=== PATIENT | female | born 1930 | race Hispanic/Latino ===

== ENCOUNTER 2017-03-20 12:06 | Emergency (ER) | payer MEDICARE ==
[2017-03-20 12:06] VITALS: BMI 38.7
[2017-03-20 12:21] VITALS: BP 149/70; PULSE 71; RESP 16; TEMP 99; O2SAT 87
[2017-03-20] MEDS ORDERED: Iohexol 240 (50 ml) PO ONE (12:36)
[2017-03-20] MEDS ORDERED: Albuterol-Ipratrop 3 mg / 0.5 (3 ml) UD INH STA (12:36)
[2017-03-20] MEDS ORDERED: Albuterol-Ipratrop 3 mg / 0.5 (3 ml) UD ONE (13:10)
[2017-03-20 13:13] LABS: VENOUS BLOOD GAS BASE EXCESS 7.4 mmol/L (0.0-2.0); VENOUS BLOOD GAS PCO2 68 mmHg (40-60); VENOUS BLOOD PH 7.33 (7.32-7.43)
[2017-03-20 13:23] LABS: BASO % 0.4 % (0.0-2.0); EOS # 0.3 K/uL (0.0-0.7); EOS % 3.5 % (0.0-4.0); LYMPH # 0.9 K/uL (1.0-4.3); LYMPH % 11.6 % (20.0-40.0); MEAN CELL VOLUME 87.5 fl (81.0-99.0); MEAN CORPUSCULAR HEMOGLOBIN 27.3 pg (27.0-31.0); MEAN CORPUSCULAR HGB CONC 31.2 g/dL (33.0-37.0); MEAN PLATELET VOLUME 7.9 fl (7.2-11.7); MONO # 0.6 K/uL (0.0-0.8); MONO % 8.4 % (0.0-10.0); NEUT # 5.8 K/uL (1.8-7.0); NEUT % 76.1 % (50.0-75.0); RED CELL DISTRIBUTION WIDTH 15.5 % (11.5-14.5); WHITE BLOOD COUNT 7.6 K/uL (4.8-10.8)
--- NOTE | 2017-03-20 13:49 | ED PDOC ---
HPI: Abdomen Time Seen by Provider: 03/20/17 12:30 Chief Complaint (Nursing): Abdominal Pain Chief Complaint (Provider): Abdominal pain History Per: Patient History/Exam Limitations: no limitations Onset/Duration Of Symptoms: Worse Since (one week) Location Of Pain/Discomfort: Other (right flank) Quality Of Discomfort: Sharp (constant, and non-radiating) Associated Symptoms: denies: Fever, Vomiting, Diarrhea, Urinary Symptoms Additional Complaint(s): Patient is a 86 y/o female sent by Dr. Marquez for evaluation of sharp and constant right flank pain without radiation x1 week that is worse today. Of note , patient reports ongoing baseline shortness of breath, and is on nocturnal supplemental oxygen for chronic obstructive pulmonary disorder. Denies vomiting , diarrhea, fever, urinary symptoms, or other complaints. PCP: Dr. Marquez Past Medical History Reviewed: Historical Data, Nursing Documentation, Vital Signs Vital Signs: Last Vital Signs Temp 99.0 F 03/20/17 12:17 Pulse 71 03/20/17 12:17 Resp 16 03/20/17 12:17 BP 149/70 03/20/17 12:17 Pulse Ox 87 L 03/20/17 14:08 - Medical History PMH: Atrial Fibrillation (transient), COPD, Emphysema, Fractures (r ankle), HTN Denies: Diabetes, Chronic Kidney Disease - Surgical History Surgical History: Coronary Stent (x 2) Denies: Appendectomy - Family History Family History: States: Unknown Family Hx - Social History Current smoker - smoking cessation education provided: No Ex-Smoker (has not smoked in the last 12 months): Yes Alcohol: None Drugs: Denies - Home Medications Home Medications: Ambulatory Orders Medication Instructions Recorded Aspirin [Ecotrin] 81 mg PO DAILY 12/26/15 Atorvastatin [Lipitor] 80 mg PO HS 12/26/15 Bisoprolol [Zebeta] 2.5 mg PO DAILY 12/26/15 Clopidogrel [Plavix] 75 mg PO DAILY 12/26/15 Isosorbide Mononitrate ER [Imdur 30 mg PO DAILY 12/26/15 ER] Lisinopril [Zestril] 2.5 mg PO DAILY 12/26/15 Albuterol 0.083% [Albuterol 0.083% 3 ml IH Q6H PRN 04/11/16 Inhal Gerri (2.5 mg/3 ml) UD] Albuterol HFA [Ventolin HFA 90 2 puff IH Q4H PRN 04/11/16 mcg/actuation (8 g)] traMADol [Ultram] 50 mg PO TID PRN #12 tab 03/20/17 - Allergies Allergies/Adverse Reactions: Allergies Allergy/AdvReac Type Severity Reaction Status Date / Time Penicillins Allergy Mild SWELLING Verified 04/11/16 09:43 Review of Systems ROS Statement: Except As Marked, All Systems Reviewed And Found Negative Constitutional: Negative for: Fever Gastrointestinal: Negative for: Vomiting, Diarrhea Genitourinary Female: Negative for: Dysuria, Frequency, Hematuria Musculoskeletal: Positive for: Other (right flank pain) Physical Exam - Reviewed Nursing Documentation Reviewed: Yes Vital Signs Reviewed: Yes - Physical Exam Appears: Positive for: Uncomfortable Head Exam: Positive for: ATRAUMATIC, NORMAL INSPECTION, NORMOCEPHALIC Skin: Positive for: Normal Color, Warm, Dry (with no zoster lesions) Eye Exam: Positive for: Normal appearance Neck: Positive for: Normal Cardiovascular/Chest: Positive for: Regular Rate, Rhythm Respiratory: Positive for: Respiratory Distress (mild), Other (speaking full sentences). Negative for: Decreased Breath Sounds (bilaterally) Gastrointestinal/Abdominal: Positive for: Soft, Tenderness (mild right sided abdominal tenderness) Back: Positive for: Other (right flank tenderness) Extremity: Positive for: Normal ROM Neurologic/Psych: Positive for: Alert, Oriented (x3) - Laboratory Results Result Diagrams: 03/20/17 13:00 03/20/17 13:55 - ECG O2 Sat by Pulse Oximetry: 87 (RA) Pulse Ox Interpretation: Abnormal (hypoxic) Medical Decision Making Medical Decision Making: Time: 12:31 Initial impression: Abdominal pain Initial plan: CT Abdominal/pelvic Labs Chest X-Ray Toradol 15 mg IV Urinalysis Reevaluation My Comment : PROCEDURE: CT Abdomen and Pelvis with contrast HISTORY: R flank pain x1wk COMPARISON: None. TECHNIQUE: Contrast dose: 95 cc of Omnipaque 3 Radiation dose: Total exam DLP = 1027 mGy-cm. This CT exam was performed using one or more of the following dose reduction techniques: Automated exposure control, adjustment of the mA and/or kV according to patient size, and/or use of iterative reconstruction technique. FINDINGS: LOWER THORAX: Unremarkable. LIVER: Unremarkable. No gross lesion or ductal dilatation. GALLBLADDER AND BILE DUCTS: Cholelithiasis. . PANCREAS: Unremarkable. No gross lesion or ductal dilatation. SPLEEN: Unremarkable. ADRENALS: Unremarkable. No mass. KIDNEYS AND URETERS: Unremarkable. No hydronephrosis. No solid mass. VASCULATURE: Unremarkable. No aortic aneurysm. BOWEL: Unremarkable. No obstruction. No gross mural thickening. APPENDIX: Normal appendix. PERITONEUM: Unremarkable. No free fluid. No free air. LYMPH NODES: Unremarkable. No enlarged lymph nodes. BLADDER: Unremarkable. REPRODUCTIVE: Unremarkable. BONES: No acute fracture. OTHER FINDINGS: None. IMPRESSION: Cholelithiasis. Per Dr Zamora radiologist 5pm PMD Dr Marquez paged to inform 6PM D/W Dr Marquez, given normal LFTs, normal WBC, no fever, can be discharged to followup outpatient. Rx tramadol. Pt offered admission for evaluation by surgeon but prefers to go home. Explained risk of delayed surgery of gallstones can be significant. Scribe Attestation: Documented by Elba Matute, acting as a scribe for Main Mccormick DO. Provider Scribe Attestation: All medical record entries made by the Scribe were at my direction and personally dictated by me. I have reviewed the chart and agree that the record accurately reflects my personal performance of the history, physical exam, medical decision making, and the department course for this patient. I have also personally directed, reviewed, and agree with the discharge instructions and disposition. Disposition - Clinical Impression Clinical Impression: Cholelithiases - Patient ED Disposition Is Patient to be Admitted: No Counseled Patient/Family Regarding: Studies Performed, Diagnosis, Need For Followup, Rx Given - Disposition Disposition: Routine/Home Disposition Time: 16:50 Condition: FAIR Forms: [employer] ([place])
[2017-03-20 14:15] LABS: ALB/GLOB RATIO 1.3 (1.0-2.1); ALKALINE PHOSPHATASE 112 U/L (38-126); ALT/SGPT 30 U/L (9-52); AST/SGOT 22 U/L (14-36); BILIRUBIN,TOTAL 0.5 mg/dl (0.2-1.3); BLOOD UREA NITROGEN 18 mg/dl (7-17); CALCIUM 8.9 mg/dL (8.4-10.2); CARBON DIOXIDE 30 mmol/L (22-30); CHLORIDE 103 mmol/L (98-107); GFR AFRICAN-AMERICAN > 60; GLUCOSE,RANDOM 98 mg/dL (65-105); POTASSIUM 4.5 MMOL/L (3.6-5.0); SODIUM 141 mmol/l (132-148); TOTAL PROTEIN 6.4 G/DL (6.3-8.2)
[2017-03-20] MEDS ORDERED: Iohexol 300 100 ML IJ ONE (15:42)
[2017-03-20] MEDS ORDERED: Sodium Chloride 0.9% 50 ML IV ONE (15:42)
--- NOTE | 2017-03-20 16:15 | RAD ---
HISTORY: Chest pain. Infiltrate suspected. COMPARISON: 04/11/2016 TECHNIQUE: Chest PA and lateral FINDINGS: LUNGS: Hyperinflation, manifestations of COPD. No active pulmonary disease. Chronic interstitial lung disease. PLEURA: No significant pleural effusion identified. No pneumothorax apparent. CARDIOVASCULAR: Cardiomegaly. No evidence of acute, significant cardiovascular disease. OSSEOUS STRUCTURES: No significant abnormalities. VISUALIZED UPPER ABDOMEN: Normal. OTHER FINDINGS: None. IMPRESSION: No active disease. No significant interval change compared to the prior examination(s).
--- NOTE | 2017-03-20 17:08 | CT ---
PROCEDURE: CT Abdomen and Pelvis with contrast HISTORY: R flank pain x1wk COMPARISON: None. TECHNIQUE: Contrast dose: 95 cc of Omnipaque 3 Radiation dose: Total exam DLP = 1027 mGy-cm. This CT exam was performed using one or more of the following dose reduction techniques: Automated exposure control, adjustment of the mA and/or kV according to patient size, and/or use of iterative reconstruction technique. FINDINGS: LOWER THORAX: Unremarkable. LIVER: Unremarkable. No gross lesion or ductal dilatation. GALLBLADDER AND BILE DUCTS: Cholelithiasis. . PANCREAS: Unremarkable. No gross lesion or ductal dilatation. SPLEEN: Unremarkable. ADRENALS: Unremarkable. No mass. KIDNEYS AND URETERS: Unremarkable. No hydronephrosis. No solid mass. VASCULATURE: Unremarkable. No aortic aneurysm. BOWEL: Unremarkable. No obstruction. No gross mural thickening. APPENDIX: Normal appendix. PERITONEUM: Unremarkable. No free fluid. No free air. LYMPH NODES: Unremarkable. No enlarged lymph nodes. BLADDER: Unremarkable. REPRODUCTIVE: Unremarkable. BONES: No acute fracture. OTHER FINDINGS: None. IMPRESSION: Cholelithiasis.
== END 2017-03-20 18:31 | disposition home or self-care (01) ==
LOC: H.ER 12:06
DX: K80.20 Calculus of gallbladder without cholecystitis without obstruction (principal); I10 Essential (primary) hypertension; Z79.82 Long term (current) use of aspirin; Z88.0 Allergy status to penicillin; Z95.5 Presence of coronary angioplasty implant and graft
CPT/HCPCS: 71020; 74177; 80053; 82803; 84484; 85025; 96374; 99282; J1885; Q9966; Q9967

== ENCOUNTER 2017-03-22 12:11 | Inpatient (IN) | payer MEDICARE ==
[2017-03-22 12:11] VITALS: BMI 38.7
[2017-03-22] MEDS ORDERED: Sodium Chloride 0.9% 500 ML IV STA (12:41)
--- NOTE | 2017-03-22 12:45 | ED PDOC ---
HPI: Abdomen Time Seen by Provider: 03/22/17 12:27 Chief Complaint (Nursing): Abdominal Pain Chief Complaint (Provider): Abd pain History Per: Patient History/Exam Limitations: no limitations Onset/Duration Of Symptoms: Days Additional History Per: Patient Additional Complaint(s): Pt. with abd pain RUQ and dx with gallstones few days ago. Did not want to stay in the hospital and wanted to fu with a surgeon at [facility]. Pt. is back as pain has returned. Has nause, vomit. No weakness, dizziness, headaches, chest pain. Has chronic dyspnea, same as previous. PCP Jimmy. Past Medical History Vital Signs: Last Vital Signs Temp 97.6 F 03/22/17 12:17 Pulse 69 03/22/17 12:17 Resp 18 03/22/17 12:17 BP 135/73 03/22/17 12:17 Pulse Ox - Medical History PMH: Atrial Fibrillation (transient), COPD, Emphysema, Fractures (r ankle), HTN Denies: Diabetes, Chronic Kidney Disease - Surgical History Surgical History: Coronary Stent (x 2) Denies: Appendectomy - Family History Family History: States: Unknown Family Hx - Living Arrangements Living Arrangements: With Family - Social History Current smoker - smoking cessation education provided: No Alcohol: None Drugs: Denies - Home Medications Home Medications: Ambulatory Orders Medication Instructions Recorded Aspirin [Ecotrin] 81 mg PO DAILY 12/26/15 Atorvastatin [Lipitor] 80 mg PO HS 12/26/15 Bisoprolol [Zebeta] 2.5 mg PO DAILY 12/26/15 Clopidogrel [Plavix] 75 mg PO DAILY 12/26/15 Isosorbide Mononitrate ER [Imdur 30 mg PO DAILY 12/26/15 ER] Lisinopril [Zestril] 2.5 mg PO DAILY 12/26/15 Albuterol HFA [Ventolin HFA 90 2 puff IH Q4H PRN 04/11/16 mcg/actuation (8 g)] traMADol [Ultram] 50 mg PO TID PRN #12 tab 03/20/17 - Allergies Allergies/Adverse Reactions: Allergies Allergy/AdvReac Type Severity Reaction Status Date / Time Penicillins Allergy Mild SWELLING Verified 04/11/16 09:43 Review of Systems ROS Statement: Except As Marked, All Systems Reviewed And Found Negative Gastrointestinal: Positive for: Nausea, Vomiting, Abdominal Pain Physical Exam - Reviewed Nursing Documentation Reviewed: Yes Vital Signs Reviewed: Yes - Physical Exam Appears: Positive for: Non-toxic, No Acute Distress Head Exam: Positive for: ATRAUMATIC, NORMAL INSPECTION, NORMOCEPHALIC Skin: Positive for: Normal Color, Warm, DRY Eye Exam: Positive for: EOMI, Normal appearance, PERRL ENT: Positive for: Normal ENT Inspection Neck: Positive for: Normal, Painless ROM Cardiovascular/Chest: Positive for: Regular Rate, Rhythm Respiratory: Positive for: CNT, Normal Breath Sounds Gastrointestinal/Abdominal: Positive for: Bowel Sounds, Soft, Tenderness (RUQ), Guarding (mild). Negative for: Distended Back: Positive for: Normal Inspection. Negative for: L CVA Tenderness, R CVA Tenderness Extremity: Positive for: Normal ROM. Negative for: Tenderness, Pedal Edema Neurologic/Psych: Positive for: Alert, Oriented - Laboratory Results Result Diagrams: 03/22/17 12:30 03/22/17 12:30 Interpretation Of Abn Labs: no acute - ECG ECG: Positive for: Interpreted By Me, Viewed By Me ECG Rhythm: Positive for: Normal QRS, Normal ST Segment, Sinus Rhythm - CT Scan/US US Other Rad Studies (CT/US): Read By Radiologist Other Rad Interpretation: stones - Progress ED Course And Treament: 1440: Stable. AAOx3. Pain controlled. Spoke with Dr. Marquez who wants Dr. Ventura and hospitalist for admit. Spoke with hospitalist, will admit. Spoke with Dr. Blum, covering Dr. Ventura. Disposition - Clinical Impression Clinical Impression: Cholelithiases - Patient ED Disposition Is Patient to be Admitted: Yes Counseled Patient/Family Regarding: Studies Performed, Diagnosis - Disposition Disposition Time: 14:46 Condition: FAIR - Pt Status Changed To: Hospital Disposition Of: Inpatient - Admit Certification Admit to Inpatient:: After my assessment, the patient will require hospitalization for at least two midnights. This is because of the severity of symptoms shown, intensity of services needed, and/or the medical risk in this patient being treated as an outpatient. - POA Present On Arrival: None
[2017-03-22 12:56] LABS: VENOUS BLOOD GAS BASE EXCESS 9.6 mmol/L (0.0-2.0); VENOUS BLOOD GAS PCO2 35 mmHg (40-60); VENOUS BLOOD PH 7.57 (7.32-7.43)
[2017-03-22 12:58] LABS: BASO % 0.5 % (0.0-2.0); EOS # 0.2 K/uL (0.0-0.7); HEMATOCRIT 40.1 % (34.0-47.0); LYMPH # 0.7 K/uL (1.0-4.3); LYMPH % 8.1 % (20.0-40.0); MEAN CELL VOLUME 88.4 fl (81.0-99.0); MEAN CORPUSCULAR HEMOGLOBIN 27.7 pg (27.0-31.0); MEAN CORPUSCULAR HGB CONC 31.3 g/dL (33.0-37.0); MEAN PLATELET VOLUME 7.9 fl (7.2-11.7); MONO # 0.6 K/uL (0.0-0.8); MONO % 7.4 % (0.0-10.0); NEUT # 6.9 K/uL (1.8-7.0); PLATELET COUNT 213 K/uL (130-400); RED CELL DISTRIBUTION WIDTH 14.9 % (11.5-14.5); WHITE BLOOD COUNT 8.4 K/uL (4.8-10.8)
[2017-03-22 13:15] LABS: PARTIAL THROMBOPLASTIN TIME 33.8 Seconds (25.6-37.1)
[2017-03-22 13:31] LABS: ALB/GLOB RATIO 1.3 (1.0-2.1); ALKALINE PHOSPHATASE 108 U/L (38-126); ALT/SGPT 34 U/L (9-52); AST/SGOT 32 U/L (14-36); BILIRUBIN,TOTAL 0.5 mg/dl (0.2-1.3); BLOOD UREA NITROGEN 18 mg/dl (7-17); CALCIUM 9.2 mg/dL (8.4-10.2); CARBON DIOXIDE 29 mmol/L (22-30); CHLORIDE 102 mmol/L (98-107); GFR AFRICAN-AMERICAN > 60; GLUCOSE,RANDOM 111 mg/dL (65-105); LIPASE 29 U/L (23-300); POTASSIUM 4.4 MMOL/L (3.6-5.0); SODIUM 141 mmol/l (132-148); TOTAL PROTEIN 6.6 G/DL (6.3-8.2)
--- NOTE | 2017-03-22 14:06 | US ---
HISTORY: Abdominal pain. Rule out gallstone COMPARISON: Comparison made with CT scan abdomen and pelvis 03/20/2017 TECHNIQUE: Sonographic evaluation of the right upper quadrant of the abdomen. FINDINGS: LIVER: Measures approximately 15.7 cm in length. . Smooth contour however slight increased echogenicity of the liver parenchyma likely representing fatty hepatic infiltration. Other infiltrative hepatocellular disease process not completely excluded. . No mass. No intrahepatic bile duct dilatation. GALLBLADDER: Current study re- demonstrates multiple intraluminal gallbladder calculi which exhibit posterior acoustic shadowing. Additionally, there also appears to be intraluminal gallbladder sludge. No obvious pericholecystic fluid collections COMMON BILE DUCT: Measures 5.14 mm. No stones. No dilatation. PANCREAS: Unremarkable as visualized. No mass. No ductal dilatation. RIGHT KIDNEY: Measures approximately 10.8 x 4.2 x 4.7 cm in length. Normal echogenicity. No calculus, mass, or hydronephrosis. AORTA: No aneurysmal dilatation. IVC: Unremarkable. OTHER FINDINGS: None . IMPRESSION: Cholelithiasis. No evidence of pericholecystic fluid collections. Common bile duct measures approximately 5 mm.
[2017-03-22 14:17] LABS: EOSINOPHIL 1 % (0-7); NEUTROPHIL 81 % (42-75); TOTAL CELLS COUNTED 100
[2017-03-22 14:18] LABS: LARGE PLATELETS PRESENT
[2017-03-22] MEDS ORDERED: Sodium Chloride 0.9% 1,000 ML IV SCH (15:30)
--- NOTE | 2017-03-22 15:35 | CP.PCM.HP ---
History of Present Illness - History of Present Illness History of Present Illness: 86 yo female with history of CAD (2 stents 4 yrs ago), AFib (paroxysmal), COPD ( oxygen dependent) and HTN was seen yesterday in the ER because of on and off RUQ pain since a week ago. She was advised admission but patient said she would rather follow up with the surgeon the next day. Came back today because pain had not improved and now accompanied with nausea and vomiting. Denied fever, chills, chest pain or SOB. Present on Admission - Present on Admission Any Indicators Present on Admission: No History of DVT/PE: No History of Uncontrolled Diabetes: No Urinary Catheter: No Decubitus Ulcer Present: No Review of Systems - Review of Systems All systems: reviewed and no additional remarkable complaints except (aside from those mentioned above, 12 point system review were negative by me) Past Patient History - Infectious Disease Hx of Infectious Diseases: None - Tetanus Immunizations Tetanus Immunization: Unknown - Past Medical History & Family History Past Medical History?: Yes - Past Social History Smoking Status: Former Smoker Alcohol: None Drugs: Denies Home Situation {Lives}: Alone - CARDIAC Hx Atrial Fibrillation: Yes (transient) Hx Hypertension: Yes - PULMONARY Hx Chronic Obstructive Pulmonary Disease (COPD): Yes Hx Emphysema: Yes - NEUROLOGICAL Hx Neurological Disorder: No - HEENT Hx HEENT Problems: No - RENAL Hx Chronic Kidney Disease: No - ENDOCRINE/METABOLIC Hx Endocrine Disorders: No - HEMATOLOGICAL/ONCOLOGICAL Hx Blood Disorders: No - INTEGUMENTARY Hx Dermatological Problems: No - MUSCULOSKELETAL/RHEUMATOLOGICAL Hx Fractures: Yes (r ankle) - GASTROINTESTINAL Hx Gastrointestinal Disorders: No - GENITOURINARY/GYNECOLOGICAL Hx Genitourinary Disorders: Yes Hx Incontinence: Yes (stress) - PSYCHIATRIC Hx Psychophysiologic Disorder: No Hx Substance Use: No - SURGICAL HISTORY Hx Appendectomy: No Hx Coronary Stent: Yes (x 2) - ANESTHESIA Hx Anesthesia: Yes Hx Anesthesia Reactions: No Hx Malignant Hyperthermia: No Meds Allergies/Adverse Reactions: Allergies Allergy/AdvReac Type Severity Reaction Status Date / Time Penicillins Allergy Mild SWELLING Verified 04/11/16 09:43 Physical Exam - Constitutional Appears: No Acute Distress - Head Exam Head Exam: ATRAUMATIC - Eye Exam Eye Exam: absent: Scleral icterus - ENT Exam ENT Exam: Mucous Membranes Moist - Neck Exam Neck exam: Negative for: Meningismus - Respiratory Exam Respiratory Exam: Decreased Breath Sounds, Rhonchi, Wheezes. absent: Respiratory Distress - Cardiovascular Exam Cardiovascular Exam: REGULAR RHYTHM, +S1, +S2 - GI/Abdominal Exam GI & Abdominal Exam: Diminished Bowel Sounds, Soft. absent: Tenderness - Rectal Exam Rectal Exam: Deferred - Extremities Exam Extremities exam: Positive for: pedal edema (slight erythema and swelling of both legs). Negative for: calf tenderness - Neurological Exam Neurological exam: Alert, Oriented x3 - Psychiatric Exam Psychiatric exam: Anxious - Skin Skin Exam: Dry, Intact Results - Vital Signs Recent Vital Signs: Last Vital Signs Temp 97.6 F 03/22/17 12:17 Pulse 69 03/22/17 12:17 Resp 18 03/22/17 12:17 BP 135/73 03/22/17 12:17 Pulse Ox - Labs Result Diagrams: 03/22/17 12:30 03/22/17 12:30 Labs: Laboratory Results - last 24 hr 03/22/17 03/22/17 03/22/17 12:30 12:30 12:30 WBC 8.4 RBC 4.54 Hgb 12.6 Hct 40.1 MCV 88.4 MCH 27.7 MCHC 31.3 L RDW 14.9 H Plt Count 213 MPV 7.9 Neut % (Auto) 82.0 H Lymph % (Auto) 8.1 L Harris % (Auto) 7.4 Eos % (Auto) 2.0 Baso % (Auto) 0.5 Neut # 6.9 Lymph # 0.7 L Harris # 0.6 Eos # 0.2 Baso # 0.0 Neutrophils % (Manual) 81 H Band Neutrophils % 1 Lymphocytes % (Manual) 9 L Monocytes % (Manual) 8 Eosinophils % (Manual) 1 Platelet Estimate Normal Large Platelets Present Poikilocytosis (manual Slight Anisocytosis (manual) Slight Ovalocytes Slight PT 11.9 INR 1.2 APTT 33.8 pO2 VBG pH VBG pCO2 VBG HCO3 VBG Total CO2 VBG O2 Sat (Calc) VBG Base Excess VBG Potassium Glucose Lactate FiO2 Sodium 141 Potassium 4.4 Chloride 102 Carbon Dioxide 29 Anion Gap 14 BUN 18 H Creatinine 0.5 L Est GFR ( Amer) > 60 Est GFR (Non-Af Amer) > 60 Random Glucose 111 H Calcium 9.2 Total Bilirubin 0.5 AST 32 ALT 34 Alkaline Phosphatase 108 Troponin I < 0.0120 NT-Pro-B Natriuret Pep 504 Total Protein 6.6 Albumin 3.7 Globulin 2.9 Albumin/Globulin Ratio 1.3 Lipase 29 Venous Blood Potassium 03/22/17 12:50 WBC RBC Hgb Hct MCV MCH MCHC RDW Plt Count MPV Neut % (Auto) Lymph % (Auto) Harris % (Auto) Eos % (Auto) Baso % (Auto) Neut # Lymph # Harris # Eos # Baso # Neutrophils % (Manual) Band Neutrophils % Lymphocytes % (Manual) Monocytes % (Manual) Eosinophils % (Manual) Platelet Estimate Large Platelets Poikilocytosis (manual Anisocytosis (manual) Ovalocytes PT INR APTT pO2 30 VBG pH 7.57 H VBG pCO2 35 L VBG HCO3 31.7 VBG Total CO2 33.2 H VBG O2 Sat (Calc) 77.6 H VBG Base Excess 9.6 H VBG Potassium 5.5 H Glucose 65 Lactate 1.4 FiO2 21.0 Sodium Potassium Chloride 129.0 H Carbon Dioxide Anion Gap BUN Creatinine Est GFR ( Amer) Est GFR (Non-Af Amer) Random Glucose Calcium Total Bilirubin AST ALT Alkaline Phosphatase Troponin I NT-Pro-B Natriuret Pep Total Protein Albumin Globulin Albumin/Globulin Ratio Lipase Venous Blood Potassium 5.5 H Assessment & Plan (1) Abdominal pain Status: Acute Comment: admit in med/surg. surgical consult with Dr Blum. keep NPO. start IVF with NSS at 80cc/hr. cardiology consult with Dr Rincon for possible need of cardiac clearance. Morphine 2mg IV q 6hrs prn for pain (2) Cholelithiases Status: Acute Comment: abdominal pain secondary to gallstone (3) COPD exacerbation Status: Chronic Priority: High Comment: continue O2 supplement via NC at 2LPM. Duoneb via nebulizer q 4hrs prn for SOB/wheezing (4) CAD (coronary artery disease) Status: Chronic Priority: High Comment: no chest pain. ASA 81mg PO daily. Plavix 75mg PO daily. Lipitor 80mg PO HS. Zebeta 2.5mg PO daily. Isosorbide Mononitrate 30mg PO daily (5) Hypertension Status: Chronic Priority: High Comment: BP controlled. continue Lisinopril 2.5mg PO daily. Zebeta 2.5mg PO daily. Isosorbide Mononitrate 30mg PO daily (6) Afib Status: Acute Comment: presently in sinus and well controlled rate. on Plavix 57mg PO daily. ASA 81mg PO daily (7) DVT prophylaxis Status: Acute Comment: venodyne boots while on bed
--- NOTE | 2017-03-22 15:44 | CP.PCM.CON ---
History of Present Illness - History of Present Illness History of Present Illness: General SUrgery- Dr. Blum 86F PMH of COPD on supplemental oxygen presents to the ED with sharp RUQ pain initially started two weeks ago pain radiating to the back. Pt recently came into the ED a couple of days ago showing gallstones. Late last night pt had multiple NBNB emesis. Denies Fevers, chills, CP, Diarrhea, numbness or tingling in the extremities. chronic dyspnea. PMH: CAD, COPD PSH: Cardiac Stents x2 ALL: PCN SocialHx: former smoker Review of Systems - Review of Systems All systems: reviewed and no additional remarkable complaints except - Constitutional Constitutional: As Per HPI Past Patient History - Infectious Disease Hx of Infectious Diseases: None - Tetanus Immunizations Tetanus Immunization: Unknown - Past Medical History & Family History Past Medical History?: Yes - Past Social History Smoking Status: Former Smoker Alcohol: None Drugs: Denies Home Situation {Lives}: Alone - CARDIAC Hx Atrial Fibrillation: Yes (transient) Hx Hypertension: Yes - PULMONARY Hx Chronic Obstructive Pulmonary Disease (COPD): Yes Hx Emphysema: Yes - NEUROLOGICAL Hx Neurological Disorder: No - HEENT Hx HEENT Problems: No - RENAL Hx Chronic Kidney Disease: No - ENDOCRINE/METABOLIC Hx Endocrine Disorders: No - HEMATOLOGICAL/ONCOLOGICAL Hx Blood Disorders: No - INTEGUMENTARY Hx Dermatological Problems: No - MUSCULOSKELETAL/RHEUMATOLOGICAL Hx Fractures: Yes (r ankle) - GASTROINTESTINAL Hx Gastrointestinal Disorders: No - GENITOURINARY/GYNECOLOGICAL Hx Genitourinary Disorders: Yes Hx Incontinence: Yes (stress) - PSYCHIATRIC Hx Psychophysiologic Disorder: No Hx Substance Use: No - SURGICAL HISTORY Hx Appendectomy: No Hx Coronary Stent: Yes (x 2) - ANESTHESIA Hx Anesthesia: Yes Hx Anesthesia Reactions: No Hx Malignant Hyperthermia: No Meds Allergies/Adverse Reactions: Allergies Allergy/AdvReac Type Severity Reaction Status Date / Time Penicillins Allergy Mild SWELLING Verified 04/11/16 09:43 - Medications Medications: Current Medications Sodium Chloride (Sodium Chloride 0.9%) 500 mls @ 100 mls/hr IV .Q5H STA Stop: 03/22/17 17:40 Last Admin: 03/22/17 12:51 Dose: 100 mls/hr Sodium Chloride (Sodium Chloride 0.9%) 1,000 mls @ 80 mls/hr IV .[id number] KADEN Morphine Sulfate (Morphine) 2 mg IVP Q6 PRN PRN Reason: Pain, moderate (4-7) Physical Exam - Constitutional Appears: No Acute Distress - Neck Exam Additional comments: Dentures in place - Respiratory Exam Respiratory Exam: Decreased Breath Sounds, Prolonged Expiratory Phase, Wheezes, NORMAL BREATHING PATTERN. absent: Accessory Muscle Use Additional comments: Oxygen NC - Cardiovascular Exam Cardiovascular Exam: +S1, +S2 - GI/Abdominal Exam GI & Abdominal Exam: Soft, Tenderness. absent: Distended, Guarding, Hernia, Rigid Additional comments: TTP lateral RUQ - Extremities Exam Additional comments: +2 DP b/l - Neurological Exam Neurological exam: Alert, Oriented x3 Results - Vital Signs Recent Vital Signs: Last Vital Signs Temp 97.6 F 03/22/17 12:17 Pulse 69 03/22/17 12:17 Resp 18 03/22/17 12:17 BP 135/73 03/22/17 12:17 Pulse Ox - Labs Result Diagrams: 03/22/17 12:30 03/22/17 12:30 Assessment & Plan - Assessment and Plan (Free Text) Assessment: 86F RUQ pain w/ cholelithiasis Plan: - IVF/abx - NPO - GI/DVT ppx - HIDA scan - further recs per Dr. Kulwant Melo PGY1
[2017-03-22] MEDS ORDERED: Albuterol HFA 90 mcg/actuation (8 g) IH PRN (18:40)
[2017-03-22] MEDS ORDERED: Ciprofloxacin 400mg/200ml D5W 400 MG/200 ML BAG IVPB ONE (19:21)
[2017-03-22] MEDS: Ciprofloxacin 400mg/200ml D5W 400 MG/200 ML BAG IVPB SCH ×2 (19:22→21:19)
[2017-03-23 06:22] LABS: BASO % 0.3 % (0.0-2.0); EOS # 0.1 K/uL (0.0-0.7); EOS % 1.6 % (0.0-4.0); HEMATOCRIT 37.7 % (34.0-47.0); LYMPH # 0.8 K/uL (1.0-4.3); LYMPH % 11.5 % (20.0-40.0); MEAN CELL VOLUME 89.4 fl (81.0-99.0); MEAN CORPUSCULAR HGB CONC 31.3 g/dL (33.0-37.0); MEAN PLATELET VOLUME 7.8 fl (7.2-11.7); MONO # 0.7 K/uL (0.0-0.8); MONO % 9.6 % (0.0-10.0); NEUT # 5.5 K/uL (1.8-7.0); NRBC % 0.1 % (0.0-0.0); RED CELL DISTRIBUTION WIDTH 15.4 % (11.5-14.5); WHITE BLOOD COUNT 7.2 K/uL (4.8-10.8)
[2017-03-23 06:25] LABS: BLOOD UREA NITROGEN 18 mg/dl (7-17); CALCIUM 8.6 mg/dL (8.4-10.2); CARBON DIOXIDE 32 mmol/L (22-30); CHLORIDE 102 mmol/L (98-107); GFR AFRICAN-AMERICAN > 60; GLUCOSE,RANDOM 97 mg/dL (65-105); POTASSIUM 4.4 MMOL/L (3.6-5.0); SODIUM 141 mmol/l (132-148)
--- NOTE | 2017-03-23 08:41 | CP.PCM.PN ---
Subjective - Date & Time of Evaluation Date of Evaluation: 03/23/17 Time of Evaluation: 07:40 - Subjective Subjective: Patient seen and examined this AM. RAGHAV. Patient states that her pain is improving--only intermittant at this time. No nausea, vomiting, or fevers. Would like to eat. Objective - Vital Signs/Intake and Output Vital Signs (last 24 hours): Temp Pulse Resp BP Pulse Ox 97.9 F 74 18 158/70 H 89 L 03/23/17 07:32 03/23/17 07:32 03/23/17 07:32 03/23/17 07:32 03/23/17 07:32 - Medications Medications: Current Medications Albuterol (Ventolin Hfa 90 Mcg/Actuation (8 G)) 2 puff IH Q4H PRN PRN Reason: Shortness of Breath Albuterol/Ipratropium (Duoneb 3 Mg/0.5 Mg (3 Ml) Ud) 3 ml INH RQID [facility] Sodium Chloride (Sodium Chloride 0.9%) 1,000 mls @ 80 mls/hr [id number] Last Admin: 03/22/17 15:45 Dose: 80 mls/hr Ciprofloxacin (Cipro 400mg/200ml Dsw) 400 mg in 200 mls @ 200 mls/hr IVPB Q12 [facility] Last Admin: 03/22/17 21:19 Dose: Not Given Morphine Sulfate (Morphine) 2 mg IVP Q6 PRN PRN Reason: Pain, moderate (4-7) Ondansetron HCl (Zofran Inj) 4 mg IVP Q4 PRN PRN Reason: Nausea/Vomiting Last Admin: 03/22/17 20:42 Dose: 4 mg - Labs Labs: 03/23/17 04:00 03/23/17 06:00 PT 11.9 Seconds (9.8-13.1) 03/22/17 12:30 INR 1.2 (0.9-1.2) 03/22/17 12:30 APTT 33.8 Seconds (25.6-37.1) 03/22/17 12:30 - Constitutional Appears: Non-toxic, No Acute Distress - Head Exam Head Exam: ATRAUMATIC, NORMOCEPHALIC - Eye Exam Eye Exam: Normal appearance. absent: Conjunctival injection, Scleral icterus - ENT Exam ENT Exam: Mucous Membranes Moist, Normal Oropharynx - Respiratory Exam Respiratory Exam: NORMAL BREATHING PATTERN. absent: Accessory Muscle Use, Respiratory Distress - Cardiovascular Exam Cardiovascular Exam: RRR - GI/Abdominal Exam GI & Abdominal Exam: Soft, Tenderness (RUQ and epigastrium). absent: Distended - Extremities Exam Extremities Exam: Pedal Edema (trace). absent: Calf Tenderness, Tenderness - Neurological Exam Neurological Exam: Alert, Awake, Oriented x3 - Psychiatric Exam Psychiatric exam: Normal Affect, Normal Mood - Skin Skin Exam: Dry, Normal Color, Warm Assessment and Plan - Assessment and Plan (Free Text) Assessment: 86F RUQ pain w/ cholelithiasis Plan: - IVF/abx - CLD as tolerated - GI/DVT ppx - HIDA scan on Saturday - Encourage ambulation - further recs per Dr. Blum
--- NOTE | 2017-03-23 08:41 | CARD ---
APPROVED REPORT EKG Measurement Heart [id number] <Conclusion> Normal sinus rhythm Nonspecific ST and T wave abnormality Abnormal ECG
[2017-03-23 09:20] LABS: ALB/GLOB RATIO 1.3 (1.0-2.1); ALKALINE PHOSPHATASE 102 U/L (38-126); ALT/SGPT 29 U/L (9-52); AST/SGOT 34 U/L (14-36); BILIRUBIN,TOTAL 0.4 mg/dl (0.2-1.3); BLOOD UREA NITROGEN 18 mg/dl (7-17); CALCIUM 8.7 mg/dL (8.4-10.2); CARBON DIOXIDE 30 mmol/L (22-30); CHLORIDE 103 mmol/L (98-107); GFR AFRICAN-AMERICAN > 60; GLUCOSE,RANDOM 96 mg/dL (65-105); POTASSIUM 4.4 MMOL/L (3.6-5.0); SODIUM 140 mmol/l (132-148); TOTAL PROTEIN 6.2 G/DL (6.3-8.2)
[2017-03-23] MEDS: Albuterol-Ipratrop 3 mg / 0.5 (3 ml) UD INH SCH ×4 (10:29→19:08)
--- NOTE | 2017-03-23 10:33 | CARD ---
APPROVED REPORT EXAM: Two-dimensional and M-mode echocardiogram with Doppler and color Doppler. Other Information Quality : GoodRhythm : NSR INDICATION Pre-Op 2D DIMENSIONS Left Atrium (2D)3.96 (1.6-4.0cm)IVSd0.78 (0.7-1.1cm) Aortic Root (2D)3.39 (2.0-3.7cm)LVDd4.56 (3.9-5.9cm) LVOT Diameter2.02 (1.8-2.4cm)PWd1.09 (0.7-1.1cm) IVSs1.21 (0.8-1.2cm)LVDs3.84 (2.5-4.0cm) PWs1.24 (0.8-1.2cm) M-Mode DIMENSIONS Left Atrium (MM)4.80 (2.5-4.0cm)IVSd1.32 (0.7-1.1cm) Aortic Root3.08 (2.2-3.7cm)LVDd4.64 (4.0-5.6cm) Aortic Cusp Exc.1.88 (1.5-2.0cm)PWd1.20 (0.7-1.1cm) IVSs1.28 cmFS (%) 40 % LVDs2.80 (2.0-3.8cm)PWs1.60 cm Mitral Valve MV E Fsjuqrek855.8cm/sMV E Peak Gr.64mmHgMV DECEL [id number] MV A Nukghrjs968.3cm/sMV FNZ97nkC/A ratio1.0 MVA (PHT)4.63cm2 TDI Lateral E' Peak V8.07cm/sMedial E' Peak V10.02cm/sE/Lateral E'13.5 E/Medial E'10.9 Pulmonary Valve PV Peak Qqriucwd127.3cm/s Tricuspid Valve TR Peak Qwxflvtk903wp/sRAP MWSXBJME48egMdSS Peak Gr.45mmHg [id number] LEFT VENTRICLE The left ventricle is normal size. There is normal left ventricular wall thickness. Left ventricle systolic function is borderline. The Ejection Fraction is 50-55%. Adequate regional wall motion. Transmitral Doppler flow pattern is Grade I-abnormal relaxation pattern. RIGHT VENTRICLE The right ventricle is normal size. There is normal right ventricular wall thickness. The right ventricular systolic function is normal. ATRIA The left atrium is moderately dilated. The right atrium is mildly dilated. AORTIC VALVE The aortic valve is normal in structure and function. No aortic regurgitation is present. There is no aortic valvular stenosis. MITRAL VALVE The mitral valve is normal in structure. There is no evidence of mitral valve prolapse. There is no mitral valve stenosis. Mitral regurgitation is moderate. TRICUSPID VALVE The tricuspid valve is normal in structure. There is moderate tricuspid regurgitation. Right ventricular systolic pressure is estimated at 74 mmHg. There is severe pulmonary hypertension. PULMONIC VALVE The pulmonary valve is normal in structure and function. There is trace pulmonic valvular regurgitation. GREAT VESSELS The aortic root is normal in size. The IVC is dilated. The IVC collapses <50% with inspiration. PERICARDIAL EFFUSION The pericardium appears normal. <Conclusion> The left ventricle is normal size. There is normal left ventricular wall thickness. Adequate regional wall motion. Left ventricle systolic function is borderline. The Ejection Fraction is 50-55%. Transmitral Doppler flow pattern is Grade I-abnormal relaxation pattern. The left atrium is moderately dilated. The right atrium is mildly dilated. Mitral regurgitation is moderate. There is moderate tricuspid regurgitation. There is severe pulmonary hypertension. The IVC is dilated. The IVC collapses <50% with inspiration.
--- NOTE | 2017-03-23 10:35 | CP.PCM.CON ---
History of Present Illness - History of Present Illness History of Present Illness: This 86 year old female, a former cigarette smoker, was seen in the office complaining of abdominal pain (right flank/right lower quadrant) on and off for over one week. She was referred to the emergency room where she was found to have cholelithiasis w/o signs of acute cholecystitis. Her pain improved with analgesics and she was released. The pain re-occurred, increased in intensity and was associated with nausea and vomiting prompting her return to the ER again the following day. She has past history CAD with [place] and had PTCA with stenting, transient atrial fibrillation, CHF, pneumonia, hypertension and COPD. Review of Systems - Review of Systems All systems: reviewed and no additional remarkable complaints except - Cardiovascular Cardiovascular: Leg Edema - Respiratory Respiratory: Dyspnea on Exertion - Gastrointestinal Gastrointestinal: As Per HPI, Abdominal Pain, Nausea, Vomiting - Integumentary Integumentary: Dry Skin, Swelling Past Patient History - Infectious Disease Hx of Infectious Diseases: None - Tetanus Immunizations Tetanus Immunization: Unknown - Past Medical History & Family History Past Medical History?: Yes Past Family History: Reviewed and not pertinent - Past Social History Smoking Status: Former Smoker (stopped 2012) Chewing Tobacco Use: No Cigar Use: No Alcohol: Social Drugs: Denies Home Situation {Lives}: Alone - CARDIAC Hx Atrial Fibrillation: Yes Hx Congestive Heart Failure: Yes Hx Heart Attack: Yes Hx Hypercholesterolemia: Yes Hx Hypertension: Yes Hx Peripheral Edema: Yes - PULMONARY Hx Chronic Obstructive Pulmonary Disease (COPD): Yes Hx Emphysema: Yes Hx Pneumonia: Yes - NEUROLOGICAL Hx Neurological Disorder: No - HEENT Hx HEENT Problems: No - RENAL Hx Chronic Kidney Disease: No - ENDOCRINE/METABOLIC Hx Endocrine Disorders: No 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 - MUSCULOSKELETAL/RHEUMATOLOGICAL Hx Falls: Yes Hx Fractures: Yes (right ankle) - GASTROINTESTINAL Hx Gastrointestinal Disorders: No - GENITOURINARY/GYNECOLOGICAL Hx Genitourinary Disorders: Yes Other/Comment: Stress Inc - PSYCHIATRIC Hx Psychophysiologic Disorder: No Hx Substance Use: No - SURGICAL HISTORY Hx Appendectomy: No Hx Coronary Stent: Yes (x 2) - ANESTHESIA Hx Anesthesia: Yes Hx Anesthesia Reactions: No Hx Malignant Hyperthermia: No Meds Allergies/Adverse Reactions: Allergies Allergy/AdvReac Type Severity Reaction Status Date / Time Penicillins Allergy Mild SWELLING Verified 04/11/16 09:43 - Medications Medications: Current Medications Albuterol (Ventolin Hfa 90 Mcg/Actuation (8 G)) 2 puff IH Q4H PRN PRN Reason: Shortness of Breath Albuterol/Ipratropium (Duoneb 3 Mg/0.5 Mg (3 Ml) Ud) 3 ml INH RQID [facility] Last Admin: 03/23/17 10:29 Dose: 3 ml Sodium Chloride (Sodium Chloride 0.9%) 1,000 mls @ 80 mls/hr IV .[id number] [facility] Last Admin: 03/22/17 15:45 Dose: 80 mls/hr Ciprofloxacin (Cipro 400mg/200ml Dsw) 400 mg in 200 mls @ 200 mls/hr IVPB Q12 [facility] Last Admin: 03/22/17 21:19 Dose: Not Given Morphine Sulfate (Morphine) 2 mg IVP Q6 PRN PRN Reason: Pain, moderate (4-7) Ondansetron HCl (Zofran Inj) 4 mg IVP Q4 PRN PRN Reason: Nausea/Vomiting Last Admin: 03/22/17 20:42 Dose: 4 mg Physical Exam - Additional Findings Additional findings: Well developed, overweight female seated in bedside chair. Pharynx is pink and moist, no exudate, Conjunctivae are pink w/o scleral icterus, LORRAINE. EAC's patent bilaterally with + cerumen. TM's intact. Nares patent bilaterally w/o bleeding or exudate. Neck is supple and trachea midline. No visible JVD, no carotid bruits. No palpable lymphadenopathy. Increased AP diameter of thorax, no dullness to percussion. Kyphotic dorsal spine. Breath sounds are diminished bilaterally w/o audible wheezing. Dry rales are present in the lower lobes bilaterally. No bronchial breathing or egophony. Few dependant sonorous rhonchi. Heart sounds are distant, rhythm is regular, no murmur. Abdomen is fleshy, soft with right flank and RLQ tenderness. Bowel sounds are present, no palpable mass. + dependant edema of both LE's with thickened/scaling epidermis. Speech is fluent, memory intact, CN intact. Results - Vital Signs Recent Vital Signs: Last Vital Signs Temp 97.9 F 03/23/17 09:15 Pulse 70 09/16/17 10:29 Resp 18 03/23/17 09:56 BP 158/70 H 03/23/17 07:32 Pulse Ox 91 L 03/23/17 09:56 - Labs Result Diagrams: 03/24/17 06:00 03/24/17 07:00 Labs: Laboratory Results - last 24 hr 03/23/17 03/23/17 03/23/17 04:00 06:00 08:40 WBC 7.2 RBC 4.22 Hgb 11.8 L Hct 37.7 MCV 89.4 MCH 28.0 MCHC 31.3 L RDW 15.4 H Plt Count 195 MPV 7.8 Neut % (Auto) 77.0 H Lymph % (Auto) 11.5 L Kern % (Auto) 9.6 Eos % (Auto) 1.6 Baso % (Auto) 0.3 Neut # 5.5 Lymph # 0.8 L Kern # 0.7 Eos # 0.1 Baso # 0.0 Sodium 141 140 Potassium 4.4 4.4 Chloride 102 103 Carbon Dioxide 32 H 30 Anion Gap 11 12 BUN 18 H 18 H Creatinine 0.6 L 0.6 L Est GFR ( Amer) > 60 > 60 Est GFR (Non-Af Amer) > 60 > 60 Random Glucose 97 96 Calcium 8.6 8.7 Total Bilirubin 0.4 AST 34 ALT 29 Alkaline Phosphatase 102 Total Protein 6.2 L Albumin 3.5 Globulin 2.7 Albumin/Globulin Ratio 1.3 Assessment & Plan (1) COPD (chronic obstructive pulmonary disease) Status: Chronic Priority: High (2) Pulmonary fibrosis, unspecified Status: Chronic Priority: High (3) Hypoxemia requiring supplemental oxygen Status: Chronic Priority: High (4) Abdominal pain Status: Acute Priority: High (5) Cholelithiases Status: Acute Priority: High (6) CAD (coronary artery disease) Status: Chronic Priority: High (7) Kyphosis (acquired) (postural) Status: Chronic Priority: High Comment: 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 Would continue same regimen in hospital as when home. Surgical evaluation regarding abdominal pain and potential cholecystectomy ongoing. Plan: Continue maintenance medications, antibiotics and DVT prophylaxis added. - Date & Time Date: 03/23/17 Time: 10:35
--- NOTE | 2017-03-23 11:34 | CP.PCM.PN ---
Subjective - Date & Time of Evaluation Date of Evaluation: 03/23/17 Time of Evaluation: 11:27 - Subjective Subjective: Pt doing well this morning. Will adjust pain medications, as patient had severe nausea and mild confusion. Severe COPD and PulmHTN, will keep pt on NC, on home O2 2L 12 hours PM. Vitals stable No acute distress Objective - Vital Signs/Intake and Output Vital Signs (last 24 hours): Temp Pulse Resp BP Pulse Ox 97.9 F 70 18 158/70 H 91 L 03/23/17 09:15 03/23/17 10:29 03/23/17 09:56 03/23/17 07:32 03/23/17 09:56 - Medications Medications: Current Medications Albuterol (Ventolin Hfa 90 Mcg/Actuation (8 G)) 2 puff IH Q4H PRN PRN Reason: Shortness of Breath Albuterol/Ipratropium (Duoneb 3 Mg/0.5 Mg (3 Ml) Ud) 3 ml INH RQID [facility] Last Admin: 03/23/17 10:29 Dose: 3 ml Famotidine (Pepcid) 20 mg PO BID [facility] Sodium Chloride (Sodium Chloride 0.9%) 1,000 mls @ 80 mls/hr IV .[id number] [facility] Last Admin: 03/22/17 15:45 Dose: 80 mls/hr Ciprofloxacin (Cipro 400mg/200ml Dsw) 400 mg in 200 mls @ 200 mls/hr IVPB Q12 [facility] Last Admin: 03/22/17 21:19 Dose: Not Given Lactic Acid (Lac-Hydrin 12% Cream (140 G)) 1 ea TOP BID [facility] Morphine Sulfate (Morphine) 2 mg IVP Q6 PRN PRN Reason: Pain, moderate (4-7) Ondansetron HCl (Zofran Inj) 4 mg IVP Q4 PRN PRN Reason: Nausea/Vomiting Last Admin: 03/22/17 20:42 Dose: 4 mg - Labs Labs: 03/23/17 04:00 03/23/17 08:40 PT 11.9 Seconds (9.8-13.1) 03/22/17 12:30 INR 1.2 (0.9-1.2) 03/22/17 12:30 APTT 33.8 Seconds (25.6-37.1) 03/22/17 12:30 - Constitutional Appears: Non-toxic, No Acute Distress - Head Exam Head Exam: ATRAUMATIC, NORMOCEPHALIC - Eye Exam Eye Exam: EOMI, Normal appearance, PERRL - ENT Exam ENT Exam: Mucous Membranes Moist, Normal Oropharynx - Respiratory Exam Respiratory Exam: Clear to Ausculation Bilateral, NORMAL BREATHING PATTERN. absent: Wheezes, Respiratory Distress - Cardiovascular Exam Cardiovascular Exam: RRR, +S1, +S2. absent: Gallop - GI/Abdominal Exam GI & Abdominal Exam: Soft, Normal Bowel Sounds, Organomegaly. absent: Tenderness, Mass - Extremities Exam Extremities Exam: Normal Capillary Refill, Normal Inspection - Back Exam Back Exam: absent: CVA tenderness (L), CVA tenderness (R) - Neurological Exam Neurological Exam: Alert, Awake - Psychiatric Exam Psychiatric exam: Normal Affect, Normal Mood - Skin Skin Exam: Dry, Warm Assessment and Plan - Assessment and Plan (Free Text) Plan: 86 yo female with history of CAD (2 stents 4 yrs ago), AFib (paroxysmal), COPD ( oxygen dependent) and HTN was seen in the ER because of on and off RUQ pain associated with nausea and vomiting for 7 days. Patient was found to be in COPD exacerbation in addition to cholelithiasis. Abd US showed cholelithiasis and CBD 5mm. Patient seen by surgery Dr. Blum, who is planning for HIDA scan and possible subsequent surgery. CLD for now with pain control. Optimization of respiratory status. Abdominal pain 2/2 Cholelithiases surgical consult with Dr Kulwant Vee 400 mg IVPB q12 Zofran 4 mg IVP Q4 PRN HIDA for Saturday, possible surgery next week Clear liquid diet D/C IVF with NSS at 80cc/hr Cardiology consult with Dr Rincon for possible need of cardiac clearance D/C Morphine 2mg IV q 6hrs prn for pain and switch to Toradol and monitor renal function COPD exacerbation with hypoxia on Home O2 continue O2 supplement via NC at 2LPM Home O2 2L for 12 hours overnight Duoneb via nebulizer q 4hrs prn for SOB/wheezing Pulmonary Hypertension ECHO: PulmHTN, RVSP 55mmHg, LA mod dilations, RA mild dilation EF 50-55%, diastolic dysfxn monitor hemodynamics CAD (coronary artery disease) HOLD ASA 81mg PO daily. HOLD Plavix 75mg PO daily. Lipitor 80mg PO HS. Zebeta 2.5mg PO daily. Isosorbide Mononitrate 30mg PO daily Hypertension BP controlled. continue Lisinopril 2.5mg PO daily. Zebeta 2.5mg PO daily. Isosorbide Mononitrate 30mg PO daily Afib presently in sinus and well controlled rate. HOLD Plavix 57mg PO daily. ASA 81mg PO daily for possible surgery GERD? Famotidine [Pepcid] 20 mg PO BID DVT prophylaxis venodyne boots while on bed LOVENOX to be held before surgery when scheduled
[2017-03-23] MEDS: Ciprofloxacin 400mg/200ml D5W 400 MG/200 ML BAG IVPB SCH ×2 (11:37→21:20)
[2017-03-23] MEDS: Enoxaparin 40 mg Syringe SC SCH (17:06)
[2017-03-23] MEDS: Ammonium Lactate 12% Cream (140 g) TOP SCH (17:06)
[2017-03-24 07:09] LABS: HEMATOCRIT 36.4 % (34.0-47.0); MEAN CORPUSCULAR HGB CONC 31.5 g/dL (33.0-37.0); RED CELL DISTRIBUTION WIDTH 15.3 % (11.5-14.5); WHITE BLOOD COUNT 7.7 K/uL (4.8-10.8)
[2017-03-24 07:23] LABS: ALB/GLOB RATIO 1.3 (1.0-2.1); ALKALINE PHOSPHATASE 106 U/L (38-126); ALT/SGPT 31 U/L (9-52); AST/SGOT 28 U/L (14-36); BILIRUBIN,TOTAL 0.6 mg/dl (0.2-1.3); BLOOD UREA NITROGEN 12 mg/dl (7-17); CALCIUM 8.7 mg/dL (8.4-10.2); CARBON DIOXIDE 38 mmol/L (22-30); CHLORIDE 97 mmol/L (98-107); GFR AFRICAN-AMERICAN > 60; GLUCOSE,RANDOM 103 mg/dL (65-105); POTASSIUM 4.4 MMOL/L (3.6-5.0); SODIUM 140 mmol/l (132-148)
[2017-03-24] MEDS: Albuterol-Ipratrop 3 mg / 0.5 (3 ml) UD INH SCH ×4 (08:00→19:48)
[2017-03-24] MEDS: Ammonium Lactate 12% Cream (140 g) TOP SCH ×2 (08:59→17:10)
[2017-03-24] MEDS: Ciprofloxacin 400mg/200ml D5W 400 MG/200 ML BAG IVPB SCH ×2 (08:59→20:57)
[2017-03-24] MEDS: Enoxaparin 40 mg Syringe SC SCH (08:59)
[2017-03-24 10:18] LABS: ABG ALLEN TEST YES; ARTERIAL BLOOD GAS HCO3 32.4 mmol/L (21-28); ARTERIAL BLOOD GAS O2 CAPACITY 15.8 mL/dL (16-24); ARTERIAL BLOOD GAS O2 CONTENT 14.4 ML/dL (15-23); ARTERIAL BLOOD GAS PH 7.32 (7.35-7.45); ARTERIAL BLOOD GAS PO2 52 mm/Hg (80-100); ARTERIAL BLOOD HGB O2 SAT 87.5 % (95.0-98.0); CARBOXYHEMOGLOBIN 2.2 % (0.5-1.5); HHB 8.5 % (0.0-5.0); METHEMOGLOBIN 1.7 % (0.0-3.0)
--- NOTE | 2017-03-24 10:49 | CP.PCM.PN ---
Subjective - Date & Time of Evaluation Date of Evaluation: 03/24/17 Time of Evaluation: 10:49 - Subjective Subjective: pt slightly lethargic this morning CO2 elevated discussed with Dr. Marquez, will start patient on HF 30 35% no other complaints no abd pain tolerating liquid diet no other complaints vss nad Objective - Vital Signs/Intake and Output Vital Signs (last 24 hours): Temp Pulse Resp BP Pulse Ox 98.3 F 80 18 154/68 H 86 L 03/24/17 07:34 03/24/17 09:01 03/24/17 07:34 03/24/17 09:01 03/24/17 07:34 GEN: WDWN, lethargic, cooperative HEENT: NCAT, PERRL, EOMI NECK: supple, no JVD, no lymphadenopathy CARDIAC: +S1S2 RRR LUNG: CTAB No WRR ABD: SOFT NT ND BSX4 NO MASSES NO HSM EXT: +pedal pulses, equal strength NEURO: AAOx3 SKIN warm, dry PSYCH normal mood, normal affect - Medications Medications: Current Medications Albuterol (Ventolin Hfa 90 Mcg/Actuation (8 G)) 2 puff IH Q4H PRN PRN Reason: Shortness of Breath Albuterol/Ipratropium (Duoneb 3 Mg/0.5 Mg (3 Ml) Ud) 3 ml INH RQID [facility] Last Admin: 03/24/17 08:00 Dose: 3 ml Atorvastatin Calcium (Lipitor) 80 mg PO HS [facility] Last Admin: 03/23/17 21:22 Dose: 80 mg Bisoprolol Fumarate (Zebeta) 2.5 mg PO DAILY [facility] Last Admin: 03/24/17 09:00 Dose: 2.5 mg Enoxaparin Sodium (Lovenox) 40 mg SC DAILY [facility] PRN Reason: Protocol Last Admin: 03/24/17 08:59 Dose: 40 mg Famotidine (Pepcid) 20 mg PO BID [facility] Last Admin: 03/24/17 09:00 Dose: 20 mg Ciprofloxacin (Cipro 400mg/200ml Dsw) 400 mg in 200 mls @ 200 mls/hr IVPB Q12 [facility] Last Admin: 03/24/17 08:59 Dose: 200 mls/hr Isosorbide Mononitrate (Imdur Er) 30 mg PO DAILY [facility] Last Admin: 03/24/17 09:00 Dose: 30 mg Ketorolac Tromethamine (Toradol) 15 mg IVP Q6 PRN PRN Reason: pain 5-10 Lactic Acid (Lac-Hydrin 12% Cream (140 G)) 1 ea TOP BID [facility] Last Admin: 03/24/17 08:59 Dose: 1 applic Lisinopril (Zestril) 2.5 mg PO DAILY [facility] Last Admin: 03/24/17 09:01 Dose: 2.5 mg Ondansetron HCl (Zofran Inj) 4 mg IVP Q4 PRN PRN Reason: Nausea/Vomiting Last Admin: 03/22/17 20:42 Dose: 4 mg - Labs Labs: 03/24/17 06:00 03/24/17 07:00 PT 11.9 Seconds (9.8-13.1) 03/22/17 12:30 INR 1.2 (0.9-1.2) 03/22/17 12:30 APTT 33.8 Seconds (25.6-37.1) 03/22/17 12:30 Assessment and Plan - Assessment and Plan (Free Text) Plan: 86 yo female with history of CAD (2 stents 4 yrs ago), AFib (paroxysmal), COPD ( oxygen dependent) and HTN was seen in the ER because of on and off RUQ pain associated with nausea and vomiting for 7 days. Patient was found to be in COPD exacerbation in addition to cholelithiasis. Abd US showed cholelithiasis and CBD 5mm. Patient seen by surgery Dr. Blum, who is planning for HIDA scan and possible subsequent surgery. CLD for now with pain control. Optimization of respiratory status. Abdominal pain 2/2 Cholelithiases surgical consult with Dr Kulwant Vee 400 mg IVPB q12 Zofran 4 mg IVP Q4 PRN HIDA for tomorrow NPO after MN IVF maintenance at 125cc/hr Cardiology consult with Dr Rincon for possible need of cardiac clearance D/C Morphine 2mg IV q 6hrs prn for pain and switch to Toradol and monitor renal function COPD exacerbation with hypoxia on Home O2 switch O2 supplement via NC at 2LPM to HF 30 at 35% and monitor Home O2 2L for 12 hours overnight Duoneb via nebulizer q 4hrs prn for SOB/wheezing Pulmonary Hypertension ECHO: PulmHTN, RVSP 55mmHg, LA mod dilations, RA mild dilation EF 50-55%, diastolic dysfxn monitor hemodynamics CAD (coronary artery disease) HOLD ASA 81mg PO daily. HOLD Plavix 75mg PO daily. Lipitor 80mg PO HS. Zebeta 2.5mg PO daily. Isosorbide Mononitrate 30mg PO daily Hypertension BP controlled. continue Lisinopril 2.5mg PO daily. Zebeta 2.5mg PO daily. Isosorbide Mononitrate 30mg PO daily Afib presently in sinus and well controlled rate. HOLD Plavix 57mg PO daily. ASA 81mg PO daily for possible surgery GERD? Famotidine [Pepcid] 20 mg PO BID DVT prophylaxis venodyne boots while on bed LOVENOX to be held before surgery when scheduled
--- NOTE | 2017-03-24 11:51 | CP.PCM.PN ---
Subjective - Date & Time of Evaluation Date of Evaluation: 03/24/17 Time of Evaluation: 06:45 - Subjective Subjective: General Surgery- Dr. Blum Pt S&E at bedside this AM. NAEO. RUQ pain present however significantly decreased. tolerating current diet. Denies F/C CP/SOB N/V/D. Objective - Vital Signs/Intake and Output Vital Signs (last 24 hours): Temp Pulse Resp BP Pulse Ox 98.3 F 80 16 154/68 H 86 L 03/24/17 07:34 03/24/17 09:01 03/24/17 10:56 03/24/17 09:01 03/24/17 07:34 - Medications Medications: Current Medications Albuterol (Ventolin Hfa 90 Mcg/Actuation (8 G)) 2 puff IH Q4H PRN PRN Reason: Shortness of Breath Albuterol/Ipratropium (Duoneb 3 Mg/0.5 Mg (3 Ml) Ud) 3 ml INH RQID [facility] Last Admin: 03/24/17 08:00 Dose: 3 ml Atorvastatin Calcium (Lipitor) 80 mg PO HS [facility] Last Admin: 03/23/17 21:22 Dose: 80 mg Bisoprolol Fumarate (Zebeta) 2.5 mg PO DAILY [facility] Last Admin: 03/24/17 09:00 Dose: 2.5 mg Enoxaparin Sodium (Lovenox) 40 mg SC DAILY [facility] PRN Reason: Protocol Last Admin: 03/24/17 08:59 Dose: 40 mg Famotidine (Pepcid) 20 mg PO BID [facility] Last Admin: 03/24/17 09:00 Dose: 20 mg Ciprofloxacin (Cipro 400mg/200ml Dsw) 400 mg in 200 mls @ 200 mls/hr IVPB Q12 [facility] Last Admin: 03/24/17 08:59 Dose: 200 mls/hr Isosorbide Mononitrate (Imdur Er) 30 mg PO DAILY [facility] Last Admin: 03/24/17 09:00 Dose: 30 mg Ketorolac Tromethamine (Toradol) 15 mg IVP Q6 PRN PRN Reason: pain 5-10 Lactic Acid (Lac-Hydrin 12% Cream (140 G)) 1 ea TOP BID [facility] Last Admin: 03/24/17 08:59 Dose: 1 applic Lisinopril (Zestril) 2.5 mg PO DAILY [facility] Last Admin: 03/24/17 09:01 Dose: 2.5 mg Ondansetron HCl (Zofran Inj) 4 mg IVP Q4 PRN PRN Reason: Nausea/Vomiting Last Admin: 03/22/17 20:42 Dose: 4 mg - Labs Labs: 03/24/17 06:00 03/24/17 07:00 PT 11.9 Seconds (9.8-13.1) 03/22/17 12:30 INR 1.2 (0.9-1.2) 03/22/17 12:30 APTT 33.8 Seconds (25.6-37.1) 03/22/17 12:30 - Constitutional Appears: No Acute Distress - Head Exam Head Exam: NORMAL INSPECTION - Eye Exam Eye Exam: EOMI - ENT Exam ENT Exam: Mucous Membranes Moist - Respiratory Exam Respiratory Exam: Prolonged Expiratory Phase, Wheezes. absent: Accessory Muscle Use, Rales, Rhonchi - Cardiovascular Exam Cardiovascular Exam: +S1, +S2 - GI/Abdominal Exam GI & Abdominal Exam: Guarding, Soft, Tenderness. absent: Distended, Firm, Rigid , Hernia, Mass - Neurological Exam Neurological Exam: Alert, Awake, Oriented x3 - Psychiatric Exam Psychiatric exam: Normal Affect - Skin Skin Exam: Intact, Warm Assessment and Plan - Assessment and Plan (Free Text) Assessment: 86F RUQ pain w/ cholelithiasis - IVF/abx - continue current diet - NPO midnight for HIDA tomorrow - GI/DVT ppx - OOB/IC - further recs per Dr. Kulwant Melo PGY1
[2017-03-24] MEDS: Potassium Ch 20mEq in D5-1/2NS 1,000 ML IV SCH ×2 (18:13→23:00)
[2017-03-25] MEDS: Potassium Ch 20mEq in D5-1/2NS 1,000 ML IV SCH ×2 (02:53→07:00)
[2017-03-25 06:26] LABS: ABG ALLEN TEST YES; ARTERIAL BLOOD FLOW 35; ARTERIAL BLOOD GAS HCO3 33.7 mmol/L (21-28); ARTERIAL BLOOD GAS MODE HIGH FLOW LPM; ARTERIAL BLOOD GAS O2 CONTENT 14.4 ML/dL (15-23); ARTERIAL BLOOD GAS PH 7.37 (7.35-7.45); ARTERIAL BLOOD GAS PO2 50 mm/Hg (80-100); ARTERIAL BLOOD HGB O2 SAT 86.6 % (95.0-98.0); CARBOXYHEMOGLOBIN 2.4 % (0.5-1.5); HHB 9.8 % (0.0-5.0); METHEMOGLOBIN 1.2 % (0.0-3.0)
[2017-03-25 06:51] LABS: BASO % 0.2 % (0.0-2.0); EOS # 0.2 K/uL (0.0-0.7); EOS % 2.6 % (0.0-4.0); HEMATOCRIT 36.7 % (34.0-47.0); LYMPH # 0.6 K/uL (1.0-4.3); LYMPH % 8.1 % (20.0-40.0); MEAN CELL VOLUME 87.9 fl (81.0-99.0); MEAN CORPUSCULAR HEMOGLOBIN 27.4 pg (27.0-31.0); MEAN CORPUSCULAR HGB CONC 31.1 g/dL (33.0-37.0); MEAN PLATELET VOLUME 7.8 fl (7.2-11.7); MONO # 0.6 K/uL (0.0-0.8); MONO % 8.7 % (0.0-10.0); NEUT # 5.8 K/uL (1.8-7.0); NEUT % 80.4 % (50.0-75.0); RED CELL DISTRIBUTION WIDTH 14.8 % (11.5-14.5); WHITE BLOOD COUNT 7.3 K/uL (4.8-10.8)
[2017-03-25 06:59] LABS: ALB/GLOB RATIO 1.3 (1.0-2.1); ALKALINE PHOSPHATASE 102 U/L (38-126); ALT/SGPT 32 U/L (9-52); AST/SGOT 19 U/L (14-36); BILIRUBIN,TOTAL 0.6 mg/dl (0.2-1.3); BLOOD UREA NITROGEN 7 mg/dl (7-17); CALCIUM 8.8 mg/dL (8.4-10.2); CARBON DIOXIDE 34 mmol/L (22-30); CHLORIDE 99 mmol/L (98-107); GFR AFRICAN-AMERICAN > 60; GLUCOSE,RANDOM 140 mg/dL (65-105); POTASSIUM 4.5 MMOL/L (3.6-5.0); SODIUM 139 mmol/l (132-148); TOTAL PROTEIN 6.1 G/DL (6.3-8.2)
--- NOTE | 2017-03-25 07:24 | CP.PCM.PN ---
<Beryl Garcia - Last Filed: 03/25/17 11:57> Subjective - Date & Time of Evaluation Date of Evaluation: 03/25/17 Time of Evaluation: 06:40 - Subjective Subjective: Patient seen and examined this AM. NAEO. Patient denies pain, nausea, vomiting, but is very hungry. Objective - Vital Signs/Intake and Output Vital Signs (last 24 hours): Temp Pulse Resp BP Pulse Ox 98.6 F 72 18 132/69 86 L 03/25/17 00:32 03/25/17 00:32 03/25/17 04:48 03/25/17 00:32 03/25/17 00:32 Intake and Output: 03/25/17 03/25/17 06:59 18:59 Intake Total 1500 Balance 1500 - Medications Medications: Current Medications Albuterol (Ventolin Hfa 90 Mcg/Actuation (8 G)) 2 puff IH Q4H PRN PRN Reason: Shortness of Breath Albuterol/Ipratropium (Duoneb 3 Mg/0.5 Mg (3 Ml) Ud) 3 ml INH RQID [facility] Last Admin: 03/24/17 19:48 Dose: 3 ml Atorvastatin Calcium (Lipitor) 80 mg PO HS [facility] Last Admin: 03/24/17 21:47 Dose: 80 mg Bisoprolol Fumarate (Zebeta) 2.5 mg PO DAILY [facility] Last Admin: 03/24/17 09:00 Dose: 2.5 mg Enoxaparin Sodium (Lovenox) 40 mg SC DAILY [facility] PRN Reason: Protocol Last Admin: 03/24/17 08:59 Dose: 40 mg Famotidine (Pepcid) 20 mg PO BID [facility] Last Admin: 03/24/17 17:10 Dose: 20 mg Ciprofloxacin (Cipro 400mg/200ml Dsw) 400 mg in 200 mls @ 200 mls/hr IVPB Q12 [facility] Last Admin: 03/24/17 20:57 Dose: 200 mls/hr Potassium Chloride/Dextrose/Sod Cl (Potassium Chl 20 Meq In D5-1/2ns) 1,000 mls @ 125 mls/hr IV .Q8H [facility] Stop: 03/25/17 14:51 Last Admin: 03/25/17 02:53 Dose: 125 mls/hr Isosorbide Mononitrate (Imdur Er) 30 mg PO DAILY [facility] Last Admin: 03/24/17 09:00 Dose: 30 mg Ketorolac Tromethamine (Toradol) 15 mg IVP Q6 PRN PRN Reason: pain 5-10 Lactic Acid (Lac-Hydrin 12% Cream (140 G)) 1 ea TOP BID [facility] Last Admin: 03/24/17 17:10 Dose: 1 applic Lisinopril (Zestril) 2.5 mg PO DAILY [facility] Last Admin: 03/24/17 09:01 Dose: 2.5 mg Ondansetron HCl (Zofran Inj) 4 mg IVP Q4 PRN PRN Reason: Nausea/Vomiting Last Admin: 03/22/17 20:42 Dose: 4 mg - Labs Labs: 03/25/17 06:40 03/25/17 06:40 PT 11.9 Seconds (9.8-13.1) 03/22/17 12:30 INR 1.2 (0.9-1.2) 03/22/17 12:30 APTT 33.8 Seconds (25.6-37.1) 03/22/17 12:30 Assessment and Plan - Assessment and Plan (Free Text) Assessment: 86F RUQ pain w/ cholelithiasis HIDA scan with gallbladder visualization Plan: Discussed with Dr. Blum <Abhijit Bangura - Last Filed: 03/25/17 13:36> Subjective - Date & Time of Evaluation Time of Evaluation: 13:10 - Subjective Subjective: Patient was seen and examined at the bedside. Agree with resident's note above Objective - Vital Signs/Intake and Output Vital Signs (last 24 hours): Temp Pulse Resp BP Pulse Ox 98.4 F 80 18 168/79 H 87 L 03/25/17 07:33 03/25/17 11:24 03/25/17 07:33 03/25/17 07:33 03/25/17 07:33 Intake and Output: 03/25/17 03/25/17 06:59 18:59 Intake Total 1500 Balance 1500 - Medications Medications: Current Medications Albuterol (Ventolin Hfa 90 Mcg/Actuation (8 G)) 2 puff IH Q4H PRN PRN Reason: Shortness of Breath Albuterol/Ipratropium (Duoneb 3 Mg/0.5 Mg (3 Ml) Ud) 3 ml INH RQID [facility] Last Admin: 03/25/17 11:20 Dose: 3 ml Atorvastatin Calcium (Lipitor) 80 mg PO HS [facility] Last Admin: 03/24/17 21:47 Dose: 80 mg Bisoprolol Fumarate (Zebeta) 2.5 mg PO DAILY [facility] Last Admin: 03/25/17 10:54 Dose: 2.5 mg Enoxaparin Sodium (Lovenox) 40 mg SC DAILY [facility] PRN Reason: Protocol Last Admin: 03/25/17 11:04 Dose: 40 mg Famotidine (Pepcid) 20 mg PO BID [facility] Last Admin: 03/25/17 10:44 Dose: 20 mg Ciprofloxacin (Cipro 400mg/200ml Dsw) 400 mg in 200 mls @ 200 mls/hr IVPB Q12 [facility] Last Admin: 03/25/17 10:53 Dose: 200 mls/hr Potassium Chloride/Dextrose/Sod Cl (Potassium Chl 20 Meq In D5-1/2ns) 1,000 mls @ 125 mls/hr IV .Q8H [facility] Stop: 03/25/17 14:51 Last Admin: 03/25/17 02:53 Dose: 125 mls/hr Isosorbide Mononitrate (Imdur Er) 30 mg PO DAILY [facility] Last Admin: 03/25/17 10:53 Dose: 30 mg Ketorolac Tromethamine (Toradol) 15 mg IVP Q6 PRN PRN Reason: pain 5-10 Lactic Acid (Lac-Hydrin 12% Cream (140 G)) 1 ea TOP BID [facility] Last Admin: 03/25/17 10:53 Dose: 1 applic Lisinopril (Zestril) 2.5 mg PO DAILY [facility] Last Admin: 03/25/17 10:44 Dose: 2.5 mg Ondansetron HCl (Zofran Inj) 4 mg IVP Q4 PRN PRN Reason: Nausea/Vomiting Last Admin: 03/22/17 20:42 Dose: 4 mg - Labs Labs: 03/25/17 06:40 03/25/17 06:40 PT 11.9 Seconds (9.8-13.1) 03/22/17 12:30 INR 1.2 (0.9-1.2) 03/22/17 12:30 APTT 33.8 Seconds (25.6-37.1) 03/22/17 12:30 Assessment and Plan - Assessment and Plan (Free Text) Plan: - pain control - Awaiting on the official results of the HIDA scan - Patient will need pulmonary medicine clearance prior to proceeding with any surgery - Repeat labs in am - Continue care as per medical team - Will follow
[2017-03-25] MEDS: Albuterol-Ipratrop 3 mg / 0.5 (3 ml) UD INH SCH ×4 (07:50→19:16)
--- NOTE | 2017-03-25 07:58 | CP.PCM.PN ---
Subjective - Date & Time of Evaluation Date of Evaluation: 03/25/17 Time of Evaluation: 07:57 - Subjective Subjective: pt slightly lethargic and hypoxic this AM ABG only mildly improved from yesterday will start pt on BIPAP 04/11 14 35% and reevaluate this afternoon pt for HIDA today will f/u surgery recs Objective - Vital Signs/Intake and Output Vital Signs (last 24 hours): Temp Pulse Resp BP Pulse Ox 98.4 F 78 18 168/79 H 87 L 03/25/17 07:33 03/25/17 07:52 03/25/17 07:33 03/25/17 07:33 03/25/17 07:33 Intake and Output: 03/25/17 03/25/17 06:59 18:59 Intake Total 1500 Balance 1500 - Medications Medications: Current Medications Albuterol (Ventolin Hfa 90 Mcg/Actuation (8 G)) 2 puff IH Q4H PRN PRN Reason: Shortness of Breath Albuterol/Ipratropium (Duoneb 3 Mg/0.5 Mg (3 Ml) Ud) 3 ml INH RQID [facility] Last Admin: 03/25/17 07:50 Dose: 3 ml Atorvastatin Calcium (Lipitor) 80 mg PO HS [facility] Last Admin: 03/24/17 21:47 Dose: 80 mg Bisoprolol Fumarate (Zebeta) 2.5 mg PO DAILY [facility] Last Admin: 03/24/17 09:00 Dose: 2.5 mg Enoxaparin Sodium (Lovenox) 40 mg SC DAILY [facility] PRN Reason: Protocol Last Admin: 03/24/17 08:59 Dose: 40 mg Famotidine (Pepcid) 20 mg PO BID [facility] Last Admin: 03/24/17 17:10 Dose: 20 mg Ciprofloxacin (Cipro 400mg/200ml Dsw) 400 mg in 200 mls @ 200 mls/hr IVPB Q12 [facility] Last Admin: 03/24/17 20:57 Dose: 200 mls/hr Potassium Chloride/Dextrose/Sod Cl (Potassium Chl 20 Meq In D5-1/2ns) 1,000 mls @ 125 mls/hr IV .Q8H [facility] Stop: 03/25/17 14:51 Last Admin: 03/25/17 02:53 Dose: 125 mls/hr Isosorbide Mononitrate (Imdur Er) 30 mg PO DAILY [facility] Last Admin: 03/24/17 09:00 Dose: 30 mg Ketorolac Tromethamine (Toradol) 15 mg IVP Q6 PRN PRN Reason: pain 5-10 Lactic Acid (Lac-Hydrin 12% Cream (140 G)) 1 ea TOP BID [facility] Last Admin: 03/24/17 17:10 Dose: 1 applic Lisinopril (Zestril) 2.5 mg PO DAILY [facility] Last Admin: 03/24/17 09:01 Dose: 2.5 mg Ondansetron HCl (Zofran Inj) 4 mg IVP Q4 PRN PRN Reason: Nausea/Vomiting Last Admin: 03/22/17 20:42 Dose: 4 mg - Labs Labs: 03/25/17 06:40 03/25/17 06:40 PT 11.9 Seconds (9.8-13.1) 03/22/17 12:30 INR 1.2 (0.9-1.2) 03/22/17 12:30 APTT 33.8 Seconds (25.6-37.1) 03/22/17 12:30 Assessment and Plan - Assessment and Plan (Free Text) Plan: 86 yo female with history of CAD (2 stents 4 yrs ago), AFib (paroxysmal), COPD ( oxygen dependent) and HTN was seen in the ER because of on and off RUQ pain associated with nausea and vomiting for 7 days. Patient was found to be in COPD exacerbation in addition to cholelithiasis. Abd US showed cholelithiasis and CBD 5mm. Patient seen by surgery Dr. Blum, who is planning for HIDA scan and possible subsequent surgery. CLD for now with pain control. Optimization of respiratory status. Abdominal pain 2/2 Cholelithiases surgical consult with Dr Kulwant Vee 400 mg IVPB q12 Zofran 4 mg IVP Q4 PRN HIDA TODAY NPO after MN IVF maintenance at 125cc/hr Cardiology consult with Dr Rincon for possible need of cardiac clearance, ECHO completed D/C Morphine 2mg IV q 6hrs prn for pain and switch to Toradol and monitor renal function COPD exacerbation with hypoxia on Home O2 on admssion pt on O2 supplement via NC at 2LPM then transitioned to HF 30 at 35 % and monitor 03/25 pt hypoxic with hypercarbia, unimproved, initiate BIPAP TODAY 04/11 14 35% baseline Home O2 2L for 12 hours overnight Duoneb via nebulizer q 4hrs prn for SOB/wheezing Pulmonary Hypertension ECHO: PulmHTN, RVSP 55mmHg, LA mod dilations, RA mild dilation EF 50-55%, diastolic dysfxn monitor hemodynamics CAD (coronary artery disease) HOLD ASA 81mg PO daily. HOLD Plavix 75mg PO daily. Lipitor 80mg PO HS. Zebeta 2.5mg PO daily. Isosorbide Mononitrate 30mg PO daily Hypertension BP controlled. continue Lisinopril 2.5mg PO daily. Zebeta 2.5mg PO daily. Isosorbide Mononitrate 30mg PO daily Afib presently in sinus and well controlled rate. HOLD Plavix 57mg PO daily. ASA 81mg PO daily for possible surgery GERD? Famotidine [Pepcid] 20 mg PO BID DVT prophylaxis venodyne boots while on bed LOVENOX to be held before surgery when scheduled
--- NOTE | 2017-03-25 09:55 | CP.PCM.PN ---
Subjective - Date & Time of Evaluation Date of Evaluation: 03/25/17 Time of Evaluation: 09:55 - Subjective Subjective: Had HIDA scan done this morning. Abdominal pain has improved, no further nausea or vomiting. Awaiting cardiology evaluation. Vital signs remain stable, no fever. Remains hypoxemic and hypercapnic with compensated pH. Total CO2 has decreased to 34. Abdomen is soft with + BS. Breath sounds are diminished bilaterally with dry rales in LL's. No audible wheezing or bronchial breathing. Trace dependant edema both LE's, no cyanosis. Await HIDA scan results. As per surgery. Will need VQ scan at some point in time to R/O CTEPH. Objective - Vital Signs/Intake and Output Vital Signs (last 24 hours): Temp Pulse Resp BP Pulse Ox 98.4 F 78 18 168/79 H 87 L 03/25/17 07:33 03/25/17 07:52 03/25/17 07:33 03/25/17 07:33 03/25/17 07:33 Intake and Output: 03/24/17 03/25/17 23:59 11:59 Intake Total 1500 Balance 1500 - Medications Medications: Current Medications Albuterol (Ventolin Hfa 90 Mcg/Actuation (8 G)) 2 puff IH Q4H PRN PRN Reason: Shortness of Breath Albuterol/Ipratropium (Duoneb 3 Mg/0.5 Mg (3 Ml) Ud) 3 ml INH RQID [facility] Last Admin: 03/25/17 07:50 Dose: 3 ml Atorvastatin Calcium (Lipitor) 80 mg PO HS [facility] Last Admin: 03/24/17 21:47 Dose: 80 mg Bisoprolol Fumarate (Zebeta) 2.5 mg PO DAILY [facility] Last Admin: 03/24/17 09:00 Dose: 2.5 mg Enoxaparin Sodium (Lovenox) 40 mg SC DAILY [facility] PRN Reason: Protocol Last Admin: 03/24/17 08:59 Dose: 40 mg Famotidine (Pepcid) 20 mg PO BID [facility] Last Admin: 03/24/17 17:10 Dose: 20 mg Ciprofloxacin (Cipro 400mg/200ml Dsw) 400 mg in 200 mls @ 200 mls/hr IVPB Q12 [facility] Last Admin: 03/24/17 20:57 Dose: 200 mls/hr Potassium Chloride/Dextrose/Sod Cl (Potassium Chl 20 Meq In D5-1/2ns) 1,000 mls @ 125 mls/hr IV .Q8H [facility] Stop: 03/25/17 14:51 Last Admin: 03/25/17 02:53 Dose: 125 mls/hr Isosorbide Mononitrate (Imdur Er) 30 mg PO DAILY [facility] Last Admin: 03/24/17 09:00 Dose: 30 mg Ketorolac Tromethamine (Toradol) 15 mg IVP Q6 PRN PRN Reason: pain 5-10 Lactic Acid (Lac-Hydrin 12% Cream (140 G)) 1 ea TOP BID [facility] Last Admin: 03/24/17 17:10 Dose: 1 applic Lisinopril (Zestril) 2.5 mg PO DAILY [facility] Last Admin: 03/24/17 09:01 Dose: 2.5 mg Ondansetron HCl (Zofran Inj) 4 mg IVP Q4 PRN PRN Reason: Nausea/Vomiting Last Admin: 03/22/17 20:42 Dose: 4 mg - Labs Labs: 03/25/17 06:40 03/25/17 06:40 PT 11.9 Seconds (9.8-13.1) 03/22/17 12:30 INR 1.2 (0.9-1.2) 03/22/17 12:30 APTT 33.8 Seconds (25.6-37.1) 03/22/17 12:30 Assessment and Plan (1) COPD (chronic obstructive pulmonary disease) Status: Chronic (2) Pulmonary fibrosis, unspecified Status: Chronic (3) Hypoxemia requiring supplemental oxygen Status: Chronic (4) Abdominal pain Status: Acute (5) Cholelithiases Status: Acute (6) CAD (coronary artery disease) Status: Chronic (7) Kyphosis (acquired) (postural) Status: Chronic (8) Exogenous obesity Status: Chronic (9) Anemia Status: Acute
[2017-03-25] MEDS: Ciprofloxacin 400mg/200ml D5W 400 MG/200 ML BAG IVPB SCH ×2 (10:53→21:05)
[2017-03-25] MEDS: Ammonium Lactate 12% Cream (140 g) TOP SCH ×2 (10:53→17:36)
[2017-03-25] MEDS: Enoxaparin 40 mg Syringe SC SCH (11:04)
--- NOTE | 2017-03-25 11:26 | CP.PCM.CON ---
History of Present Illness - History of Present Illness History of Present Illness: 86 yo female admitted with RUQ and gallstones. HIDA is pending. pmh CAD s/p PTCA 2012 , Copd denies cp. Baseline sob on home 02. Currently on CPAP and alert and verbal. Stable hemodynamically. Past Patient History - Infectious Disease Hx of Infectious Diseases: None - Tetanus Immunizations Tetanus Immunization: Unknown - Past Medical History & Family History Past Medical History?: Yes Past Family History: Reviewed and not pertinent - Past Social History Smoking Status: Former Smoker (stopped 2012) Chewing Tobacco Use: No Cigar Use: No Alcohol: Social Drugs: Denies Home Situation {Lives}: Alone - CARDIAC Hx Atrial Fibrillation: Yes Hx Congestive Heart Failure: Yes Hx Heart Attack: Yes Hx Hypercholesterolemia: Yes Hx Hypertension: Yes Hx Peripheral Edema: Yes - PULMONARY Hx Chronic Obstructive Pulmonary Disease (COPD): Yes Hx Emphysema: Yes Hx Pneumonia: Yes - NEUROLOGICAL Hx Neurological Disorder: No - HEENT Hx HEENT Problems: No - RENAL Hx Chronic Kidney Disease: No - ENDOCRINE/METABOLIC Hx Endocrine Disorders: No 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 - MUSCULOSKELETAL/RHEUMATOLOGICAL Hx Falls: Yes Hx Fractures: Yes (right ankle) - GASTROINTESTINAL Hx Gastrointestinal Disorders: No - GENITOURINARY/GYNECOLOGICAL Hx Genitourinary Disorders: Yes Other/Comment: [employer] - PSYCHIATRIC Hx Psychophysiologic Disorder: No Hx Substance Use: No - SURGICAL HISTORY Hx Appendectomy: No Hx Coronary Stent: Yes (x 2) - ANESTHESIA Hx Anesthesia: Yes Hx Anesthesia Reactions: No Hx Malignant Hyperthermia: No Meds Allergies/Adverse Reactions: Allergies Allergy/AdvReac Type Severity Reaction Status Date / Time Penicillins Allergy Mild SWELLING Verified 04/11/16 09:43 - Medications Medications: Current Medications Albuterol (Ventolin Hfa 90 Mcg/Actuation (8 G)) 2 puff IH Q4H PRN PRN Reason: Shortness of Breath Albuterol/Ipratropium (Duoneb 3 Mg/0.5 Mg (3 Ml) Ud) 3 ml INH RQID [facility] Last Admin: 03/25/17 11:20 Dose: 3 ml Atorvastatin Calcium (Lipitor) 80 mg PO HS [facility] Last Admin: 03/24/17 21:47 Dose: 80 mg Bisoprolol Fumarate (Zebeta) 2.5 mg PO DAILY [facility] Last Admin: 03/25/17 10:54 Dose: 2.5 mg Enoxaparin Sodium (Lovenox) 40 mg SC DAILY [facility] PRN Reason: Protocol Last Admin: 03/25/17 11:04 Dose: 40 mg Famotidine (Pepcid) 20 mg PO BID [facility] Last Admin: 03/25/17 10:44 Dose: 20 mg Ciprofloxacin (Cipro 400mg/200ml Dsw) 400 mg in 200 mls @ 200 mls/hr IVPB Q12 [facility] Last Admin: 03/25/17 10:53 Dose: 200 mls/hr Potassium Chloride/Dextrose/Sod Cl (Potassium Chl 20 Meq In D5-1/2ns) 1,000 mls @ 125 mls/hr IV .Q8H [facility] Stop: 03/25/17 14:51 Last Admin: 03/25/17 02:53 Dose: 125 mls/hr Isosorbide Mononitrate (Imdur Er) 30 mg PO DAILY [facility] Last Admin: 03/25/17 10:53 Dose: 30 mg Ketorolac Tromethamine (Toradol) 15 mg IVP Q6 PRN PRN Reason: pain 5-10 Lactic Acid (Lac-Hydrin 12% Cream (140 G)) 1 ea TOP BID [facility] Last Admin: 03/25/17 10:53 Dose: 1 applic Lisinopril (Zestril) 2.5 mg PO DAILY [facility] Last Admin: 03/25/17 10:44 Dose: 2.5 mg Ondansetron HCl (Zofran Inj) 4 mg IVP Q4 PRN PRN Reason: Nausea/Vomiting Last Admin: 03/22/17 20:42 Dose: 4 mg Physical Exam - Neck Exam Neck exam: Positive for: Normal Inspection - Respiratory Exam Respiratory Exam: Clear to Auscultation Bilateral - Cardiovascular Exam Cardiovascular Exam: REGULAR RHYTHM - GI/Abdominal Exam GI & Abdominal Exam: Normal Bowel Sounds - Extremities Exam Extremities exam: Positive for: normal inspection Results - Vital Signs Recent Vital Signs: Last Vital Signs Temp 98.4 F 03/25/17 07:33 Pulse 78 03/25/17 07:52 Resp 18 03/25/17 07:33 BP 168/79 H 03/25/17 07:33 Pulse Ox 87 L 09/18/17 07:33 - Labs Result Diagrams: 03/25/17 06:40 03/25/17 06:40 Labs: Laboratory Results - last 24 hr 03/25/17 03/25/17 03/25/17 06:20 06:40 06:40 WBC 7.3 RBC 4.17 Hgb 11.4 L Hct 36.7 MCV 87.9 MCH 27.4 MCHC 31.1 L RDW 14.8 H Plt Count 180 MPV 7.8 Neut % (Auto) 80.4 H Lymph % (Auto) 8.1 L Grand % (Auto) 8.7 Eos % (Auto) 2.6 Baso % (Auto) 0.2 Neut # 5.8 Lymph # 0.6 L Grand # 0.6 Eos # 0.2 Baso # 0.0 pCO2 68 H pO2 50 L HCO3 33.7 H ABG pH 7.37 ABG Total CO2 41.4 H ABG O2 Saturation 89.8 L ABG O2 Content 14.4 L ABG Base Excess 11.5 H ABG Hemoglobin 11.8 ABG Carboxyhemoglobin 2.4 H POC ABG HHb (Measured) 9.8 H ABG Methemoglobin 1.2 ABG O2 Capacity 16.0 Luiz Test Yes A-a O2 Difference 79.0 Hgb O2 Saturation 86.6 L Liter Flow 35 Vent Mode High flow lpm FiO2 30.0 Sodium 139 Potassium 4.5 Chloride 99 Carbon Dioxide 34 H Anion Gap 11 BUN 7 Creatinine 0.6 L Est GFR ( Amer) > 60 Est GFR (Non-Af Amer) > 60 Random Glucose 140 H Calcium 8.8 Total Bilirubin 0.6 AST 19 ALT 32 Alkaline Phosphatase 102 Total Protein 6.1 L Albumin 3.4 L Globulin 2.7 Albumin/Globulin Ratio 1.3 Assessment & Plan - Assessment and Plan (Free Text) Assessment: Hemodynamically stable. No c/o cp resting comfortably. ECHO: Normal LV function , Mod MR, with Severe Pulmonary Hypertension PAP est 55mmHG Pulmonary issues addressed. Plavix has been held in anticipation of surgery Pt is at acceptable risk for cholecystectomy if clinically indicated. She has no unstable cardiac symptoms.
--- NOTE | 2017-03-25 18:19 | NM ---
PROCEDURE: Nuclear Medicine Hepatobiliary Scan HISTORY: r/o acute cholecystitis COMPARISON: Comparison is made to the previous ultrasound dated 03/22/[address] dated 03/20/2017 TECHNIQUE: 5.36 mCi of technetium 99m Mebrofenin was administered intravenously. Planar images of the abdomen were obtained at 5 min intervals to 60 mins. Delayed images were also obtained. FINDINGS: LIVER: Timely and homogenous uptake. COMMON BILE DUCT: identified at 5 mins. GALLBLADDER: identified at 10 mins. SMALL BOWEL: Identified at 10 mins. IMPRESSION: No scintigraphic evidence of acute cholecystitis. . The cystic duct is patent.
[2017-03-26 06:34] LABS: BASO % 0.2 % (0.0-2.0); EOS # 0.3 K/uL (0.0-0.7); EOS % 3.7 % (0.0-4.0); HEMATOCRIT 37.7 % (34.0-47.0); LYMPH # 0.7 K/uL (1.0-4.3); LYMPH % 9.6 % (20.0-40.0); MEAN CELL VOLUME 87.4 fl (81.0-99.0); MEAN CORPUSCULAR HEMOGLOBIN 28.3 pg (27.0-31.0); MEAN CORPUSCULAR HGB CONC 32.4 g/dL (33.0-37.0); MEAN PLATELET VOLUME 8.1 fl (7.2-11.7); MONO # 0.6 K/uL (0.0-0.8); MONO % 8.6 % (0.0-10.0); NEUT # 5.5 K/uL (1.8-7.0); NEUT % 77.9 % (50.0-75.0); PLATELET COUNT 184 K/uL (130-400); RED CELL DISTRIBUTION WIDTH 15.3 % (11.5-14.5)
[2017-03-26 06:35] LABS: ABG ALLEN TEST YES; ARTERIAL BLOOD GAS HCO3 34.9 mmol/L (21-28); ARTERIAL BLOOD GAS O2 CAPACITY 16.5 mL/dL (16-24); ARTERIAL BLOOD GAS O2 CONTENT 15.2 ML/dL (15-23); ARTERIAL BLOOD GAS PH 7.43 (7.35-7.45); ARTERIAL BLOOD GAS PO2 53 mm/Hg (80-100); ARTERIAL BLOOD HGB O2 SAT 88.4 % (95.0-98.0); CARBOXYHEMOGLOBIN 2.3 % (0.5-1.5); HHB 7.6 % (0.0-5.0); METHEMOGLOBIN 1.8 % (0.0-3.0)
[2017-03-26 06:42] LABS: ALB/GLOB RATIO 1.3 (1.0-2.1); ALKALINE PHOSPHATASE 104 U/L (38-126); ALT/SGPT 32 U/L (9-52); AST/SGOT 20 U/L (14-36); BILIRUBIN,TOTAL 0.7 mg/dl (0.2-1.3); BLOOD UREA NITROGEN 7 mg/dl (7-17); CARBON DIOXIDE 34 mmol/L (22-30); CHLORIDE 99 mmol/L (98-107); GFR AFRICAN-AMERICAN > 60; GLUCOSE,RANDOM 107 mg/dL (65-105); SODIUM 141 mmol/l (132-148)
[2017-03-26] MEDS: Albuterol-Ipratrop 3 mg / 0.5 (3 ml) UD INH SCH ×4 (07:25→19:13)
[2017-03-26] MEDS: Enoxaparin 40 mg Syringe SC SCH (08:58)
[2017-03-26] MEDS: Ammonium Lactate 12% Cream (140 g) TOP SCH ×2 (08:59→16:51)
[2017-03-26] MEDS: Ciprofloxacin 400mg/200ml D5W 400 MG/200 ML BAG IVPB SCH ×2 (09:01→21:12)
--- NOTE | 2017-03-26 09:33 | CP.PCM.PN ---
<Roverto Melo - Last Filed: 03/26/17 16:05> Subjective - Date & Time of Evaluation Date of Evaluation: 03/26/17 Time of Evaluation: 06:50 - Subjective Subjective: General surgery Pt S&E at bedside this AM. No acute events overnight. Tolerating diet with no abdominal pain. Pt on high flow oxygen. O2 saturation at baseline. Denies N/V/D Objective - Vital Signs/Intake and Output Vital Signs (last 24 hours): Temp Pulse Resp BP Pulse Ox 97.5 F L 88 22 160/74 H 88 L 03/26/17 09:18 03/26/17 09:18 03/26/17 09:18 03/26/17 09:18 03/26/17 09:18 - Medications Medications: Current Medications Albuterol (Ventolin Hfa 90 Mcg/Actuation (8 G)) 2 puff IH Q4H PRN PRN Reason: Shortness of Breath Albuterol/Ipratropium (Duoneb 3 Mg/0.5 Mg (3 Ml) Ud) 3 ml INH RQID [facility] Last Admin: 03/26/17 07:25 Dose: 3 ml Atorvastatin Calcium (Lipitor) 80 mg PO HS [facility] Last Admin: 03/25/17 21:28 Dose: 80 mg Bisoprolol Fumarate (Zebeta) 2.5 mg PO DAILY [facility] Last Admin: 03/26/17 08:57 Dose: 2.5 mg Enoxaparin Sodium (Lovenox) 40 mg SC DAILY [facility] PRN Reason: Protocol Last Admin: 03/26/17 08:58 Dose: 40 mg Famotidine (Pepcid) 20 mg PO BID [facility] Last Admin: 03/26/17 08:56 Dose: 20 mg Ciprofloxacin (Cipro 400mg/200ml Dsw) 400 mg in 200 mls @ 200 mls/hr IVPB Q12 [facility] Last Admin: 03/26/17 09:01 Dose: 200 mls/hr Isosorbide Mononitrate (Imdur Er) 30 mg PO DAILY [facility] Last Admin: 03/26/17 08:57 Dose: 30 mg Ketorolac Tromethamine (Toradol) 15 mg IVP Q6 PRN PRN Reason: pain 5-10 Lactic Acid (Lac-Hydrin 12% Cream (140 G)) 1 ea TOP BID [facility] Last Admin: 03/26/17 08:59 Dose: 1 applic Lisinopril (Zestril) 2.5 mg PO DAILY [facility] Last Admin: 03/26/17 08:57 Dose: 2.5 mg Ondansetron HCl (Zofran Inj) 4 mg IVP Q4 PRN PRN Reason: Nausea/Vomiting Last Admin: 03/22/17 20:42 Dose: 4 mg - Labs Labs: 03/26/17 05:15 03/26/17 05:15 PT 11.9 Seconds (9.8-13.1) 03/22/17 12:30 INR 1.2 (0.9-1.2) 03/22/17 12:30 APTT 33.8 Seconds (25.6-37.1) 03/22/17 12:30 - Constitutional Appears: Non-toxic, No Acute Distress - Head Exam Head Exam: ATRAUMATIC - Eye Exam Eye Exam: EOMI - ENT Exam ENT Exam: Mucous Membranes Moist - Respiratory Exam Respiratory Exam: Decreased Breath Sounds, NORMAL BREATHING PATTERN. absent: Accessory Muscle Use, Respiratory Distress - Cardiovascular Exam Cardiovascular Exam: absent: Bradycardia - GI/Abdominal Exam GI & Abdominal Exam: Soft. absent: Distended, Firm, Guarding, Rigid, Tenderness - Extremities Exam Extremities Exam: Calf Tenderness - Neurological Exam Neurological Exam: Oriented x3 - Skin Skin Exam: Dry, Warm Assessment and Plan - Assessment and Plan (Free Text) Assessment: 86F w/ cholelithiasis Plan: - pain control - Gallbladder visualized on HIDA indicating not acute cholecystitits - Patient will need pulmonary medicine clearance prior to proceeding with any surgery - continue care as per medial team - Plan for cholecystectomy tomorrow (Saturday) <Abhijit Bangura - Last Filed: 03/26/17 20:26> Subjective - Date & Time of Evaluation Time of Evaluation: 20:05 - Subjective Subjective: Patient was seen and examined at the bedside. Agree with resident's note above. Objective - Vital Signs/Intake and Output Vital Signs (last 24 hours): Temp Pulse Resp BP Pulse Ox 97.8 F 73 20 149/64 89 L 03/26/17 16:19 03/26/17 16:19 03/26/17 16:19 03/26/17 16:19 03/26/17 16:19 - Medications Medications: Current Medications Albuterol (Ventolin Hfa 90 Mcg/Actuation (8 G)) 2 puff IH Q4H PRN PRN Reason: Shortness of Breath Albuterol/Ipratropium (Duoneb 3 Mg/0.5 Mg (3 Ml) Ud) 3 ml INH RQID [facility] Last Admin: 03/26/17 19:13 Dose: 3 ml Atorvastatin Calcium (Lipitor) 80 mg PO HS [facility] Last Admin: 03/25/17 21:28 Dose: 80 mg Bisoprolol Fumarate (Zebeta) 2.5 mg PO DAILY [facility] Last Admin: 03/26/17 08:57 Dose: 2.5 mg Enoxaparin Sodium (Lovenox) 40 mg SC DAILY [facility] PRN Reason: Protocol Last Admin: 03/26/17 08:58 Dose: 40 mg Famotidine (Pepcid) 20 mg PO BID [facility] Last Admin: 03/26/17 16:51 Dose: 20 mg Ciprofloxacin (Cipro 400mg/200ml Dsw) 400 mg in 200 mls @ 200 mls/hr IVPB Q12 [facility] Last Admin: 03/26/17 09:01 Dose: 200 mls/hr Isosorbide Mononitrate (Imdur Er) 30 mg PO DAILY [facility] Last Admin: 03/26/17 08:57 Dose: 30 mg Ketorolac Tromethamine (Toradol) 15 mg IVP Q6 PRN PRN Reason: pain 5-10 Lactic Acid (Lac-Hydrin 12% Cream (140 G)) 1 ea TOP BID [facility] Last Admin: 03/26/17 16:51 Dose: 1 applic Lisinopril (Zestril) 2.5 mg PO DAILY [facility] Last Admin: 03/26/17 08:57 Dose: 2.5 mg Ondansetron HCl (Zofran Inj) 4 mg IVP Q4 PRN PRN Reason: Nausea/Vomiting Last Admin: 03/22/17 20:42 Dose: 4 mg - Labs Labs: 03/26/17 05:15 03/26/17 05:15 PT 11.9 Seconds (9.8-13.1) 03/22/17 12:30 INR 1.2 (0.9-1.2) 03/22/17 12:30 APTT 33.8 Seconds (25.6-37.1) 03/22/17 12:30 Assessment and Plan - Assessment and Plan (Free Text) Plan: - NPO after midnight - Plan for cholecystectomy in am - Will follow
[2017-03-26 10:13] LABS: BASOPHIL 1 % (0-2); EOSINOPHIL 3 % (0-7); NEUTROPHIL 75 % (42-75); TOTAL CELLS COUNTED 100
[2017-03-26 10:15] LABS: LARGE PLATELETS PRESENT
--- NOTE | 2017-03-26 10:32 | CP.PCM.PN ---
Subjective - Date & Time of Evaluation Date of Evaluation: 03/26/17 Time of Evaluation: 10:25 - Subjective Subjective: Comfortable, lying in bed. On nasal oxygen at 3LPM with SpO2 90%. HIDA scan does not reveal any acute cholecystitis. Recurring abdominal pain will still require GB surgery. Dependant edema in LE's is decreasing. No cyanosis. No calf tenderness or palpable venous cords. Breath sounds are diminished bilaterally w/o wheeze. No bronchial breath sounds or egophony. Bilateral lower lobe dry rales. No rub. Abdomen is soft, fleshy and non-tender. Will discuss with surgery about timing. Patient is cleared from a pulmonary standpoint for surgery. Will request VQ scan in the meantime. Anemia has resolved w/o intervention. Needs pulmonary rehab and weight loss after discharge. Objective - Vital Signs/Intake and Output Vital Signs (last 24 hours): Temp Pulse Resp BP Pulse Ox 97.5 F L 88 22 160/74 H 88 L 03/26/17 09:18 03/26/17 09:18 03/26/17 09:18 03/26/17 09:18 03/26/17 09:18 - Medications Medications: Current Medications Albuterol (Ventolin Hfa 90 Mcg/Actuation (8 G)) 2 puff IH Q4H PRN PRN Reason: Shortness of Breath Albuterol/Ipratropium (Duoneb 3 Mg/0.5 Mg (3 Ml) Ud) 3 ml INH RQID [facility] Last Admin: 03/26/17 07:25 Dose: 3 ml Atorvastatin Calcium (Lipitor) 80 mg PO HS [facility] Last Admin: 03/25/17 21:28 Dose: 80 mg Bisoprolol Fumarate (Zebeta) 2.5 mg PO DAILY [facility] Last Admin: 03/26/17 08:57 Dose: 2.5 mg Enoxaparin Sodium (Lovenox) 40 mg SC DAILY [facility] PRN Reason: Protocol Last Admin: 03/26/17 08:58 Dose: 40 mg Famotidine (Pepcid) 20 mg PO BID [facility] Last Admin: 03/26/17 08:56 Dose: 20 mg Ciprofloxacin (Cipro 400mg/200ml Dsw) 400 mg in 200 mls @ 200 mls/hr IVPB Q12 [facility] Last Admin: 03/26/17 09:01 Dose: 200 mls/hr Isosorbide Mononitrate (Imdur Er) 30 mg PO DAILY [facility] Last Admin: 03/26/17 08:57 Dose: 30 mg Ketorolac Tromethamine (Toradol) 15 mg IVP Q6 PRN PRN Reason: pain 5-10 Lactic Acid (Lac-Hydrin 12% Cream (140 G)) 1 ea TOP BID [facility] Last Admin: 03/26/17 08:59 Dose: 1 applic Lisinopril (Zestril) 2.5 mg PO DAILY [facility] Last Admin: 03/26/17 08:57 Dose: 2.5 mg Ondansetron HCl (Zofran Inj) 4 mg IVP Q4 PRN PRN Reason: Nausea/Vomiting Last Admin: 03/22/17 20:42 Dose: 4 mg - Labs Labs: 03/26/17 05:15 03/26/17 05:15 PT 11.9 Seconds (9.8-13.1) 03/22/17 12:30 INR 1.2 (0.9-1.2) 03/22/17 12:30 APTT 33.8 Seconds (25.6-37.1) 03/22/17 12:30 Assessment and Plan (1) COPD (chronic obstructive pulmonary disease) Status: Chronic (2) Pulmonary fibrosis, unspecified Status: Chronic (3) Hypoxemia requiring supplemental oxygen Status: Chronic (4) Abdominal pain Status: Resolved (5) Cholelithiases Status: Chronic (6) CAD (coronary artery disease) Status: Chronic (7) Kyphosis (acquired) (postural) Status: Chronic (8) Exogenous obesity Status: Chronic (9) Anemia Status: Resolved
--- NOTE | 2017-03-26 14:29 | CP.PCM.PN ---
Subjective - Date & Time of Evaluation Date of Evaluation: 03/26/17 Time of Evaluation: 10:45 - Subjective Subjective: Pt seen and examined. Admitted relief from abdominal pain however has big concern that it might come again once she went home without getting cholecystectomy Objective - Vital Signs/Intake and Output Vital Signs (last 24 hours): Temp Pulse Resp BP Pulse Ox 97.5 F L 88 22 160/74 H 88 L 03/26/17 09:18 03/26/17 09:18 03/26/17 09:18 03/26/17 09:18 03/26/17 09:18 - Medications Medications: Current Medications Albuterol (Ventolin Hfa 90 Mcg/Actuation (8 G)) 2 puff IH Q4H PRN PRN Reason: Shortness of Breath Albuterol/Ipratropium (Duoneb 3 Mg/0.5 Mg (3 Ml) Ud) 3 ml INH RQID [facility] Last Admin: 03/26/17 11:14 Dose: 3 ml Atorvastatin Calcium (Lipitor) 80 mg PO HS [facility] Last Admin: 03/25/17 21:28 Dose: 80 mg Bisoprolol Fumarate (Zebeta) 2.5 mg PO DAILY [facility] Last Admin: 03/26/17 08:57 Dose: 2.5 mg Enoxaparin Sodium (Lovenox) 40 mg SC DAILY [facility] PRN Reason: Protocol Last Admin: 03/26/17 08:58 Dose: 40 mg Famotidine (Pepcid) 20 mg PO BID [facility] Last Admin: 03/26/17 08:56 Dose: 20 mg Ciprofloxacin (Cipro 400mg/200ml Dsw) 400 mg in 200 mls @ 200 mls/hr IVPB Q12 [facility] Last Admin: 03/26/17 09:01 Dose: 200 mls/hr Isosorbide Mononitrate (Imdur Er) 30 mg PO DAILY [facility] Last Admin: 03/26/17 08:57 Dose: 30 mg Ketorolac Tromethamine (Toradol) 15 mg IVP Q6 PRN PRN Reason: pain 5-10 Lactic Acid (Lac-Hydrin 12% Cream (140 G)) 1 ea TOP BID [facility] Last Admin: 03/26/17 08:59 Dose: 1 applic Lisinopril (Zestril) 2.5 mg PO DAILY [facility] Last Admin: 03/26/17 08:57 Dose: 2.5 mg Ondansetron HCl (Zofran Inj) 4 mg IVP Q4 PRN PRN Reason: Nausea/Vomiting Last Admin: 03/22/17 20:42 Dose: 4 mg - Labs Labs: 03/26/17 05:15 03/26/17 05:15 PT 11.9 Seconds (9.8-13.1) 03/22/17 12:30 INR 1.2 (0.9-1.2) 03/22/17 12:30 APTT 33.8 Seconds (25.6-37.1) 03/22/17 12:30 - Constitutional Appears: No Acute Distress - Head Exam Head Exam: ATRAUMATIC - Eye Exam Eye Exam: absent: Scleral icterus - ENT Exam ENT Exam: Mucous Membranes Moist - Neck Exam Neck Exam: absent: Meningismus - Respiratory Exam Respiratory Exam: absent: Rhonchi, Wheezes, Respiratory Distress - Cardiovascular Exam Cardiovascular Exam: REGULAR RHYTHM, +S1, +S2 - GI/Abdominal Exam GI & Abdominal Exam: Soft. absent: Tenderness - Rectal Exam Rectal Exam: Deferred - Neurological Exam Neurological Exam: Alert, Oriented x3 - Psychiatric Exam Psychiatric exam: Normal Affect - Skin Skin Exam: Dry, Intact Assessment and Plan (1) Abdominal pain Status: Resolved (2) Cholelithiases Status: Chronic (3) COPD exacerbation Status: Chronic (4) CAD (coronary artery disease) Status: Chronic (5) Hypertension Status: Chronic (6) Afib Status: Acute (7) DVT prophylaxis Status: Acute - Assessment and Plan (Free Text) Assessment: 86 yo female with history of CAD (2 stents 4 yrs ago), AFib (paroxysmal), COPD ( oxygen dependent) and HTN was seen in the ER because of on and off RUQ pain associated with nausea and vomiting secondary to cholelithiasis. 1. Abdominal pain 2/2 Cholelithiases pain was resolved tolerating solid but non-fatty food continue Cipro 400 mg IVPB q12 HIDA able to visualize gallbladder ruling out cholecystitis cardiology and pulmonology cleared patient for surgery 2. COPD exacerbation with hypoxia on Home O2 continue O2 inhalation at bedtime Duoneb via nebulizer q 4hrs prn for SOB/wheezing 3. Pulmonary Hypertension ECHO: severe pulmonary HTN, EF 50-55% VQ scan 4. CAD (coronary artery disease) ASA and Plavix on hold Lipitor 80mg PO HS. Zebeta 2.5mg PO daily. Isosorbide Mononitrate 30mg PO daily 5. Hypertension BP controlled. continue Lisinopril 2.5mg PO daily. Zebeta 2.5mg PO daily. Isosorbide Mononitrate 30mg PO daily 6. Afib in sinus and well controlled rate. continue Zebeta 7. DVT prophylaxis venodyne boots while on bed Lovenox to be held before surgery when scheduled
--- NOTE | 2017-03-26 15:45 | NM ---
COMPARISON: 03/20/2017 TECHNIQUE: 45.0 mCi technetium 99-m DTPA aerosol. 5.8 mCI technetium 99-m MAA administered intravenously. FINDINGS: VENTILATION COMPONENT: Heterogeneous ventilation particularly lower lung alcantar consistent with findings on recent chest x-ray PERFUSION COMPONENT: Heterogeneous distribution of radionuclide. No geographic, segmental, lobar abnormalities apparent on the present examination. IMPRESSION: Low probability ventilation perfusion scan for pulmonary embolism.
[2017-03-27 05:44] LABS: BASO % 0.3 % (0.0-2.0); EOS # 0.3 K/uL (0.0-0.7); EOS % 3.1 % (0.0-4.0); HEMATOCRIT 39.4 % (34.0-47.0); LYMPH # 0.6 K/uL (1.0-4.3); LYMPH % 7.8 % (20.0-40.0); MEAN CELL VOLUME 87.2 fl (81.0-99.0); MEAN CORPUSCULAR HGB CONC 32.1 g/dL (33.0-37.0); MEAN PLATELET VOLUME 7.8 fl (7.2-11.7); MONO # 0.6 K/uL (0.0-0.8); MONO % 8.1 % (0.0-10.0); NEUT # 6.5 K/uL (1.8-7.0); NEUT % 80.7 % (50.0-75.0); NRBC % 0.1 % (0.0-0.0); RED CELL DISTRIBUTION WIDTH 15.1 % (11.5-14.5)
[2017-03-27 05:56] LABS: ALB/GLOB RATIO 1.3 (1.0-2.1); ALKALINE PHOSPHATASE 109 U/L (38-126); ALT/SGPT 30 U/L (9-52); AST/SGOT 20 U/L (14-36); BILIRUBIN,TOTAL 0.7 mg/dl (0.2-1.3); BLOOD UREA NITROGEN 7 mg/dl (7-17); CALCIUM 9.2 mg/dL (8.4-10.2); CARBON DIOXIDE 33 mmol/L (22-30); CHLORIDE 97 mmol/L (98-107); GFR AFRICAN-AMERICAN > 60; GLUCOSE,RANDOM 110 mg/dL (65-105); POTASSIUM 4.2 MMOL/L (3.6-5.0); SODIUM 140 mmol/l (132-148); TOTAL PROTEIN 6.7 G/DL (6.3-8.2)
[2017-03-27 06:31] LABS: PARTIAL THROMBOPLASTIN TIME 32.6 Seconds (25.6-37.1)
[2017-03-27] MEDS: Albuterol-Ipratrop 3 mg / 0.5 (3 ml) UD INH SCH ×2 (07:46→11:15)
[2017-03-27 07:49] VITALS: BP 169/77; RESP 18; TEMP 97.7; O2SAT 93
[2017-03-27 08:13] VITALS: PULSE 93
[2017-03-27] MEDS: Ciprofloxacin 400mg/200ml D5W 400 MG/200 ML BAG IVPB SCH (08:16)
[2017-03-27] MEDS: Ammonium Lactate 12% Cream (140 g) TOP SCH (08:19)
--- NOTE | 2017-03-27 09:09 | CP.PCM.PN ---
Subjective - Date & Time of Evaluation Date of Evaluation: 03/27/17 Time of Evaluation: 09:02 - Subjective Subjective: Discussion this morning with anesthesia. Patient presently is asymptomatic, without pain. No nausea or vomiting, no acute cholecystitis based on HIDA scan. Labs are okay, vital signs are stable, she has remained afebrile. Severe pulmonary hypertension would raise the risk for anesthesia to an unacceptable level for elective surgery. Patient was given a complete explanation of the situation, and she agrees. She will be discharged today and will have a workup as an outpatient which would include right heart cath and direct pressure measurement. All her usual medication will be continued, and she will use her home oxygen for >12 hrs daily. Objective - Vital Signs/Intake and Output Vital Signs (last 24 hours): Temp Pulse Resp BP Pulse Ox 97.7 F 93 H 18 169/77 H 93 L 03/27/17 07:48 03/27/17 08:11 03/27/17 07:48 03/27/17 08:11 03/27/17 07:48 Intake and Output: 03/26/17 03/27/17 23:59 11:59 Intake Total 300 Balance 300 - Medications Medications: Current Medications Albuterol (Ventolin Hfa 90 Mcg/Actuation (8 G)) 2 puff IH Q4H PRN PRN Reason: Shortness of Breath Albuterol/Ipratropium (Duoneb 3 Mg/0.5 Mg (3 Ml) Ud) 3 ml INH RQID [facility] Last Admin: 03/27/17 07:46 Dose: 3 ml Atorvastatin Calcium (Lipitor) 80 mg PO HS [facility] Last Admin: 03/26/17 21:15 Dose: 80 mg Bisoprolol Fumarate (Zebeta) 2.5 mg PO DAILY [facility] Last Admin: 03/27/17 08:11 Dose: 2.5 mg Famotidine (Pepcid) 20 mg PO BID [facility] Last Admin: 03/27/17 08:47 Dose: 20 mg Ciprofloxacin (Cipro 400mg/200ml Dsw) 400 mg in 200 mls @ 200 mls/hr IVPB Q12 [facility] Last Admin: 03/27/17 08:16 Dose: 200 mls/hr Isosorbide Mononitrate (Imdur Er) 30 mg PO DAILY [facility] Last Admin: 03/27/17 08:47 Dose: 30 mg Ketorolac Tromethamine (Toradol) 15 mg IVP Q6 PRN PRN Reason: pain 5-10 Lactic Acid (Lac-Hydrin 12% Cream (140 G)) 1 ea TOP BID [facility] Last Admin: 03/27/17 08:19 Dose: 1 applic Lisinopril (Zestril) 2.5 mg PO DAILY [facility] Last Admin: 03/27/17 08:11 Dose: 2.5 mg Ondansetron HCl (Zofran Inj) 4 mg IVP Q4 PRN PRN Reason: Nausea/Vomiting Last Admin: 03/22/17 20:42 Dose: 4 mg - Labs Labs: 03/27/17 05:33 03/27/17 05:33 PT 12.9 Seconds (9.8-13.1) 03/27/17 05:33 INR 1.3 (0.9-1.2) H 03/27/17 05:33 APTT 32.6 Seconds (25.6-37.1) 03/27/17 05:33 Assessment and Plan (1) COPD (chronic obstructive pulmonary disease) Status: Chronic (2) Pulmonary fibrosis, unspecified Status: Chronic (3) Hypoxemia requiring supplemental oxygen Status: Chronic (4) Abdominal pain Status: Resolved (5) Cholelithiases Status: Chronic (6) CAD (coronary artery disease) Status: Chronic (7) Kyphosis (acquired) (postural) Status: Chronic (8) Exogenous obesity Status: Chronic (9) Anemia Status: Resolved
--- NOTE | 2017-03-27 09:43 | CP.PCM.DIS ---
Provider - Provider Date of Admission: 03/22/17 14:39 Attending physician: Isac Nguyen MD Primary care physician: Dr. Marquez Consults: pulmonary consult cardiology consult surgery consult Anesthesiology Time Spent in preparation of Discharge (in minutes): 20 Hospital Course - Lab Results Lab Results: Micro Results 03/22/17 12:30 Blood Blood Culture - Preliminary NO GROWTH AFTER 4 DAYS 03/22/17 12:45 Blood Blood Culture - Preliminary NO GROWTH AFTER 4 DAYS Most Recent Lab Values WBC 8.0 K/uL (4.8-10.8) 03/27/17 05:33 RBC 4.52 Mil/uL (3.80-5.20) 03/27/17 05:33 Hgb 12.7 g/dL (12.0-16.0) 03/27/17 05:33 Hct 39.4 % (34.0-47.0) 03/27/17 05:33 MCV 87.2 fl (81.0-99.0) 03/27/17 05:33 MCH 28.0 pg (27.0-31.0) 03/27/17 05:33 MCHC 32.1 g/dL (33.0-37.0) L 03/27/17 05:33 RDW 15.1 % (11.5-14.5) H 03/27/17 05:33 Plt Count 199 K/uL (130-400) 03/27/17 05:33 MPV 7.8 fl (7.2-11.7) 03/27/17 05:33 Neut % (Auto) 80.7 % (50.0-75.0) H 03/27/17 05:33 Lymph % (Auto) 7.8 % (20.0-40.0) L 03/27/17 05:33 [place] % (Auto) 8.1 % (0.0-10.0) 03/27/17 05:33 Eos % (Auto) 3.1 % (0.0-4.0) 03/27/17 05:33 Baso % (Auto) 0.3 % (0.0-2.0) 03/27/17 05:33 Neut # 6.5 K/uL (1.8-7.0) 03/27/17 05:33 Lymph # 0.6 K/uL (1.0-4.3) L 03/27/17 05:33 [place] # 0.6 K/uL (0.0-0.8) 03/27/17 05:33 Eos # 0.3 K/uL (0.0-0.7) 03/27/17 05:33 Baso # 0.0 K/uL (0.0-0.2) 03/27/17 05:33 Neutrophils % (Manual) 75 % (42-75) 03/26/17 05:15 Band Neutrophils % 1 % (0-2) 03/22/17 12:30 Lymphocytes % (Manual) 12 % (20-50) L 03/26/17 05:15 Monocytes % (Manual) 9 % (0-10) 03/26/17 05:15 Eosinophils % (Manual) 3 % (0-7) 03/26/17 05:15 Basophils % (Manual) 1 % (0-2) 03/26/17 05:15 Platelet Estimate Normal (NORMAL) 03/26/17 05:15 Large Platelets Present 03/26/17 05:15 Poikilocytosis (manual Slight 03/22/17 12:30 Anisocytosis (manual) Slight 03/26/17 05:15 Ovalocytes Slight 03/26/17 05:15 PT 12.9 Seconds (9.8-13.1) 03/27/17 05:33 INR 1.3 (0.9-1.2) H 03/27/17 05:33 APTT 32.6 Seconds (25.6-37.1) 03/27/17 05:33 pCO2 60 mm/Hg (35-45) H 03/26/17 06:25 pO2 53 mm/Hg (80-100) L 03/26/17 06:25 HCO3 34.9 mmol/L (21-28) H 03/26/17 06:25 ABG pH 7.43 (7.35-7.45) 03/26/17 06:25 ABG Total CO2 41.6 mmol/L (22-28) H 03/26/17 06:25 ABG O2 Saturation 92.1 % (95-98) L 03/26/17 06:25 ABG O2 Content 15.2 ML/dL (15-23) 03/26/17 06:25 ABG Base Excess 13.1 mmol/L (-2.0-3.0) H 03/26/17 06:25 ABG Hemoglobin 12.2 g/dL (11.7-17.4) 03/26/17 06:25 ABG Carboxyhemoglobin 2.3 % (0.5-1.5) H 03/26/17 06:25 POC ABG HHb (Measured) 7.6 % (0.0-5.0) H 03/26/17 06:25 ABG Methemoglobin 1.8 % (0.0-3.0) 03/26/17 06:25 ABG O2 Capacity 16.5 mL/dL (16-24) 03/26/17 06:25 Luiz Test Yes 03/26/17 06:25 VBG pH 7.57 (7.32-7.43) H 03/22/17 12:50 VBG pCO2 35 mmHg (40-60) L 03/22/17 12:50 VBG HCO3 31.7 mmol/L 03/22/17 12:50 VBG Total CO2 33.2 mmol/L (22-28) H 03/22/17 12:50 VBG O2 Sat (Calc) 77.6 % (40-65) H 03/22/17 12:50 VBG Base Excess 9.6 mmol/L (0.0-2.0) H 03/22/17 12:50 VBG Potassium 5.5 mmol/L (3.6-5.2) H 03/22/17 12:50 A-a O2 Difference 72.0 mm/Hg 03/26/17 06:25 Hgb O2 Saturation 88.4 % (95.0-98.0) L 03/26/17 06:25 Chloride 129.0 mmol/L (98-107) H 03/22/17 12:50 Glucose 65 mg/dL (65-105) 03/22/17 12:50 Lactate 1.4 mmol/L (0.7-2.1) 03/22/17 12:50 Liter Flow 35 03/25/17 06:20 Vent Mode High flow lpm 03/25/17 06:20 FiO2 28.0 % 03/26/17 06:25 Blood Gas Comments 2l/m nc.rr 03/24/17 08:19 Crit Value Called To Lalitha salcedo 03/24/17 08:19 Crit Value Called By 15 03/24/17 08:19 Crit Value Read Back Y 03/24/17 08:19 Blood Gas Notified Time 1018 03/24/17 08:19 Sodium 140 mmol/l (132-148) 03/27/17 05:33 Potassium 4.2 MMOL/L (3.6-5.0) 03/27/17 05:33 Chloride 97 mmol/L (98-107) L 03/27/17 05:33 Carbon Dioxide 33 mmol/L (22-30) H 03/27/17 05:33 Anion Gap 14 (10-20) 03/27/17 05:33 BUN 7 mg/dl (7-17) 03/27/17 05:33 Creatinine 0.6 mg/dL (0.7-1.2) L 03/27/17 05:33 Est GFR ( Amer) > 60 03/27/17 05:33 Est GFR (Non-Af Amer) > 60 03/27/17 05:33 Random Glucose 110 mg/dL (65-105) H 03/27/17 05:33 Calcium 9.2 mg/dL (8.4-10.2) 03/27/17 05:33 Total Bilirubin 0.7 mg/dl (0.2-1.3) 03/27/17 05:33 AST 20 U/L (14-36) 03/27/17 05:33 ALT 30 U/L (9-52) 03/27/17 05:33 Alkaline Phosphatase 109 U/L (38-126) 03/27/17 05:33 Troponin I < 0.0120 ng/mL (0.00-0.120) 03/22/17 12:30 NT-Pro-B Natriuret Pep 504 pg/ml (0-900) 03/22/17 12:30 Total Protein 6.7 G/DL (6.3-8.2) 03/27/17 05:33 Albumin 3.8 g/dL (3.5-5.0) 03/27/17 05:33 Globulin 2.9 gm/dL (2.2-3.9) 03/27/17 05:33 Albumin/Globulin Ratio 1.3 (1.0-2.1) 03/27/17 05:33 Lipase 29 U/L (23-300) 03/22/17 12:30 Venous Blood Potassium 5.5 mmol/L (3.6-5.2) H 03/22/17 12:50 - Hospital Course Hospital Course: 86 yo female with history of CAD (2 stents 4 yrs ago), AFib (paroxysmal), COPD ( oxygen dependent) and HTN was seen in the ER because of on and off RUQ pain associated with nausea and vomiting for 7 days. Patient was found to be in COPD exacerbation in addition to cholelithiasis. Abd US showed cholelithiasis and CBD 5mm.She was started on cipro Iv for possible cholecystitis. Surgery was consulted for possible cholecystectomy and recommended HIDA scan to rule out cholecystitis.Pulmonary was consulted for respiratory optimization since patient has COPD , is O2 dependent and had mild exacerbation of COPD. Cardiology was consulted for preop clearance. Echo showed normal EF but very elevated right ventricular systolic pressure 74.V/Q scan showed no PE HIDA scan was reported as negative for cholecystitis so plan is for patient to have cholecystectomy . Given her pulmonary status, elevated PA pressures anesthesiology expressed reservation about general anesthesia. Patient currently is asymptomatic, pain resolved , tolerating PO intake. Will discharge patient home. Will need to have right side cardiac cath to better evaluate pressures on the right side of the heart before planning any surgery Patient to follow up with Dr. Marquez pulmonary and Dr. Sanchez as outpatient Continue all other medications the same 1. Abdominal pain 2/2 Cholelithiasis cholecystitis ruled out pain resolved 2. COPD exacerbation with hypoxia on Home O2 continue O2 inhalation at bedtime PO2 53 Keep O2 via NC > 12 hours / day 3. Pulmonary Hypertension ECHO: severe pulmonary HTN, EF 50-55% VQ negative for PE PA pressures 74 4. CAD (coronary artery disease) stable Continue home meds cardiologyu consulted ASA and Plavix on hold Lipitor 80mg PO HS. Zebeta 2.5mg PO daily. Isosorbide Mononitrate 30mg PO daily 5. Hypertension BP controlled. continue Lisinopril 2.5mg PO daily. Zebeta 2.5mg PO daily. Isosorbide Mononitrate 30mg PO daily 6. Afib in sinus and well controlled rate. continue Zebeta 7. DVT prophylaxis venodyne boots while on bed Discharge Exam - Head Exam Head Exam: ATRAUMATIC, NORMOCEPHALIC - Eye Exam Eye Exam: EOMI, PERRL Pupil Exam: NORMAL ACCOMODATION - ENT Exam ENT Exam: Mucous Membranes Moist, Normal Exam - Neck Exam Neck exam: Full Rom, Normal Inspection - Respiratory Exam Respiratory Exam: Clear to PA & Lateral. absent: Rhonchi, Wheezes - Cardiovascular Exam Cardiovascular Exam: REGULAR RHYTHM, +S1, +S2. absent: JVD - GI/Abdominal Exam GI & Abdominal Exam: Normal Bowel Sounds, Soft. absent: Distended, Guarding, Rebound, Tenderness - Rectal Exam Rectal Exam: Deferred - Extremities Exam Extremities exam: normal capillary refill, normal inspection, pedal pulses present - Back Exam Back exam: NORMAL INSPECTION - Neurological Exam Neurological exam: Alert, CN II-XII Intact, Oriented x3, Reflexes Normal - Psychiatric Exam Psychiatric exam: Normal Affect, Normal Mood - Skin Skin Exam: Dry, Intact, Normal Color, Warm Discharge Plan - Follow Up Plan Condition: STABLE Disposition: HOME/ ROUTINE Patient education suggested?: Yes Instructions: Gallstones (DC), Low Fat Diet (DC), Low Fiber Diet (GEN) Additional Instructions: follow up with dr marquez in office Also follow up with [facility] oupatient Referrals: Hardik Sanchez MD [Staff Provider] - Vamsi Ventura MD [Staff Provider] - Kaushik Marquez MD [Family Provider] -
== END 2017-03-27 11:30 | disposition home or self-care (01) | DRG 445 ==
LOC: H.ER 12:11 → H.ERHOLD 14:39 → H.MEDSURG1 20:33
PROC: 5A09457 Assistance with Respiratory Ventilation, 24-96 Consecutive Hours, Continuous Positive Airway Pressure (ICD-10-PCS; principal; 2017-03-25)
DX: K80.20 Calculus of gallbladder without cholecystitis without obstruction (principal); J44.1 Chronic obstructive pulmonary disease with (acute) exacerbation; R09.02 Hypoxemia; I11.0 Hypertensive heart disease with heart failure; I50.9 Heart failure, unspecified; I27.2 Other secondary pulmonary hypertension; I25.10 Atherosclerotic heart disease of native coronary artery without angina pectoris; I48.0 Paroxysmal atrial fibrillation; K21.9 Gastro-esophageal reflux disease without esophagitis; J84.10 Pulmonary fibrosis, unspecified; M40.00 Postural kyphosis, site unspecified; E66.09 Other obesity due to excess calories; D64.9 Anemia, unspecified; Z95.5 Presence of coronary angioplasty implant and graft; I25.2 Old myocardial infarction; Z87.891 Personal history of nicotine dependence; Z79.82 Long term (current) use of aspirin; Z99.81 Dependence on supplemental oxygen; Z68.38 Body mass index [BMI] 38.0-38.9, adult; Z88.0 Allergy status to penicillin

== ENCOUNTER 2018-01-29 19:10 | Emergency (ER) | payer MEDICARE ==
[2018-01-29 19:10] VITALS: BMI 38.4
[2018-01-29 19:36] VITALS: BP 153/93; PULSE 87; RESP 16; TEMP 98; O2SAT 93
--- NOTE | 2018-01-29 21:09 | ED PDOC ---
HPI: Female Pain Time Seen by Provider: 01/29/18 19:41 Chief Complaint (Nursing): Female Genitourinary Chief Complaint (Provider): Vaginal Bleeding History Per: Patient History/Exam Limitations: no limitations Onset/Duration Of Symptoms: Days (x2) Current Symptoms Are (Timing): Still Present Additional Complaint(s): 87 y/o female with a PMHx of COPD, HTN, CAD (stents), and home O2 dependence presenting for evaluation of vaginal bleeding x2 days. Patient states she notices the bleeding mostly after urinating. She states bleeding is mostly spotting and denies any clots. Patient also reports lower abdominal pain. She denies any nausea, vomiting, diarrhea, or rectal pain. She reports normal stools. PMD: Dr. Marquez Past Medical History Reviewed: Historical Data, Nursing Documentation, Vital Signs Vital Signs: Last Vital Signs Temp 98.0 F 01/29/18 19:33 Pulse 87 01/29/18 19:33 Resp 16 01/29/18 19:33 BP 153/93 H 01/29/18 19:33 Pulse Ox 93 L 01/29/18 19:33 - Medical History PMH: Atrial Fibrillation, CAD, CHF, COPD, Emphysema, Fractures (right ankle), HTN, Hypercholesterolemia, Peripheral Edema, Pneumonia Denies: Diabetes, HIV, Chronic Kidney Disease - Surgical History Surgical History: Coronary Stent (x 2) Denies: Appendectomy, Pacemaker - Family History Family History: States: Unknown Family Hx - Social History Current smoker - smoking cessation education provided: No Alcohol: None Drugs: Denies - Home Medications Home Medications: Ambulatory Orders Medication Instructions Recorded Aspirin [Ecotrin] 81 mg PO DAILY 12/26/15 Atorvastatin [Lipitor] 80 mg PO HS 12/26/15 Bisoprolol [Zebeta] 2.5 mg PO DAILY 12/26/15 Clopidogrel [Plavix] 75 mg PO DAILY 12/26/15 Isosorbide Mononitrate ER [Imdur 30 mg PO DAILY 12/26/15 ER] Lisinopril [Zestril] 2.5 mg PO DAILY 12/26/15 Umeclidinium Brm/Vilanterol Tr 1 puff IH DAILY 03/29/17 [Anoro Ellipta] Ciprofloxacin [Cipro] 500 mg PO Q12 #14 tab 01/29/18 - Allergies Allergies/Adverse Reactions: Allergies Allergy/AdvReac Type Severity Reaction Status Date / Time Penicillins Allergy Mild SWELLING Verified 04/11/16 09:43 Review of Systems ROS Statement: Except As Marked, All Systems Reviewed And Found Negative Gastrointestinal: Negative for: Nausea, Vomiting, Diarrhea, Rectal Pain Genitourinary Female: Positive for: Vaginal Bleeding Physical Exam - Reviewed Nursing Documentation Reviewed: Yes Vital Signs Reviewed: Yes - Physical Exam Appears: Positive for: Non-toxic, No Acute Distress Head Exam: Positive for: ATRAUMATIC, NORMAL INSPECTION, NORMOCEPHALIC Skin: Positive for: Normal Color, Warm, Dry. Negative for: Rash Eye Exam: Positive for: EOMI, Normal appearance, PERRL ENT: Positive for: Normal ENT Inspection Neck: Positive for: Normal, Painless ROM, Supple Cardiovascular/Chest: Positive for: Regular Rate, Rhythm. Negative for: Murmur Respiratory: Positive for: Normal Breath Sounds. Negative for: Respiratory Distress Gastrointestinal/Abdominal: Positive for: Normal Exam, Soft. Negative for: Tenderness Back: Positive for: Normal Inspection. Negative for: L CVA Tenderness, R CVA Tenderness, Vertebral Tenderness Extremity: Positive for: Normal ROM. Negative for: Pedal Edema, Deformity Neurologic/Psych: Positive for: Alert, Oriented. Negative for: Motor/Sensory Deficits - Laboratory Results Result Diagrams: 01/29/18 21:15 01/29/18 21:15 - ECG O2 Sat by Pulse Oximetry: 93 (RA) Medical Decision Making Medical Decision Makin:42 Impression: 87 y/o female with post menopausal vaginal bleeding Plan: -ABO/Rh Type -EKg -CMP -Urine dipstick -CBC w/ differential -PTT/PT -Heplock insertion -Urinalysis -US Pelvis -Reevaluation 21:50 Clinical Impression: UTI cystitis Labs reviewed. Indicative of UTI based on urinalysis. Patient reports that she feels well and can follow up with PMD in office. Patient stable for discharge. Scribe Attestation: Documented by Van Lee, acting as a scribe for James Whitten MD. Provider Scribe Attestation: All medical record entries made by the Scribe were at my direction and personally dictated by me. I have reviewed the chart and agree that the record accurately reflects my personal performance of the history, physical exam, medical decision making, and the department course for this patient. I have also personally directed, reviewed, and agree with the discharge instructions and disposition. Disposition - Clinical Impression Clinical Impression: UTI (urinary tract infection) - Patient ED Disposition Is Patient to be Admitted: No Counseled Patient/Family Regarding: Studies Performed, Diagnosis, Need For Followup, Rx Given - Disposition Disposition: Routine/Home Disposition Time: 21:50 Condition: STABLE Prescriptions: Ciprofloxacin [Cipro] 500 mg PO Q12 #14 tab Instructions: Urinary Tract Infections in Adults Forms: [employer] [facility] (Slovenian)
[2018-01-29 21:21] LABS: SQUAMOUS EPITHIAL 2 /hpf (0-5); URINE BACTERIA RARE (<OCC); URINE BILIRUBIN NEGATIVE (NEGATIVE); URINE BLOOD LARGE (NEGATIVE); URINE CLARITY CLOUDY (Clear); URINE COLOR YELLOW (YELLOW); URINE GLUCOSE (UA) NEG (Normal); URINE LEUKOCYTE ESTERASE MOD Leu/uL (Negative); URINE PROTEIN 30 mg/dL (NEGATIVE)
[2018-01-29 21:23] LABS: BASO # 0.1 K/uL (0.0-0.2); BASO % 0.5 % (0.0-2.0); EOS # 0.2 K/uL (0.0-0.7); EOS % 1.6 % (0.0-4.0); HEMOGLOBIN 13.1 g/dL (12.0-16.0); LYMPH # 1.4 K/uL (1.0-4.3); LYMPH % 13.4 % (20.0-40.0); MEAN CELL VOLUME 88.1 fl (81.0-99.0); MEAN CORPUSCULAR HEMOGLOBIN 28.7 pg (27.0-31.0); MEAN CORPUSCULAR HGB CONC 32.6 g/dL (33.0-37.0); MEAN PLATELET VOLUME 8.1 fl (7.2-11.7); MONO # 0.8 K/uL (0.0-0.8); MONO % 7.4 % (0.0-10.0); NEUT # 8.3 K/uL (1.8-7.0); NEUT % 77.1 % (50.0-75.0); RBC 4.57 Mil/uL (3.80-5.20); RED CELL DISTRIBUTION WIDTH 15.2 % (11.5-14.5); WHITE BLOOD COUNT 10.8 K/uL (4.8-10.8)
[2018-01-29 21:31] LABS: ALB/GLOB RATIO 1.3 (1.0-2.1); ALBUMIN 3.7 g/dL (3.5-5.0); CALCIUM 9.3 mg/dL (8.4-10.2); GFR NON-AFRICAN AMERICAN > 60
[2018-01-29 21:43] LABS: ALT/SGPT 37 U/L (9-52); AST/SGOT 33 U/L (14-36); BLOOD UREA NITROGEN 30 mg/dl (7-17)
[2018-01-29 21:46] LABS: PARTIAL THROMBOPLASTIN TIME 27.7 Seconds (25.6-37.1); PROTHROMBIN TIME 11.1 Seconds (9.8-13.1)
--- NOTE | 2018-01-30 12:10 | US ---
Date of service: 01/29/2018 HISTORY: Postmenopausal vaginal bleeding. COMPARISON: None available. TECHNIQUE: Transabdominal only. Real-time technique with 2D, duplex and color Doppler FINDINGS: UTERUS: Measures 2.9 x 4.3 x 7.4 cm. Normal in size, heterogeneous echo characteristics. Location of fibroid and size: Posterior completely calcified 1.1 x 1.3 cm. ENDOMETRIUM: Measures 17.0 mm in diameter. Thickened heterogeneous endometrial echo complex. Fluid identified within the endometrial canal. CERVIX: No cervical abnormality identified. RIGHT OVARY: Not visible lungs LEFT OVARY: Non visible FREE FLUID: No significant free fluid noted. OTHER FINDINGS: None. IMPRESSION: Thickened endometrium with fluid identified in the endometrial canal. Follow-up recommended. Limitations of the current examination: Nonvisualization of the adnexa. Please note: Transvaginal ultrasound was requested however, the patient deferred. Concordant results (preliminary interpretation) provided by [facility]. Procedure Completed: 20:54 Preliminary ([facility]) Report: Dictated and Authenticated: 21:35 Final Interpretation: 12:09 January 30, 2018.
--- NOTE | 2018-01-30 12:30 | CARD ---
APPROVED REPORT Date of service: 01/29/2018 EKG Measurement Heart [id number] <Conclusion> Sinus rhythm with sinus arrhythmia with occasional premature ventricular complexes Otherwise normal ECG
== END 2018-01-29 22:01 | disposition home or self-care (01) ==
LOC: H.ER 19:10
DX: N39.0 Urinary tract infection, site not specified (principal); N95.0 Postmenopausal bleeding; Z95.5 Presence of coronary angioplasty implant and graft; Z88.0 Allergy status to penicillin

== ENCOUNTER 2018-08-09 17:14 | Inpatient (IN) | payer MEDICARE ==
[2018-08-09 17:15] VITALS: BMI 35.8
[2018-08-09] MEDS ORDERED: Sodium Chloride 0.9% 1,000 ML IV STA (17:46)
--- NOTE | 2018-08-09 17:49 | ED PDOC ---
Syncope/Near Syncope/Dizziness Time Seen by Provider: 08/09/18 17:31 Chief Complaint (Nursing): Weakness/Neurological Deficit History Per: Family Onset/Duration Of Symptoms: Days (1) Current Symptoms Are (Timing): Still Present Seizure Or Post-ictal Symptoms: None Fall Associated With With Symptoms: Yes Additional Complaint(s): Pt fell out of bed last night and was unable to get up off floor. Denies injury. Family notes that pt has been increasingly confused and weak, unable to stand. Has also been incontinent of urine today. Has had persistent cough over past 2 w eeks Denies SOB. Denies fever at home. Past Medical History Vital Signs: Last Vital Signs Temp 98.8 F 08/09/18 17:26 Pulse 93 H 08/09/18 17:26 Resp 16 08/09/18 17:26 BP 129/76 08/09/18 17:26 Pulse Ox 96 08/09/18 17:26 - Medical History PMH: Atrial Fibrillation, CAD, CHF, COPD, Emphysema, Fractures (right ankle), HTN, Hypercholesterolemia, Peripheral Edema, Pneumonia Denies: Diabetes, HIV, Chronic Kidney Disease - Surgical History Surgical History: Coronary Stent (x 2) Denies: Appendectomy, Pacemaker - Family History Family History: States: Unknown Family Hx - Home Medications Home Medications: Ambulatory Orders Medication Instructions Recorded Aspirin [Ecotrin] 81 mg PO DAILY 12/26/15 Bisoprolol [Zebeta] 5 mg PO DAILY 12/26/15 Clopidogrel [Plavix] 75 mg PO DAILY 12/26/15 Isosorbide Mononitrate ER [Imdur 30 mg PO DAILY 12/26/15 ER] Lisinopril [Zestril] 2.5 mg PO DAILY 12/26/15 - Allergies Allergies/Adverse Reactions: Allergies Allergy/AdvReac Type Severity Reaction Status Date / Time Penicillins Allergy Mild SWELLING Verified 08/09/18 17:25 Review of Systems ROS Statement: Except As Marked, All Systems Reviewed And Found Negative Respiratory: Positive for: Cough Genitourinary Female: Positive for: Incontinence Neurological: Positive for: Confusion Physical Exam - Reviewed Nursing Documentation Reviewed: Yes Vital Signs Reviewed: Yes - Physical Exam Appears: Positive for: Non-toxic, No Acute Distress Head Exam: Positive for: ATRAUMATIC, NORMAL INSPECTION, NORMOCEPHALIC Skin: Positive for: Normal Color, Warm, DRY Eye Exam: Positive for: EOMI, Normal appearance, PERRL ENT: Positive for: Other (Mucous membranes dry) Neck: Positive for: Normal, Painless ROM Cardiovascular/Chest: Positive for: Regular Rate, Rhythm Respiratory: Positive for: Rhonchi. Negative for: Wheezing, Respiratory Distress Gastrointestinal/Abdominal: Positive for: Normal Exam, Soft Back: Positive for: Normal Inspection Extremity: Positive for: Normal ROM Neurologic/Psych: Positive for: Alert, Oriented (x 2). Negative for: Motor/Sensory Deficits - Laboratory Results Result Diagrams: 08/09/18 18:05 08/09/18 18:05 - ECG O2 Sat by Pulse Oximetry: 96 Medical Decision Making Medical Decision Making: AMS, confused, appears dehydrated, possible sepsis/pneumonia/UTI Will hydrate while assessing Disposition - Clinical Impression Clinical Impression: Syncope, Altered mental state - Patient ED Disposition Is Patient to be Admitted: Yes - Disposition Disposition Time: 19:09 Condition: FAIR Forms: [employer] [facility] ([place]) - Pt Status Changed To: Hospital Disposition Of: Inpatient - Admit Certification Admit to Inpatient:: After my assessment, the patient will require hospitalization for at least two midnights. This is because of the severity of symptoms shown, intensity of services needed, and/or the medical risk in this patient being treated as an outpatient. - POA Present On Arrival: None
[2018-08-09 18:13] LABS: VENOUS BLOOD GAS BASE EXCESS 3.5 mmol/L (0.0-2.0); VENOUS BLOOD GAS PCO2 47 mmHg (40-60); VENOUS BLOOD GAS PO2 38 mm/Hg (30-55)
[2018-08-09 18:14] LABS: BASO % 0.4 % (0.0-2.0); HEMOGLOBIN 12.9 g/dL (12.0-16.0); LYMPH # 0.2 K/uL (1.0-4.3); LYMPH % 2.4 % (20.0-40.0); MEAN CELL VOLUME 85.9 fl (81.0-99.0); MEAN CORPUSCULAR HEMOGLOBIN 27.4 pg (27.0-31.0); MEAN CORPUSCULAR HGB CONC 31.9 g/dL (33.0-37.0); MEAN PLATELET VOLUME 8.1 fl (7.2-11.7); MONO # 0.5 K/uL (0.0-0.8); MONO % 6.9 % (0.0-10.0); NEUT # 6.8 K/uL (1.8-7.0); NEUT % 90.3 % (50.0-75.0); PLATELET COUNT 207 K/uL (130-400); RBC 4.71 Mil/uL (3.80-5.20); WHITE BLOOD COUNT 7.6 K/uL (4.8-10.8)
[2018-08-09 18:23] LABS: ALB/GLOB RATIO 1.3 (1.0-2.1); ALBUMIN 3.9 g/dL (3.5-5.0); ALT/SGPT 28 U/L (9-52); AST/SGOT 27 U/L (14-36); BLOOD UREA NITROGEN 17 mg/dl (7-17); CALCIUM 9.5 mg/dL (8.4-10.2); GFR NON-AFRICAN AMERICAN > 60
[2018-08-09] MEDS ORDERED: Vancomycin 1 g Inj ONE (19:34)
--- NOTE | 2018-08-09 19:41 | CP.PCM.HP ---
<Charles Rivas - Last Filed: 08/09/18 21:14> History of Present Illness - History of Present Illness History of Present Illness: Some of the Information were taken by daughter of patient This is a 87 yo female with PMH of COPD on Ox treatment 12h 9pm-9am, stent placed 2 years ago was brought by ambulance to hospital at 4 pm after she had a slip and fall from bed at 1am in morning while she was trying to stand to go to the toilet. Pt denies LOC or Head trauma. Pt was unable to move from floor and was calling for help, one of her neighbor heard her at 10am and called the ambulance but patient refused to go to hospital. Her daughter report that patient was confused/agitated, lips were blue, Unable to stand due to weakness, and had a urine incontinences. Daughter State that patient is normally healthy, she can walk with a walker, sharp in memory alert and oriented to time and place. Daughter state that she was seen last week by Surgeon Ej due to B/L hip pain that have been present for years, she was sent for CT scan and waiting result. Otherwise patient had a URI symptoms 2 weeks ago which have improved except for the cough, she denies any fever,chills, sob. Pt denies any headache,dizziness, change in vision, Nausea, vomiting, chest pain, SOB, Abd Pain, loss of bowel movement. Allergy: Penicillins Medication: Plavix, Aspirin, Zebeta, Imdur ER, Nebulizer once a day, albuterol pump prn PMH: COPD, Stent placed 2 year ago, Rheumatic fever as a child PSH: Denies any surgery Family history: denies any family history Social: Former smoker quite 12 year ago, denies alcohol or drug use. Live alone, use walker. ER course Pt was seen in ER, she was Alert oriented to time and place, Physical examination was WNL Vitals: Temp 98.8, HR 93, BP 129/76, RR 16 Patient was placed on Monitor, IV NaCl + IV Vanco. CBC WNL except Neutrophil % 90.3 BMP: WNL except Glucose of 153 VPG: WNL Trop x1 negative Influenza A/B negative Chest xray no acute changes CT head: negative for bleed ( pending official read) Pelvis Xray: Negative for fracture ( pending official read) Blood culture pending Patient will be admitted to Telemetry to evaluate pneumonia/ ACS/ CVA Present on Admission - Present on Admission Any Indicators Present on Admission: No Review of Systems - Review of Systems All systems: reviewed and no additional remarkable complaints except - Constitutional Constitutional: absent: Headache - EENT Eyes: absent: Blurred Vision, Change in Vision Ears: absent: Decreased Hearing, Disequilibrium, Dizziness Nose/Mouth/Throat: absent: Nasal Congestion, Nasal Discharge, Dysphagia, Hoarsness, Sore Throat, Neck Pain - Cardiovascular Cardiovascular: absent: Chest Pain, Chest Pain at Rest, Dyspnea on Exertion, Edema, Lightheadedness, Palpitations, Syncope - Respiratory Respiratory: absent: Cough, Dyspnea, Dyspnea on Exertion, Pain with Coughing - Gastrointestinal Gastrointestinal: absent: Abdominal Pain, Bloating, Dysphagia, Loose Stools, Vomiting - Genitourinary Genitourinary: Urinary Incontinence. absent: Hematuria, Nocturia, Urinary Frequency, Freq UTI - Musculoskeletal Musculoskeletal: Muscle Weakness. absent: Stiffness, Tingling - Neurological Neurological: absent: Abnormal Gait, Abnormal Hearing, Abnormal Movements, Abnormal Speech, Confusion, Dizziness, Numbness, Focal Weakness, Frequent Falls, Headaches, Lack of Coordination, Loss of Vision, Memory Loss, Syncope, Tremor, Vertigo - Psychiatric Psychiatric: absent: Abnormal Sleep Pattern, Anxiety, Panic Attacks, Paranoia Past Patient History - Infectious Disease Hx of Infectious Diseases: None - Tetanus Immunizations Tetanus Immunization: Unknown - Past Medical History & Family History Past Medical History?: Yes - Past Social History Smoking Status: Former Smoker Alcohol: None - CARDIAC Hx Atrial Fibrillation: Yes Hx Congestive Heart Failure: Yes Hx Hypercholesterolemia: Yes Hx Hypertension: Yes Hx Pacemaker: No Hx Peripheral Edema: Yes - PULMONARY Hx Chronic Obstructive Pulmonary Disease (COPD): Yes Hx Emphysema: Yes Hx Pneumonia: Yes - NEUROLOGICAL Hx Paralysis: No - HEENT Hx HEENT Problems: No - RENAL Hx Chronic Kidney Disease: No - ENDOCRINE/METABOLIC Hx Endocrine Disorders: No - HEMATOLOGICAL/ONCOLOGICAL Hx Human Immunodeficiency Virus (HIV): No - INTEGUMENTARY Other/Comment: 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 - MUSCULOSKELETAL/RHEUMATOLOGICAL Hx Fractures: Yes (right ankle) - GASTROINTESTINAL Hx Gastrointestinal Disorders: No - GENITOURINARY/GYNECOLOGICAL Hx Genitourinary Disorders: Yes Other/Comment: Stress [employer] - PSYCHIATRIC Hx Psychophysiologic Disorder: No Hx Substance Use: No - SURGICAL HISTORY Hx Appendectomy: No Hx Coronary Stent: Yes (x 2) - ANESTHESIA Hx Anesthesia Reactions: No Hx Malignant Hyperthermia: No Meds Allergies/Adverse Reactions: Allergies Allergy/AdvReac Type Severity Reaction Status Date / Time Penicillins Allergy Mild SWELLING Verified 08/09/18 17:25 Physical Exam - Constitutional Appears: Well, Non-toxic, No Acute Distress - Head Exam Head Exam: ATRAUMATIC, NORMAL INSPECTION, NORMOCEPHALIC - Eye Exam Eye Exam: EOMI, Normal appearance, PERRL Pupil Exam: NORMAL ACCOMODATION, PERRL - ENT Exam ENT Exam: Mucous Membranes Moist, Normal Exam - Neck Exam Neck exam: Positive for: Normal Inspection - Respiratory Exam Respiratory Exam: Clear to Auscultation Bilateral, NORMAL BREATHING PATTERN. absent: Accessory Muscle Use, Chest Wall Tenderness, Rales, Rhonchi, Wheezes, Respiratory Distress, Stridor - Cardiovascular Exam Cardiovascular Exam: REGULAR RHYTHM, +S1, +S2. absent: Irregular Rhythm, Systolic Murmur - GI/Abdominal Exam GI & Abdominal Exam: Normal Bowel Sounds, Soft. absent: Pulsatile Mass - Extremities Exam Extremities exam: Positive for: full ROM, normal capillary refill, normal inspection, pedal pulses present. Negative for: joint swelling, pedal edema, tenderness - Back Exam Back exam: absent: CVA tenderness (L), CVA tenderness (R) - Neurological Exam Neurological exam: Alert, CN II-XII Intact - Psychiatric Exam Psychiatric exam: Normal Affect, Normal Mood - Skin Skin Exam: Dry, Intact, Normal Color, Warm Results - Vital Signs Recent Vital Signs: Last Vital Signs Temp 98.8 F 08/09/18 17:26 Pulse 93 H 08/09/18 17:26 Resp 16 08/09/18 17:26 BP 129/76 08/09/18 17:26 Pulse Ox 96 08/09/18 19:09 - Labs Result Diagrams: 08/09/18 18:05 08/09/18 18:05 Labs: Laboratory Results - last 24 hr 08/09/18 08/09/18 08/09/18 17:36 18:00 18:05 WBC 7.6 RBC 4.71 Hgb 12.9 Hct 40.5 MCV 85.9 D MCH 27.4 MCHC 31.9 L RDW 15.0 H Plt Count 207 MPV 8.1 Neut % (Auto) 90.3 H Lymph % (Auto) 2.4 L Gates % (Auto) 6.9 Eos % (Auto) 0.0 Baso % (Auto) 0.4 Neut # (Auto) 6.8 Lymph # (Auto) 0.2 L Gates # (Auto) 0.5 Eos # (Auto) 0.0 Baso # (Auto) 0.0 pO2 38 VBG pH 7.40 VBG pCO2 47 VBG HCO3 27.0 VBG Total CO2 30.5 H VBG O2 Sat (Calc) 77.0 H VBG Base Excess 3.5 H VBG Potassium 4.0 Sodium 134.0 Chloride 102.0 Glucose 156 H Lactate 1.3 FiO2 21.0 Potassium Carbon Dioxide Anion Gap BUN Creatinine Est GFR ( Amer) Est GFR (Non-Af Amer) POC Glucose (mg/dL) 141 H Random Glucose Calcium Total Bilirubin AST ALT Alkaline Phosphatase Total Creatine Kinase Troponin I Total Protein Albumin Globulin Albumin/Globulin Ratio Venous Blood Potassium 4.0 Influenza Typ A,B (EIA) 08/09/18 08/09/18 08/09/18 18:05 18:21 18:30 WBC RBC Hgb Hct MCV MCH MCHC RDW Plt Count MPV Neut % (Auto) Lymph % (Auto) Gates % (Auto) Eos % (Auto) Baso % (Auto) Neut # (Auto) Lymph # (Auto) Gates # (Auto) Eos # (Auto) Baso # (Auto) pO2 VBG pH VBG pCO2 VBG HCO3 VBG Total CO2 VBG O2 Sat (Calc) VBG Base Excess VBG Potassium Sodium 137 Chloride 95 L Glucose Lactate FiO2 Potassium 4.3 Carbon Dioxide 30 Anion Gap 16 BUN 17 Creatinine 0.7 Est GFR ( Amer) > 60 Est GFR (Non-Af Amer) > 60 POC Glucose (mg/dL) Random Glucose 153 H Calcium 9.5 Total Bilirubin 0.8 AST 27 ALT 28 Alkaline Phosphatase 124 Total Creatine Kinase 212 H Troponin I 0.0410 Total Protein 7.0 Albumin 3.9 Globulin 3.1 Albumin/Globulin Ratio 1.3 Venous Blood Potassium Influenza Typ A,B (EIA) Negative for flu a/b Assessment & Plan - Assessment and Plan (Free Text) Assessment: A 87 yo female with PMH of COPD on Ox treatment 12h 9pm-9am, stent placed 2 years ago was brought by ambulance to hospital due fall, will be admitted to Telemetry to evaluate CVA, Pneumonia, ACS. Evaluate for Pneumonia vs COPD exacerbation Vitals WNL, Afebrile, oxygen 94% + Cough Hx of URI 2 weeks ago S/P IV vanco Once Chest X-ray 1x negative CBC WNL except Neutrophil %90.3 F/U Blood culture Repeat Chest X-ray in morning after patient been hydrated Continue Ox supp Monitor for exacerbation Evaluate ACS Hx of stent 2 year ago Trop x1 negative F/U Trop x2 F/U Echo Continue home medication Evaluate to CVA + for acute episode of agitation and confusion, with weakness CN II-XII intact CT head No acute change, follow up official read Neuro consult, F/u Recommendation F/U Carotid dobbler us COPD Hx of COPD On oxygen supp 12h a day + nebulizer once Pulm consulted Continue home medication Monitor Oxygen Diet Heart Healthy diet DVT prophylaxis Lovenox 40sc Code Full Code <Isac Nguyen D - Last Filed: 08/10/18 09:20> Results - Vital Signs Recent Vital Signs: Last Vital Signs Temp 100.2 F H 08/10/18 08:00 Pulse 94 H 08/10/18 09:07 Resp 18 08/10/18 08:00 BP 129/73 08/10/18 09:07 Pulse Ox 93 L 08/10/18 08:00 - Labs Result Diagrams: 08/10/18 06:10 08/10/18 06:10 Labs: Laboratory Results - last 24 hr 08/09/18 08/09/18 08/09/18 17:36 18:00 18:05 WBC 7.6 RBC 4.71 Hgb 12.9 Hct 40.5 MCV 85.9 D MCH 27.4 MCHC 31.9 L RDW 15.0 H Plt Count 207 MPV 8.1 Neut % (Auto) 90.3 H Lymph % (Auto) 2.4 L Gates % (Auto) 6.9 Eos % (Auto) 0.0 Baso % (Auto) 0.4 Neut # (Auto) 6.8 Lymph # (Auto) 0.2 L Gates # (Auto) 0.5 Eos # (Auto) 0.0 Baso # (Auto) 0.0 Neutrophils % (Manual) 92 H Lymphocytes % (Manual) 4 L Monocytes % (Manual) 3 Basophils % (Manual) 1 Platelet Estimate Normal pO2 38 VBG pH 7.40 VBG pCO2 47 VBG HCO3 27.0 VBG Total CO2 30.5 H VBG O2 Sat (Calc) 77.0 H VBG Base Excess 3.5 H VBG Potassium 4.0 Sodium 134.0 Chloride 102.0 Glucose 156 H Lactate 1.3 FiO2 21.0 Potassium Carbon Dioxide Anion Gap BUN Creatinine Est GFR ( Amer) Est GFR (Non-Af Amer) POC Glucose (mg/dL) 141 H Random Glucose Calcium Total Bilirubin AST ALT Alkaline Phosphatase Total Creatine Kinase Troponin I Total Protein Albumin Globulin Albumin/Globulin Ratio Venous Blood Potassium 4.0 Influenza Typ A,B (EIA) 08/09/18 08/09/18 08/09/18 18:05 18:21 18:30 WBC RBC Hgb Hct MCV MCH MCHC RDW Plt Count MPV Neut % (Auto) Lymph % (Auto) Gates % (Auto) Eos % (Auto) Baso % (Auto) Neut # (Auto) Lymph # (Auto) Gates # (Auto) Eos # (Auto) Baso # (Auto) Neutrophils % (Manual) Lymphocytes % (Manual) Monocytes % (Manual) Basophils % (Manual) Platelet Estimate pO2 VBG pH VBG pCO2 VBG HCO3 VBG Total CO2 VBG O2 Sat (Calc) VBG Base Excess VBG Potassium Sodium 137 Chloride 95 L Glucose Lactate FiO2 Potassium 4.3 Carbon Dioxide 30 Anion Gap 16 BUN 17 Creatinine 0.7 Est GFR ( Amer) > 60 Est GFR (Non-Af Amer) > 60 POC Glucose (mg/dL) Random Glucose 153 H Calcium 9.5 Total Bilirubin 0.8 AST 27 ALT 28 Alkaline Phosphatase 124 Total Creatine Kinase 212 H Troponin I 0.0410 Total Protein 7.0 Albumin 3.9 Globulin 3.1 Albumin/Globulin Ratio 1.3 Venous Blood Potassium Influenza Typ A,B (EIA) Negative for flu a/b 08/10/18 08/10/18 08/10/18 01:38 06:10 06:10 WBC 5.4 RBC 4.37 Hgb 12.2 Hct 37.6 MCV 86.0 MCH 27.9 MCHC 32.4 L RDW 15.6 H Plt Count 167 MPV 7.9 Neut % (Auto) 84.9 H Lymph % (Auto) 5.6 L Gates % (Auto) 8.9 Eos % (Auto) 0.2 Baso % (Auto) 0.4 Neut # (Auto) 4.6 Lymph # (Auto) 0.3 L Gates # (Auto) 0.5 Eos # (Auto) 0.0 Baso # (Auto) 0.0 Neutrophils % (Manual) Lymphocytes % (Manual) Monocytes % (Manual) Basophils % (Manual) Platelet Estimate pO2 VBG pH VBG pCO2 VBG HCO3 VBG Total CO2 VBG O2 Sat (Calc) VBG Base Excess VBG Potassium Sodium 140 Chloride 96 L Glucose Lactate FiO2 Potassium 3.7 Carbon Dioxide 28 Anion Gap 20 BUN 14 Creatinine 0.6 L Est GFR ( Amer) > 60 Est GFR (Non-Af Amer) > 60 POC Glucose (mg/dL) Random Glucose 109 H Calcium 8.6 Total Bilirubin AST ALT Alkaline Phosphatase Total Creatine Kinase 302 H Troponin I 0.0510 0.0460 Total Protein Albumin Globulin Albumin/Globulin Ratio Venous Blood Potassium Influenza Typ A,B (EIA) Attending/Attestation - Attestation I have personally seen and examined this patient.: Yes I have fully participated in the care of the patient.: Yes I have reviewed all pertinent clinical information: Yes Notes (Text): 08/10/18 09:18 Patient seen and examined with resident. Case discussed and agreed with assessment and plan of management.
[2018-08-09 20:16] LABS: BASOPHIL 1 % (0-2); LYMPHOCYTE 4 % (20-50); MONOCYTE 3 % (0-10); NEUTROPHIL 92 % (42-75); PLATELET ESTIMATE NORMAL (NORMAL); TOTAL CELLS COUNTED 100
[2018-08-10 06:39] LABS: BASO % 0.4 % (0.0-2.0); EOS % 0.2 % (0.0-4.0); HEMOGLOBIN 12.2 g/dL (12.0-16.0); LYMPH # 0.3 K/uL (1.0-4.3); LYMPH % 5.6 % (20.0-40.0); MEAN CORPUSCULAR HEMOGLOBIN 27.9 pg (27.0-31.0); MEAN CORPUSCULAR HGB CONC 32.4 g/dL (33.0-37.0); MEAN PLATELET VOLUME 7.9 fl (7.2-11.7); MONO # 0.5 K/uL (0.0-0.8); MONO % 8.9 % (0.0-10.0); NEUT # 4.6 K/uL (1.8-7.0); NEUT % 84.9 % (50.0-75.0); RBC 4.37 Mil/uL (3.80-5.20); RED CELL DISTRIBUTION WIDTH 15.6 % (11.5-14.5); WHITE BLOOD COUNT 5.4 K/uL (4.8-10.8)
[2018-08-10 06:58] LABS: BLOOD UREA NITROGEN 14 mg/dl (7-17); CALCIUM 8.6 mg/dL (8.4-10.2); GFR NON-AFRICAN AMERICAN > 60
[2018-08-10] MEDS ORDERED: Enoxaparin 40 mg Syringe SC SCH (09:00)
--- NOTE | 2018-08-10 10:26 | CP.PCM.PN ---
<Kelly Upton - Last Filed: 08/10/18 18:14> Subjective - Date & Time of Evaluation Date of Evaluation: 08/10/18 Time of Evaluation: 10:15 - Subjective Subjective: 87 y/o F with hx of COPD was admitted for evaluation of syncope. Patient was seen and examined this AM. Patient on 2 L of oxygen via NC breathing comfortably, sitting upright in bed. Patient is still complaining of cough, and fatigue but denied any fever, chills, chest pain or shortness of breath. Objective - Vital Signs/Intake and Output Vital Signs (last 24 hours): Temp Pulse Resp BP Pulse Ox 100.2 F H 94 H 18 129/73 93 L 08/10/18 08:00 08/10/18 09:07 08/10/18 08:00 08/10/18 09:07 08/10/18 08:00 - Medications Medications: Current Medications Aspirin (Ecotrin) 81 mg PO DAILY [facility] Last Admin: 08/10/18 09:07 Dose: 81 mg Bisoprolol Fumarate (Zebeta) 5 mg PO DAILY [facility] Last Admin: 08/10/18 09:07 Dose: 5 mg Clopidogrel Bisulfate (Plavix) 75 mg PO DAILY [facility] Last Admin: 08/10/18 09:07 Dose: 75 mg Azithromycin 500 mg/ Sodium (Chloride) 250 mls @ 250 mls/hr IVPB DAILY [facility]; Protocol Isosorbide Mononitrate (Imdur Er) 30 mg PO DAILY [facility] Last Admin: 08/10/18 09:07 Dose: 30 mg Lisinopril (Zestril) 2.5 mg PO DAILY [facility] Last Admin: 08/10/18 09:07 Dose: 2.5 mg - Labs Labs: 08/10/18 06:10 08/10/18 06:10 - Head Exam Head Exam: ATRAUMATIC - Eye Exam Eye Exam: EOMI - ENT Exam ENT Exam: Mucous Membranes Moist - Respiratory Exam Respiratory Exam: absent: Rhonchi, Wheezes Additional comments: decreased breath sounds - Cardiovascular Exam Cardiovascular Exam: RRR, +S1, +S2 - GI/Abdominal Exam GI & Abdominal Exam: Soft. absent: Guarding, Rigid, Tenderness - Extremities Exam Extremities Exam: absent: Calf Tenderness - Neurological Exam Neurological Exam: Alert, Awake, Oriented x3 - Psychiatric Exam Psychiatric exam: Normal Mood - Skin Skin Exam: Dry, Intact Assessment and Plan - Assessment and Plan (Free Text) Assessment: 87 y/o F with PMH of COPD on home oxygen (9pm-9am), stent placed 2 years ago was admitted for evaluation of syncope & possible pneumonia. 1. Syncope -Head CT showed generalized atrophy, nonspecific white changes, no mass effect or edema. -VS have been stable. -FU official report of carotid doppler. -Echo ordered but unable to be done today. FU tomorrow. Last echo in 03/23/2017 which showed EF of 50-55%, moderate mitral regurg/tricuspid regurg, severe pulmonary HTN. 2. Cough with hx of COPD(Acute on chronic) -08/09/2018 CXR showed medical right lower lobe atelectasis/infiltrate as per Dr. Huber. -FU with pulm consult with Dr. Marquez in the AM. -She received Vanco yesterday. -Continue Azithromycin 500mg IV. -Continue 2 L oxygen via NC. -WBC decreased to 5.4 today from 7.6 yesterday. -VS wnl. -Continue supplemental ox. -Continue to monitor for exacerbation. -Continue duonebs. 3. hx of stent placement -Continue aspirin & plavix. 4. Diet Heart Healthy diet 5. DVT prophylaxis Lovenox 40sc <Isac Nguyen D - Last Filed: 08/10/18 19:37> Objective - Vital Signs/Intake and Output Vital Signs (last 24 hours): Temp Pulse Resp BP Pulse Ox 100.0 F H 87 16 128/67 95 08/10/18 16:03 08/10/18 16:04 08/10/18 16:03 08/10/18 16:03 08/10/18 16:03 - Medications Medications: Current Medications Albuterol/Ipratropium (Duoneb 3 Mg/0.5 Mg (3 Ml) Ud) 3 ml INH RQID [facility] Last Admin: 08/10/18 19:30 Dose: 3 ml Aspirin (Ecotrin) 81 mg PO DAILY [facility] Last Admin: 08/10/18 09:07 Dose: 81 mg Bisoprolol Fumarate (Zebeta) 5 mg PO DAILY [facility] Last Admin: 08/10/18 09:07 Dose: 5 mg Clopidogrel Bisulfate (Plavix) 75 mg PO DAILY [facility] Last Admin: 02/03/19 09:07 Dose: 75 mg Azithromycin 500 mg/ Sodium (Chloride) 250 mls @ 250 mls/hr IVPB DAILY [facility]; Protocol Last Admin: 08/10/18 12:04 Dose: 250 mls/hr Isosorbide Mononitrate (Imdur Er) 30 mg PO DAILY [facility] Last Admin: 08/10/18 09:07 Dose: 30 mg Lisinopril (Zestril) 2.5 mg PO DAILY [facility] Last Admin: 08/10/18 09:07 Dose: 2.5 mg Senna/Docusate Sodium (Senokot S 50 Mg-8.6 Mg) 2 tab PO HS [facility] - Labs Labs: 08/10/18 06:10 08/10/18 06:10 Attending/Attestation - Attestation I have personally seen and examined this patient.: Yes I have fully participated in the care of the patient.: Yes I have reviewed all pertinent clinical information, including history, physical exam and plan: Yes Notes (Text): 08/10/18 19:37 Patient seen and examined with resident. Case discussed and agreed with assessment.
--- NOTE | 2018-08-10 11:10 | RAD ---
HISTORY: cough COMPARISON: Chest x-ray performed 03/20/17 TECHNIQUE: Chest, one view. FINDINGS: LUNGS: Chronic appearing prominent interstitial markings. Medial right lower lobe atelectasis/infiltrate. Please note that chest x-ray has limited sensitivity for the detection of pulmonary masses. PLEURA: No significant pleural effusion identified. No definite pneumothorax . CARDIOVASCULAR: Cardiomegaly. Ectatic aorta. Atherosclerotic calcifications of the aorta. OSSEOUS STRUCTURES: No acute osseous abnormality identified. VISUALIZED UPPER ABDOMEN: Unremarkable. OTHER FINDINGS: None. IMPRESSION: Chronic appearing prominent interstitial markings. Medial right lower lobe atelectasis/infiltrate. Cardiomegaly. Ectatic aorta. Atherosclerotic calcifications of the aorta.
--- NOTE | 2018-08-10 11:20 | CT ---
Date of service: 08/09/2018 PROCEDURE: CT HEAD WITHOUT CONTRAST. HISTORY: r/o bleed COMPARISON: None available TECHNIQUE: Axial computed tomography images were obtained through the head/brain without intravenous contrast. Radiation dose: Total exam DLP = 860.4 mGy-cm. This CT exam was performed using one or more of the following dose reduction techniques: Automated exposure control, adjustment of the mA and/or kV according to patient size, and/or use of iterative reconstruction technique. FINDINGS: HEMORRHAGE: No intracranial hemorrhage. BRAIN: Diffuse atrophy with prominence of the ventricles and sulci noted. No mass effect or edema. Intracranial atherosclerosis. Scattered periventricular and subcortical white matter hypodensities, which are nonspecific, but often seen with chronic microvascular ischemic disease. Please note that MRI with diffusion imaging is more sensitive in the detection of acute ischemic event. VENTRICLES: No hydrocephalus. CALVARIUM: Unremarkable. PARANASAL SINUSES: Unremarkable as visualized. No significant inflammatory changes. MASTOID AIR CELLS: Unremarkable as visualized. No inflammatory changes. OTHER FINDINGS: Partial opacification of the external auditory canals, likely cerumen. IMPRESSION: Generalized atrophy. Nonspecific white matter changes. Preliminary impression was provided by [facility].
--- NOTE | 2018-08-10 11:57 | CARD ---
APPROVED REPORT Date of service: 08/09/2018 EKG Measurement Heart [id number] <Conclusion> Normal sinus rhythm with sinus arrhythmia Septal infarct, age undetermined Nonspecific ST & T wave abnormality Abnormal ECG
[2018-08-10] MEDS: Azithromycin 500 MG in Sodium Chloride 0.9% 250 ML IVPB SCH (12:04)
--- NOTE | 2018-08-10 13:15 | RAD ---
PROCEDURE: Radiographs of the pelvis. HISTORY: Trauma COMPARISON: CT pelvis with contrast performed 08/04/18 FINDINGS: Osseous demineralization. Degenerative changes including bilateral joint space narrowing. No acute displaced fracture or dislocation. No significant joint effusion appreciated. Soft tissues appear unremarkable. No evidence of radiopaque foreign body. Oral contrast within the colon. Closest. IMPRESSION: No acute displaced fracture identified.
[2018-08-10] MEDS: Albuterol-Ipratrop 3 mg / 0.5 (3 ml) UD INH SCH ×2 (15:43→19:30)
--- NOTE | 2018-08-10 17:06 | CP.PCM.CON ---
History of Present Illness - History of Present Illness History of Present Illness: Neurology Consultation Note: Consult requested by Dr. Lombardi Mrs. Turner is an 87-year-old woman with a past medical history of COPD on home O2, CAD s/p stent, who had a fall due to weakness yesterday and was found to be confused and incontinent of urine by her daughter the following morning. CT scan of the head showed generalized atrophy, but no acute findings. When I saw the patient, she was awake, but somnolent and said that she feels weak all over. She does not know why she could not stand up after falling out of bed when she was home. Review of Systems - Constitutional Constitutional: As Per HPI - EENT Eyes: absent: As Per HPI, Blind Spots, Blurred Vision, Change in Vision, Decreased Night Vision, Diplopia, Discharge, Dry Eye, Exophthalmos, Floaters, Irritation, Itchy Eyes, Loss of Peripheral Vision, Pain, Photophobia, Requires Corrective Lenses, Sees Flashes, Spots in Vision, Tunnel Vision, Other Visual Di sturbances, Loss of Vision, Other Ears: absent: As Per HPI, Decreased Hearing, Ear Discharge, Ear Pain, Tinnitus, Abnormal Hearing, Disequilibrium, Dizziness, Other Nose/Mouth/Throat: absent: As Per HPI, Epistaxis, Nasal Congestion, Nasal Discharge, Nasal Obstruction, Nasal Trauma, Nose Pain, Post Nasal Drip, Sinus Pain, Sinus Pressure, Bleeding Gums, Change in Voice, Dental Pain, Dry Mouth, Dysphagia, Halitosis, Hoarsness, Lip Swelling, Mouth Lesions, Mouth Pain, Odynophagia, Sore Throat, Throat Swelling, Tongue Swelling, Facial Pain, Neck Pain, Neck Mass, Other - Cardiovascular Cardiovascular: As Per HPI - Respiratory Respiratory: As Per HPI - Gastrointestinal Gastrointestinal: absent: As Per HPI, Abdominal Pain, Belching, Bloating, Change in Bowel Habits, Change in Stool Character, Coffee Ground Emesis, Constipation, Cramping, Diarrhea, Dyspepsia, Dysphagia, Early Satiety, Excessive Flatus, Fecal Incontinence, Heartburn, Hematemesis, Hematochezia, Loose Stools, Melena, Nausea, Odynophagia, Temesmus, Vomiting, Other - Musculoskeletal Musculoskeletal: absent: As Per HPI, Abnormal Gait, Arthralgias, Atrophy, Back Pain, Deformity, Joint Swelling, Limited Range of Motion, Loss of Height, Muscle Cramps, Muscle Weakness, Myalgias, Neck Pain, Numbness, Radiating Pain into Limb, Stiffness, Tingling, Other - Neurological Neurological: As Per HPI - Psychiatric Psychiatric: absent: As Per HPI, Abnormal Sleep Pattern, Anhedonia, Anxiety, Auditory Hallucinations, Behavioral Changes, Change in Appetite, Change in Libido, Confusion, Depression, Difficulty Concentrating, Hallucinations, Homicidal Ideation, Hopelessness, Irritability, Memory Loss, Mood Swings, Panic Attacks, Paranoia, Suicidal Ideation, Visual Hallucinations, Tactile Hallucinations, Other - Endocrine Endocrine: absent: As Per HPI, Change in Body Appearance, Change in Libido, Cold Intolorance, Deepening of Voice, Excessive Sweating, Fatigue, Flushing, Heat Intolorance, Increase in Ring/Shoe/Hat Size, Palpitations, Polydipsia, Polyphagia, Polyuria, Other - Hematologic/Lymphatic Hematologic: absent: As Per HPI, Easy Bleeding, Easy Bruising, Lymphadenopathy, Other Past Patient History - Infectious Disease Hx of Infectious Diseases: None - Tetanus Immunizations Tetanus Immunization: Unknown - Past Medical History & Family History Past Medical History?: Yes - Past Social History Smoking Status: Never Smoked - CARDIAC Hx Atrial Fibrillation: Yes Hx Congestive Heart Failure: Yes Hx Hypercholesterolemia: Yes Hx Hypertension: Yes Hx Pacemaker: No Hx Peripheral Edema: Yes - PULMONARY Hx Chronic Obstructive Pulmonary Disease (COPD): Yes Hx Emphysema: Yes Hx Pneumonia: Yes - NEUROLOGICAL Hx Paralysis: No - HEENT Hx HEENT Problems: No - RENAL Hx Chronic Kidney Disease: No - ENDOCRINE/METABOLIC Hx Endocrine Disorders: No - HEMATOLOGICAL/ONCOLOGICAL Hx Human Immunodeficiency Virus (HIV): No - INTEGUMENTARY Other/Comment: 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 - MUSCULOSKELETAL/RHEUMATOLOGICAL Hx Falls: Yes Hx Fractures: Yes (right ankle) - GASTROINTESTINAL Hx Gastrointestinal Disorders: No - GENITOURINARY/GYNECOLOGICAL Hx Genitourinary Disorders: Yes Hx Incontinence: Yes Other/Comment: [employer] - PSYCHIATRIC Hx Psychophysiologic Disorder: No Hx Substance Use: No - SURGICAL HISTORY Hx Appendectomy: No Hx Coronary Stent: Yes (x 2) - ANESTHESIA Hx Anesthesia: Yes Hx Anesthesia Reactions: No Hx Malignant Hyperthermia: No Has any member of the family had a problem w/ anesthesia?: No Meds Allergies/Adverse Reactions: Allergies Allergy/AdvReac Type Severity Reaction Status Date / Time Penicillins Allergy Mild SWELLING Verified 08/09/18 17:25 - Medications Medications: Current Medications Albuterol/Ipratropium (Duoneb 3 Mg/0.5 Mg (3 Ml) Ud) 3 ml INH RQID [facility] Last Admin: 08/10/18 15:43 Dose: 3 ml Aspirin (Ecotrin) 81 mg PO DAILY [facility] Last Admin: 08/10/18 09:07 Dose: 81 mg Bisoprolol Fumarate (Zebeta) 5 mg PO DAILY [facility] Last Admin: 08/10/18 09:07 Dose: 5 mg Clopidogrel Bisulfate (Plavix) 75 mg PO DAILY [facility] Last Admin: 08/10/18 09:07 Dose: 75 mg Azithromycin 500 mg/ Sodium (Chloride) 250 mls @ 250 mls/hr IVPB DAILY [facility]; [facility] Last Admin: 08/10/18 12:04 Dose: 250 mls/hr Isosorbide Mononitrate (Imdur Er) 30 mg PO DAILY [facility] Last Admin: 08/10/18 09:07 Dose: 30 mg Lisinopril (Zestril) 2.5 mg PO DAILY [facility] Last Admin: 08/10/18 09:07 Dose: 2.5 mg Senna/Docusate Sodium (Senokot S 50 Mg-8.6 Mg) 2 tab PO [facility] Physical Exam - Constitutional Appears: Well - Head Exam Head Exam: ATRAUMATIC, NORMAL INSPECTION, NORMOCEPHALIC - Eye Exam Eye Exam: EOMI, Normal appearance, PERRL Pupil Exam: NORMAL ACCOMODATION, PERRL - ENT Exam ENT Exam: Mucous Membranes Moist, Normal Exam - Neck Exam Neck exam: Positive for: Normal Inspection - Respiratory Exam Respiratory Exam: Clear to Auscultation Bilateral, NORMAL BREATHING PATTERN - Cardiovascular Exam Cardiovascular Exam: REGULAR RHYTHM, +S1, +S2 - GI/Abdominal Exam GI & Abdominal Exam: Normal Bowel Sounds, Soft. absent: Tenderness - Extremities Exam Extremities exam: Positive for: normal inspection - Back Exam Back exam: NORMAL INSPECTION - Neurological Exam Neurological exam: Abnormal Gait, CN II-XII Intact, Oriented x3, Reflexes Normal Additional comments: Generalized weakness, mostly in the lower extremities. Strength in upper extremities is 3/5 proximally and 2/5 distally. Strength in the lower extremities is 2/5 bilaterally proximally and distally. - Psychiatric Exam Psychiatric exam: Normal Affect, Normal Mood - Skin Skin Exam: Dry, Intact, Normal Color, Warm Results - Vital Signs Recent Vital Signs: Last Vital Signs Temp 100.0 F H 08/10/18 16:03 Pulse 87 08/10/18 16:04 Resp 16 08/10/18 16:03 BP 128/67 08/10/18 16:03 Pulse Ox 95 08/10/18 16:03 - Labs Result Diagrams: 08/10/18 06:10 08/10/18 06:10 Labs: Laboratory Results - last 24 hr 08/09/18 08/09/18 08/09/18 17:36 18:00 18:05 WBC 7.6 RBC 4.71 Hgb 12.9 Hct 40.5 MCV 85.9 D MCH 27.4 MCHC 31.9 L RDW 15.0 H Plt Count 207 MPV 8.1 Neut % (Auto) 90.3 H Lymph % (Auto) 2.4 L [place] % (Auto) 6.9 Eos % (Auto) 0.0 Baso % (Auto) 0.4 Neut # (Auto) 6.8 Lymph # (Auto) 0.2 L [place] # (Auto) 0.5 Eos # (Auto) 0.0 Baso # (Auto) 0.0 Neutrophils % (Manual) 92 H Lymphocytes % (Manual) 4 L Monocytes % (Manual) 3 Basophils % (Manual) 1 Platelet Estimate Normal pO2 38 VBG pH 7.40 VBG pCO2 47 VBG HCO3 27.0 VBG Total CO2 30.5 H VBG O2 Sat (Calc) 77.0 H VBG Base Excess 3.5 H VBG Potassium 4.0 Sodium 134.0 Chloride 102.0 Glucose 156 H Lactate 1.3 FiO2 21.0 Potassium Carbon Dioxide Anion Gap BUN Creatinine Est GFR ( Amer) Est GFR (Non-Af Amer) POC Glucose (mg/dL) 141 H Random Glucose Calcium Total Bilirubin AST ALT Alkaline Phosphatase Lactate Dehydrogenase Total Creatine Kinase Troponin I Total Protein Albumin Globulin Albumin/Globulin Ratio Venous Blood Potassium 4.0 Influenza Typ A,B (EIA) 08/09/18 08/09/18 08/09/18 18:05 18:21 18:30 WBC RBC Hgb Hct MCV MCH MCHC RDW Plt Count MPV Neut % (Auto) Lymph % (Auto) [place] % (Auto) Eos % (Auto) Baso % (Auto) Neut # (Auto) Lymph # (Auto) [place] # (Auto) Eos # (Auto) Baso # (Auto) Neutrophils % (Manual) Lymphocytes % (Manual) Monocytes % (Manual) Basophils % (Manual) Platelet Estimate pO2 VBG pH VBG pCO2 VBG HCO3 VBG Total CO2 VBG O2 Sat (Calc) VBG Base Excess VBG Potassium Sodium 137 Chloride 95 L Glucose Lactate FiO2 Potassium 4.3 Carbon Dioxide 30 Anion Gap 16 BUN 17 Creatinine 0.7 Est GFR ( Amer) > 60 Est GFR (Non-Af Amer) > 60 POC Glucose (mg/dL) Random Glucose 153 H Calcium 9.5 Total Bilirubin 0.8 AST 27 ALT 28 Alkaline Phosphatase 124 Lactate Dehydrogenase Total Creatine Kinase 212 H Troponin I 0.0410 Total Protein 7.0 Albumin 3.9 Globulin 3.1 Albumin/Globulin Ratio 1.3 Venous Blood Potassium Influenza Typ A,B (EIA) Negative for flu a/b 08/10/18 08/10/18 08/10/18 01:38 06:10 06:10 WBC 5.4 RBC 4.37 Hgb 12.2 Hct 37.6 MCV 86.0 MCH 27.9 MCHC 32.4 L RDW 15.6 H Plt Count 167 MPV 7.9 Neut % (Auto) 84.9 H Lymph % (Auto) 5.6 L [place] % (Auto) 8.9 Eos % (Auto) 0.2 Baso % (Auto) 0.4 Neut # (Auto) 4.6 Lymph # (Auto) 0.3 L [place] # (Auto) 0.5 Eos # (Auto) 0.0 Baso # (Auto) 0.0 Neutrophils % (Manual) Lymphocytes % (Manual) Monocytes % (Manual) Basophils % (Manual) Platelet Estimate pO2 VBG pH VBG pCO2 VBG HCO3 VBG Total CO2 VBG O2 Sat (Calc) VBG Base Excess VBG Potassium Sodium 140 Chloride 96 L Glucose Lactate FiO2 Potassium 3.7 Carbon Dioxide 28 Anion Gap 20 BUN 14 Creatinine 0.6 L Est GFR ( Amer) > 60 Est GFR (Non-Af Amer) > 60 POC Glucose (mg/dL) Random Glucose 109 H Calcium 8.6 Total Bilirubin AST ALT Alkaline Phosphatase Lactate Dehydrogenase Total Creatine Kinase 302 H Troponin I 0.0510 0.0460 Total Protein Albumin Globulin Albumin/Globulin Ratio Venous Blood Potassium Influenza Typ A,B (EIA) 08/10/18 08/10/18 09:42 11:53 WBC RBC Hgb Hct MCV MCH MCHC RDW Plt Count MPV Neut % (Auto) Lymph % (Auto) [place] % (Auto) Eos % (Auto) Baso % (Auto) Neut # (Auto) Lymph # (Auto) [place] # (Auto) Eos # (Auto) Baso # (Auto) Neutrophils % (Manual) Lymphocytes % (Manual) Monocytes % (Manual) Basophils % (Manual) Platelet Estimate pO2 VBG pH VBG pCO2 VBG HCO3 VBG Total CO2 VBG O2 Sat (Calc) VBG Base Excess VBG Potassium Sodium Chloride Glucose Lactate FiO2 Potassium Carbon Dioxide Anion Gap BUN Creatinine Est GFR ( Amer) Est GFR (Non-Af Amer) POC Glucose (mg/dL) Random Glucose Calcium Total Bilirubin AST ALT Alkaline Phosphatase Lactate Dehydrogenase 510 Total Creatine Kinase Troponin I Total Protein Albumin Globulin Albumin/Globulin Ratio Venous Blood Potassium Influenza Typ A,B (EIA) Negative for flu a/b Assessment & Plan (1) Altered mental state Assessment and Plan: This may be due to hypoxia, generalized cerebral ischemia, or could be due to underlying infection. I recommend obtaining a CTA of the head/neck for further evaluation to determine if there is evidence of hemodynamically significant s tenosis in the carotids or vertebral system. Continue fluids and current medications per the primary team. Thank you for this consultation. Status: Acute
[2018-08-10] MEDS ORDERED: Sodium Chloride 0.9% 50 ML IV ONE (18:42)
[2018-08-10] MEDS ORDERED: Iodixanol 320 MG/ML 100 ML BOTTLE IV ONE (18:42)
[2018-08-10] MEDS: Docusate-Senna 50 mg-8.6 mg Tab PO SCH (21:33)
[2018-08-11 05:51] LABS: HDL CHOLESTEROL 26 MG/DL (30-70)
[2018-08-11 06:02] LABS: LDL CHOLESTEROL 67 mg/dL (0-129)
[2018-08-11] MEDS: Albuterol-Ipratrop 3 mg / 0.5 (3 ml) UD INH SCH ×2 (07:41→14:17)
[2018-08-11 10:17] LABS: SQUAMOUS EPITHIAL 2 /hpf (0-5); URINE BILIRUBIN NEGATIVE (NEGATIVE); URINE BLOOD NEGATIVE (NEGATIVE); URINE CLARITY SLIGHTY-CLOUDY (Clear); URINE COLOR YELLOW (YELLOW); URINE GLUCOSE (UA) NEG (NEGATIVE); URINE LEUKOCYTE ESTERASE NEG Leu/uL (Negative); URINE PROTEIN NEGATIVE (NEGATIVE); URINE UROBILINOGEN 0.2-1.0 mg/dL (0.2-1.0)
[2018-08-11] MEDS ORDERED: Albuterol-Ipratrop 3 mg / 0.5 (3 ml) UD INH STA (10:31)
[2018-08-11 10:34] LABS: ABG ALLEN TEST YES; ARTERIAL BLOOD GAS HCO3 26.7 mmol/L (21-28); ARTERIAL BLOOD GAS O2 SAT 90.3 % (95-98); ARTERIAL BLOOD GAS PCO2 50 mm/Hg (35-45); ARTERIAL BLOOD GAS PH 7.37 (7.35-7.45); ARTERIAL BLOOD GAS PO2 52 mm/Hg (80-100); ARTERIAL BLOOD GAS TCO2 30.4 mmol/L (22-28)
[2018-08-11] MEDS ORDERED: Sodium Chloride 0.9% 50 ML IV ONE (10:43)
[2018-08-11] MEDS ORDERED: Iodixanol 320 MG/ML 100 ML BOTTLE IV ONE (10:43)
[2018-08-11] MEDS ORDERED: Enoxaparin 100 mg Syringe SC SCH (10:45)
[2018-08-11] MEDS ORDERED: Iodixanol 320 mg/ml 50 ml Sol IV ONE (11:18)
--- NOTE | 2018-08-11 11:31 | CARD ---
APPROVED REPORT Date of service: 08/11/2018 EKG Measurement Heart [id number] <Conclusion> Atrial fibrillation with rapid ventricular response Nonspecific ST abnormality Abnormal ECG
--- NOTE | 2018-08-11 11:34 | CP.PCM.PN ---
<Kelly Upton - Last Filed: 08/11/18 13:54> Subjective - Date & Time of Evaluation Date of Evaluation: 08/11/18 Time of Evaluation: 09:47 - Subjective Subjective: Patient was seen and evaluated this AM at bedside. Patient was eating, sitting upright in bed receiving 3L of oxygen via NC. She stated she slept well last night. She denied any fever, chills, chest pain or shortness of breath. Objective - Vital Signs/Intake and Output Vital Signs (last 24 hours): Temp Pulse Resp BP Pulse Ox 98.4 F 80 18 142/80 93 L 08/11/18 09:14 08/11/18 09:14 08/11/18 09:14 08/11/18 09:14 08/11/18 05:00 - Medications Medications: Current Medications Albuterol/Ipratropium (Duoneb 3 Mg/0.5 Mg (3 Ml) Ud) 3 ml INH RQID [facility] Last Admin: 08/11/18 07:41 Dose: 3 ml Aspirin (Ecotrin) 81 mg PO DAILY [facility] Last Admin: 08/10/18 09:07 Dose: 81 mg Bisoprolol Fumarate (Zebeta) 5 mg PO DAILY [facility] Last Admin: 08/10/18 09:07 Dose: 5 mg Clopidogrel Bisulfate (Plavix) 75 mg PO DAILY [facility] Last Admin: 08/10/18 09:07 Dose: 75 mg Diltiazem HCl (Cardizem) 30 mg PO BID [facility] Enoxaparin Sodium (Lovenox) 90 mg SC Q12 [facility]; Protocol Azithromycin 500 mg/ Sodium (Chloride) 250 mls @ 250 mls/hr IVPB DAILY [facility]; Protocol Last Admin: 08/10/18 12:04 Dose: 250 mls/hr Diltiazem HCl 125 mg/ Sodium (Chloride) 125 mls @ 5 mls/hr IV .Q24H [facility]; Protocol Stop: 08/12/18 10:27 Isosorbide Mononitrate (Imdur Er) 30 mg PO DAILY [facility] Last Admin: 08/10/18 09:07 Dose: 30 mg Lisinopril (Zestril) 2.5 mg PO DAILY [facility] Last Admin: 08/10/18 09:07 Dose: 2.5 mg Pantoprazole Sodium (Protonix Ec Tab) 40 mg PO DAILY [facility] Senna/Docusate Sodium (Senokot S 50 Mg-8.6 Mg) 2 tab PO HS [facility] Last Admin: 08/10/18 21:33 Dose: 2 tab - Labs Labs: 08/10/18 06:10 08/10/18 06:10 - Constitutional Appears: Non-toxic, No Acute Distress - Head Exam Head Exam: ATRAUMATIC, NORMAL INSPECTION - Eye Exam Eye Exam: EOMI - ENT Exam ENT Exam: Mucous Membranes Moist - Respiratory Exam Additional comments: scattered rhonchi but no wheeze - Cardiovascular Exam Cardiovascular Exam: REGULAR RHYTHM, +S1, +S2 - GI/Abdominal Exam GI & Abdominal Exam: Soft, Normal Bowel Sounds. absent: Guarding, Rigid, Tenderness - Extremities Exam Extremities Exam: absent: Calf Tenderness - Neurological Exam Neurological Exam: Alert, Awake, Oriented x3 - Psychiatric Exam Psychiatric exam: Normal Affect, Normal Mood - Skin Skin Exam: Dry, Intact Assessment and Plan - Assessment and Plan (Free Text) Assessment: 87 y.o F with hx of COPD, mod. MR with pulmonary HTN (EF 50-55% as noted in echo 03/23/2017), CAD & paroxysmal atrial fibrillation. 1. 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 -Chest CT negative for pulmonary embolism. -Will continue therapeutic lovenox. -Head CT showed generalized atrophy, nonspecific white changes, no mass effect or edema (08/09/2018). -Awaiting official reports of carotid doppler & echo done 08/09/2018. (Echo ordered but unable to be done today. FU tomorrow. Last echo in 03/23/2017 which showed EF of 50-55%, moderate mitral regurg/tricuspid regurg, severe pulmonary HTN). 2. Paroxysmal Atrial fibrillation (VRV of 148 bpm this AM) -Continue cardizem drlupillo. -FU with Cardiology, Dr. Rincon. -Awaiting official reports of carotid doppler & echo done 08/09/2018. -Continue therapeutic dose of Lovenox. 3. Cough with hx of COPD (Acute on chronic) -08/09/2018 CXR showed medical right lower lobe atelectasis/infiltrate as per Dr. Huber. -Will fu with Dr. Marquez. -Continue Azithromycin 500mg IV QD day #2 - Clindamyin 600mg IV Q8 day #1. -Continue supplemental ox. -WBC decreased to 5.4 (08/10/2018) from 7.6 (08/09/2018) -Continue duonebs. 4. hx of stent placement -Continue aspirin 81 mg PO & plavix 75 mg PO. 5. Diet Heart Healthy diet 6. GI prophylaxis -Continue Protonix 40mg QD 7. DVT prophylaxis (on theraupetic lovenox) <Isac Nguyen D - Last Filed: 08/11/18 14:36> Objective - Vital Signs/Intake and Output Vital Signs (last 24 hours): Temp Pulse Resp BP Pulse Ox 97.9 F 79 20 120/79 93 L 08/11/18 13:00 08/11/18 13:05 08/11/18 13:00 08/11/18 13:05 08/11/18 13:00 - Medications Medications: Current Medications Amiodarone HCl (Cordarone) 200 mg PO BID [facility] Aspirin (Ecotrin) 81 mg PO DAILY [facility] Last Admin: 08/11/18 12:42 Dose: 81 mg Bisoprolol Fumarate (Zebeta) 5 mg PO DAILY [facility] Last Admin: 08/11/18 13:06 Dose: Not Given Clopidogrel Bisulfate (Plavix) 75 mg PO DAILY [facility] Last Admin: 08/11/18 12:42 Dose: 75 mg Diltiazem HCl (Cardizem) 30 mg PO BID [facility] Enoxaparin Sodium (Lovenox) 90 mg SC Q12 [facility]; Protocol Last Admin: 08/11/18 12:39 Dose: 90 mg Hydrocortisone Sodium Succinate (Solu-Cortef) 100 mg IV DAILY [facility] Azithromycin 500 mg/ Sodium (Chloride) 250 mls @ 250 mls/hr IVPB DAILY [facility]; Protocol Last Admin: 08/11/18 12:43 Dose: 250 mls/hr Diltiazem HCl 125 mg/ Sodium (Chloride) 125 mls @ 5 mls/hr IV .Q24H [facility]; Protocol Stop: 08/12/18 10:27 Last Admin: 08/11/18 13:12 Dose: 5 mg/hr, 5 mls/hr Clindamycin Phosphate (Cleocin) 600 mg in 50 mls @ 50 mls/hr IVPB Q8 [facility]; Protocol Ipratropium [place] (Atrovent) 0.5 mg IH RQ4 [facility] Isosorbide Mononitrate (Imdur Er) 30 mg PO DAILY [facility] Last Admin: 08/11/18 12:38 Dose: 30 mg Lactobacillus Acidophilus (Bacid Acidophilus) 1 cap PO BID [facility] Lisinopril (Zestril) 2.5 mg PO DAILY [facility] Last Admin: 08/11/18 13:05 Dose: 2.5 mg Pantoprazole Sodium (Protonix Ec Tab) 40 mg PO DAILY [facility] Last Admin: 08/11/18 12:48 Dose: 40 mg Senna/Docusate Sodium (Senokot S 50 Mg-8.6 Mg) 2 tab PO HS [facility] Last Admin: 08/10/18 21:33 Dose: 2 tab - Labs Labs: 08/10/18 06:10 08/10/18 06:10 Attending/Attestation - Attestation I have personally seen and examined this patient.: Yes I have fully participated in the care of the patient.: Yes I have reviewed all pertinent clinical information, including history, physical exam and plan: Yes Notes (Text): 08/11/18 14:36 Patient seen and examined with resident. Case discussed and agreed with assessment and plan.
--- NOTE | 2018-08-11 11:35 | PCM.RRT ---
<Kelly Upton - Last Filed: 08/11/18 13:03> - Constitutional Appears: Non-toxic - Head Head Exam: ATRAUMATIC, NORMOCEPHALIC - Eyes Eye Exam: EOMI - Respiratory Exam Respiratory Exam: Decreased Breath Sounds. absent: Wheezes, Respiratory Distress - Cardiovascular Exam Cardiovascular Exam: Tachycardia, Irregular Rhythm - GI/Abdominal Exam GI & Abdominal Exam: Soft, Normal Bowel Sounds. absent: Guarding, Rigid, Tenderness - Neurological Exam Neurological Exam: Alert, Awake, Oriented x3 - Extremities Exam Extremities Exam: absent: Calf Tenderness Plan - Assessment of Findings&Treatment Plan CORPORATE COMPLIANCE DIRECTOR called by nurse CORPORATE COMPLIANCE DIRECTOR initial time: 10:16am CORPORATE COMPLIANCE DIRECTOR response: 10:16am CORPORATE COMPLIANCE DIRECTOR location: [facility] CORPORATE COMPLIANCE DIRECTOR called on 87 y.o F because of atrial fibrillation with rate of 150 bpm. Patient has a hx of COPD, mod MR with pulmonary HTN (EF 50-55% as noted in echo 03/23/2017), CAD & paroxysmal atrial fibrillation. She denied nay chest pain, palpitations, SOB, calf pain or swelling. Initial VS: 135/74, 142bpm, 89% O2sat on 4 L of oxygen via NC -Interventions: EKG showed a fibr w/RVR -ABG showed PCO2- 50, PO2-52 PH-7.37 -EKG showed a fib with ventricular rate of 145 bpm -Chest CT angio ordered -5 mg dose of cardizem was given IVP stat; spo2 remained at 88% with pulse of 149bpm -Oxygen increased to 12L with spo2 remaining 88-89% -Cardizem drip was started at rate of 5mg per hour -Oxygen administration changed from NC to small mask 2nd state dose of 5mg IVP cardizem was given; pulse continued to decreased to 128-135bpm with spo2-97% -3rd stat dose of cardizem given 30mg PO followed by 4th dose stat dose of cardizem 5mg IV. -Following this, HR decreased to 118 bpm, BP-117/68, spo2 97% -Oxygen titrated down to maintain goal of 92-95% given her hx of COPD. -Therapeutic lovenox 90mg SC BID given. End VS: 127 bpm, BP: 123/78, spo2-95% 87 y.o F with hx of COPD, mod. MR with pulmonary HTN (EF 50-55% as noted in echo 03/23/2017), CAD & paroxysmal atrial fibrillation. -Continue cardizem drip for atrial fibrillation with VS monitoring. -Continue telemetry monitoring. -FU CT angio. -Continue telemetry admission. -Continue therapeutic lovenox <Isac Nguyen D - Last Filed: 08/11/18 14:39> Attending/Attestation - Attestation I have personally seen and examined this patient.: Yes I have fully participated in the care of the patient.: Yes I have reviewed all pertinent clinical information, including history, physical exam and plan: Yes Notes (Text): 08/11/18 14:38 Patient seen and examined with resident during CORPORATE COMPLIANCE DIRECTOR. Case discussed and agreed with assessment and plan.
--- NOTE | 2018-08-11 12:17 | CT ---
Date of service: 08/11/2018 PROCEDURE: CT Chest with contrast (Pulmonary Angiogram) HISTORY: sob, tachycardia COMPARISON: None available. TECHNIQUE: Axial computed tomography images were obtained of the chest in the pulmonary arterial phase of enhancement. Coronal and sagittal reformatted images were created and reviewed. Intravenous contrast dose: Radiation dose: Total exam DLP = 2167.07 mGy-cm. This CT exam was performed using one or more of the following dose reduction techniques: Automated exposure control, adjustment of the mA and/or kV according to patient size, and/or use of iterative reconstruction technique. FINDINGS: PULMONARY ARTERIES: Unremarkable. No pulmonary embolism. AORTA: No acute findings. No thoracic aortic aneurysm. No aortic atherosclerotic calcification or mural plaque present. LUNGS: Centrilobular emphysema with a small to moderate size right lower lobe infiltrate with consolidation. PLEURAL SPACES: Unremarkable. No effusion or pneumothorax. HEART: Unremarkable. No cardiomegaly. No significant pericardial effusion. LYMPH NODES: No lymphadenopathy. BONES, CHEST WALL: Unremarkable. No fracture or destructive lesion OTHER FINDINGS: 2 centimeter left thyroid lobe nodule. Cholelithiasis. IMPRESSION: No pulmonary embolism. Right lower lobe infiltrate. Cholelithiasis. Thyroid nodularity; correlate with thyroid ultrasound if clinically indicated.
[2018-08-11] MEDS: Azithromycin 500 MG in Sodium Chloride 0.9% 250 ML IVPB SCH (12:43)
[2018-08-11] MEDS: Pantoprazole 40 mg EC Tab PO SCH (12:48)
--- NOTE | 2018-08-11 12:59 | CP.PCM.CON ---
History of Present Illness - History of Present Illness History of Present Illness: 87 yo female admitted with syncope, disorientation, nonproductive cough. PMH COPD, CAD s/p stent/Mi, PAF pt went into rapid atrial fibrillation and started on Diltiazem gtt. Pe w/u CT scan pending. No distress, no c/o cp or baseline so b. Past Patient History - Infectious Disease Hx of Infectious Diseases: None - Tetanus Immunizations Tetanus Immunization: Unknown - Past Medical History & Family History Past Medical History?: Yes - Past Social History Smoking Status: Never Smoked - CARDIAC Hx Atrial Fibrillation: Yes Hx Congestive Heart Failure: Yes Hx Hypercholesterolemia: Yes Hx Hypertension: Yes Hx Pacemaker: No Hx Peripheral Edema: Yes - PULMONARY Hx Chronic Obstructive Pulmonary Disease (COPD): Yes Hx Emphysema: Yes Hx Pneumonia: Yes - NEUROLOGICAL Hx Paralysis: No - HEENT Hx HEENT Problems: No - RENAL Hx Chronic Kidney Disease: No - ENDOCRINE/METABOLIC Hx Endocrine Disorders: No - HEMATOLOGICAL/ONCOLOGICAL Hx Human Immunodeficiency Virus (HIV): No - INTEGUMENTARY Other/Comment: 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 - MUSCULOSKELETAL/RHEUMATOLOGICAL Hx Falls: Yes Hx Fractures: Yes (right ankle) - GASTROINTESTINAL Hx Gastrointestinal Disorders: No - GENITOURINARY/GYNECOLOGICAL Hx Genitourinary Disorders: Yes Hx Incontinence: Yes Other/Comment: [employer] - PSYCHIATRIC Hx Psychophysiologic Disorder: No Hx Substance Use: No - SURGICAL HISTORY Hx Appendectomy: No Hx Coronary Stent: Yes (x 2) - ANESTHESIA Hx Anesthesia: Yes Hx Anesthesia Reactions: No Hx Malignant Hyperthermia: No Has any member of the family had a problem w/ anesthesia?: No Meds Allergies/Adverse Reactions: Allergies Allergy/AdvReac Type Severity Reaction Status Date / Time Penicillins Allergy Mild SWELLING Verified 08/09/18 17:25 - Medications Medications: Current Medications Albuterol/Ipratropium (Duoneb 3 Mg/0.5 Mg (3 Ml) Ud) 3 ml INH RQID [facility] Last Admin: 08/11/18 07:41 Dose: 3 ml Aspirin (Ecotrin) 81 mg PO DAILY [facility] Last Admin: 08/11/18 12:42 Dose: 81 mg Bisoprolol Fumarate (Zebeta) 5 mg PO DAILY [facility] Last Admin: 08/10/18 09:07 Dose: 5 mg Clopidogrel Bisulfate (Plavix) 75 mg PO DAILY [facility] Last Admin: 08/11/18 12:42 Dose: 75 mg Diltiazem HCl (Cardizem) 30 mg PO BID [facility] Enoxaparin Sodium (Lovenox) 90 mg SC Q12 [facility]; Protocol Last Admin: 08/11/18 12:39 Dose: 90 mg Azithromycin 500 mg/ Sodium (Chloride) 250 mls @ 250 mls/hr IVPB DAILY [facility]; Protocol Last Admin: 08/11/18 12:43 Dose: 250 mls/hr Diltiazem HCl 125 mg/ Sodium (Chloride) 125 mls @ 5 mls/hr IV .Q24H [facility]; Protocol Stop: 08/12/18 10:27 Clindamycin Phosphate 600 mg/ (Sodium Chloride) 54 mls @ 54 mls/hr IVPB Q8 [facility]; Protocol Isosorbide Mononitrate (Imdur Er) 30 mg PO DAILY [facility] Last Admin: 08/11/18 12:38 Dose: 30 mg Lactobacillus Acidophilus (Bacid Acidophilus) 1 cap PO BID [facility] Lisinopril (Zestril) 2.5 mg PO DAILY [facility] Last Admin: 08/10/18 09:07 Dose: 2.5 mg Pantoprazole Sodium (Protonix Ec Tab) 40 mg PO DAILY [facility] Last Admin: 08/11/18 12:48 Dose: 40 mg Senna/Docusate Sodium (Senokot S 50 Mg-8.6 Mg) 2 tab PO HS [facility] Last Admin: 08/10/18 21:33 Dose: 2 tab Physical Exam - Neck Exam Neck exam: Positive for: Normal Inspection - Respiratory Exam Respiratory Exam: Wheezes - Cardiovascular Exam Cardiovascular Exam: Irregular Rhythm - GI/Abdominal Exam GI & Abdominal Exam: Normal Bowel Sounds - Back Exam Back exam: NORMAL INSPECTION Results - Vital Signs Recent Vital Signs: Last Vital Signs Temp 98.4 F 08/11/18 09:14 Pulse 121 H 08/11/18 12:35 Resp 20 08/11/18 12:35 BP 127/68 08/11/18 12:35 Pulse Ox 93 L 08/11/18 12:35 - Labs Result Diagrams: 08/10/18 06:10 08/10/18 06:10 Labs: Laboratory Results - last 24 hr 08/10/18 08/10/18 08/11/18 10:09 11:53 05:20 pCO2 pO2 HCO3 ABG pH ABG Total CO2 ABG O2 Saturation ABG Base Excess Luiz Test ABG Potassium A-a O2 Difference Sodium Chloride Glucose Lactate FiO2 C-React Prot High Sens > 15.00 H Triglycerides 88 Cholesterol 117 LDL Cholesterol Direct 67 HDL Cholesterol 26 L Arterial Blood Potassium Urine Color Yellow Urine Clarity Slighty-cloudy Urine pH 5.0 Ur Specific [place] 1.027 Urine Protein Negative Urine Glucose (UA) Neg Urine Ketones Negative Urine Blood Negative Urine Nitrate Negative Urine Bilirubin Negative Urine Urobilinogen 0.2-1.0 Ur Leukocyte Esterase Neg Urine RBC (Auto) < 1 Urine Microscopic WBC 1 Ur Squamous Epith Cells 2 08/11/18 10:25 pCO2 50 H pO2 52 L HCO3 26.7 ABG pH 7.37 ABG Total CO2 30.4 H ABG O2 Saturation 90.3 L ABG Base Excess 2.7 Luiz Test Yes ABG Potassium 3.0 L A-a O2 Difference 142.0 Sodium 134.0 Chloride 104.0 Glucose 157 H Lactate 0.9 FiO2 36.0 C-React Prot High Sens Triglycerides Cholesterol LDL Cholesterol Direct HDL Cholesterol Arterial Blood Potassium 3.0 L Urine Color Urine Clarity Urine pH Ur Specific [place] Urine Protein Urine Glucose (UA) Urine Ketones Urine Blood Urine Nitrate Urine Bilirubin Urine Urobilinogen Ur Leukocyte Esterase Urine RBC (Auto) Urine Microscopic WBC Ur Squamous Epith Cells Assessment & Plan - Assessment and Plan (Free Text) Assessment: 87 year old female with episode of paroxysmal atrial fibrillation in setting of dehydration, disorientation, syncope, nonproductive cough. Started on Cardiazem gtt currently HR 110-115. Will give PO Amiodarone to help convert to NSR , atrial fibrillation is acute Will order Tfts
--- NOTE | 2018-08-11 13:32 | CP.PCM.CON ---
History of Present Illness - History of Present Illness History of Present Illness: This 87-year-old female, former heavy cigarette smoker with COPD, presented to the emergency room in the evening of August 09 after being found on the floor by her family members. Initially the patient declined coming to the hospital but ultimately she was convinced and presented to the emergency room by ambulance. According to her family members she has been noted to be increasingly confused and weak with difficulty walking. She has also had increased coughing without the ability to expectorate sputum. She denies any fever or chills or chest pain. Whether she had fallen from the bed is unclear but she was unable to get up off the floor until helped by family members. When found by her family she was somewhat confused and agitated and had been incontinent of urine. Past medical history: Chronic obstructive pulmonary disease, pneumonia, coronary artery disease with prior ND, hypertension, atrial fibrillation, congestive cardiac failure. No history of diabetes, asthma, tuberculosis, renal disease or liver disease or bleeding disorder. Past surgical history: Cardiac catheterization with stent x2. Allergies: Possible allergy to penicillin. Social history: Tobacco 1.5 packs/day until approximately 6 years ago. Alcohol intake is social only. Denies illicit drug use. No known work exposures to asbestos or toxic chemicals. Heavy work exposure to secondhand smoke as well. Past Patient History - Infectious Disease Hx of Infectious Diseases: None - Tetanus Immunizations Tetanus Immunization: Unknown - Past Medical History & Family History Past Medical History?: Yes - Past Social History Smoking Status: Former Smoker Chewing Tobacco Use: No Cigar Use: No Alcohol: Social Drugs: Denies Home Situation {Lives}: Alone - CARDIAC Hx Atrial Fibrillation: Yes Hx Congestive Heart Failure: Yes Hx Heart Attack: Yes Hx Hypercholesterolemia: Yes Hx Hypertension: Yes Hx Peripheral Edema: Yes - PULMONARY Hx Chronic Obstructive Pulmonary Disease (COPD): Yes Hx Emphysema: Yes Hx Pneumonia: Yes - NEUROLOGICAL Hx Syncope: Yes - HEENT Hx HEENT Problems: No - RENAL Hx Chronic Kidney Disease: No - ENDOCRINE/METABOLIC Hx Endocrine Disorders: No 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 - MUSCULOSKELETAL/RHEUMATOLOGICAL Hx Falls: Yes Hx Fractures: Yes (right ankle) - GASTROINTESTINAL Hx Gastrointestinal Disorders: No - GENITOURINARY/GYNECOLOGICAL Hx Incontinence: Yes Other/Comment: Stress Incontinence - PSYCHIATRIC Hx Psychophysiologic Disorder: No Hx Substance Use: No - SURGICAL HISTORY Hx Appendectomy: No Hx Coronary Stent: Yes (x 2) - ANESTHESIA Hx Anesthesia: Yes Hx Anesthesia Reactions: No Hx Malignant Hyperthermia: No Has any member of the family had a problem w/ anesthesia?: No Meds Allergies/Adverse Reactions: Allergies Allergy/AdvReac Type Severity Reaction Status Date / Time Penicillins Allergy Mild SWELLING Verified 08/09/18 17:25 - Medications Medications: Current Medications Albuterol/Ipratropium (Duoneb 3 Mg/0.5 Mg (3 Ml) Ud) 3 ml INH RQID [facility] Last Admin: 08/11/18 07:41 Dose: 3 ml Amiodarone HCl (Cordarone) 200 mg PO BID [facility] Aspirin (Ecotrin) 81 mg PO DAILY [facility] Last Admin: 08/11/18 12:42 Dose: 81 mg Bisoprolol Fumarate (Zebeta) 5 mg PO DAILY [facility] Last Admin: 08/11/18 13:06 Dose: Not Given Clopidogrel Bisulfate (Plavix) 75 mg PO DAILY [facility] Last Admin: 08/11/18 12:42 Dose: 75 mg Diltiazem HCl (Cardizem) 30 mg PO BID [facility] Enoxaparin Sodium (Lovenox) 90 mg SC Q12 [facility]; Protocol Last Admin: 08/11/18 12:39 Dose: 90 mg Azithromycin 500 mg/ Sodium (Chloride) 250 mls @ 250 mls/hr IVPB DAILY [facility]; Protocol Last Admin: 08/11/18 12:43 Dose: 250 mls/hr Diltiazem HCl 125 mg/ Sodium (Chloride) 125 mls @ 5 mls/hr IV .Q24H ONE; Prot ocol Stop: 08/12/18 10:27 Last Admin: 08/11/18 13:12 Dose: 5 mg/hr, 5 mls/hr Clindamycin Phosphate (Cleocin) 600 mg in 50 mls @ 50 mls/hr IVPB Q8 [facility]; Protocol Isosorbide Mononitrate (Imdur Er) 30 mg PO DAILY [facility] Last Admin: 08/11/18 12:38 Dose: 30 mg Lactobacillus Acidophilus (Bacid Acidophilus) 1 cap PO BID [facility] Lisinopril (Zestril) 2.5 mg PO DAILY [facility] Last Admin: 08/11/18 13:05 Dose: 2.5 mg Pantoprazole Sodium (Protonix Ec Tab) 40 mg PO DAILY [facility] Last Admin: 08/11/18 12:48 Dose: 40 mg Senna/Docusate Sodium (Senokot S 50 Mg-8.6 Mg) 2 tab PO HS [facility] Last Admin: 08/10/18 21:33 Dose: 2 tab Physical Exam - Additional Findings Additional findings: Chronically ill-appearing female who has congested cough but no sputum production. Awake and oriented x3. Cooperative with physical examination. Pharynx is pink and mucous membranes are moist without exudate. Nasal passages are patent bilaterally without bleeding or exudate. Conjunctivae are pink and there is no scleral icterus. The neck is supple her trachea is midline. No carotid bruit. Increased AP diameter of the thorax. No dullness on chest percussion. Breath sounds are diminished bilaterally without audible wheezing or bronchial breathing. Dry rales are heard in the lower lobes posteriorly. Scattered rhonchi. Heart sounds are distant, tachycardic. Abdomen is soft, fleshy and nontender with normal bowel sounds. Trace dependent edema of both lower extremities without cyanosis. No calf tenderness. Results - Vital Signs Recent Vital Signs: Last Vital Signs Temp 97.9 F 08/11/18 13:00 Pulse 79 08/11/18 13:05 Resp 20 08/11/18 13:00 BP 120/79 08/11/18 13:05 Pulse Ox 93 L 08/11/18 13:00 - Labs Result Diagrams: 08/10/18 06:10 08/10/18 06:10 Labs: Laboratory Results - last 24 hr 08/10/18 08/10/18 08/11/18 10:09 11:53 05:20 pCO2 pO2 HCO3 ABG pH ABG Total CO2 ABG O2 Saturation ABG Base Excess Luiz Test ABG Potassium A-a O2 Difference Sodium Chloride Glucose Lactate FiO2 C-React Prot High Sens > 15.00 H Triglycerides 88 Cholesterol 117 LDL Cholesterol Direct 67 HDL Cholesterol 26 L Arterial Blood Potassium Urine Color Yellow Urine Clarity Slighty-cloudy Urine pH 5.0 Ur Specific [place] 1.027 Urine Protein Negative Urine Glucose (UA) Neg Urine Ketones Negative Urine Blood Negative Urine Nitrate Negative Urine Bilirubin Negative Urine Urobilinogen 0.2-1.0 Ur Leukocyte Esterase Neg Urine RBC (Auto) < 1 Urine Microscopic WBC 1 Ur Squamous Epith Cells 2 08/11/18 10:25 pCO2 50 H pO2 52 L HCO3 26.7 ABG pH 7.37 ABG Total CO2 30.4 H ABG O2 Saturation 90.3 L ABG Base Excess 2.7 Luiz Test Yes ABG Potassium 3.0 L A-a O2 Difference 142.0 Sodium 134.0 Chloride 104.0 Glucose 157 H Lactate 0.9 FiO2 36.0 C-React Prot High Sens Triglycerides Cholesterol LDL Cholesterol Direct HDL Cholesterol Arterial Blood Potassium 3.0 L Urine Color Urine Clarity Urine pH Ur Specific [place] Urine Protein Urine Glucose (UA) Urine Ketones Urine Blood Urine Nitrate Urine Bilirubin Urine Urobilinogen Ur Leukocyte Esterase Urine RBC (Auto) Urine Microscopic WBC Ur Squamous Epith Cells Assessment & Plan (1) Pneumonia Assessment and Plan: Right lower lobe. Status: Acute Priority: High (2) Afib Assessment and Plan: With RVR. Status: Acute Priority: High (3) COPD exacerbation Status: Chronic Priority: High (4) Hypoxemia requiring supplemental oxygen Status: Chronic Priority: High - Date & Time Date: 08/11/18 Time: 13:33
[2018-08-11] MEDS ORDERED: Hydrocortisone- 100 MG in Sodium Chloride 0.9% 100 ML IV SCH (13:45)
[2018-08-11 14:56] LABS: ALDOLASE 5.7 U/L (<=8.1)
--- NOTE | 2018-08-11 15:25 | CT ---
Date of service: 08/11/2018 PROCEDURE: CT Angiography of the Brain and Neck. HISTORY: cerebral ischemia COMPARISON: None available. TECHNIQUE: CT angiography of the head and neck was performed following intravenous contrast administration. Coronal and sagittal maximum intensity projection reformatted images were generated. Contrast Dose: Visipaque 320, 145 cc Radiation dose: Total exam DLP = 2167.06 mGy-cm. This CT exam was performed using one or more of the following dose reduction techniques: Automated exposure control, adjustment of the mA and/or kV according to patient size, and/or use of iterative reconstruction technique. FINDINGS: INTERNAL CEREBRAL ARTERIES: Unremarkable. The skull base, petrous, cavernous and supraclinoid segments are bilaterally widely patent. ANTERIOR CEREBRAL ARTERIES: Unremarkable. A1 and A2 segments are widely patent. Smaller distal branches unremarkable, as visualized. MIDDLE CEREBRAL ARTERIES: Unremarkable. M1 and M2 segments are widely patent. Perisylvian branches grossly symmetric. POSTERIOR CIRCULATION: Basilar Artery: Unremarkable. Distal Vertebral Arteries: Left dominant vertebrobasilar circulation. Posterior Cerebral Arteries: Unremarkable. Posterior Inferior Cerebellar Arteries: Unremarkable. NECK CTA: Common Carotid arteries: The bilateral common carotid appear widely patent from their origins to their bifurcations with no significant stenosis appreciated. No evidence to suggest common carotid artery dissection. Internal Carotid arteries: No significant stenosis is appreciated throughout the cervical internal carotid artery segments bilaterally and there is no evidence of dissection either. External Carotid arteries: Appear unremarkable bilaterally. Vertebral arteries: The bilateral vertebral arteries appear normal in caliber from their origins to their distal cervical segments. No significant stenosis or definite pattern of dissection. ANEURYSM/ VASCULAR MALFORMATIONS: None. OTHER FINDINGS: Incidental note is made of a left thyroid mass poorly enhancing measuring 2.3 x 1.9 cm for which follow-up thyroid ultrasound and or nuclear thyroid scan with uptake can be performed. IMPRESSION: No occlusion or significant stenosis in the bilateral common or internal carotid arteries in the neck. Left dominant vertebrobasilar circulation. Intracranial and neck CT angiography otherwise unremarkable. Incidental left thyroid mass 2.3 cm for which follow-up ultrasound or nuclear thyroid scan can be performed for added characterization.
[2018-08-11] MEDS: Ipratropium 0.02% Inhal Soln (0.5 mg/2.5 ml) UD IH SCH ×3 (15:29→23:48)
--- NOTE | 2018-08-11 16:40 | CP.PCM.PN ---
Subjective - Date & Time of Evaluation Date of Evaluation: 08/11/18 Time of Evaluation: 17:04 - Subjective Subjective: Neuro Follow-Up Note: Mrs. Turner was evaluated this afternoon at bedside. She offers no complaints and admits to feeling better compared to a few days ago. She admits to an occasional cough. Denies h/a, dizziness, visual changes, chest pain, palpitations, sob, abd pain, n/v/d. Objective - Vital Signs/Intake and Output Vital Signs (last 24 hours): Temp Pulse Resp BP Pulse Ox 97.1 F L 111 H 22 109/62 96 08/11/18 16:32 08/11/18 16:32 08/11/18 16:32 08/11/18 16:32 08/11/18 16:32 - Medications Medications: Current Medications Amiodarone HCl (Cordarone) 200 mg PO BID [facility] Aspirin (Ecotrin) 81 mg PO DAILY [facility] Last Admin: 08/11/18 12:42 Dose: 81 mg Bisoprolol Fumarate (Zebeta) 5 mg PO DAILY [facility] Last Admin: 08/11/18 13:06 Dose: Not Given Clopidogrel Bisulfate (Plavix) 75 mg PO DAILY [facility] Last Admin: 08/11/18 12:42 Dose: 75 mg Diltiazem HCl (Cardizem) 30 mg PO BID [facility] Enoxaparin Sodium (Lovenox) 90 mg SC Q12 [facility]; Protocol Last Admin: 08/11/18 12:39 Dose: 90 mg Hydrocortisone Sodium Succinate (Solu-Cortef) 100 mg IV DAILY [facility] Azithromycin 500 mg/ Sodium (Chloride) 250 mls @ 250 mls/hr IVPB DAILY [facility]; Protocol Last Admin: 08/11/18 12:43 Dose: 250 mls/hr Diltiazem HCl 125 mg/ Sodium (Chloride) 125 mls @ 5 mls/hr IV .Q24H [facility]; Protocol Stop: 08/12/18 10:27 Last Admin: 08/11/18 13:12 Dose: 5 mg/hr, 5 mls/hr Clindamycin Phosphate (Cleocin) 600 mg in 50 mls @ 50 mls/hr IVPB Q8 [facility]; Protocol Ipratropium [place] (Atrovent) 0.5 mg IH RQ4 [facility] Last Admin: 08/11/18 15:29 Dose: 0.5 mg Isosorbide Mononitrate (Imdur Er) 30 mg PO DAILY [facility] Last Admin: 08/11/18 12:38 Dose: 30 mg Lactobacillus Acidophilus (Bacid Acidophilus) 1 cap PO BID [facility] Lisinopril (Zestril) 2.5 mg PO DAILY [facility] Last Admin: 08/11/18 13:05 Dose: 2.5 mg Pantoprazole Sodium (Protonix Ec Tab) 40 mg PO DAILY [facility] Last Admin: 08/11/18 12:48 Dose: 40 mg Senna/Docusate Sodium (Senokot S 50 Mg-8.6 Mg) 2 tab PO HS [facility] Last Admin: 08/10/18 21:33 Dose: 2 tab - Labs Labs: 08/10/18 06:10 08/10/18 06:10 - Constitutional Appears: Well, Non-toxic, No Acute Distress - Head Exam Head Exam: ATRAUMATIC, NORMAL INSPECTION, NORMOCEPHALIC - Eye Exam Eye Exam: EOMI, Normal appearance Pupil Exam: NORMAL ACCOMODATION, PERRL - ENT Exam ENT Exam: Mucous Membranes Moist - Neck Exam Neck Exam: Normal Inspection - Respiratory Exam Respiratory Exam: NORMAL BREATHING PATTERN - Extremities Exam Additional comments: Able to move all extremities with generalized weakness - Neurological Exam Neurological Exam: Alert, Altered, CN II-XII Intact, Reflexes Normal Neuro motor strength exam: Left Upper Extremity: 4 (senior director of strategy 3/5), Right Upper Extremity: 4 (senior director of strategy 3/5), Left Lower Extremity: 3 (plantar flexion 2-3/5), Right Lower Extremity: 3 (plantar flexion 2-3/5) Additional comments: Awake, alert; confused and forgetful. Knows she is in the hospital. Speech clear, fluid Moves all extremities, generalized weakness more to the lower extremities. No tremors - Psychiatric Exam Psychiatric exam: Normal Affect, Normal Mood - Skin Skin Exam: Normal Color Assessment and Plan (1) Altered mental state Assessment & Plan: Imaging reviewed: -CTA Head and Neck: unremarkable to occlusion or stenosis -CT Head: no acute intracranial involvement -ECHO done, pending results. -Likely 2/2 infectious process---pt does have right lower lobe infiltrate on Chest CT. -Continue current treatment and antibiotics per primary team. -Notify neuro of acute changes in pt's condition. Discussed with Dr. Spears Status: Acute
--- NOTE | 2018-08-11 17:06 | US ---
Date of service: 08/10/2018 PROCEDURE: Duplex ultrasound of the carotid and vertebral arteries. HISTORY: syncope and transient altered mental status COMPARISON: None available. TECHNIQUE: Grayscale and duplex Doppler evaluation of the cervical carotid and vertebral arteries were performed. The common carotid, carotid bifurcations and cervical ICA and proximal ECA were evaluated. The vertebral arteries were evaluated for gross patency and direction. FINDINGS: RIGHT CAROTID ARTERIES: Common Carotid Artery: Mild atherosclerotic disease noted. Maximal flow velocity of 65.1 cm/s. Carotid Bifurcation: Mild atherosclerotic disease and small calcified plaques. Internal Carotid Artery:Mild atherosclerotic disease and intimal thickening noted. The right internal carotid artery is tortuous. Maximal flow velocity of 54.1 cm/s. External Carotid Artery (proximal branches): Normal. Maximal flow velocity of 94.8 cm/s. ICA/CCA Ratio: 1.2 LEFT CAROTID ARTERIES: Common Carotid Artery: Mild atherosclerotic disease. Maximal flow velocity of 98.4 cm/s. Carotid Bifurcation: Mild atherosclerotic disease. Internal Carotid Artery:Tortuous internal carotid artery maximal flow velocity of 62.7 cm/s. External Carotid Artery (proximal branches): Normal. Maximal flow velocity of 119.0 cm/s. ICA/CCA Ratio: 1 VERTEBRAL ARTERIES: Right Vertebral Artery: Patent. Antegrade flow. Left Vertebral Artery: Patent. Antegrade flow. OTHER FINDINGS: No atherosclerotic calcification present IMPRESSION: Mild atherosclerotic disease. Tortuous internal carotid arteries. No ultrasound Doppler evidence of hemodynamically significant stenosis in the common and internal carotid arteries.
[2018-08-11] MEDS: Lactobacillus Acidophilus 500 MU Cap PO SCH (17:10)
[2018-08-11] MEDS: Clindamycin 600mg/50ml D5W 600 MG/50 ML VIAL IVPB SCH (17:15)
--- NOTE | 2018-08-11 19:59 | CARD ---
APPROVED REPORT Date of service: 08/11/2018 EXAM: Two-dimensional and M-mode echocardiogram with Doppler and color Doppler. Other Information Quality : AverageRhythm : Tachycardia INDICATION Cardiac Disease: CAD Syncope COPD Surgery/Intervention Status/Post Intervention: Stent 2D DIMENSIONS IVSd1.28 (0.7-1.1cm)LVDd3.83 (3.9-5.9cm) PWd1.34 (0.7-1.1cm)IVSs1.58 (0.8-1.2cm) LVDs2.93 (2.5-4.0cm)FS (%) 23.4 % PWs1.56 (0.8-1.2cm) M-Mode DIMENSIONS Left Atrium (MM)4.76 (2.5-4.0cm)IVSd1.36 (0.7-1.1cm) Aortic Root2.94 (2.2-3.7cm)LVDd4.14 (4.0-5.6cm) Aortic Cusp Exc.1.92 (1.5-2.0cm)PWd1.09 (0.7-1.1cm) IVSs1.79 cmFS (%) 19 % LVDs3.34 (2.0-3.8cm)PWs1.22 cm Mitral Valve E/A ratio0.0 TDI E/Lateral E'0.0E/Medial E'0.0 Tricuspid Valve TR Peak [id number] Peak Gr.27mmHg [id number] LEFT VENTRICLE The left ventricle is normal size. There is borderline to mild concentric left ventricular hypertrophy. The left ventricular systolic function is normal. The estimated ejection fraction is 50-55% No regional wall motion abnormalities noted.. The left ventricular diastolic function cannot be assessed due to underlying atrial fibrillation. No left ventricle thrombus noted on this study. There is no ventricular septal defect visualized. There is no left ventricular aneurysm. There is no mass noted in the left ventricle. RIGHT VENTRICLE The right ventricle is normal size. There is normal right ventricular wall thickness. The right ventricular systolic function is normal. ATRIA The left atrium is mildly dilated. The right atrium size is normal. The interatrial septum is intact with no evidence for an atrial septal defect. AORTIC VALVE The aortic valve is normal in structure. No aortic regurgitation is present. There is no aortic valvular stenosis. There is no aortic valvular vegetation. MITRAL VALVE The mitral valve is normal in structure. There is no evidence of mitral valve prolapse. There is no mitral valve stenosis. There is trace mitral valve regurgitation noted. TRICUSPID VALVE The tricuspid valve is normal in structure. There is mild tricuspid valve regurgitation noted. RVSP is calculated at 45 mm Hg. There is no tricuspid valve prolapse or vegetation. There is no tricuspid valve stenosis. PULMONIC VALVE The pulmonary valve is normal in structure. There is no pulmonic valvular regurgitation. There is no pulmonic valvular stenosis. GREAT VESSELS The aortic root is normal in size. The ascending aorta is normal in size. The pulmonary artery is normal. The IVC is dilated in size and collapses <50% with inspiration. PERICARDIAL EFFUSION There is no pericardial effusion. There is no pleural effusion. <Conclusion> There is borderline to mild concentric left ventricular hypertrophy. The estimated ejection fraction is 50-55% The left ventricular diastolic function cannot be assessed due to underlying atrial fibrillation. The left atrium is mildly dilated. There is trace mitral valve regurgitation noted. There is mild tricuspid valve regurgitation noted. RVSP is calculated at 45 mm Hg. The IVC is dilated in size and collapses <50% with inspiration.
[2018-08-11] MEDS: Docusate-Senna 50 mg-8.6 mg Tab PO SCH (21:17)
[2018-08-12] MEDS: Enoxaparin 100 mg Syringe SC SCH ×2 (00:32→12:43)
[2018-08-12] MEDS: Clindamycin 600mg/50ml D5W 600 MG/50 ML VIAL IVPB SCH ×3 (02:10→17:41)
[2018-08-12] MEDS: Ipratropium 0.02% Inhal Soln (0.5 mg/2.5 ml) UD IH SCH ×5 (04:59→19:54)
[2018-08-12 05:17] LABS: BASO % 0.1 % (0.0-2.0); HEMOGLOBIN 12.1 g/dL (12.0-16.0); LYMPH # 0.5 K/uL (1.0-4.3); MEAN CELL VOLUME 86.9 fl (81.0-99.0); MEAN CORPUSCULAR HEMOGLOBIN 27.7 pg (27.0-31.0); MEAN CORPUSCULAR HGB CONC 31.9 g/dL (33.0-37.0); MEAN PLATELET VOLUME 8.1 fl (7.2-11.7); MONO # 0.4 K/uL (0.0-0.8); MONO % 9.1 % (0.0-10.0); NEUT % 76.8 % (50.0-75.0); RBC 4.37 Mil/uL (3.80-5.20); WHITE BLOOD COUNT 3.9 K/uL (4.8-10.8)
[2018-08-12 05:26] LABS: BLOOD UREA NITROGEN 19 mg/dl (7-17); CALCIUM 8.5 mg/dL (8.4-10.2); GFR NON-AFRICAN AMERICAN > 60
[2018-08-12] MEDS: Lactobacillus Acidophilus 500 MU Cap PO SCH ×2 (10:05→17:38)
[2018-08-12] MEDS: Pantoprazole 40 mg EC Tab PO SCH (10:10)
[2018-08-12] MEDS: Azithromycin 500 MG in Sodium Chloride 0.9% 250 ML IVPB SCH (10:13)
--- NOTE | 2018-08-12 10:56 | CP.PCM.PN ---
Subjective - Date & Time of Evaluation Date of Evaluation: 08/12/18 Time of Evaluation: 10:56 - Subjective Subjective: Appears more comfortable today. Seen while working with physical therapy. Ambulating with the use of walker, short distances. Remains afebrile, mildly tachycardic, normotensive. Receiving empiric dual antibiotic therapy for CAP. To have thyroid US for multiple nodules. Trace dependant edema bilaterally, no cyanosis. Neck is supple and trachea midline. Short neck, cannot clearly see JVD. No dullness on chest percussion, no subcut emphysema. Breath sounds are diminished bilaterally. Dry rales are present in both lower lobes posteriorly. No audible wheezes or bronchial breath sounds. Few scattered rhonchi in dependanr regions of both lungs. Heart sounds are distant, regular. CAP with exacerbation of COPD. AMS likely related to the above. Atrial fibrillation started on amiodarone. Multinodular thyroid undergoing w/u. Continue present medical and aerosol regimen. Will begin to reduce hydrocortisone JONATHAN. Continue supplemental oxygen and physical therapy. Objective - Vital Signs/Intake and Output Vital Signs (last 24 hours): Temp Pulse Resp BP Pulse Ox 98.1 F 105 H 20 108/70 95 08/12/18 08:08 08/12/18 10:12 08/12/18 10:05 08/12/18 10:12 08/12/18 10:05 Intake and Output: 08/11/18 08/12/18 23:59 11:59 Intake Total 125 Balance 125 - Medications Medications: Current Medications Amiodarone HCl (Cordarone) 200 mg PO BID [facility] Last Admin: 08/12/18 10:07 Dose: 200 mg Aspirin (Ecotrin) 81 mg PO DAILY [facility] Last Admin: 08/12/18 10:08 Dose: 81 mg Bisoprolol Fumarate (Zebeta) 5 mg PO DAILY [facility] Last Admin: 08/12/18 10:12 Dose: 5 mg Clopidogrel Bisulfate (Plavix) 75 mg PO DAILY [facility] Last Admin: 08/12/18 10:09 Dose: 75 mg Diltiazem HCl (Cardizem) 30 mg PO BID [facility] Last Admin: 08/12/18 10:05 Dose: 30 mg Enoxaparin Sodium (Lovenox) 90 mg SC Q12@0000,1200 [facility]; Protocol Last Admin: 08/12/18 00:32 Dose: 90 mg Hydrocortisone Sodium Succinate (Solu-Cortef) 100 mg IV DAILY [facility] Last Admin: 08/12/18 10:10 Dose: 100 mg Azithromycin 500 mg/ Sodium (Chloride) 250 mls @ 250 mls/hr IVPB DAILY [facility]; Protocol Last Admin: 08/12/18 10:13 Dose: 250 mls/hr Clindamycin Phosphate (Cleocin) 600 mg in 50 mls @ 50 mls/hr IVPB Q8 [facility]; Protocol Last Admin: 08/12/18 10:07 Dose: 50 mls/hr Ipratropium [place] (Atrovent) 0.5 mg IH RQ4 [facility] Last Admin: 08/12/18 07:47 Dose: 0.5 mg Isosorbide Mononitrate (Imdur Er) 30 mg PO DAILY [facility] Last Admin: 08/12/18 10:08 Dose: 30 mg Lactobacillus Acidophilus (Bacid Acidophilus) 1 cap PO BID [facility] Last Admin: 08/12/18 10:05 Dose: 1 cap Lisinopril (Zestril) 2.5 mg PO DAILY [facility] Last Admin: 08/12/18 10:12 Dose: 2.5 mg Pantoprazole Sodium (Protonix Ec Tab) 40 mg PO DAILY [facility] Last Admin: 08/12/18 10:10 Dose: 40 mg Senna/Docusate Sodium (Senokot S 50 Mg-8.6 Mg) 2 tab PO HS [facility] Last Admin: 08/11/18 21:17 Dose: 2 tab - Labs Labs: 08/12/18 04:30 08/12/18 04:30 Assessment and Plan (1) Pneumonia Status: Acute (2) Afib Status: Acute (3) COPD exacerbation Status: Chronic (4) Hypoxemia requiring supplemental oxygen Status: Chronic
--- NOTE | 2018-08-12 11:39 | CP.PCM.PN ---
Subjective - Date & Time of Evaluation Date of Evaluation: 08/12/18 Time of Evaluation: 11:38 - Subjective Subjective: Neuro Follow-Up Note: Mrs. Turner was evaluated this morning sitting in chair OOB. She offers no complaints today and states that she feels much better today. She still admits to an occasional cough but states that it is improving. Denies h/a, dizziness, visual changes, chest pain, palpitations, sob, abd pain, n/v/d. Chart reviewed; discussed PT with primary nurse. Objective - Vital Signs/Intake and Output Vital Signs (last 24 hours): Temp Pulse Resp BP Pulse Ox 98.1 F 105 H 20 108/70 95 08/12/18 08:08 08/12/18 10:12 08/12/18 10:05 08/12/18 10:12 08/12/18 10:05 Intake and Output: 08/12/18 08/12/18 06:59 18:59 Intake Total 125 Balance 125 - Medications Medications: Current Medications Amiodarone HCl (Cordarone) 200 mg PO BID [facility] Last Admin: 08/12/18 10:07 Dose: 200 mg Aspirin (Ecotrin) 81 mg PO DAILY [facility] Last Admin: 08/12/18 10:08 Dose: 81 mg Bisoprolol Fumarate (Zebeta) 5 mg PO DAILY [facility] Last Admin: 08/12/18 10:12 Dose: 5 mg Clopidogrel Bisulfate (Plavix) 75 mg PO DAILY [facility] Last Admin: 08/12/18 10:09 Dose: 75 mg Diltiazem HCl (Cardizem) 30 mg PO BID [facility] Last Admin: 08/12/18 10:05 Dose: 30 mg Enoxaparin Sodium (Lovenox) 90 mg SC Q12@0000,1200 [facility]; Protocol Last Admin: 08/12/18 00:32 Dose: 90 mg Hydrocortisone Sodium Succinate (Solu-Cortef) 100 mg IV DAILY [facility] Last Admin: 08/12/18 10:10 Dose: 100 mg Azithromycin 500 mg/ Sodium (Chloride) 250 mls @ 250 mls/hr IVPB DAILY [facility]; Protocol Last Admin: 08/12/18 10:13 Dose: 250 mls/hr Clindamycin Phosphate (Cleocin) 600 mg in 50 mls @ 50 mls/hr IVPB Q8 [facility]; Protocol Last Admin: 02/05/19 10:07 Dose: 50 mls/hr Ipratropium [place] (Atrovent) 0.5 mg IH RQ4 [facility] Last Admin: 08/12/18 11:14 Dose: Not Given Isosorbide Mononitrate (Imdur Er) 30 mg PO DAILY [facility] Last Admin: 08/12/18 10:08 Dose: 30 mg Lactobacillus Acidophilus (Bacid Acidophilus) 1 cap PO BID [facility] Last Admin: 08/12/18 10:05 Dose: 1 cap Lisinopril (Zestril) 2.5 mg PO DAILY [facility] Last Admin: 08/12/18 10:12 Dose: 2.5 mg Pantoprazole Sodium (Protonix Ec Tab) 40 mg PO DAILY [facility] Last Admin: 08/12/18 10:10 Dose: 40 mg Senna/Docusate Sodium (Senokot S 50 Mg-8.6 Mg) 2 tab PO HS [facility] Last Admin: 08/11/18 21:17 Dose: 2 tab - Labs Labs: 08/12/18 04:30 08/12/18 04:30 - Constitutional Appears: Well, Non-toxic - Head Exam Head Exam: ATRAUMATIC, NORMAL INSPECTION, NORMOCEPHALIC - Eye Exam Eye Exam: EOMI, Normal appearance. absent: Nystagmus Pupil Exam: NORMAL ACCOMODATION, PERRL - ENT Exam ENT Exam: Mucous Membranes Moist - Neck Exam Neck Exam: Full ROM, Normal Inspection - Respiratory Exam Respiratory Exam: NORMAL BREATHING PATTERN (on nasal cannula, no SOB noted) - Cardiovascular Exam Cardiovascular Exam: Irregular Rhythm - GI/Abdominal Exam GI & Abdominal Exam: Soft - Extremities Exam Extremities Exam: Full ROM. absent: Calf Tenderness, Pedal Edema Additional comments: Generalized weakness 2/2 deconditioning, however, strength to extremities is stronger than yesterday. 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 She is forgetful. Follows commands. Speech clear, fluid Generalized weakness 2/2 deconditioning, however, strength to extremities is stronger than yesterday. No sensory deficits No tremors Gait not assessed---reviewed PT notes. - Psychiatric Exam Psychiatric exam: Normal Affect, Normal Mood - Skin Skin Exam: Normal Color Assessment and Plan (1) Altered mental state Assessment & Plan: Imaging reviewed: -CTA Head and Neck: unremarkable to occlusion or stenosis -CT Head: no acute intracranial involvement -ECHO: EF 50-55%, afib, no LV thrombus -CT Chest: right lower lobe infiltrate -AMS likely 2/2 infectious process, though pt is now at her baseline -Cardiology on case for afib. -Continue current treatment (including ASA and Plavix for stroke prevention) and antibiotics per primary team. -Recommend rehab upon d/c for conditioning. -Notify neuro of acute changes in pt's condition. No further neuro recommenda tions. Please reconsult prn. Thank you for allowing us to participate in this pt's care. Case discussed with Dr. Spears Status: Acute
--- NOTE | 2018-08-12 11:57 | CP.PCM.PN ---
<Kelly Upton - Last Filed: 08/12/18 12:02> Subjective - Date & Time of Evaluation Date of Evaluation: 08/12/18 Time of Evaluation: 09:06 - Subjective Subjective: Patient was seen and examined this morning, awake, alert in bed on 4 L of oxygen via NC. She continues to complain of cough but denied any fever, chills, chest pain, palpitations or shortness of breathl Objective - Vital Signs/Intake and Output Vital Signs (last 24 hours): Temp Pulse Resp BP Pulse Ox 98.1 F 105 H 20 108/70 95 08/12/18 08:08 08/12/18 10:12 08/12/18 10:05 08/12/18 10:12 08/12/18 10:05 Intake and Output: 08/12/18 08/12/18 06:59 18:59 Intake Total 125 Balance 125 - Medications Medications: Current Medications Amiodarone HCl (Cordarone) 200 mg PO BID [facility] Last Admin: 08/12/18 10:07 Dose: 200 mg Aspirin (Ecotrin) 81 mg PO DAILY [facility] Last Admin: 08/12/18 10:08 Dose: 81 mg Bisoprolol Fumarate (Zebeta) 5 mg PO DAILY [facility] Last Admin: 08/12/18 10:12 Dose: 5 mg Clopidogrel Bisulfate (Plavix) 75 mg PO DAILY [facility] Last Admin: 08/12/18 10:09 Dose: 75 mg Diltiazem HCl (Cardizem) 30 mg PO BID [facility] Last Admin: 08/12/18 10:05 Dose: 30 mg Enoxaparin Sodium (Lovenox) 90 mg SC Q12@0000,1200 [facility]; Protocol Last Admin: 08/12/18 00:32 Dose: 90 mg Hydrocortisone Sodium Succinate (Solu-Cortef) 100 mg IV DAILY [facility] Last Admin: 08/12/18 10:10 Dose: 100 mg Azithromycin 500 mg/ Sodium (Chloride) 250 mls @ 250 mls/hr IVPB DAILY [facility]; Protocol Last Admin: 08/12/18 10:13 Dose: 250 mls/hr Clindamycin Phosphate (Cleocin) 600 mg in 50 mls @ 50 mls/hr IVPB Q8 [facility]; Protocol Last Admin: 08/12/18 10:07 Dose: 50 mls/hr Ipratropium [place] (Atrovent) 0.5 mg IH RQ4 [facility] Last Admin: 08/12/18 11:14 Dose: Not Given Isosorbide Mononitrate (Imdur Er) 30 mg PO DAILY [facility] Last Admin: 08/12/18 10:08 Dose: 30 mg Lactobacillus Acidophilus (Bacid Acidophilus) 1 cap PO BID [facility] Last Admin: 08/12/18 10:05 Dose: 1 cap Lisinopril (Zestril) 2.5 mg PO DAILY [facility] Last Admin: 08/12/18 10:12 Dose: 2.5 mg Pantoprazole Sodium (Protonix Ec Tab) 40 mg PO DAILY [facility] Last Admin: 08/12/18 10:10 Dose: 40 mg Senna/Docusate Sodium (Senokot S 50 Mg-8.6 Mg) 2 tab PO HS [facility] Last Admin: 08/11/18 21:17 Dose: 2 tab - Labs Labs: 08/12/18 04:30 08/12/18 04:30 - Constitutional Appears: Non-toxic - Head Exam Head Exam: ATRAUMATIC - Eye Exam Eye Exam: EOMI - ENT Exam ENT Exam: Mucous Membranes Moist - Respiratory Exam Respiratory Exam: absent: Wheezes, Respiratory Distress, Stridor Additional comments: scattered rhonchi - Cardiovascular Exam Cardiovascular Exam: REGULAR RHYTHM, +S1, +S2 - GI/Abdominal Exam GI & Abdominal Exam: Soft, Normal Bowel Sounds. absent: Guarding, Rigid, Tenderness - Extremities Exam Extremities Exam: absent: Calf Tenderness - Neurological Exam Neurological Exam: Alert, Oriented x3 - Psychiatric Exam Psychiatric exam: Normal Mood - Skin Skin Exam: Dry, Intact Assessment and Plan - Assessment and Plan (Free Text) Assessment: 87 y.o F with hx of COPD, CAD, CHF, CAD & paroxysmal atrial fibrillation admitted for evaluation of syncope. 1. Syncope (Acute ) -Possibly due to paroxysmal a fib given [employer] C [employer] yesterday for a fib with VRV of 148 bpm. -Chest CT negative for pulmonary embolism. Head/neck CTA showed no occlusion or stenosis. -Carotid ultrasound showed no evidence of stenosis. -Head CT showed generalized atrophy, nonspecific white changes, no mass effect or edema (08/09/2018). - Echo done 08/09/2018 showed mild concentric left ventricular hypertrophy with EF of 50-55%. LV diastolic function could not be assessed due to a. fib. Left atrium is mildly dilated; mild mitral & tricuspid valve regurg. (Last echo in 03/23/2017 which showed EF of 50-55%, moderate mitral regurg/tricuspid regurg, severe pulmonary HTN). 2. Paroxysma Atrial fibrillation (VRV of 148 bpm yesterday) -Dr. Rincon's recommendation appreciated. -Continue Amiodorone 200mg PO BID. -Continue Cardizem 30mg PO BID. Cardizem drip discontinued because of HR mainta ined in 60's as noted on monitor with conversion into sinus rhythym. -Continue therapeutic dose of Lovenox 90mg SC Q12. 3. Pneumonia (Acute) -Dr. Marquez's recommendations appreciated. -CT showing right lower lobe infiltrate. -Mycoplasma pneumonia IgM negative. -Continue Azithromycin 500mg & Clindamycin 600mg IV. -FU sputum culture. 4. COPD with hypoxemia (chronic) -CT findings of centrilobular emphysema. -Continue duonebs. -Solumedrol 100mg IV QD. -Continue supplemental ox. -WBC decreased to 3.9 from 5.4 (08/10/2018); was 7.6 (08/09/2018) 5. CHF (chronic) -Echo done 08/09/2018 showed mild concentric left ventricular hypertrophy with EF of 50-55%. LV diastolic function could not be assessed due to a. fib. Left atrium is mildly dilated; mild mitral & tricuspid valve regurg. -Continue zebeta 5mg PO QD. -Continue lisinopril 2.5mg PO QD -Last echo in 03/23/2017 which showed EF of 50-55%, moderate mitral regurg/tricuspid regurg, severe pulmonary HTN. 6. Thyroid mass -incidental left thyroid mass 2.3cm noted on Head/neck CTA -FU thyroid ultrasound. -TSH:4.04 (08/11/2018) 7. hx of stent placement -Continue aspirin 81 mg PO & plavix 75 mg PO. 8. Diet Heart Healthy diet 9. GI prophylaxis -Continue Protonix 40mg QD 10. DVT prophylaxis (on theraupetic lovenox) <Skye Maldonado - Last Filed: 08/12/18 20:11> Objective - Vital Signs/Intake and Output Vital Signs (last 24 hours): Temp Pulse Resp BP Pulse Ox 98.8 F 62 18 104/65 91 L 08/12/18 16:53 08/12/18 19:09 08/12/18 17:38 08/12/18 19:09 08/12/18 16:53 - Medications Medications: Current Medications Amiodarone HCl (Cordarone) 200 mg PO BID [facility] Last Admin: 08/12/18 19:09 Dose: 200 mg Aspirin (Ecotrin) 81 mg PO DAILY [facility] Last Admin: 08/12/18 10:08 Dose: 81 mg Bisoprolol Fumarate (Zebeta) 5 mg PO DAILY [facility] Last Admin: 08/12/18 10:12 Dose: 5 mg Clopidogrel Bisulfate (Plavix) 75 mg PO DAILY [facility] Last Admin: 08/12/18 10:09 Dose: 75 mg Diltiazem HCl (Cardizem) 30 mg PO BID [facility] Enoxaparin Sodium (Lovenox) 90 mg SC Q12@0000,1200 [facility]; Protocol Last Admin: 08/12/18 12:43 Dose: 90 mg Hydrocortisone Sodium Succinate (Solu-Cortef) 100 mg IV DAILY [facility] Last Admin: 08/12/18 10:10 Dose: 100 mg Azithromycin 500 mg/ Sodium (Chloride) 250 mls @ 250 mls/hr IVPB DAILY [facility]; Protocol Last Admin: 08/12/18 10:13 Dose: 250 mls/hr Clindamycin Phosphate (Cleocin) 600 mg in 50 mls @ 50 mls/hr IVPB Q8 [facility]; Protocol Last Admin: 08/12/18 17:41 Dose: 50 mls/hr Ipratropium [place] (Atrovent) 0.5 mg IH RQ4 [facility] Last Admin: 08/12/18 19:54 Dose: 0.5 mg Isosorbide Mononitrate (Imdur Er) 30 mg PO DAILY [facility] Last Admin: 08/12/18 10:08 Dose: 30 mg Lactobacillus Acidophilus (Bacid Acidophilus) 1 cap PO BID [facility] Last Admin: 08/12/18 17:38 Dose: 1 cap Lisinopril (Zestril) 2.5 mg PO DAILY [facility] Last Admin: 08/12/18 10:12 Dose: 2.5 mg Pantoprazole Sodium (Protonix Ec Tab) 40 mg PO DAILY [facility] Last Admin: 08/12/18 10:10 Dose: 40 mg Senna/Docusate Sodium (Senokot S 50 Mg-8.6 Mg) 2 tab PO HS [facility] Last Admin: 08/11/18 21:17 Dose: 2 tab - Labs Labs: 08/12/18 04:30 08/12/18 04:30 Attending/Attestation - Attestation I have personally seen and examined this patient.: Yes I have fully participated in the care of the patient.: Yes I have reviewed all pertinent clinical information, including history, physical exam and plan: Yes Notes (Text): Syncope Atrial Fibrillation with RVR, ? Paroxysmal COPD exacerbation on Home Oxygen Pneumonia prob bacterial Thyroid Nodules - d/c Cardizecirilo drip, HR now controlled - Started on Amiodarone by Dr Rincon - cont Cardizem PO 30 mg bid with holding parameters- hold if HR less than 65. Pt also on low dose Bisoprolol - cont IV Clinda and Azithro - will need 8 more days of IV antibiotics - will arrange for TCU placement to continue IV abx -cont Solucortef IV, and Xopenex and Atrovent -Thryoid Sonogram - cont Lovenox therapeutic dose - will need to change to Eliquis or Xarelto prior to discharge - d/c ASA but cont Plavix
[2018-08-12] MEDS ORDERED: Levalbuterol 1.25 MG/3 ML Inhal Soln UD INH PRN (20:05)
--- NOTE | 2018-08-12 20:32 | CARD ---
APPROVED REPORT Date of service: 08/12/2018 EKG Measurement Heart [id number] <Conclusion> Atrial fibrillation Septal infarct, age undetermined Abnormal ECG
[2018-08-12] MEDS: Docusate-Senna 50 mg-8.6 mg Tab PO SCH (22:37)
[2018-08-13] MEDS: Clindamycin 600mg/50ml D5W 600 MG/50 ML VIAL IVPB SCH ×2 (00:43→09:06)
[2018-08-13] MEDS: Enoxaparin 100 mg Syringe SC SCH (00:43)
[2018-08-13] MEDS: Ipratropium 0.02% Inhal Soln (0.5 mg/2.5 ml) UD IH SCH ×5 (00:50→15:36)
[2018-08-13 05:29] LABS: BASO % 0.2 % (0.0-2.0); EOS % 0.3 % (0.0-4.0); LYMPH # 1.1 K/uL (1.0-4.3); LYMPH % 24.8 % (20.0-40.0); MEAN CELL VOLUME 86.4 fl (81.0-99.0); MEAN CORPUSCULAR HEMOGLOBIN 27.7 pg (27.0-31.0); MEAN CORPUSCULAR HGB CONC 32.1 g/dL (33.0-37.0); MEAN PLATELET VOLUME 8.2 fl (7.2-11.7); MONO # 0.4 K/uL (0.0-0.8); MONO % 9.5 % (0.0-10.0); NEUT # 2.8 K/uL (1.8-7.0); NEUT % 65.2 % (50.0-75.0); NRBC % 0.1 % (0.0-0.0); RBC 3.98 Mil/uL (3.80-5.20); RED CELL DISTRIBUTION WIDTH 15.8 % (11.5-14.5); WHITE BLOOD COUNT 4.2 K/uL (4.8-10.8)
[2018-08-13 05:46] LABS: BLOOD UREA NITROGEN 25 mg/dl (7-17); CALCIUM 8.6 mg/dL (8.4-10.2); GFR NON-AFRICAN AMERICAN > 60
--- NOTE | 2018-08-13 09:00 | CP.PCM.PN ---
Subjective - Date & Time of Evaluation Date of Evaluation: 08/13/18 Time of Evaluation: 09:00 - Subjective Subjective: Appears comfortble at rest. Vital signs have been stable. Oxygenation is okay on nasal canula. Remains afebrile. Hgb has decreased by 2GM since admission. Platelets okay, no leukocytosis. Trace dependant edema of LEs. No cyanosis. Neck supple and trachea midline. No dullness on chest percussion. Breath sounds diminished bilaterally, scattered rhonchi. Basal rales present on the right postero-laterally. No audible wheezes or bronchial breathing. Heart sounds distant, regular rhythm. Thyroid US shows nodule increased in size from prior exam. Will discuss FNA with patient. Continue Rx for CAP in COPD. Plan to discharge to [facility]. Objective - Vital Signs/Intake and Output Vital Signs (last 24 hours): Temp Pulse Resp BP Pulse Ox 97.5 F L 69 18 90/49 L 90 L 08/13/18 08:08 08/13/18 08:08 08/13/18 08:08 08/13/18 08:08 08/13/18 08:08 - Medications Medications: Current Medications Amiodarone HCl (Cordarone) 200 mg PO BID [facility] Last Admin: 08/12/18 19:09 Dose: 200 mg Bisoprolol Fumarate (Zebeta) 5 mg PO DAILY [facility] Last Admin: 08/12/18 10:12 Dose: 5 mg Clopidogrel Bisulfate (Plavix) 75 mg PO DAILY [facility] Last Admin: 08/12/18 10:09 Dose: 75 mg Enoxaparin Sodium (Lovenox) 90 mg SC Q12@0000,1200 [facility]; Protocol Last Admin: 08/13/18 00:43 Dose: 90 mg Hydrocortisone Sodium Succinate (Solu-Cortef) 100 mg IV DAILY [facility] Last Admin: 08/12/18 10:10 Dose: 100 mg Azithromycin 500 mg/ Sodium (Chloride) 250 mls @ 250 mls/hr IVPB DAILY [facility]; Protocol Last Admin: 08/12/18 10:13 Dose: 250 mls/hr Clindamycin Phosphate (Cleocin) 600 mg in 50 mls @ 50 mls/hr IVPB Q8 [facility]; Protocol Last Admin: 08/13/18 00:43 Dose: 50 mls/hr Ipratropium [place] (Atrovent) 0.5 mg IH RQ4 [facility] Last Admin: 08/13/18 07:35 Dose: 0.5 mg Isosorbide Mononitrate (Imdur Er) 30 mg PO DAILY [facility] Last Admin: 08/12/18 10:08 Dose: 30 mg Lactobacillus Acidophilus (Bacid Acidophilus) 1 cap PO BID [facility] Last Admin: 08/12/18 17:38 Dose: 1 cap Levalbuterol HCl (Xopenex) 1.25 mg INH RQ8 PRN PRN Reason: Shortness of Breath Last Admin: 08/13/18 04:54 Dose: 1.25 mg Pantoprazole Sodium (Protonix Ec Tab) 40 mg PO DAILY [facility] Last Admin: 08/12/18 10:10 Dose: 40 mg Senna/Docusate Sodium (Senokot S 50 Mg-8.6 Mg) 2 tab PO HS [facility] Last Admin: 08/12/18 22:37 Dose: 2 tab - Labs Labs: 08/13/18 05:05 08/13/18 05:05 Assessment and Plan (1) Pneumonia Status: Acute (2) Afib Status: Acute (3) COPD exacerbation Status: Chronic (4) Hypoxemia requiring supplemental oxygen Status: Chronic
[2018-08-13] MEDS: Pantoprazole 40 mg EC Tab PO SCH (09:08)
[2018-08-13] MEDS: Azithromycin 500 MG in Sodium Chloride 0.9% 250 ML IVPB SCH (09:11)
[2018-08-13] MEDS: Lactobacillus Acidophilus 500 MU Cap PO SCH (09:19)
--- NOTE | 2018-08-13 10:26 | CP.PCM.PN ---
Subjective - Date & Time of Evaluation Date of Evaluation: 08/13/18 Time of Evaluation: 10:24 - Subjective Subjective: feeling slightly better. No recurrent atrial fibrillation Objective - Vital Signs/Intake and Output Vital Signs (last 24 hours): Temp Pulse Resp BP Pulse Ox 97.5 F L 69 18 90/49 L 90 L 08/13/18 08:08 08/13/18 08:08 08/13/18 08:08 08/13/18 08:08 08/13/18 08:08 - Medications Medications: Current Medications Amiodarone HCl (Cordarone) 200 mg PO BID [facility] Last Admin: 08/12/18 19:09 Dose: 200 mg Apixaban (Eliquis) 2.5 mg PO BID [facility]; Protocol Bisoprolol Fumarate (Zebeta) 5 mg PO DAILY [facility] Last Admin: 08/13/18 09:10 Dose: Not Given Hydrocortisone Sodium Succinate (Solu-Cortef) 100 mg IV DAILY [facility] Last Admin: 08/13/18 09:09 Dose: 100 mg Azithromycin 500 mg/ Sodium (Chloride) 250 mls @ 250 mls/hr IVPB DAILY [facility]; Protocol Last Admin: 08/13/18 09:11 Dose: 250 mls/hr Clindamycin Phosphate (Cleocin) 600 mg in 50 mls @ 50 mls/hr IVPB Q8 [facility]; Protocol Last Admin: 08/13/18 09:06 Dose: 50 mls/hr Ipratropium [place] (Atrovent) 0.5 mg IH RQ4 [facility] Last Admin: 08/13/18 07:35 Dose: 0.5 mg Isosorbide Mononitrate (Imdur Er) 30 mg PO DAILY [facility] Last Admin: 08/13/18 09:08 Dose: 30 mg Lactobacillus Acidophilus (Bacid Acidophilus) 1 cap PO BID [facility] Last Admin: 08/13/18 09:19 Dose: 1 cap Levalbuterol HCl (Xopenex) 1.25 mg INH RQ8 PRN PRN Reason: Shortness of Breath Last Admin: 08/13/18 04:54 Dose: 1.25 mg Pantoprazole Sodium (Protonix Ec Tab) 40 mg PO DAILY [facility] Last Admin: 08/13/18 09:08 Dose: 40 mg Senna/Docusate Sodium (Senokot S 50 Mg-8.6 Mg) 2 tab PO HS [facility] Last Admin: 08/12/18 22:37 Dose: 2 tab - Labs Labs: 08/13/18 05:05 08/13/18 05:05 Assessment and Plan - Assessment and Plan (Free Text) Assessment: NSR on low dose beta giselle and amiodarone Paroxysmal atrial fibrillation most likely due to pulmonary exacerbation Continue Amiodarone for now Tfts are normal Will discontinue once pulmonary status is stablized Will to qd then dc
[2018-08-13 12:13] VITALS: O2SAT 93
--- NOTE | 2018-08-13 12:23 | CP.PCM.DIS ---
Provider - Provider Date of Admission: 08/09/18 19:04 Attending physician: Isac Nguyen MD Consults: 08/09/18 20:05 Neurology Consult Stat Comment: Consulting Provider: Jose Luis Gage Consulting Physician: Jose Luis Gage Reason for Consult: altered mental status post syncope 08/09/18 20:06 Pulmonology Consult Stat Comment: Consulting Provider: Kaushik Marquez Consulting Physician: Kaushik Marquez Reason for Consult: copd 08/09/18 23:54 Social Work Referral Routine Comment: Lives alone Physician Instructions: Reason For Exam: Lives alone 08/11/18 10:25 Cardiology Consult Routine Comment: Consulting Provider: Dick Rincon Consulting Physician: Dick Rincon Reason for Consult: hx afib Time Spent in preparation of Discharge (in minutes): 60 Hospital Course - Lab Results Lab Results: Micro Results 08/09/18 18:21 Blood-Venous Blood Culture - Preliminary NO GROWTH AFTER 3 DAYS 08/09/18 18:05 Blood-Venous Blood Culture - Preliminary NO GROWTH AFTER 3 DAYS 08/10/18 10:09 Urine Random Urine Culture - Final No Growth (<1,000 CFU/ML) Most Recent Lab Values WBC 4.2 K/uL (4.8-10.8) L 08/13/18 05:05 RBC 3.98 Mil/uL (3.80-5.20) 08/13/18 05:05 Hgb 11.0 g/dL (12.0-16.0) L 08/13/18 05:05 Hct 34.3 % (34.0-47.0) 08/13/18 05:05 MCV 86.4 fl (81.0-99.0) 08/13/18 05:05 MCH 27.7 pg (27.0-31.0) 08/13/18 05:05 MCHC 32.1 g/dL (33.0-37.0) L 08/13/18 05:05 RDW 15.8 % (11.5-14.5) H 08/13/18 05:05 Plt Count 165 K/uL (130-400) 08/13/18 05:05 MPV 8.2 fl (7.2-11.7) 08/13/18 05:05 Neut % (Auto) 65.2 % (50.0-75.0) 08/13/18 05:05 Lymph % (Auto) 24.8 % (20.0-40.0) 08/13/18 05:05 [place] % (Auto) 9.5 % (0.0-10.0) 08/13/18 05:05 Eos % (Auto) 0.3 % (0.0-4.0) 08/13/18 05:05 Baso % (Auto) 0.2 % (0.0-2.0) 08/13/18 05:05 Neut # (Auto) 2.8 K/uL (1.8-7.0) 08/13/18 05:05 Lymph # (Auto) 1.1 K/uL (1.0-4.3) 08/13/18 05:05 [place] # (Auto) 0.4 K/uL (0.0-0.8) 08/13/18 05:05 Eos # (Auto) 0.0 K/uL (0.0-0.7) 08/13/18 05:05 Baso # (Auto) 0.0 K/uL (0.0-0.2) 08/13/18 05:05 Neutrophils % (Manual) 92 % (42-75) H 08/09/18 18:05 Lymphocytes % (Manual) 4 % (20-50) L 08/09/18 18:05 Monocytes % (Manual) 3 % (0-10) 08/09/18 18:05 Basophils % (Manual) 1 % (0-2) 08/09/18 18:05 Platelet Estimate Normal (NORMAL) 08/09/18 18:05 pCO2 50 mm/Hg (35-45) H 08/11/18 10:25 pO2 52 mm/Hg (80-100) L 08/11/18 10:25 HCO3 26.7 mmol/L (21-28) 08/11/18 10:25 ABG pH 7.37 (7.35-7.45) 08/11/18 10:25 ABG Total CO2 30.4 mmol/L (22-28) H 08/11/18 10:25 ABG O2 Saturation 90.3 % (95-98) L 08/11/18 10:25 ABG Base Excess 2.7 mmol/L (-2.0-3.0) 08/11/18 10:25 Luiz Test Yes 08/11/18 10:25 ABG Potassium 3.0 mmol/L (3.6-5.2) L 08/11/18 10:25 VBG pH 7.40 (7.32-7.43) 08/09/18 18:00 VBG pCO2 47 mmHg (40-60) 08/09/18 18:00 VBG HCO3 27.0 mmol/L 08/09/18 18:00 VBG Total CO2 30.5 mmol/L (22-28) H 08/09/18 18:00 VBG O2 Sat (Calc) 77.0 % (40-65) H 08/09/18 18:00 VBG Base Excess 3.5 mmol/L (0.0-2.0) H 08/09/18 18:00 VBG Potassium 4.0 mmol/L (3.6-5.2) 08/09/18 18:00 A-a O2 Difference 142.0 mm/Hg 08/11/18 10:25 Sodium 134.0 mmol/L (132-148) 08/11/18 10:25 Chloride 104.0 mmol/L (98-107) 08/11/18 10:25 Glucose 157 mg/dL (65-105) H 08/11/18 10:25 Lactate 0.9 mmol/L (0.7-2.1) 08/11/18 10:25 FiO2 36.0 % 08/11/18 10:25 Sodium 137 mmol/l (132-148) 08/13/18 05:05 Potassium 3.9 MMOL/L (3.6-5.0) 08/13/18 05:05 Chloride 98 mmol/L (98-107) 08/13/18 05:05 Carbon Dioxide 30 mmol/L (22-30) 08/13/18 05:05 Anion Gap 13 (10-20) 08/13/18 05:05 BUN 25 mg/dl (7-17) H 08/13/18 05:05 Creatinine 0.8 mg/dl (0.7-1.2) 08/13/18 05:05 Est GFR ( Amer) > 60 08/13/18 05:05 Est GFR (Non-Af Amer) > 60 08/13/18 05:05 POC Glucose (mg/dL) 141 mg/dL (65-110) H 08/09/18 17:36 Random Glucose 89 mg/dL (65-105) 08/13/18 05:05 Calcium 8.6 mg/dL (8.4-10.2) 08/13/18 05:05 Total Bilirubin 0.8 mg/dl (0.2-1.3) 08/09/18 18:05 AST 27 U/L (14-36) 08/09/18 18:05 ALT 28 U/L (9-52) 08/09/18 18:05 Alkaline Phosphatase 124 U/L (38-126) 08/09/18 18:05 Lactate Dehydrogenase 510 U/L (313-618) 08/10/18 11:53 Total Creatine Kinase 302 U/L (30-135) H 08/10/18 06:10 Troponin I 0.0460 ng/mL (0.00-0.120) 08/10/18 06:10 C-React Prot High Sens > 15.00 mg/L (1.00-3.00) H 08/10/18 11:53 Total Protein 7.0 G/DL (6.3-8.2) 08/09/18 18:05 Albumin 3.9 g/dL (3.5-5.0) 08/09/18 18:05 Globulin 3.1 gm/dL (2.2-3.9) 08/09/18 18:05 Albumin/Globulin Ratio 1.3 (1.0-2.1) 08/09/18 18:05 Triglycerides 88 mg/DL (0-149) 08/11/18 05:20 Cholesterol 117 mg/dL (0-199) 08/11/18 05:20 LDL Cholesterol Direct 67 mg/dL (0-129) 08/11/18 05:20 HDL Cholesterol 26 MG/DL (30-70) L 08/11/18 05:20 Aldolase 5.7 U/L (<=8.1) 08/10/18 11:53 TSH 3rd Generation 4.04 mIU/ML (0.46-4.68) 08/11/18 14:44 Arterial Blood Potassium 3.0 mmol/L (3.6-5.2) L 08/11/18 10:25 Venous Blood Potassium 4.0 mmol/L (3.6-5.2) 08/09/18 18:00 Urine Color Yellow (YELLOW) 08/10/18 10:09 Urine Clarity Slighty-cloudy (Clear) 08/10/18 10:09 Urine pH 5.0 (5.0-8.0) 08/10/18 10:09 Ur Specific [place] 1.027 (1.003-1.030) 08/10/18 10:09 Urine Protein Negative mg/dL (NEGATIVE) 08/10/18 10:09 Urine Glucose (UA) Neg mg/dL (NEGATIVE) 08/10/18 10:09 Urine Ketones Negative mg/dL (NEGATIVE) 08/10/18 10:09 Urine Blood Negative (NEGATIVE) 08/10/18 10:09 Urine Nitrate Negative (NEGATIVE) 08/10/18 10:09 Urine Bilirubin Negative (NEGATIVE) 08/10/18 10:09 Urine Urobilinogen 0.2-1.0 mg/dL (0.2-1.0) 08/10/18 10:09 Ur Leukocyte Esterase Neg [place]al[place]/uL (Negative) 08/10/18 10:09 Urine RBC (Auto) < 1 /hpf (0-3) 08/10/18 10:09 Urine Microscopic WBC 1 /hpf (0-5) 08/10/18 10:09 Ur Squamous Epith Cells 2 /hpf (0-5) 08/10/18 10:09 Influenza Typ A,B (EIA) Negative for flu a/b (NEGATIVE) 08/10/18 09:42 Mycoplasma pneumon IgM Negative (NEGATIVE) 08/11/18 14:44 Ur Strep pneumoniae Ag Not detected (Not Detected) 08/11/18 14:00 - Hospital Course Hospital Course: 87 y.o F with hx of COPD, CAD, CHF, CAD & paroxysmal atrial fibrillation admitted for evaluation of syncope. Chest CT negative for pulmonary embolism. Head/neck CTA showed no occlusion or stenosis. Carotid ultrasound showed no evidence of stenosis. Head CT showed no acute pathology. During hospital course [employer] was called for atrial fibrillation with RVR, and spo2 of 88%. Cardizem drip was started along with cardizem PO for rate control, followed by amiodorone. Saturations increased to 92-95% after heart rate decreased. Yesterday morning, patient converted to sinus rhythm. Patient was also found to have a right lower lobe infiltrate on chest CT.Since then, patient has been stable and started on Azithromycin 500mg & Clindamycin. Since then, patient has been stable. She was seen and examined this morning. She reports having one episode of loose stools but denied any fever, chills, nausea, vomitting or abdominal pain. She states her cough is slightly improving. She will be discharged today to short term rehabilitation facility. 1. Syncope (Acute ) 2. Paroxysma Atrial fibrillation with RVR -Continue Amiodarone 200mg PO QD tomorrow as per Dr. Rincon. -Patient received AM dose of Amiodarone 200mg PO BID and will receive her evening dose tonight. -Continue Eliquis 2.5mg PO BID. -Cardizem discontinued. 3. Pneumonia (Acute) -Continue Azithromycin 500mg (day 4) & Clindamycin 600mg IV (day 3) for 7 days. 4. COPD with hypoxemia (Acute on chronic) -Start Solucortef 50mg IV QD tomorrow as per Dr. Marquez. -Continue duonebs. -Continue Xoponex 1.25mg INH Q8PRN. -Continue Ipratropium 0.02%, 0.5 mg IH RQ4 nebu. -Continue supplemental ox. -Solucortef 100mg IV QD completed today. 5. CHF (chronic) -Continue zebeta 5mg PO QD. -Continue Isosorbide Mononitrate 30mg PO QD - Lisinopril discontinued because of low normal BP's (107/57, 103/64, 104/65) followed by BP reading of 90/49. -Echo done 08/09/2018 showed mild concentric left ventricular hypertrophy with EF of 50-55%. LV diastolic function could not be assessed due to a. fib. Left atrium is mildly dilated; mild mitral & tricuspid valve regurg. 6. Thyroid mass -incidental left thyroid mass 2.3cm noted on Head/neck CTA -Thyroid ultrasound- two nodules, one noted as complex and the other as homogenous. -Thyroid scan as outpatient recommended. -TSH:4.04 (08/11/2018) 7. hx of stent placement -Continue Eliquis 2.5mg PO BID. -Aspirin & plavix discontinued. Discharge Exam - Head Exam Head Exam: ATRAUMATIC - Eye Exam Eye Exam: EOMI - ENT Exam ENT Exam: Mucous Membranes Moist - Respiratory Exam Respiratory Exam: absent: Wheezes, Respiratory Distress, Stridor Additional comments: scattered rhonchi - Cardiovascular Exam Cardiovascular Exam: REGULAR RHYTHM, +S1, +S2 - GI/Abdominal Exam GI & Abdominal Exam: Normal Bowel Sounds, Soft. absent: Firm, Guarding, Tenderness - Extremities Exam Extremities exam: pedal pulses present - Neurological Exam Neurological exam: Alert, Oriented x3 Discharge Plan - Follow Up Plan Condition: FAIR Disposition: REHAB FACILITY/REHAB UNIT Referrals: Kaushik Marquez MD [Family Provider] - Dick Rincon MD [Staff Provider] - Clinical Quality Measures - CQM - Stroke Anticoagulation Prescribed for Atrial Flutter, Atrial Fibrillation and History of:: Yes Contraindication/Reason for not providing: LDL less than 70 mg/dL - CQM - VTE Did patient receive overlap therapy during hosptialization?: No - CQM - Heart Failure Ejection Fraction: 40 % or Greater Left Ventricular Function to be assessed after discharge: No RAJAN Inhibitor Prescribed: No Contraindication/Reason for not providing: episodes of low/normal BP & hypotension in elderly female Beta-Sergey Prescribed: Bisoprolol Angiotensin II Receptor Sergey Prescribed: No Contraindication/Reason for not providing: HF with EF of 50-55% AnticoagulationTherapy for Atrial Fibrillation/Atrialflutter: Yes Aldosterone Antagonist Prescribed: No Contraindication/Reason for not providing: EF is 50-55% Hydralazine Nitrate Prescribed: No Contraindication/Reason for not providing: EF is 50-55% Implantable Cardioverter Defibrillator Therapy: No Contraindication/Reason for not providing: EF is 50-55% Cardiac Resynchronization Therapy Prescribed: No Contraindication/Reason for not providing: EF 50-55% [facility] - Date & Time of Discharge Summary Date of Discharge Summary: 08/13/18 Time of Discharge Summary: 13:00
--- NOTE | 2018-08-13 15:31 | US ---
Date of service: 08/12/2018 HISTORY: 2.3cm incidental thyroid mass found on neck CT TECHNIQUE: Sonographic evaluation of the thyroid gland. COMPARISON: 12/30/2015 FINDINGS: RIGHT LOBE: Measures 5.0 x 2.6 x 2.8 cm. Heterogeneous echotexture Nodules: Upper pole isoechoic solid nodule, 1.3 x 0.8 x 0.9 cm minimally enlarged compared to prior examination. No suspicious sonographic features. No other mass identified. Previously identified mass in lower pole right lobe no longer evident. LEFT LOBE: Measures 4.9 x 2.5 x 2.8 cm. Heterogeneous echotexture. Nodules: Upper pole hyperechoic complex mass with some small cystic areas, 2.7 x 2.6 x 2.0 cm. Previously, this upper pole mass measured 2.4 cm in greatest dimension. Mild interval increase in size since 2016. Lower pole isoechoic solid nodule, 2.2 x 2.0 x 2.4 cm. Previously, this measured 2.2 cm in greatest dimension. Minimal interval change in size. Difference may reflect difference in technique of measurement. ISTHMUS: Measures 0.7 cm. Normal echotexture and flow. Nodules: None OTHER FINDINGS: None . IMPRESSION: Multinodular thyroid. Enlarging hyperechoic mass in upper pole left lobe should be considered for evaluation with percutaneous biopsy. Minimal increase in size in right upper pole isoechoic solid nodule and left lower pole isoechoic solid nodule.
[2018-08-13 16:08] VITALS: BP 146/77; PULSE 76; RESP 20; TEMP 98.1
== END 2018-08-13 16:50 | DRG 308 ==
LOC: H.ER 17:14 → H.ERHOLD 19:04 → H.TEL 20:33
PROC: 3E0F7GC Introduction of Other Therapeutic Substance into Respiratory Tract, Via Natural or Artificial Opening (ICD-10-PCS; principal; 2018-08-11)
DX: I48.0 Paroxysmal atrial fibrillation (principal); J15.9 Unspecified bacterial pneumonia; J44.0 Chronic obstructive pulmonary disease with (acute) lower respiratory infection; N39.0 Urinary tract infection, site not specified; J44.1 Chronic obstructive pulmonary disease with (acute) exacerbation; R09.02 Hypoxemia; E86.0 Dehydration; I27.20 Pulmonary hypertension, unspecified; I11.0 Hypertensive heart disease with heart failure; I50.9 Heart failure, unspecified; I25.10 Atherosclerotic heart disease of native coronary artery without angina pectoris; I08.1 Rheumatic disorders of both mitral and tricuspid valves; R55 Syncope and collapse; E04.1 Nontoxic single thyroid nodule; R32 Unspecified urinary incontinence; E78.00 Pure hypercholesterolemia, unspecified; I25.2 Old myocardial infarction; Z77.22 Contact with and (suspected) exposure to environmental tobacco smoke (acute) (chronic); Z91.81 History of falling; Z88.0 Allergy status to penicillin; Z95.5 Presence of coronary angioplasty implant and graft; Z99.81 Dependence on supplemental oxygen; Z87.01 Personal history of pneumonia (recurrent); Z87.891 Personal history of nicotine dependence; Z79.01 Long term (current) use of anticoagulants; Z79.02 Long term (current) use of antithrombotics/antiplatelets; Z79.82 Long term (current) use of aspirin

== ENCOUNTER 2018-08-13 12:17 | Inpatient (IN) | payer MEDICARE ==
[2018-08-13 17:23] VITALS: BMI 33.9
[2018-08-13] MEDS: Ipratropium 0.02% Inhal Soln (0.5 mg/2.5 ml) UD IH SCH ×2 (19:13→23:21)
[2018-08-13] MEDS: Levalbuterol 1.25 MG/3 ML Inhal Soln UD INH PRN (23:21)
[2018-08-14] MEDS ORDERED: Clindamycin 600mg/50ml D5W 600 MG/50 ML VIAL IVPB SCH (01:00)
[2018-08-14] MEDS: Ipratropium 0.02% Inhal Soln (0.5 mg/2.5 ml) UD IH SCH ×7 (03:46→23:31)
[2018-08-14] MEDS: Clindamycin 600mg/50ml D5W 600 MG/50 ML VIAL IVPB SCH ×3 (04:30→20:55)
[2018-08-14] MEDS ORDERED: Azithromycin 500 MG in Sodium Chloride 0.9% 250 ML IVPB SCH (06:00)
--- NOTE | 2018-08-14 07:27 | CP.PCM.HP ---
<Kelly Upton - Last Filed: 08/14/18 14:22> History of Present Illness - History of Present Illness History of Present Illness: 87 y.o F with hx of COPD, CAD, CHF, CAD & paroxysmal atrial fibrillation was admitted for TCU for continuation of IV antibiotics and physical therapy. Patient's recent hospitalization was for syncope likely due to paroxysmal atrial fibrillation given the fact that [employer] was called during hospitalization for a. fib with RVR. Patient was seen and examined this morning with physical therapy. PT reported patient desaturated to 82% while on 3L of oxygen during functional transfer, and stated patient needed frequent breaks. Patient reported she continues to feel weak, but denied any fever, chills, chest pain or shortness of breath. Present on Admission - Present on Admission Any Indicators Present on Admission: No Past Patient History - Infectious Disease Hx of Infectious Diseases: None - Tetanus Immunizations Tetanus Immunization: Unknown - Past Medical History & Family History Past Medical History?: Yes - Past Social History Smoking Status: Never Smoked - CARDIAC Hx Atrial Fibrillation: Yes Hx Congestive Heart Failure: Yes Hx Heart Attack: Yes Hx Hypercholesterolemia: Yes Hx Hypertension: Yes Hx Peripheral Edema: Yes - PULMONARY Hx Chronic Obstructive Pulmonary Disease (COPD): Yes Hx Emphysema: Yes Hx Pneumonia: Yes - NEUROLOGICAL Hx Syncope: Yes - HEENT Hx HEENT Problems: No - RENAL Hx Chronic Kidney Disease: No - ENDOCRINE/METABOLIC Hx Endocrine Disorders: No - HEMATOLOGICAL/ONCOLOGICAL Hx Blood Disorders: No Hx AIDS: No Hx Human Immunodeficiency Virus (HIV): No - INTEGUMENTARY Other/Comment: 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 - MUSCULOSKELETAL/RHEUMATOLOGICAL Hx Falls: Yes Hx Fractures: Yes (right ankle) - GASTROINTESTINAL Hx Gastrointestinal Disorders: No - GENITOURINARY/GYNECOLOGICAL Hx Incontinence: Yes Other/Comment: Stress Incontinence - PSYCHIATRIC Hx Psychophysiologic Disorder: No Hx Substance Use: No - SURGICAL HISTORY Hx Appendectomy: No Hx Coronary Stent: Yes (x 2) - ANESTHESIA Hx Anesthesia: Yes Hx Anesthesia Reactions: No Hx Malignant Hyperthermia: No Meds Allergies/Adverse Reactions: Allergies Allergy/AdvReac Type Severity Reaction Status Date / Time Penicillins Allergy Mild SWELLING Verified 08/13/18 15:47 Physical Exam - Constitutional Appears: Non-toxic - Head Exam Head Exam: ATRAUMATIC - Eye Exam Eye Exam: EOMI - ENT Exam ENT Exam: Mucous Membranes Moist - Respiratory Exam Respiratory Exam: Rhonchi. absent: Respiratory Distress - Cardiovascular Exam Cardiovascular Exam: REGULAR RHYTHM, +S1, +S2 - GI/Abdominal Exam GI & Abdominal Exam: Normal Bowel Sounds, Soft. absent: Tenderness - Extremities Exam Extremities exam: Negative for: calf tenderness - Neurological Exam Neurological exam: Alert, Oriented x3 - Psychiatric Exam Psychiatric exam: Normal Affect, Normal Mood Results - Vital Signs Recent Vital Signs: Last Vital Signs Temp Pulse 74 08/13/18 21:54 Resp 19 08/13/18 17:30 BP 140/75 08/13/18 21:54 Pulse Ox Assessment & Plan - Assessment and Plan (Free Text) Assessment: 87 y.o F with hx of COPD, CAD, CHF, CAD & paroxysmal atrial fibrillation was admitted for TCU for continuation of IV antibiotics and physical therapy. 1. Syncope (Acute, resolved ) 2. Paroxysma Atrial fibrillation with RVR (Acute on chronic) -Continue Amiodarone 200mg PO QD as per Dr. Rincon. -Continue Eliquis 2.5mg PO BID. 3. Pneumonia (Acute) -Continue Azithromycin 500mg (day 5) & Clindamycin 600mg IV (day 4) for 7 days. 4. COPD with hypoxemia (Acute on chronic) -Continue Solucortef 50mg IV QD. -Continue Xoponex 1.25mg INH Q8PRN. -Continue Ipratropium 0.02%, 0.5 mg IH RQ4 nebu. -Continue supplemental ox. 5. CHF (chronic) -Continue zebeta 5mg PO QD. -Continue Isosorbide Mononitrate 30mg PO QD -Echo done 08/09/2018 showed mild concentric left ventricular hypertrophy with EF of 50-55%. LV diastolic function could not be assessed due to a. fib. Left atrium is mildly dilated; mild mitral & tricuspid valve regurg. 6. Thyroid mass -incidental left thyroid mass 2.3cm noted on Head/neck CTA -Thyroid ultrasound- two nodules, one noted as complex and the other as homogenous. -Thyroid scan as outpatient recommended. -TSH:4.04 (08/11/2018) 7. hx of stent placement -Continue Eliquis 2.5mg PO BID. <Isac Nguyen D - Last Filed: 08/14/18 18:05> Results - Vital Signs Recent Vital Signs: Last Vital Signs Temp 97.7 F 08/14/18 16:09 Pulse 62 08/14/18 17:29 Resp 20 08/14/18 16:09 BP 155/76 H 08/14/18 17:29 Pulse Ox 94 L 08/14/18 16:09 Attending/Attestation - Attestation I have personally seen and examined this patient.: Yes I have fully participated in the care of the patient.: Yes I have reviewed all pertinent clinical information: Yes Notes (Text): 08/14/18 18:04 Patient seen and examined with resident. Case discussed and agreed with assessment and plan of management.
[2018-08-14] MEDS ORDERED: Hydrocortisone- 50 MG in Sodium Chloride 0.9% 100 ML IV SCH (09:00)
[2018-08-14] MEDS: Lactobacillus Acidophilus 500 MU Cap PO SCH ×2 (09:07→17:07)
[2018-08-14] MEDS: Pantoprazole 40 mg EC Tab PO SCH (09:11)
--- NOTE | 2018-08-14 11:20 | CP.PCM.CON ---
History of Present Illness - History of Present Illness History of Present Illness: This 87 year old female is known to me from the outpatient setting as well as the recent hospitalization for exacerbation of COPD, RLL pneumonia and paroxysmal atrial fibrillation. She has significant COPD and is using home oxygen overnight and PRN during the daytime. She is a former heavy cigarette smoker who also had extensive secondhand exposure as well. She had improved mental status and returned to [facility] with medical treatments. She continues to receive antibiotic therapy for her pneumonia as well as the COPD, but has significant debilitation requiring sub acute rehabilitation. Past Patient History - Infectious Disease Hx of Infectious Diseases: None - Tetanus Immunizations Tetanus Immunization: Unknown - Past Medical History & Family History Past Medical History?: Yes - Past Social History Smoking Status: Former Smoker Chewing Tobacco Use: No Cigar Use: No Alcohol: Social Drugs: Denies Home Situation {Lives}: Alone - CARDIAC Hx Atrial Fibrillation: Yes Hx Congestive Heart Failure: Yes Hx Heart Attack: Yes Hx Hypercholesterolemia: Yes Hx Hypertension: Yes Hx Peripheral Edema: Yes - PULMONARY Hx Chronic Obstructive Pulmonary Disease (COPD): Yes Hx Emphysema: Yes Hx Pneumonia: Yes - NEUROLOGICAL Hx Syncope: Yes Other/Comment: AMS on recent admission. - HEENT Hx HEENT Problems: No - RENAL Hx Chronic Kidney Disease: No - ENDOCRINE/METABOLIC Other/Comment: Multinodular thyroid. 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 - MUSCULOSKELETAL/RHEUMATOLOGICAL Hx Falls: Yes Hx Fractures: Yes (right ankle) - GASTROINTESTINAL Hx Gastrointestinal Disorders: No - GENITOURINARY/GYNECOLOGICAL Hx Incontinence: Yes Other/Comment: Stress Incontinence - PSYCHIATRIC Hx Psychophysiologic Disorder: No Hx Substance Use: No - SURGICAL HISTORY Hx Coronary Stent: Yes (x 2) - ANESTHESIA Hx Anesthesia: Yes Hx Anesthesia Reactions: No Hx Malignant Hyperthermia: No Meds Allergies/Adverse Reactions: Allergies Allergy/AdvReac Type Severity Reaction Status Date / Time Penicillins Allergy Mild SWELLING Verified 08/13/18 15:47 - Medications Medications: Current Medications Amiodarone HCl (Cordarone) 200 mg PO DAILY [facility] Last Admin: 08/14/18 09:10 Dose: 200 mg Apixaban (Eliquis) 5 mg PO BID [facility]; Protocol Last Admin: 08/14/18 09:10 Dose: 5 mg Bisoprolol Fumarate (Zebeta) 5 mg PO DAILY [facility] Last Admin: 08/14/18 09:12 Dose: 5 mg Hydrocortisone Sodium Succinate (Solu-Cortef) 50 mg IV DAILY [facility] Last Admin: 08/14/18 09:11 Dose: 50 mg Azithromycin 500 mg/ Sodium (Chloride) 250 mls @ 250 mls/hr IVPB DAILY@0600 [facility]; Protocol Last Admin: 08/14/18 05:37 Dose: 250 mls/hr Clindamycin Phosphate (Cleocin) 600 mg in 50 mls @ 50 mls/hr IVPB Q8@0400,1200,2000 [facility]; Protocol Last Admin: 08/14/18 11:15 Dose: 50 mls/hr Ipratropium Eclectic (Atrovent) 0.5 mg IH RQ4 [facility] Isosorbide Mononitrate (Imdur Er) 30 mg PO DAILY [facility] Last Admin: 08/14/18 09:11 Dose: 30 mg Lactobacillus Acidophilus (Bacid Acidophilus) 1 cap PO BID [facility] Last Admin: 08/14/18 09:07 Dose: 1 cap Levalbuterol HCl (Xopenex) 1.25 mg INH RQ8 PRN PRN Reason: Shortness of Breath Last Admin: 08/13/18 23:21 Dose: 1.25 mg Pantoprazole Sodium (Protonix Ec Tab) 40 mg PO DAILY [facility] Last Admin: 08/14/18 09:11 Dose: 40 mg Physical Exam - Additional Findings Additional findings: Chronically ill-appearing female in no acute distress sitting up in the bed.. Awake and oriented x3. Cooperative with physical examination. Pharynx is pink and mucous membranes are moist without exudate. Nasal passages are patent bilaterally without bleeding or exudate. Conjunctivae are pink and there is no scleral icterus. The neck is supple her trachea is midline. No carotid bruit. Increased AP diameter of the thorax. No dullness on chest percussion. Breath sounds are diminished bilaterally without audible wheezing or bronchial breathing. Dry rales are heard in the lower lobes posteriorly. Occasional scattered rhonchi in dependant regions of both lungs. Heart sounds are distant, regular rhythm. Abdomen is soft, fleshy and nontender with normal bowel sounds. No dependent edema , no cyanosis. No calf tenderness. Results - Vital Signs Recent Vital Signs: Last Vital Signs Temp 98.4 F 08/14/18 07:56 Pulse 77 02/07/19 09:10 Resp 18 08/14/18 07:56 BP 153/75 H 08/14/18 09:10 Pulse Ox 94 L 08/14/18 07:56 - Labs Result Diagrams: 08/15/18 05:30 08/15/18 05:30 Assessment & Plan (1) Afib Status: Resolved Priority: High (2) Multinodular thyroid Assessment and Plan: Needs FNA. Status: Chronic Priority: High (3) Pneumonia Status: Acute Priority: High (4) COPD exacerbation Status: Chronic Priority: High (5) Hypoxemia requiring supplemental oxygen Status: Chronic Priority: High - Assessment and Plan (Free Text) Plan: Continue treatment of pneumonia and COPD/hypoxemia. - Date & Time Date: 08/14/18 Time: 11:25
[2018-08-14] MEDS: Levalbuterol 1.25 MG/3 ML Inhal Soln UD INH PRN ×2 (22:17→23:31)
[2018-08-15] MEDS: Ipratropium 0.02% Inhal Soln (0.5 mg/2.5 ml) UD IH SCH ×5 (04:34→19:25)
[2018-08-15] MEDS: Clindamycin 600mg/50ml D5W 600 MG/50 ML VIAL IVPB SCH ×3 (04:57→20:49)
[2018-08-15 06:33] LABS: HEMOGLOBIN 11.5 g/dL (12.0-16.0); MEAN CELL VOLUME 86.8 fl (81.0-99.0); MEAN CORPUSCULAR HEMOGLOBIN 27.6 pg (27.0-31.0); MEAN CORPUSCULAR HGB CONC 31.8 g/dL (33.0-37.0); RBC 4.17 Mil/uL (3.80-5.20); RED CELL DISTRIBUTION WIDTH 15.5 % (11.5-14.5); WHITE BLOOD COUNT 4.8 K/uL (4.8-10.8)
[2018-08-15 06:42] LABS: BLOOD UREA NITROGEN 11 mg/dl (7-17); CALCIUM 8.6 mg/dL (8.4-10.2); GFR NON-AFRICAN AMERICAN > 60
[2018-08-15] MEDS: Pantoprazole 40 mg EC Tab PO SCH (08:26)
[2018-08-15] MEDS: Lactobacillus Acidophilus 500 MU Cap PO SCH ×2 (08:28→16:51)
--- NOTE | 2018-08-15 09:35 | CP.PCM.PN ---
Subjective - Date & Time of Evaluation Date of Evaluation: 08/15/18 Time of Evaluation: 09:31 - Subjective Subjective: Continues to have episodes of wheezing and dyspnea. Requires repeated PRN aerosol treatments, especially overnight. Has remained in normal sinus rhythm mow and SpO2 93% on nasal canula at 2.5LPM. Will try atrovent with low dose levalbuterol on a scheduled basis QID plus levalbuterol PRN as well. Hopefully this will not precipitate repeated a fib. Would NOT reduce hydrocortisone today as originally planned. Objective - Vital Signs/Intake and Output Vital Signs (last 24 hours): Temp Pulse Resp BP Pulse Ox 98.2 F 70 18 169/78 H 95 08/15/18 08:03 08/15/18 08:27 08/15/18 08:03 08/15/18 08:27 08/15/18 08:03 - Medications Medications: Current Medications Amiodarone HCl (Cordarone) 200 mg PO DAILY [facility] Last Admin: 08/15/18 08:26 Dose: 200 mg Apixaban (Eliquis) 5 mg PO BID [facility]; Protocol Last Admin: 08/15/18 08:26 Dose: 5 mg Azithromycin (Zithromax) 500 mg PO DAILY@0600 [facility] Last Admin: 08/15/18 06:29 Dose: 500 mg Bisoprolol Fumarate (Zebeta) 5 mg PO DAILY [facility] Last Admin: 08/15/18 08:26 Dose: 5 mg Hydrocortisone Sodium Succinate (Solu-Cortef) 50 mg IV DAILY [facility] Last Admin: 08/15/18 08:28 Dose: 50 mg Clindamycin Phosphate (Cleocin) 600 mg in 50 mls @ 50 mls/hr IVPB Q8@0400,1200,2000 [facility]; Protocol Last Admin: 08/15/18 04:57 Dose: 50 mls/hr Ipratropium [place] (Atrovent) 0.5 mg IH RQID [facility] Isosorbide Mononitrate (Imdur Er) 30 mg PO DAILY [facility] Last Admin: 08/15/18 08:26 Dose: 30 mg Lactobacillus Acidophilus (Bacid Acidophilus) 1 cap PO BID [facility] Last Admin: 08/15/18 08:28 Dose: 1 cap Levalbuterol HCl (Xopenex) 0.63 mg INH RQID [facility] Levalbuterol HCl (Xopenex) 1.25 mg INH RQ4 PRN PRN Reason: Shortness of Breath Lisinopril (Zestril) 2.5 mg PO DAILY [facility] Last Admin: 08/15/18 08:27 Dose: 2.5 mg Pantoprazole Sodium (Protonix Ec Tab) 40 mg PO DAILY [facility] Last Admin: 08/15/18 08:26 Dose: 40 mg - Labs Labs: 08/15/18 05:30 08/15/18 05:30 Assessment and Plan (1) Afib Status: Acute (2) Multinodular thyroid Status: Chronic (3) Pneumonia Status: Acute (4) COPD exacerbation Status: Chronic (5) Hypoxemia requiring supplemental oxygen Status: Chronic
[2018-08-15] MEDS: Levalbuterol 0.63 MG/3 ML Inhal Soln UD INH SCH ×3 (11:08→19:25)
[2018-08-16] MEDS: Levalbuterol 1.25 MG/3 ML Inhal Soln UD INH PRN (04:20)
[2018-08-16] MEDS: Clindamycin 600mg/50ml D5W 600 MG/50 ML VIAL IVPB SCH (04:32)
[2018-08-16] MEDS: Levalbuterol 0.63 MG/3 ML Inhal Soln UD INH SCH ×4 (07:11→19:24)
[2018-08-16] MEDS: Ipratropium 0.02% Inhal Soln (0.5 mg/2.5 ml) UD IH SCH ×4 (07:11→19:24)
[2018-08-16] MEDS: Pantoprazole 40 mg EC Tab PO SCH (08:13)
--- NOTE | 2018-08-16 12:11 | CP.PCM.PN ---
Subjective - Date & Time of Evaluation Date of Evaluation: 08/16/18 Time of Evaluation: 12:08 - Subjective Subjective: Uncomfortable, did not sleep well last night. Developed hypertensive episode and anxiety overnight. Complaining of excessive heat in the room. Excessive thirst and urinary incontinence. No dependant edema. Extrems are pink and warm. No cyabnosis or calf tenderness. Pharynx is pink, dry mucosa, no exudate. Neck is supple and trachea midline. No dullness on chest percussion. Breath sounds are markedly diminished bilaterally. No audible wheezes. Dry rales in lower lobes bilaterally. Heart sounds are distant, rhythm regular. D/C hydrocortisone. Check LFTs and thyroid function. Accuchecks daily w/o coverage. Objective - Vital Signs/Intake and Output Vital Signs (last 24 hours): Temp Pulse Resp BP Pulse Ox 98.1 F 71 20 179/84 H 94 L 08/16/18 10:10 08/16/18 10:10 08/16/18 10:10 08/16/18 10:10 08/16/18 10:10 - Medications Medications: Current Medications Amiodarone HCl (Cordarone) 200 mg PO DAILY [facility] Last Admin: 08/16/18 08:13 Dose: 200 mg Apixaban (Eliquis) 5 mg PO BID [facility]; Protocol Last Admin: 08/16/18 08:12 Dose: 5 mg Azithromycin (Zithromax) 500 mg PO DAILY@0600 [facility] Last Admin: 08/16/18 06:28 Dose: 500 mg Bisoprolol Fumarate (Zebeta) 5 mg PO DAILY [facility] Last Admin: 08/15/18 08:26 Dose: 5 mg Ipratropium [place] (Atrovent) 0.5 mg IH RQID [facility] Last Admin: 08/16/18 11:23 Dose: 0.5 mg Isosorbide Mononitrate (Imdur Er) 30 mg PO DAILY [facility] Last Admin: 08/16/18 08:12 Dose: 30 mg Lactobacillus Acidophilus (Bacid Acidophilus) 1 cap PO BID [facility] Last Admin: 08/15/18 16:51 Dose: 1 cap Levalbuterol HCl (Xopenex) 0.63 mg INH RQID [facility] Last Admin: 08/16/18 11:23 Dose: 0.63 mg Levalbuterol HCl (Xopenex) 1.25 mg INH RQ4 PRN PRN Reason: Shortness of Breath Last Admin: 08/16/18 04:20 Dose: 1.25 mg Lisinopril (Zestril) 5 mg PO DAILY [facility] Last Admin: 08/16/18 08:12 Dose: 5 mg Pantoprazole Sodium (Protonix Ec Tab) 40 mg PO DAILY [facility] Last Admin: 08/16/18 08:13 Dose: 40 mg - Labs Labs: 08/15/18 05:30 08/15/18 05:30 Assessment and Plan (1) Afib Status: Resolved (2) Multinodular thyroid Status: Chronic (3) Pneumonia Status: Acute (4) COPD exacerbation Status: Chronic (5) Hypoxemia requiring supplemental oxygen Status: Chronic
[2018-08-16] MEDS: Lactobacillus Acidophilus 500 MU Cap PO SCH ×2 (12:57→16:31)
[2018-08-16 16:00] LABS: T4 7.59 ug/dl (5.5-11.0)
[2018-08-16 16:04] LABS: ALB/GLOB RATIO 1.1 (1.0-2.1); ALBUMIN 3.4 g/dL (3.5-5.0)
[2018-08-16 16:13] LABS: T3 0.788 nmol/L (1.49-2.60)
[2018-08-17] MEDS: Levalbuterol 0.63 MG/3 ML Inhal Soln UD INH SCH ×4 (07:08→19:06)
[2018-08-17] MEDS: Ipratropium 0.02% Inhal Soln (0.5 mg/2.5 ml) UD IH SCH ×4 (07:08→19:06)
[2018-08-17] MEDS: Pantoprazole 40 mg EC Tab PO SCH (09:08)
[2018-08-17] MEDS: Lactobacillus Acidophilus 500 MU Cap PO SCH ×2 (09:12→16:13)
[2018-08-18] MEDS: Levalbuterol 0.63 MG/3 ML Inhal Soln UD INH SCH ×4 (07:30→19:11)
[2018-08-18] MEDS: Ipratropium 0.02% Inhal Soln (0.5 mg/2.5 ml) UD IH SCH ×4 (07:30→19:11)
[2018-08-18] MEDS: Pantoprazole 40 mg EC Tab PO SCH (08:50)
[2018-08-18] MEDS: Lactobacillus Acidophilus 500 MU Cap PO SCH (08:50)
[2018-08-18] MEDS ORDERED: Hydrocortisone- 100 MG in Sodium Chloride 0.9% 100 ML IV ONE (10:00)
--- NOTE | 2018-08-18 10:10 | CP.PCM.PN ---
Subjective - Date & Time of Evaluation Date of Evaluation: 08/18/18 Time of Evaluation: 10:02 - Subjective Subjective: Respiratory status appears better, seated in bedside chair. Vital signs appear stable, remains afebrile. Has developed significant angioedema (?medication induced-Amio?) Has discomfort with oral intake, both solids and liquids cause discomfort. Vital signs remain stable, oxygenation okay. Breath sounds are present bilaterally w/o audible wheeze. Dry rales in lower lobes bilaterally. Heart rate regular 50's. Amiodarone D/C'd. Probiotic and azithromycin/clindamycin D/C'd. Solucortef 100MG IV X 1. Antihistamines will not be effective. Objective - Vital Signs/Intake and Output Vital Signs (last 24 hours): Temp Pulse Resp BP Pulse Ox 98.6 F 55 L 18 163/75 H 95 08/18/18 08:02 08/18/18 08:51 08/18/18 08:02 08/18/18 08:51 08/18/18 08:02 - Medications Medications: Current Medications Apixaban (Eliquis) 5 mg PO BID [facility]; Protocol Last Admin: 08/18/18 08:51 Dose: 5 mg Bisoprolol Fumarate (Zebeta) 5 mg PO DAILY [facility] Last Admin: 08/18/18 08:52 Dose: 5 mg Diltiazem HCl (Cardizem) 30 mg PO TID [facility] Last Admin: 08/18/18 08:50 Dose: 30 mg Ipratropium [place] (Atrovent) 0.5 mg IH RQID [facility] Last Admin: 08/18/18 07:30 Dose: 0.5 mg Isosorbide Mononitrate (Imdur Er) 30 mg PO DAILY [facility] Last Admin: 08/18/18 08:51 Dose: 30 mg Levalbuterol HCl (Xopenex) 0.63 mg INH RQID [facility] Last Admin: 08/18/18 07:30 Dose: 0.63 mg Levalbuterol HCl (Xopenex) 1.25 mg INH RQ4 PRN PRN Reason: Shortness of Breath Last Admin: 08/16/18 04:20 Dose: 1.25 mg Lisinopril (Zestril) 10 mg PO DAILY [facility] Last Admin: 08/18/18 08:51 Dose: 10 mg Loratadine (Claritin) 10 mg PO DAILY [facility] Last Admin: 08/18/18 08:52 Dose: 10 mg Nystatin (Nystop Topical Powder) 1 applic TOP TID [facility] Last Admin: 08/18/18 08:52 Dose: 1 applic Pantoprazole Sodium (Protonix Ec Tab) 40 mg PO DAILY [facility] Last Admin: 08/18/18 08:50 Dose: 40 mg - Labs Labs: 08/15/18 05:30 08/15/18 05:30 Assessment and Plan (1) Afib Status: Resolved (2) Multinodular thyroid Status: Chronic (3) Pneumonia Status: Acute (4) COPD exacerbation Status: Chronic (5) Hypoxemia requiring supplemental oxygen Status: Chronic
[2018-08-19] MEDS: Ipratropium 0.02% Inhal Soln (0.5 mg/2.5 ml) UD IH SCH ×4 (07:26→20:45)
[2018-08-19] MEDS: Levalbuterol 0.63 MG/3 ML Inhal Soln UD INH SCH ×4 (07:26→20:45)
[2018-08-19] MEDS: Pantoprazole 40 mg EC Tab PO SCH (08:07)
--- NOTE | 2018-08-19 09:56 | CP.PCM.PN ---
Subjective - Date & Time of Evaluation Date of Evaluation: 08/19/18 Time of Evaluation: 11:30 - Subjective Subjective: Patient seen and examined . Sitting in chair, comfortable, feeling better .Participating with PT No acute issues overnight Breathing improved Objective - Vital Signs/Intake and Output Vital Signs (last 24 hours): Temp Pulse Resp BP Pulse Ox 98.6 F 64 18 166/70 H 98 08/19/18 07:40 08/19/18 08:06 08/19/18 08:06 08/19/18 08:06 08/19/18 07:40 - Medications Medications: Current Medications Apixaban (Eliquis) 5 mg PO BID [facility]; Protocol Last Admin: 08/19/18 08:05 Dose: 5 mg Bisoprolol Fumarate (Zebeta) 5 mg PO DAILY [facility] Last Admin: 08/19/18 08:05 Dose: 5 mg Diltiazem HCl (Cardizem) 30 mg PO TID [facility] Last Admin: 08/19/18 08:06 Dose: 30 mg Ipratropium [place] (Atrovent) 0.5 mg IH RQID [facility] Last Admin: 08/19/18 07:26 Dose: 0.5 mg Isosorbide Mononitrate (Imdur Er) 30 mg PO DAILY [facility] Last Admin: 08/19/18 08:07 Dose: 30 mg Levalbuterol HCl (Xopenex) 0.63 mg INH RQID [facility] Last Admin: 08/19/18 07:26 Dose: 0.63 mg Levalbuterol HCl (Xopenex) 1.25 mg INH RQ4 PRN PRN Reason: Shortness of Breath Last Admin: 08/16/18 04:20 Dose: 1.25 mg Lisinopril (Zestril) 10 mg PO DAILY [facility] Last Admin: 08/19/18 08:05 Dose: 10 mg Nystatin (Nystop Topical Powder) 1 applic TOP TID [facility] Last Admin: 08/19/18 08:05 Dose: 1 applic Pantoprazole Sodium (Protonix Ec Tab) 40 mg PO DAILY [facility] Last Admin: 08/19/18 08:07 Dose: 40 mg - Labs Labs: 08/15/18 05:30 08/15/18 05:30 - Constitutional Appears: Non-toxic, No Acute Distress, Other (overweight ) - Head Exam Head Exam: ATRAUMATIC, NORMOCEPHALIC - Eye Exam Eye Exam: EOMI, Normal appearance, PERRL Pupil Exam: NORMAL ACCOMODATION - ENT Exam ENT Exam: Mucous Membranes Moist, Normal Exam - Neck Exam Neck Exam: Full ROM, Normal Inspection - Respiratory Exam Respiratory Exam: NORMAL BREATHING PATTERN. absent: Accessory Muscle Use, Rhonchi, Wheezes, Respiratory Distress - Cardiovascular Exam Cardiovascular Exam: Irregular Rhythm. absent: JVD - GI/Abdominal Exam GI & Abdominal Exam: Soft, Normal Bowel Sounds. absent: Distended, Guarding, Tenderness, Rebound - Rectal Exam Rectal Exam: Deferred - Extremities Exam Extremities Exam: Normal Capillary Refill, Normal Inspection - Neurological Exam Neurological Exam: Alert, Awake, CN II-XII Intact - Psychiatric Exam Psychiatric exam: Normal Affect, Normal Mood - Skin Skin Exam: Dry, Warm Assessment and Plan - Assessment and Plan (Free Text) Assessment: 87 y/o F with PMH of COPD, CAD, CHF, CAD & paroxysmal atrial fibrillation was admitted for TCU for continuation of IV antibiotics and physical therapy. She was admitted recently in telemetry with syncopy , Afib with RVR COPD exac erbation with CAP and hypoxemia. Once stabilized she wsa transferred to TCu for PT and continuation of antibiotics At present doing well, back in SR, participating with PT 1. Generalized weakness continue PT 2. Angioedema suspected medication side effect so Amiodarone was discontinued resolved 3.Paroxysmal Afib back in SR cardiology was consulted Discontinued Amiodarone and restarted cardizem PO Continue eliquis 5 mg po bid 4.CAP treated with IV antibiotics pulmonary on consulted discontinued Clindamycin and Zithromycin 5. COPD with hypoxemia pulmonary on cosnult Continue O2 via NC. Patient uses home O2 12 hours / day on Solucortef , Xopenex 6. CHF , compensated ,EF 55 % continue zebeta 7.CAD - stable history of stent continue eliquis ( discontinued ASA and Plavix after discussion with cardiology ) 8. Thyroid nodules - outpatient work up incidental thyroid mass 2.[address] neck TSH 4 outpatient work up recommended 9. Hypertension labile increase Lisinopril from 10 to 20 mg po QD Continue Zebeta 10.DVt prophylaxis on eliquis
[2018-08-19] MEDS: guaiFENesin 200 mg/10 ml Syrup UD PO PRN (21:09)
[2018-08-20] MEDS: guaiFENesin 200 mg/10 ml Syrup UD PO PRN ×2 (05:47→17:10)
[2018-08-20] MEDS: Ipratropium 0.02% Inhal Soln (0.5 mg/2.5 ml) UD IH SCH ×4 (07:40→19:09)
[2018-08-20] MEDS: Levalbuterol 0.63 MG/3 ML Inhal Soln UD INH SCH ×4 (07:40→19:09)
[2018-08-20] MEDS: Pantoprazole 40 mg EC Tab PO SCH (08:40)
--- NOTE | 2018-08-20 10:32 | CP.PCM.PN ---
Subjective - Date & Time of Evaluation Date of Evaluation: 08/20/18 Time of Evaluation: 10:25 - Subjective Subjective: Seen on rounds in TCU. Lying in bed comfortably, recently returned from shower. Did have some TAPIA during showering with SpO2 decrease to 90%. Continues to have hypertensive BP readings. Zestril increased to 20MG today. Breathing more comfortably at present. Still has occasional cough. Doing well with physical therapy. Mouth, tongus and lips improved after one dose of hydrocortisone. No respiratory distress, no muscle recruitment, no abdominal paradox. Trace dependant edema of LEs w/o cyanosis or calf tenderness. Neck is supple and trachea midline. Breath sounds are quite diminished bilaterally w/o audible wheezes. Dry to medium rales are present in the lower lobes posteriorly w/o bronchial breathing or egophony. Continue present medical and aerosol regimen. Will request Endocrine consult for multinodular thyroid with mass in left upper pole. Objective - Vital Signs/Intake and Output Vital Signs (last 24 hours): Temp Pulse Resp BP Pulse Ox 98.6 F 85 18 150/82 90 L 08/20/18 08:19 08/20/18 09:46 08/20/18 08:19 08/20/18 09:46 08/20/18 09:46 - Medications Medications: Current Medications Apixaban (Eliquis) 5 mg PO BID [facility]; Protocol Last Admin: 08/20/18 08:40 Dose: 5 mg Bisoprolol Fumarate (Zebeta) 5 mg PO DAILY [facility] Last Admin: 08/20/18 08:41 Dose: 5 mg Diltiazem HCl (Cardizem) 30 mg PO TID [facility] Last Admin: 08/20/18 08:40 Dose: 30 mg Guaifenesin (Robitussin) 200 mg PO Q6 PRN PRN Reason: Cough Last Admin: 08/20/18 05:47 Dose: 200 mg Ipratropium [place] (Atrovent) 0.5 mg IH RQID [facility] Last Admin: 08/20/18 07:40 Dose: 0.5 mg Isosorbide Mononitrate (Imdur Er) 30 mg PO DAILY [facility] Last Admin: 08/20/18 08:40 Dose: 30 mg Levalbuterol HCl (Xopenex) 0.63 mg INH RQID [facility] Last Admin: 08/20/18 07:40 Dose: 0.63 mg Levalbuterol HCl (Xopenex) 1.25 mg INH RQ4 PRN PRN Reason: Shortness of Breath Last Admin: 08/16/18 04:20 Dose: 1.25 mg Lisinopril (Zestril) 20 mg PO DAILY [facility] Last Admin: 08/20/18 08:40 Dose: 20 mg Nystatin (Nystop Topical Powder) 1 applic TOP TID [facility] Last Admin: 08/20/18 08:40 Dose: 1 applic Pantoprazole Sodium (Protonix Ec Tab) 40 mg PO DAILY [facility] Last Admin: 08/20/18 08:40 Dose: 40 mg - Labs Labs: 08/15/18 05:30 08/15/18 05:30 Assessment and Plan (1) Afib Status: Resolved (2) Multinodular thyroid Status: Chronic (3) Pneumonia Status: Acute (4) COPD exacerbation Status: Chronic (5) Hypoxemia requiring supplemental oxygen Status: Chronic
--- NOTE | 2018-08-20 22:30 | CON ---
DATE: 08/20/2018 ENDOCRINOLOGY CONSULTATION LOCATION: Room 707, [facility]. HISTORY OF PRESENT ILLNESS: This is a 87-year-old female with known history of multinodular goiter, currently on no levothyroxine medications as noted, is being referred now for endocrine evaluation and management. PAST MEDICAL HISTORY: History of coronary artery disease with previous coronary stent placement, history of recent exacerbation of COPD with ongoing IV antibiotics for acute pneumonitis, history of previous admissions for congestive heart failure, history of coronary artery disease with prior coronary stent placements, history of paroxysmal atrial fibrillation and generalized body weakness with episodic bouts of near-syncopal and syncopal episodes. FAMILY HISTORY: Positive for hypertension and heart disease. SOCIAL HISTORY: The patient has a supportive family. No known substance use. REVIEW OF SYSTEMS: As mentioned above. Admits to generalized body weakness with episodic bouts of dizziness and lightheadedness and bifrontal headaches, worse on the day of admission. No chest pains, but admits to progressive shortness of breath initially on exertion and then at rest with paroxysmal nocturnal dyspnea. Her oral intake has been variable with nausea and dyspepsia and vague upper abdominal pains. Also admits to habitual constipation. PHYSICAL EXAMINATION: GENERAL: An average-built female, in no apparent distress. VITAL SIGNS: Blood pressure of 140/80, pulse of 70 beats per minute and regular, temperature 98, respirations 20. Height is 5 feet 5 inches. Weight is 197 pounds. HEENT: Head: Normocephalic. Eyes: Anicteric with pink conjunctivae. Funduscopy not possible at this time. Ears, nose and throat otherwise normal. NECK: Supple. Thyroid gland shows nodular thyromegaly, which is firm and nontender with no overt palpable thyroid nodules as noted. No carotid bruits or cervical adenopathy. CARDIOPULMONARY: Some adynamic precordium. S1, S2. Rapid and regular. LUNGS: Clear to auscultation. ABDOMEN: Flat, soft with positive bowel sounds. EXTREMITIES: No peripheral edema. Pulses are +2 bilaterally. LABORATORY DATA: Thyroid studies showed a T4 of 7.59 with a free T4 of 1.06 and T3 of 0.788. There was no TSH done as noted. Chemistry showed a BUN of 11, sodium 139, potassium 3.6, chloride 97, CO2 of 35, glucose 103 and creatinine 0.5. ASSESSMENT: This is an 87-year-old female with known history of multinodular goiter with no overt obstructive or compressive manifestations, presenting here with acute exacerbation of chronic obstructive pulmonary disease and concomitant acute pneumonitis and is now undergoing physical and occupational therapy for recent debilitation and is now being referred for endocrine evaluation and management. She also remains clinically euthyroid at this time, and biochemically we awaiting the results of the thyroid studies as ordered for tomorrow. She has known history of multinodular goiter with no overt compressive or obstructive manifestations at this time. She has significant cardiac vasculopathy with coronary artery disease and previous coronary stent placements with known history of hypertension and dyslipidemia as noted. PLAN OF MANAGEMENT: We will hold off any kind of levothyroxine suppressive therapy pending the completion of the thyroid studies as ordered for tomorrow morning. We will obtain a thyroxine and a thyroid stimulating hormone level as ordered. We will also obtain serial chemistries and supplement accordingly as needed. We will follow up. Melanie Rivera MD
[2018-08-21 06:51] LABS: ALB/GLOB RATIO 1.1 (1.0-2.1); ALBUMIN 3.4 g/dL (3.5-5.0); ALT/SGPT 26 U/L (9-52); AST/SGOT 18 U/L (14-36); BLOOD UREA NITROGEN 13 mg/dl (7-17); GFR NON-AFRICAN AMERICAN > 60
[2018-08-21 06:55] LABS: T4 8.79 ug/dl (5.5-11.0)
[2018-08-21] MEDS: Levalbuterol 0.63 MG/3 ML Inhal Soln UD INH SCH ×4 (07:32→19:09)
[2018-08-21] MEDS: Ipratropium 0.02% Inhal Soln (0.5 mg/2.5 ml) UD IH SCH ×4 (07:32→19:09)
[2018-08-21] MEDS: guaiFENesin 200 mg/10 ml Syrup UD PO PRN (08:23)
[2018-08-21] MEDS: Pantoprazole 40 mg EC Tab PO SCH (08:24)
--- NOTE | 2018-08-21 10:37 | CP.PCM.PN ---
Subjective - Date & Time of Evaluation Date of Evaluation: 08/21/18 Time of Evaluation: 10:50 - Subjective Subjective: Looks better this morning. Slept well last night, awakened refreshed. BP better controlled on current regimen. Oxygenation better, 94% seated in the gym on nas[place]l canula. Breath sounds are diminished bilaterally with dry basal rales. No audible wheezing or bronchial breathing. AM chemistries noted. Endocrine eval appreciated. Objective - Vital Signs/Intake and Output Vital Signs (last 24 hours): Temp Pulse Resp BP Pulse Ox 97.6 F 64 18 161/74 H 96 08/21/18 08:07 08/21/18 08:23 08/21/18 08:07 08/21/18 08:07 08/21/18 08:07 - Medications Medications: Current Medications Apixaban (Eliquis) 5 mg PO BID [facility]; Protocol Bisoprolol Fumarate (Zebeta) 5 mg PO DAILY [facility] Last Admin: 08/21/18 08:24 Dose: 5 mg Diltiazem HCl (Cardizem) 30 mg PO TID [facility] Last Admin: 08/21/18 08:23 Dose: 30 mg Guaifenesin/Dextromethorphan (Mucinex-Dm 600-30 Mg) 1 tab PO Q12H [facility] Ipratropium [place] (Atrovent) 0.5 mg IH RQID [facility] Last Admin: 08/21/18 07:32 Dose: 0.5 mg Isosorbide Mononitrate (Imdur Er) 30 mg PO DAILY [facility] Last Admin: 08/21/18 08:24 Dose: 30 mg Levalbuterol HCl (Xopenex) 0.63 mg INH RQID [facility] Last Admin: 08/21/18 07:32 Dose: 0.63 mg Levalbuterol HCl (Xopenex) 1.25 mg INH RQ4 PRN PRN Reason: Shortness of Breath Last Admin: 08/16/18 04:20 Dose: 1.25 mg Lisinopril (Zestril) 20 mg PO DAILY [facility] Last Admin: 08/21/18 08:24 Dose: 20 mg Nystatin (Nystop Topical Powder) 1 applic TOP TID [facility] Last Admin: 08/21/18 08:23 Dose: 1 applic Pantoprazole Sodium (Protonix Ec Tab) 40 mg PO DAILY [facility] Last Admin: 08/21/18 08:24 Dose: 40 mg - Labs Labs: 08/15/18 05:30 08/21/18 05:45 Assessment and Plan (1) Afib Status: Resolved (2) Multinodular thyroid Status: Chronic (3) Pneumonia Status: Acute (4) COPD exacerbation Status: Chronic (5) Hypoxemia requiring supplemental oxygen Status: Chronic
[2018-08-21] MEDS ORDERED: guaiFENesin-DM 600-30 mg ER Tab PO SCH (10:45)
--- NOTE | 2018-08-21 13:16 | CP.PCM.PN ---
Subjective - Date & Time of Evaluation Date of Evaluation: 08/21/18 Time of Evaluation: 13:30 - Subjective Subjective: Patient was seen and examined sitting upright in chair breathing comfortably on 2 L of oxygen via NC saturating 94-95%. She denies any fever, chills, chest pain or shortness of breath. Objective - Vital Signs/Intake and Output Vital Signs (last 24 hours): Temp Pulse Resp BP Pulse Ox 97.6 F 58 L 18 120/55 L 96 08/21/18 08:07 08/21/18 12:01 08/21/18 08:07 08/21/18 12:01 08/21/18 08:07 - Medications Medications: Current Medications Apixaban (Eliquis) 5 mg PO BID [facility]; Protocol Last Admin: 08/21/18 12:01 Dose: 5 mg Bisoprolol Fumarate (Zebeta) 5 mg PO DAILY [facility] Last Admin: 08/21/18 08:24 Dose: 5 mg Diltiazem HCl (Cardizem) 30 mg PO TID [facility] Last Admin: 08/21/18 12:01 Dose: 30 mg Guaifenesin/Dextromethorphan (Mucinex-Dm 600-30 Mg) 1 tab PO Q12H [facility] Last Admin: 08/21/18 12:01 Dose: 1 tab Ipratropium [place] (Atrovent) 0.5 mg IH RQID [facility] Last Admin: 08/21/18 11:08 Dose: 0.5 mg Isosorbide Mononitrate (Imdur Er) 30 mg PO DAILY [facility] Last Admin: 08/21/18 08:24 Dose: 30 mg Levalbuterol HCl (Xopenex) 0.63 mg INH RQID [facility] Last Admin: 08/21/18 11:08 Dose: 0.63 mg Levalbuterol HCl (Xopenex) 1.25 mg INH RQ4 PRN PRN Reason: Shortness of Breath Last Admin: 08/16/18 04:20 Dose: 1.25 mg Lisinopril (Zestril) 20 mg PO DAILY [facility] Last Admin: 08/21/18 08:24 Dose: 20 mg Nystatin (Nystop Topical Powder) 1 applic TOP TID [facility] Last Admin: 08/21/18 12:01 Dose: 1 applic Pantoprazole Sodium (Protonix Ec Tab) 40 mg PO DAILY [facility] Last Admin: 08/21/18 08:24 Dose: 40 mg - Labs Labs: 08/15/18 05:30 08/21/18 05:45 - Constitutional Appears: Well, Non-toxic - Head Exam Head Exam: ATRAUMATIC - Eye Exam Eye Exam: EOMI - ENT Exam ENT Exam: Mucous Membranes Moist - Respiratory Exam Respiratory Exam: absent: Wheezes, Respiratory Distress, Stridor - Cardiovascular Exam Cardiovascular Exam: REGULAR RHYTHM, +S1, +S2 - GI/Abdominal Exam GI & Abdominal Exam: Soft, Normal Bowel Sounds. absent: Guarding, Rigid, Tenderness - Extremities Exam Extremities Exam: absent: Calf Tenderness - Neurological Exam Neurological Exam: Alert, Awake, Oriented x3 - Psychiatric Exam Psychiatric exam: Normal Affect, Normal Mood - Skin Skin Exam: Dry, Intact Assessment and Plan - Assessment and Plan (Free Text) Assessment: 87 y/o F, currently stable, with PMH of COPD, CAD, CHF, CAD & paroxysmal atr ial fibrillation was admitted for TCU for continuation of IV antibiotics and physical therapy. She was admitted recently in telemetry with syncopy, Afib with RVR COPD exacerbation with CAP and hypoxemia. Once stabilized she was transferred to TCU. 1. Generalized weakness -C/w PT 2. Angioedema (resolved) -suspected medication side effect so Amiodarone was discontinued 3.Paroxysmal Afib -back in SR -cardiology was consulted -Discontinued Amiodarone and restarted cardizem PO -Continue eliquis 5 mg po bid 4.CAP -treated with IV antibiotics -Pulmonary on consulted discontinued Clindamycin and Zithromycin 5. COPD with hypoxemia -Pulmonary recommendations appreciated -Continue O2 via [place]. Patient uses home O2 12 hours / day -Continue Solucortef & Xopenex 6. CHF , compensated ,EF 55 % -Continue with zebeta & zestril 7.CAD (hx of stent) - stable -continue eliquis ( discontinued ASA and Plavix after discussion with cardiology ) 8. Thyroid nodules - outpatient work up incidental thyroid mass 2.[address] neck TSH 4 outpatient work up recommended 9. Hypertension (labile) -C/w zebeta & zestril 10.DVt prophylaxis on eliquis
--- NOTE | 2018-08-21 19:34 | PN ---
DATE: 08/21/2018 ENDOCRINOLOGY FOLLOWUP NOTE LOCATION: Room 707 U. SUBJECTIVE: This is an 87-year-old female with recent acute exacerbation of COPD and supervening acute pneumonitis, currently receiving IV antibiotic management and is also being followed closely for metabolic management. She has known history of an underlying multinodular goiter with no overt compressive manifestations at this time. She remains clinically euthyroid and biochemically her thyroid studies showed a T4 or thyroxine of 8.79 with a TSH of 3.26 and she clearly is also biochemically euthyroid at this time. Her chemistry showed a BUN of 13, sodium 138, potassium 4.2, chloride 98, CO2 of 31, glucose 111 and creatinine 0.6. ASSESSMENT: This is an 87-year-old female with acute exacerbation of chronic obstructive pulmonary disease and supervening pneumonitis, currently receiving IV antibiotic management and is being followed closely also for metabolic management. She also remains clinically and biochemically euthyroid at this time with an underlying multinodular goiter with no overt compressive or obstructive manifestations thereof. PLAN OF MANAGEMENT: We will hold off any kind of levothyroxine replacement or suppressive therapy for now and obtain serial thyroid studies accordingly. We will obtain serial chemistries and supplement accordingly as needed. We are awaiting the thyroid antibodies which will confirm and/or indicate the presence of underlying thyroid autoimmunity. We will follow and advise accordingly. Melanie Rivera MD
[2018-08-21] MEDS: guaiFENesin-DM 600-30 mg ER Tab PO SCH (21:13)
[2018-08-22] MEDS: guaiFENesin-DM 600-30 mg ER Tab PO SCH ×2 (08:15→21:03)
[2018-08-22] MEDS: Pantoprazole 40 mg EC Tab PO SCH (08:17)
[2018-08-22] MEDS: Levalbuterol 0.63 MG/3 ML Inhal Soln UD INH SCH ×4 (08:23→19:13)
[2018-08-22] MEDS: Ipratropium 0.02% Inhal Soln (0.5 mg/2.5 ml) UD IH SCH ×4 (08:23→19:13)
--- NOTE | 2018-08-22 09:53 | CP.PCM.PN ---
Subjective - Date & Time of Evaluation Date of Evaluation: 08/22/18 Time of Evaluation: 09:52 - Subjective Subjective: Seated in the bedside chair, comfortable. Feels quite improved. Doing well with physical therapy. Vital signs have remained stable. Followed by endocrinology. Anxious for discharge to home. Trace dependant edema, no cyanosis, warm extremities. Breath sounds are diminished bilaterally with dry basal rales. Doing well on present regimen. Continue same. Objective - Vital Signs/Intake and Output Vital Signs (last 24 hours): Temp Pulse Resp BP Pulse Ox 98.5 F 73 18 157/72 H 95 08/22/18 08:05 08/22/18 08:16 08/22/18 08:05 08/22/18 08:16 08/22/18 08:05 - Medications Medications: Current Medications Apixaban (Eliquis) 5 mg PO BID [facility]; Protocol Last Admin: 08/22/18 08:18 Dose: 5 mg Bisoprolol Fumarate (Zebeta) 5 mg PO DAILY [facility] Last Admin: 08/22/18 08:18 Dose: 5 mg Diltiazem HCl (Cardizem) 30 mg PO TID [facility] Last Admin: 08/22/18 08:15 Dose: 30 mg Guaifenesin/Dextromethorphan (Mucinex-Dm 600-30 Mg) 1 tab PO Q12H [facility] Last Admin: 08/22/18 08:15 Dose: 1 tab Ipratropium [place] (Atrovent) 0.5 mg IH RQID [facility] Last Admin: 08/22/18 08:23 Dose: 0.5 mg Isosorbide Mononitrate (Imdur Er) 30 mg PO DAILY [facility] Last Admin: 08/22/18 08:17 Dose: 30 mg Levalbuterol HCl (Xopenex) 0.63 mg INH RQID [facility] Last Admin: 08/22/18 08:23 Dose: 0.63 mg Levalbuterol HCl (Xopenex) 1.25 mg INH RQ4 PRN PRN Reason: Shortness of Breath Last Admin: 08/16/18 04:20 Dose: 1.25 mg Lisinopril (Zestril) 20 mg PO DAILY [facility] Last Admin: 08/22/18 08:16 Dose: 20 mg Nystatin (Nystop Topical Powder) 1 applic TOP TID [facility] Last Admin: 08/22/18 08:18 Dose: 1 applic Pantoprazole Sodium (Protonix Ec Tab) 40 mg PO DAILY [facility] Last Admin: 08/22/18 08:17 Dose: 40 mg - Labs Labs: 08/15/18 05:30 08/21/18 05:45 Assessment and Plan (1) Multinodular thyroid Status: Chronic (2) Pneumonia Status: Acute (3) COPD exacerbation Status: Chronic (4) Hypoxemia requiring supplemental oxygen Status: Chronic
--- NOTE | 2018-08-22 16:21 | PN ---
DATE: 08/22/2018 ENDOCRINOLOGY FOLLOWUP NOTE LOCATION: Room 707. SUBJECTIVE: This is a 87-year-old female with recent acute exacerbation of COPD and supervening acute pneumonitis and is now being followed closely for metabolic management. She also has an underlying multinodular goiter with no overt compression or obstructive symptoms in the neck area as noted. LABORATORY DATA: Her chemistries showed a BUN of 13, sodium 138, potassium 4.2, chloride 98, CO2 of 31, glucose 111 and creatinine 0.6. Her glucose levels have been optimal and have ranged from 104-111 mg/dL. Her thyroid studies showed a total T4 or thyroxine of 8.79 with a TSH of 3.26 as noted. ASSESSMENT AND PLAN: She remains clinically and biochemically euthyroid at this time. No indication for any kind of levothyroxine suppressive or replacement therapy as noted. We will obtain serial chemistries and supplement accordingly as needed. We will follow. Melanie Rivera MD
[2018-08-22 19:01] LABS: THYROGLOBULIN 27.8 ng/mL (2.8-40.9)
[2018-08-23] MEDS: Ipratropium 0.02% Inhal Soln (0.5 mg/2.5 ml) UD IH SCH ×4 (08:22→19:49)
[2018-08-23] MEDS: Levalbuterol 0.63 MG/3 ML Inhal Soln UD INH SCH ×4 (08:22→19:49)
[2018-08-23] MEDS: Pantoprazole 40 mg EC Tab PO SCH (08:24)
[2018-08-23] MEDS: guaiFENesin-DM 600-30 mg ER Tab PO SCH ×2 (08:24→22:13)
--- NOTE | 2018-08-23 10:00 | PN ---
DATE: 08/23/2018 ENDOCRINOLOGY FOLLOWUP NOTE LOCATION: Room 707. SUBJECTIVE: This is an 87-year-old female with recent acute exacerbation of COPD and supervening acute pneumonitis, now being followed closely for metabolic management. She also is undergoing physical and occupational therapy for underlying debility as noted. She has also a concomitant multinodular goiter with no overt compressive or obstructive neck manifestations. She remains clinically and biochemically euthyroid at this time. Her latest thyroxine level is 8.79 with a TSH of 3.26. Her thyroglobulin level is 27.8 as noted. So at this time, we will hold off any kind of levothyroxine replacement therapy as noted. We will obtain serial chemistry and supplement accordingly as needed. We will follow. Melanie Rivera MD
[2018-08-24] MEDS: Ipratropium 0.02% Inhal Soln (0.5 mg/2.5 ml) UD IH SCH ×4 (07:40→19:20)
[2018-08-24] MEDS: Levalbuterol 0.63 MG/3 ML Inhal Soln UD INH SCH ×4 (07:40→19:20)
[2018-08-24] MEDS: Pantoprazole 40 mg EC Tab PO SCH (08:29)
[2018-08-24] MEDS: guaiFENesin-DM 600-30 mg ER Tab PO SCH ×2 (08:29→21:30)
--- NOTE | 2018-08-24 17:42 | PN ---
DATE: 08/24/2018 ENDO FOLLOWUP NOTE LOCATION: Room 707. SUBJECTIVE: This is a 87-year-old female with recent acute exacerbation of COPD, currently receiving physical and occupational therapy for recent debility and is now being followed closely also for metabolic management. She remains clinically and biochemically euthyroid at this time with the latest T4 of 8.79 and a TSH of 3.26 and a thyroglobulin level of 27.8. Her glucose values are near optimal ranging from 94 to 111 mg/dL. Her chemistry showed a BUN of 13, sodium 138, potassium 4.2, chloride 98, CO2 of 31, glucose 111 and creatinine 0.6. She has an underlying multinodular goiter with no overt compressive or obstructive neck manifestations as noted thereof. So there is no indication for now for any kind of thyroid pharmacotherapy, and we will obtain serial thyroid studies accordingly. We will follow. Melanie Rivera MD
[2018-08-25] MEDS: Levalbuterol 1.25 MG/3 ML Inhal Soln UD INH PRN ×2 (01:13→23:20)
[2018-08-25] MEDS: Ipratropium 0.02% Inhal Soln (0.5 mg/2.5 ml) UD IH SCH ×4 (07:08→20:00)
[2018-08-25] MEDS: Levalbuterol 0.63 MG/3 ML Inhal Soln UD INH SCH ×4 (07:08→20:09)
[2018-08-25 08:22] LABS: BASO % 0.4 % (0.0-2.0); EOS # 0.2 K/uL (0.0-0.7); EOS % 2.1 % (0.0-4.0); HEMOGLOBIN 10.6 g/dL (12.0-16.0); LYMPH # 0.7 K/uL (1.0-4.3); LYMPH % 9.1 % (20.0-40.0); MEAN CELL VOLUME 85.8 fl (81.0-99.0); MEAN CORPUSCULAR HEMOGLOBIN 27.7 pg (27.0-31.0); MEAN CORPUSCULAR HGB CONC 32.3 g/dL (33.0-37.0); MEAN PLATELET VOLUME 7.8 fl (7.2-11.7); MONO # 0.6 K/uL (0.0-0.8); MONO % 7.2 % (0.0-10.0); NEUT # 6.5 K/uL (1.8-7.0); NEUT % 81.2 % (50.0-75.0); NRBC % 0.1 % (0.0-0.0); PLATELET COUNT 273 K/uL (130-400); RBC 3.81 Mil/uL (3.80-5.20); RED CELL DISTRIBUTION WIDTH 15.9 % (11.5-14.5)
[2018-08-25 08:44] LABS: T4 7.06 ug/dl (5.5-11.0)
[2018-08-25] MEDS: guaiFENesin-DM 600-30 mg ER Tab PO SCH ×2 (08:57→22:07)
[2018-08-25 09:01] LABS: ALB/GLOB RATIO 1.1 (1.0-2.1); ALBUMIN 3.4 g/dL (3.5-5.0); ALT/SGPT 27 U/L (9-52); AST/SGOT 18 U/L (14-36); BLOOD UREA NITROGEN 13 mg/dl (7-17); CALCIUM 8.8 mg/dL (8.4-10.2); GFR NON-AFRICAN AMERICAN > 60
[2018-08-25] MEDS: Pantoprazole 40 mg EC Tab PO SCH (09:04)
--- NOTE | 2018-08-25 09:20 | CP.PCM.PN ---
Subjective - Date & Time of Evaluation Date of Evaluation: 08/25/18 Time of Evaluation: 09:15 - Subjective Subjective: Seen on rounds in TCU. Vital signs remain stable. Has done well with physical therapy. Sleeping well. Using all medications as prescribed and remains stable. Breath sounds are diminished bilaterally. Dry rales in lower lobes of both lungs. No audible wheezing or bronchial breathing. Heart sounds are distant, rhythm regular. Trace dependant edema bilaterally, no cyanosis. Appears ready for discharge to home. Will resume Anoro Ellipta, one inhalation daily. All other medications as presently given: Zestril 20MG OD, Diltiazem 30MG TID. Eliquis 5MG BID, Imdur 30MG OD, Zebeta 5MG OD, Protonix 40MG OD, Albuterol neb soln PRN. Objective - Vital Signs/Intake and Output Vital Signs (last 24 hours): Temp Pulse Resp BP Pulse Ox 98.5 F 85 17 117/69 96 08/24/18 19:58 08/25/18 08:58 08/25/18 08:57 08/25/18 08:58 08/25/18 08:57 - Medications Medications: Current Medications Apixaban (Eliquis) 5 mg PO BID [facility]; Protocol Last Admin: 08/24/18 16:31 Dose: 5 mg Bisoprolol Fumarate (Zebeta) 5 mg PO DAILY [facility] Last Admin: 08/25/18 08:57 Dose: 5 mg Diltiazem HCl (Cardizem) 30 mg PO TID [facility] Last Admin: 08/25/18 08:57 Dose: 30 mg Guaifenesin/Dextromethorphan (Mucinex-Dm 600-30 Mg) 1 tab PO Q12H [facility] Last Admin: 08/25/18 08:57 Dose: 1 tab Ipratropium [place] (Atrovent) 0.5 mg IH RQID [facility] Last Admin: 08/25/18 07:08 Dose: 0.5 mg Isosorbide Mononitrate (Imdur Er) 30 mg PO DAILY [facility] Last Admin: 08/25/18 08:58 Dose: 30 mg Levalbuterol HCl (Xopenex) 0.63 mg INH RQID [facility] Last Admin: 08/25/18 07:08 Dose: 0.63 mg Levalbuterol HCl (Xopenex) 1.25 mg INH RQ4 PRN PRN Reason: Shortness of Breath Last Admin: 08/25/18 01:13 Dose: 1.25 mg Lisinopril (Zestril) 20 mg PO DAILY [facility] Last Admin: 08/25/18 08:58 Dose: 20 mg Nystatin (Nystop Topical Powder) 1 applic TOP TID [facility] Last Admin: 08/25/18 08:57 Dose: 1 applic Pantoprazole Sodium (Protonix Ec Tab) 40 mg PO DAILY [facility] Last Admin: 08/25/18 09:04 Dose: 40 mg - Labs Labs: 08/25/18 07:45 08/25/18 07:45 Assessment and Plan (1) Multinodular thyroid Status: Chronic (2) Pneumonia Status: Acute (3) COPD exacerbation Status: Chronic (4) Hypoxemia requiring supplemental oxygen Status: Chronic
[2018-08-25 12:19] LABS: BANDS 2 % (0-2); EOSINOPHIL 1 % (0-7); LYMPHOCYTE 8 % (20-50); MONOCYTE 7 % (0-10); NEUTROPHIL 82 % (42-75); PLATELET ESTIMATE NORMAL (NORMAL); TOTAL CELLS COUNTED 100
[2018-08-25 12:20] LABS: ANISOCYTOSIS SLIGHT; HYPERSEGMENTATION PRESENT; HYPOCHROMIC SLIGHT; TOXIC GRANULATION PRESENT
[2018-08-25 12:21] LABS: OVALOCYTES SLIGHT
--- NOTE | 2018-08-25 14:53 | PN ---
DATE: 08/25/2018 LOCATION: Room 707. SUBJECTIVE: This is an 87-year-old female with recent admission for acute exacerbation of COPD and is now being followed closely for metabolic management. She also has an underlying multinodular goiter with no overt compressive or obstructive manifestations in the neck area as noted. She remains clinically and biochemically euthyroid at this time and the latest thyroid study showed a T4 of 7.06 with a TSH of 2.83. Her chemistry showed a BUN of 13, sodium 137, potassium 4.2, chloride 98, CO2 of 30, glucose 132 and creatinine 0.7. PLAN: So, at this time, we will continue the present medical management with no need for any kind of levothyroxine suppressive therapy as noted. We will obtain serial chemistries and supplement accordingly as needed. We will follow. Melanie Rivera MD
[2018-08-26 03:47] VITALS: RESP 20; O2SAT 96
[2018-08-26] MEDS: Ipratropium 0.02% Inhal Soln (0.5 mg/2.5 ml) UD IH SCH ×2 (07:20→11:10)
[2018-08-26] MEDS: Levalbuterol 0.63 MG/3 ML Inhal Soln UD INH SCH ×2 (07:20→11:10)
[2018-08-26] MEDS: guaiFENesin-DM 600-30 mg ER Tab PO SCH (08:44)
[2018-08-26] MEDS: Pantoprazole 40 mg EC Tab PO SCH (08:45)
[2018-08-26 08:46] VITALS: BP 148/63; PULSE 78
[2018-08-26 08:48] VITALS: TEMP 98.8
--- NOTE | 2018-08-26 09:42 | CP.PCM.PN ---
Subjective - Date & Time of Evaluation Date of Evaluation: 08/26/18 Time of Evaluation: 09:40 - Subjective Subjective: Seen on morning rounds seated in bedside chair. Appears comfortable, offers no complaints. Plan for discharge to home later today. Medications were reviewed and changed for D/C. Pharmacy contacted to verify all prescriptions were received. Asked her to contact my office later today or tomorrow morning. SpO2 on room air 88%, okay to leave w/o supplemental oxygen. O2 at home via nasal canula at 2 LPM overnight and when seated watching television. Objective - Vital Signs/Intake and Output Vital Signs (last 24 hours): Temp Pulse Resp BP Pulse Ox 98.8 F 78 20 148/63 96 08/26/18 08:00 08/26/18 08:45 08/26/18 08:00 08/26/18 08:45 08/26/18 08:44 - Medications Medications: Current Medications Apixaban (Eliquis) 5 mg PO BID [facility]; Protocol Last Admin: 08/26/18 08:44 Dose: 5 mg Bisoprolol Fumarate (Zebeta) 5 mg PO DAILY [facility] Last Admin: 08/26/18 08:46 Dose: 5 mg Diltiazem HCl (Cardizem) 30 mg PO TID [facility] Last Admin: 08/26/18 08:44 Dose: 30 mg Guaifenesin/Dextromethorphan (Mucinex-Dm 600-30 Mg) 1 tab PO Q12H [facility] Last Admin: 08/26/18 08:44 Dose: 1 tab Ipratropium [place] (Atrovent) 0.5 mg IH RQID [facility] Last Admin: 08/26/18 07:20 Dose: 0.5 mg Isosorbide Mononitrate (Imdur Er) 30 mg PO DAILY [facility] Last Admin: 08/26/18 08:45 Dose: 30 mg Levalbuterol HCl (Xopenex) 0.63 mg INH RQID [facility] Last Admin: 08/26/18 07:20 Dose: 0.63 mg Levalbuterol HCl (Xopenex) 1.25 mg INH RQ4 PRN PRN Reason: Shortness of Breath Last Admin: 08/25/18 23:20 Dose: 1.25 mg Lisinopril (Zestril) 20 mg PO DAILY [facility] Last Admin: 02/19/19 08:45 Dose: 20 mg Nystatin (Nystop Topical Powder) 1 applic TOP TID [facility] Last Admin: 08/26/18 08:46 Dose: 1 applic Pantoprazole Sodium (Protonix Ec Tab) 40 mg PO DAILY [facility] Last Admin: 08/26/18 08:45 Dose: 40 mg - Labs Labs: 08/25/18 07:45 08/25/18 07:45 Assessment and Plan (1) Multinodular thyroid Status: Chronic (2) Pneumonia Status: Acute (3) COPD exacerbation Status: Chronic (4) Hypoxemia requiring supplemental oxygen Status: Chronic
--- NOTE | 2018-08-26 09:46 | CP.PCM.DIS ---
Provider - Provider Date of Admission: 08/13/18 17:23 Attending physician: Trish Simeon DO Primary care physician: DR. Marquez Consults: 08/14/18 07:20 Pulmonology Consult Routine Comment: Consulting Provider: Kaushik Marquez Consulting Physician: Kaushik Marquez Reason for Consult: COPD with wheezing 08/20/18 10:21 Endocrinology Consult Routine Comment: Consulting Provider: Melanie Rivera Consulting Physician: Melanie Rivera Reason for Consult: Multinodular thyroid with left upper pole mass. Time Spent in preparation of Discharge (in minutes): 20 Hospital Course - Lab Results Lab Results: Most Recent Lab Values WBC 8.0 K/uL (4.8-10.8) D 08/25/18 07:45 RBC 3.81 Mil/uL (3.80-5.20) 08/25/18 07:45 Hgb 10.6 g/dL (12.0-16.0) L 08/25/18 07:45 Hct 32.7 % (34.0-47.0) L 08/25/18 07:45 MCV 85.8 fl (81.0-99.0) 08/25/18 07:45 MCH 27.7 pg (27.0-31.0) 08/25/18 07:45 MCHC 32.3 g/dL (33.0-37.0) L 08/25/18 07:45 RDW 15.9 % (11.5-14.5) H 08/25/18 07:45 Plt Count 273 K/uL (130-400) D 08/25/18 07:45 MPV 7.8 fl (7.2-11.7) 08/25/18 07:45 Neut % (Auto) 81.2 % (50.0-75.0) H 08/25/18 07:45 Lymph % (Auto) 9.1 % (20.0-40.0) L 08/25/18 07:45 [place]k % (Auto) 7.2 % (0.0-10.0) 08/25/18 07:45 Eos % (Auto) 2.1 % (0.0-4.0) 08/25/18 07:45 Baso % (Auto) 0.4 % (0.0-2.0) 08/25/18 07:45 Neut # (Auto) 6.5 K/uL (1.8-7.0) 08/25/18 07:45 Lymph # (Auto) 0.7 K/uL (1.0-4.3) L 08/25/18 07:45 Polk # (Auto) 0.6 K/uL (0.0-0.8) 08/25/18 07:45 Eos # (Auto) 0.2 K/uL (0.0-0.7) 08/25/18 07:45 Baso # (Auto) 0.0 K/uL (0.0-0.2) 08/25/18 07:45 Neutrophils % (Manual) 82 % (42-75) H 08/25/18 07:45 Band Neutrophils % 2 % (0-2) 08/25/18 07:45 Lymphocytes % (Manual) 8 % (20-50) L 08/25/18 07:45 Monocytes % (Manual) 7 % (0-10) 08/25/18 07:45 Eosinophils % (Manual) 1 % (0-7) 08/25/18 07:45 Hypersegmented Polys Present 08/25/18 07:45 Toxic Granulation Present 08/25/18 07:45 Platelet Estimate Normal (NORMAL) 08/25/18 07:45 Hypochromasia (manual) Slight 08/25/18 07:45 Anisocytosis (manual) Slight 08/25/18 07:45 Ovalocytes Slight 08/25/18 07:45 Sodium 137 mmol/l (132-148) 08/25/18 07:45 Potassium 4.2 MMOL/L (3.6-5.0) 08/25/18 07:45 Chloride 98 mmol/L (98-107) 08/25/18 07:45 Carbon Dioxide 30 mmol/L (22-30) 08/25/18 07:45 Anion Gap 13 (10-20) 08/25/18 07:45 BUN 13 mg/dl (7-17) 08/25/18 07:45 Creatinine 0.7 mg/dl (0.7-1.2) 08/25/18 07:45 Est GFR ( Amer) > 60 08/25/18 07:45 Est GFR (Non-Af Amer) > 60 08/25/18 07:45 POC Glucose (mg/dL) 104 mg/dL (65-110) 08/26/18 05:12 Random Glucose 132 mg/dL (65-105) H 08/25/18 07:45 Calcium 8.8 mg/dL (8.4-10.2) 08/25/18 07:45 Magnesium 2.0 MG/DL (1.6-2.3) 08/25/18 07:45 Total Bilirubin 0.4 mg/dl (0.2-1.3) 08/25/18 07:45 Direct Bilirubin 0.0 mg/ml (0.0-0.4) 08/16/18 14:55 AST 18 U/L (14-36) 08/25/18 07:45 ALT 27 U/L (9-52) 08/25/18 07:45 Alkaline Phosphatase 113 U/L (38-126) 08/25/18 07:45 Total Protein 6.5 G/DL (6.3-8.2) 08/25/18 07:45 Albumin 3.4 g/dL (3.5-5.0) L 08/25/18 07:45 Globulin 3.1 gm/dL (2.2-3.9) 08/25/18 07:45 Albumin/Globulin Ratio 1.1 (1.0-2.1) 08/25/18 07:45 Free T4 1.06 ng/dL (0.78-2.19) 08/16/18 14:55 Thyroxine (T4) 7.06 ug/dl (5.5-11.0) 08/25/18 07:45 Free T3 pg/mL 2.41 pg/mL (2.77-5.27) L 08/16/18 14:55 Total T3 0.788 nmol/L (1.49-2.60) L 08/16/18 14:55 Thyroglobulin, Quant 27.8 ng/mL (2.8-40.9) 08/21/18 05:45 TSH 3rd Generation 2.83 mIU/ML (0.46-4.68) 08/25/18 07:45 Thyroperoxidase Ab 1 IU/mL (<9) 08/21/18 05:45 Thyroglobulin Antibody <1 IU/mL (< OR = 1) 08/21/18 05:45 - Hospital Course Hospital Course: 87 y/o F, with PMH of COPD, CAD, CHF, CAD & paroxysmal atrial fibrillation was admitted for TCU for continuation of IV antibiotics and physical therapy. She was admitted recently in telemetry with syncopy, Afib with RVR COPD exa cerbation with CAP and hypoxemia. Once stabilized she was transferred to TCU. While in TCU she participated with PT for generalized weakness and showed improvement. Pulmonary was consulted during this stay for her COPD and helped with management At present she is stable and will be discharged home She is advised to follow up with her PMD Prescriptions sent to her pharmacy 1. Generalized weakness Participated with PT and improved 2. Angioedema (resolved) suspected medication side effect so Amiodarone was discontinued 3.Paroxysmal Afib back in [place] cardiology was consulted Discontinued Amiodarone and restarted cardizem PO Continue eliquis 5 mg po bid 4.CAP treated with IV antibiotics Pulmonary was consulted received clindamycin and Zithromycin 5. COPD with hypoxemia Pulmonary was consulted Continue O2 via NC 6. CHF , compensated ,EF 55 % Continue with zebeta & zestril 7.CAD (hx of stent) - stable continue eliquis ( discontinued ASA and Plavix after discussion with cardiology ) 8. Thyroid nodules - outpatient work up incidental thyroid mass 2.[address] neck TSH 4 outpatient work up recommended 9. Hypertension (labile) continue zebeta & zestril Discharge Exam - Head Exam Head Exam: ATRAUMATIC, NORMOCEPHALIC Additional comments: obese - Eye Exam Eye Exam: EOMI, Normal appearance, PERRL Pupil Exam: NORMAL ACCOMODATION - ENT Exam ENT Exam: Mucous Membranes Moist, Normal Exam - Neck Exam Neck exam: Full Rom, Normal Inspection - Respiratory Exam Respiratory Exam: Clear to PA & Lateral, NORMAL BREATHING PATTERN. absent: Rales, Rhonchi, Wheezes - Cardiovascular Exam Cardiovascular Exam: REGULAR RHYTHM, RRR, +S1, +S2. absent: JVD - GI/Abdominal Exam GI & Abdominal Exam: Normal Bowel Sounds, Soft. absent: Distended, Guarding, Rebound, Tenderness - Rectal Exam Rectal Exam: Deferred - Extremities Exam Extremities exam: normal capillary refill, normal inspection, pedal pulses present - Back Exam Back exam: NORMAL INSPECTION - Neurological Exam Neurological exam: Alert, CN II-XII Intact, Oriented x3 - Psychiatric Exam Psychiatric exam: Normal Affect, Normal Mood - Skin Skin Exam: Dry, Intact, Normal Color, Warm Discharge Plan - Discharge Medications Prescriptions: Apixaban [Eliquis] 5 mg PO BID #60 tab Apixaban [Eliquis] 5 mg PO BID 90 Days #180 tab Bisoprolol [Zebeta] 5 mg PO DAILY #30 tab diltiaZEM [Cardizem] 30 mg PO TID #90 tab diltiaZEM CD [Cardizem CD] 120 mg PO DAILY 90 Days #90 cap Home Med 1 unit PO DAILY 90 Days #90 ea Ipratropium 0.02% [Atrovent] 0.5 mg IH RQ4 #100 neb Isosorbide Mononitrate ER [Imdur ER] 30 mg PO DAILY #30 tab Levalbuterol [Xopenex] 1.25 mg INH RQ8 PRN #100 neb PRN Reason: Shortness Of Breath Lisinopril [Zestril] 20 mg PO DAILY #60 tab Lisinopril [Zestril] 20 mg PO DAILY 90 Days #90 tab - Follow Up Plan Condition: IMPROVED Disposition: HOME/ ROUTINE Patient education suggested?: Yes Instructions: Pneumonia, Adult (DC), Oxygen Therapy, Adult (DC), Preventing Falls Referrals: Kaushik Marquez MD [Family Provider] -
--- NOTE | 2018-08-26 15:20 | PN ---
DATE: 08/26/2018 ENDO FOLLOWUP NOTE ROOM: 707 SUBJECTIVE: This is a 87-year-old female with recent admission for syncope and supervening acute exacerbation of COPD, now being followed closely for metabolic management. She also has an underlying multinodular goiter with no overt obstructive or compressive symptoms in the neck area as noted. She remains clinically and biochemically euthyroid at this time. Her latest chemistry showed a BUN of 13, sodium 137, potassium 4.2, chloride 98, CO2 30, glucose 132, and creatinine 0.7. Her thyroid studies showed a T4 of 7.06 with a TSH of 2.83. So at this time, we will hold off any levothyroxine replacement therapy as noted. We will obtain serial thyroid studies and titrate accordingly as indicated. We will follow up. Melanie Rivera MD
[2018-08-27] MEDS ORDERED: diltiaZEM 120 mg/24 Hours CD Cap PO SCH (09:00)
[2018-08-27] MEDS ORDERED: ROSUVASTATIN 20 MG PO SCH (09:00)
== END 2018-08-26 12:25 | disposition home health service (06) | DRG 308 ==
LOC: H.TCU 17:23
PROVIDERS: ADMIT Student in an Organized Health Care Education/Training Program; ATTEND Student in an Organized Health Care Education/Training Program
PROC: 3E03329 Introduction of Other Anti-infective into Peripheral Vein, Percutaneous Approach (ICD-10-PCS; principal; 2018-08-13)
PROC: F07M6FZ Therapeutic Exercise Treatment of Musculoskeletal System - Whole Body using Assistive, Adaptive, Supportive or Protective Equipment (ICD-10-PCS; 2018-08-13)
DX: I48.0 Paroxysmal atrial fibrillation (principal); J18.9 Pneumonia, unspecified organism; J43.9 Emphysema, unspecified; R09.02 Hypoxemia; R63.1 Polydipsia; T78.3XXA Angioneurotic edema, initial encounter; Z79.01 Long term (current) use of anticoagulants; T46.2X5A Adverse effect of other antidysrhythmic drugs, initial encounter; Y92.239 Unspecified place in hospital as the place of occurrence of the external cause; E04.2 Nontoxic multinodular goiter; E78.00 Pure hypercholesterolemia, unspecified; E78.5 Hyperlipidemia, unspecified; F41.9 Anxiety disorder, unspecified; I07.1 Rheumatic tricuspid insufficiency; I11.0 Hypertensive heart disease with heart failure; I25.10 Atherosclerotic heart disease of native coronary artery without angina pectoris; I25.2 Old myocardial infarction; I50.9 Heart failure, unspecified; Z79.899 Other long term (current) drug therapy; Z87.01 Personal history of pneumonia (recurrent); Z87.891 Personal history of nicotine dependence; Z95.5 Presence of coronary angioplasty implant and graft; Z99.81 Dependence on supplemental oxygen; L30.9 Dermatitis, unspecified; N39.3 Stress incontinence (female) (male); R53.1 Weakness

== ENCOUNTER 2018-09-06 16:13 | Inpatient (IN) | payer MEDICARE ==
[2018-09-06 16:13] VITALS: BMI 35.8
[2018-09-06] MEDS ORDERED: Vancomycin 1 g Inj ONE (17:58)
[2018-09-06 18:03] LABS: BASO % 0.3 % (0.0-2.0); EOS # 0.2 K/uL (0.0-0.7); EOS % 1.9 % (0.0-4.0); HEMOGLOBIN 10.4 g/dL (12.0-16.0); LYMPH # 0.6 K/uL (1.0-4.3); LYMPH % 6.1 % (20.0-40.0); MEAN CELL VOLUME 86.5 fl (81.0-99.0); MEAN CORPUSCULAR HEMOGLOBIN 27.4 pg (27.0-31.0); MEAN CORPUSCULAR HGB CONC 31.7 g/dL (33.0-37.0); MEAN PLATELET VOLUME 8.2 fl (7.2-11.7); MONO # 0.8 K/uL (0.0-0.8); MONO % 7.4 % (0.0-10.0); NEUT # 8.9 K/uL (1.8-7.0); NEUT % 84.3 % (50.0-75.0); PLATELET COUNT 333 K/uL (130-400); RED CELL DISTRIBUTION WIDTH 16.2 % (11.5-14.5); WHITE BLOOD COUNT 10.5 K/uL (4.8-10.8)
[2018-09-06 18:23] LABS: B-TYPE NATRIURETIC PEPTIDE 253 pg/ml (0-900)
[2018-09-06 18:33] LABS: BLOOD UREA NITROGEN 18 mg/dl (7-17); CALCIUM 9.2 mg/dL (8.4-10.2); GFR NON-AFRICAN AMERICAN 52
--- NOTE | 2018-09-06 18:41 | ED PDOC ---
Lower Extremity Pain/Injury Time Seen by Provider: 09/06/18 16:43 Chief Complaint (Nursing): Lower Extremity Problem/Injury Chief Complaint (Provider): Lower Extremity Problem/Injury History Per: Patient History/Exam Limitations: no limitations Onset/Duration Of Symptoms: Days Current Symptoms Are (Timing): Still Present Additional Complaint(s): 87 y/o female presents to the ED complaining of leg swelling and redness for one week. Patient states redness is worsening and swelling has persisted thus prompting today's visit. Patient reports of being admitted to the hospital for COPD in July 2018. Patient states symptoms began after being discharged from the hospital. Patient reports of having chronic shortness of breath due to her COPD. Patient notes of being on 2 liters of Oxygen while at home. Otherwise, patient denies any new changes, fever and chest pain. PMD: Kaushik Marquez Past Medical History Reviewed: Historical Data, Nursing Documentation, Vital Signs Vital Signs: Last Vital Signs Temp 97.2 F L 09/06/18 16:15 Pulse 79 09/06/18 16:15 Resp 18 09/06/18 16:15 BP 114/68 09/06/18 16:15 Pulse Ox 93 L 09/06/18 16:15 - Medical History PMH: Atrial Fibrillation, CAD, CHF, COPD, Emphysema, Fractures (right ankle), HTN, Hypercholesterolemia, Peripheral Edema, Pneumonia Denies: Diabetes, HIV, Chronic Kidney Disease - Surgical History Surgical History: Coronary Stent (x 2) Denies: Appendectomy, Pacemaker - Family History Family History: States: Unknown Family Hx - Home Medications Home Medications: Ambulatory Orders Medication Instructions Recorded Apixaban [Eliquis] 5 mg PO BID #60 tab 08/26/18 Bisoprolol [Zebeta] 5 mg PO DAILY #30 tab 08/26/18 Isosorbide Mononitrate ER [Imdur 30 mg PO DAILY #30 tab 08/26/18 ER] Lisinopril [Zestril] 20 mg PO DAILY #60 tab 08/26/18 [id number] CD [Cardizem CD] 120 mg PO DAILY 90 Days #90 cap 08/26/18 Furosemide [Lasix] 40 mg PO DAILY 09/06/18 Rosuvastatin Calcium [Crestor] 20 mg PO DAILY 09/06/18 - Allergies Allergies/Adverse Reactions: Allergies Allergy/AdvReac Type Severity Reaction Status Date / Time Penicillins Allergy Mild SWELLING Verified 08/13/18 15:47 Review of Systems ROS Statement: Except As Marked, All Systems Reviewed And Found Negative Musculoskeletal: Positive for: Leg Pain (SWELLING AND REDNESS) Physical Exam - Reviewed Nursing Documentation Reviewed: Yes Vital Signs Reviewed: Yes - Physical Exam Appears: Positive for: No Acute Distress (comfortable). Negative for: Uncomfortable Head Exam: Positive for: ATRAUMATIC, NORMOCEPHALIC Skin: Positive for: Normal Color, Warm, Dry Eye Exam: Positive for: Normal appearance, EOMI, PERRL Neck: Positive for: Normal, Painless ROM Cardiovascular/Chest: Positive for: Regular Rate, Rhythm. Negative for: Murmur Respiratory: Positive for: Normal Breath Sounds. Negative for: Respiratory Distress Gastrointestinal/Abdominal: Positive for: Normal Exam, Soft. Negative for: Tenderness Back: Positive for: Normal Inspection. Negative for: L CVA Tenderness, R CVA Tenderness, Vertebral Tenderness Extremity: Positive for: Swelling (bilateral leg swelling and redness ), Other (Clear discharge from the bilateral legs present. No open wounds) Neurologic/Psych: Positive for: Alert, Oriented. Negative for: Motor/Sensory Deficits - Laboratory Results Result Diagrams: 09/07/18 06:14 09/07/18 06:14 Lab Results: NT-Pro-B Natriuret Pep 253 pg/ml (0-900) 09/06/18 17:50 - ECG O2 Sat by Pulse Oximetry: 93 (RA) Pulse Ox Interpretation: Normal Medical Decision Making Medical Decision Making: Time: 1741 Impression: Bilateral leg swelling and redness Differentials include but not limited to DVT and leg cellulitis or stasis dermatitis Plan: -- B-Type Natriuretic -- BMP -- CBC with Differentials -- Eryhrocyte Sedimentation Rate -- Vancomycin Inj 1 gm Sodium Chloride 0.9% 250 ml IVPB -- Blood Culture -- US Duplex Lower Extremity Vein Bilaterally Time: 1847 US RESULTS FINDINGS: DEEP VEINS: The common femoral, superficial femoral, and popliteal veins are echolucent and compressible. There is normal color Doppler flow throughout. The visualized calf veins appear patent. SUPERFICIAL VEINS: The visualized greater saphenous vein is patent. SOFT TISSUES: There is edema both calf regions present. IMPRESSION: No deep venous thrombosis evident on bilateral lower extremity examination. Edema both calf regions present. Las reviewed and unremarkable. US negative. 1800 Patient seen by podiatry service at bedside. Per podiatry diagnosis is stasis dermatitis, no evidence of cellulitis. Patient is stable for discharge as per podiatry service. 1830 Discussed with family of the patient who reports that patient us unable to walk at home due to pain. [address] Marmolejo for observation for intractable pain. Electronically signed on Sep 06, 2018 6:48:44 PM EST by: Parrish Isaac M.D., Certified by [facility], Diagnostic Radiology ____ Scribe Attestation: Documented by Eunice Gómez, acting as a scribe for Katiana Garcia MD. Provider Scribe Attestation: All medical record entries made by the Scribe were at my direction and personally dictated by me. I have reviewed the chart and agree that the record accurately reflects my personal performance of the history, physical exam, medical decision making, and the department course for this patient. I have also personally directed, reviewed, and agree with the discharge instructions and disposition. Disposition - Clinical Impression Clinical Impression: Leg pain, bilateral, Stasis dermatitis - Patient ED Disposition Is Patient to be Admitted: Yes Discussed With DrTali: Suraj Marmolejo Doctor Will See Patient In The: ED Counseled Patient/Family Regarding: Studies Performed, Diagnosis - Disposition Disposition Time: 18:00 Condition: FAIR - Pt Status Changed To: Hospital Disposition Of: Observation - POA Present On Arrival: None
[2018-09-06 19:26] LABS: BASOPHIL 1 % (0-2); LYMPHOCYTE 13 % (20-50); MONOCYTE 6 % (0-10); NEUTROPHIL 80 % (42-75); PLATELET ESTIMATE NORMAL (NORMAL); TOTAL CELLS COUNTED 100
[2018-09-06 19:27] LABS: ANISOCYTOSIS SLIGHT
[2018-09-06] MEDS ORDERED: Oxycodone/Acetaminophen 5/325 mg Tab PO ONE (20:20)
[2018-09-06] MEDS ORDERED: Oxycodone/Acetaminophen 5/325 mg Tab ONE (20:27)
--- NOTE | 2018-09-06 21:13 | CP.PCM.CON ---
History of Present Illness - History of Present Illness History of Present Illness: Podiatry Consult Note: Dr. Bell 87 year old female patient, with PMHx of COPD, CHF, CAD, seen and evaluated in the ED for b/l lower extremity edema and erythema. Patient states that her son-in-law noticed her legs were getting more red and swollen over the past week and brought her to the hospital for evaluation. She states that her legs often throb when she ambulates and occasionally weep causing her slipper to get wet. She notes that she sits at home in her chair with her legs in the dependent position. Patient's family states that she has an existing appointment with a stitcher feeder who makes home visits on Saturday. Patient's son in law and daughter present at bedside. Denies nausea/vomiting/fever/chest pain/chills, admits to shortness of breath secondary to COPD and is on oxygen at home. PMHx: COPD, CHF, CAD PSHx: Stent placement SH: Former tobacco use, denies alcohol use and ilicit drug use. Ambulates with walker ALL: PCN Review of Systems - Review of Systems Review of Systems: 10 point review of systems negative except for what is mentioned in HPI Past Patient History - Infectious Disease Hx of Infectious Diseases: None - Tetanus Immunizations Tetanus Immunization: Unknown - Past Medical History & Family History Past Medical History?: Yes - Past Social History Smoking Status: Former Smoker - CARDIAC Hx Atrial Fibrillation: Yes Hx Congestive Heart Failure: Yes Hx Hypercholesterolemia: Yes Hx Hypertension: Yes Hx Pacemaker: No Hx Peripheral Edema: Yes - PULMONARY Hx Chronic Obstructive Pulmonary Disease (COPD): Yes Hx Emphysema: Yes Hx Pneumonia: Yes - NEUROLOGICAL Hx Syncope: Yes Other/Comment: AMS on recent admission. - HEENT Hx HEENT Problems: No - RENAL Hx Chronic Kidney Disease: No - ENDOCRINE/METABOLIC Other/Comment: Multinodular thyroid. - HEMATOLOGICAL/ONCOLOGICAL Hx Human Immunodeficiency Virus (HIV): No - INTEGUMENTARY Other/Comment: 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 - MUSCULOSKELETAL/RHEUMATOLOGICAL Hx Fractures: Yes (right ankle) - GASTROINTESTINAL Hx Gastrointestinal Disorders: No - GENITOURINARY/GYNECOLOGICAL Hx Incontinence: Yes Other/Comment: Stress Incontinence - PSYCHIATRIC Hx Psychophysiologic Disorder: No Hx Substance Use: No - SURGICAL HISTORY Hx Appendectomy: No Hx Coronary Stent: Yes (x 2) - ANESTHESIA Hx Anesthesia: Yes Hx Anesthesia Reactions: No Hx Malignant Hyperthermia: No Meds Allergies/Adverse Reactions: Allergies Allergy/AdvReac Type Severity Reaction Status Date / Time Penicillins Allergy Mild SWELLING Verified 08/13/18 15:47 Physical Exam - Constitutional Appears: Non-toxic, No Acute Distress - Head Exam Head Exam: ATRAUMATIC, NORMOCEPHALIC - Extremities Exam Additional comments: Vascular: DP/PT 1/4, CFT < 3 seconds, TG warm to warm, + 2 pitting edema appreciated to bilateral lower extremities Ortho: Pain with palpation of posterior aspect of b/l lower extremities, MMT 3/5 Neuro: Gross and protective sensation intact Derm: B/L erythema to b/l lower extremities circumfrentially beginning at tibial tuberosity extending down to digits, which decrease in erythema when elevated. No open lesions at this time, no weeping or drainage appreciated. No purulence, nor streaking appreciated. Elongated, dystrophic nails - Neurological Exam Neurological exam: Alert, Oriented x3 - Psychiatric Exam Psychiatric exam: Normal Affect, Normal Mood Results - Vital Signs Recent Vital Signs: Last Vital Signs Temp 99.3 F 09/06/18 19:19 Pulse 77 09/06/18 19:19 Resp 18 09/06/18 19:19 BP 135/60 09/06/18 19:19 Pulse Ox 95 09/06/18 19:19 - Labs Result Diagrams: 09/06/18 17:50 09/06/18 17:50 Labs: Laboratory Results - last 24 hr 09/06/18 09/06/18 17:50 17:50 WBC 10.5 RBC 3.80 Hgb 10.4 L Hct 32.9 L MCV 86.5 MCH 27.4 MCHC 31.7 L RDW 16.2 H Plt Count 333 MPV 8.2 Neut % (Auto) 84.3 H Lymph % (Auto) 6.1 L [place] % (Auto) 7.4 Eos % (Auto) 1.9 Baso % (Auto) 0.3 Neut # (Auto) 8.9 H Lymph # (Auto) 0.6 L [place] # (Auto) 0.8 Eos # (Auto) 0.2 Baso # (Auto) 0.0 Neutrophils % (Manual) 80 H Lymphocytes % (Manual) 13 L Monocytes % (Manual) 6 Basophils % (Manual) 1 Platelet Estimate Normal Anisocytosis (manual) Slight Sodium 140 Potassium 4.2 Chloride 94 L Carbon Dioxide 33 H Anion Gap 17 BUN 18 H Creatinine 1.0 Est GFR ( Amer) > 60 Est GFR (Non-Af Amer) 52 Random Glucose 191 H Calcium 9.2 NT-Pro-B Natriuret Pep 253 Assessment & Plan - Assessment and Plan (Free Text) Assessment: 87 year old female patient, with PMHx of COPD, CHF, CAD, with b/l lower extremity edema and erythema Plan: Patient seen and evaluated Discussed patient plan in detail with Dr. Bell Afbertha, VSS, absent leukocytosis , ESR pending B/L lower extremities dressed with DSD and RAJAN for mild edema control, no open wounds or weeping at this time Educated patient on importance of elevating lower extremities at home to prevent swelling LE US; negative for DVT Blood cultures taken; f/u results Recommend PO abx for prophylactic therapy at this time C/w pain management as needed Surgical shoes dispensed to patient Patient to follow up with her stitcher feeder as planned on Saturday or in the podiatry clinic within 1 week of discharge for continued care Thank you for the consult and allowing us to partake in the care of this patient - Date & Time Date: 09/06/18 Time: 21:34
[2018-09-06 21:38] LABS: ERYTHROCYTE SEDIMENTATION RATE > 120 mm/hr (0-30)
[2018-09-06] MEDS ORDERED: Oxycodone/Acetaminophen 5/325 mg Tab PO PRN (21:43)
--- NOTE | 2018-09-06 22:12 | CP.PCM.HP ---
<Bashir Hutchison - Last Filed: 09/06/18 21:51> History of Present Illness - History of Present Illness History of Present Illness: 87 y/o F with a PMHx of COPD, CAD, CHF, paroxysmal AFib and chronic b/l leg dermatitis and swelling was brought by her family to ED due to aggravating bilateral lower leg redness and swelling. Pt explains that since her recent hospital discharge, ~2 weeks ago, the redness and swelling from both legs have greatly worsened and became painful. Pain is described as dull, constant, 10/10 intensity, now 8/10 intensity after Percocet. Pt reports that skin on b/l lower leg is breaking apart. Pt denies chest pain, worsening of her SOB, wheezing, fever, chills, sweating, nausea, vomiting, recent trauma or insect bites. --Pt reports medications were modified on last admission a few weeks ago. PMD: Dr Marquez >Allergies: Penicillins >Meds: Lasix 40mg PO daily, Crestor 20mg PO, Bisoprolol 5mg PO daily, Lisinopril 20mg PO daily, Elliquis 5mg PO BID, Imdur ER 30mg PO daily, Cardizem 120mg PO daily. >PMHx: COPD, CAD, CHF, paroxysmal AFib and chronic b/l leg dermatitis >PSHx: Cardiac stent placement 2 years ago. >SHx: Stopped tobacco 15 years ago, used to smoke 1.5 ppdfor >50 years. No alcohol and no rec drugs. ED Course: --Vital signs: WNL except for sat O2 of 93%. --CBC with NO leukocyotis. --ESR >120. Pro-BNP 253-wnl. --US dupplex of b/l LE: NO DVT evidence. --Vancomycin 1gr IV administered at ED Present on Admission - Present on Admission Any Indicators Present on Admission: No Review of Systems - Constitutional Constitutional: absent: Anorexia, Chills, Weight Loss - EENT Nose/Mouth/Throat: absent: Nasal Congestion, Nasal Discharge, Sore Throat, Neck Pain - Cardiovascular Cardiovascular: absent: Chest Pain, Chest Pain at Rest - Respiratory Respiratory: Dyspnea (baseline). absent: Hemoptysis, Pain on Inspiration - Gastrointestinal Gastrointestinal: absent: Abdominal Pain, Diarrhea, Nausea, Vomiting - Genitourinary Genitourinary: absent: Dysuria, Flank Pain, Urinary Frequency Past Patient History - Infectious Disease Hx of Infectious Diseases: None - Tetanus Immunizations Tetanus Immunization: Unknown - Past Medical History & Family History Past Medical History?: Yes - Past Social History Smoking Status: Former Smoker - CARDIAC Hx Atrial Fibrillation: Yes Hx Congestive Heart Failure: Yes Hx Hypercholesterolemia: Yes Hx Hypertension: Yes Hx Pacemaker: No Hx Peripheral Edema: Yes - PULMONARY Hx Chronic Obstructive Pulmonary Disease (COPD): Yes Hx Emphysema: Yes Hx Pneumonia: Yes - NEUROLOGICAL Hx Syncope: Yes Other/Comment: AMS on recent admission. - HEENT Hx HEENT Problems: No - RENAL Hx Chronic Kidney Disease: No - ENDOCRINE/METABOLIC Other/Comment: Multinodular thyroid. - HEMATOLOGICAL/ONCOLOGICAL Hx Human Immunodeficiency Virus (HIV): No - INTEGUMENTARY Other/Comment: 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 - MUSCULOSKELETAL/RHEUMATOLOGICAL Hx Fractures: Yes (right ankle) - GASTROINTESTINAL Hx Gastrointestinal Disorders: No - GENITOURINARY/GYNECOLOGICAL Hx Incontinence: Yes Other/Comment: Stress Incontinence - PSYCHIATRIC Hx Psychophysiologic Disorder: No Hx Substance Use: No - SURGICAL HISTORY Hx Appendectomy: No Hx Coronary Stent: Yes (x 2) - ANESTHESIA Hx Anesthesia: Yes Hx Anesthesia Reactions: No Hx Malignant Hyperthermia: No Meds Allergies/Adverse Reactions: Allergies Allergy/AdvReac Type Severity Reaction Status Date / Time Penicillins Allergy Mild SWELLING Verified 08/13/18 15:47 Physical Exam - Constitutional Appears: No Acute Distress - Head Exam Head Exam: ATRAUMATIC, NORMAL INSPECTION - Eye Exam Eye Exam: EOMI - ENT Exam ENT Exam: Mucous Membranes Moist - Neck Exam Neck exam: Positive for: Full Rom, Normal Inspection. Negative for: Meningismus - Respiratory Exam Respiratory Exam: NORMAL BREATHING PATTERN. absent: Rales, Rhonchi, Wheezes - Cardiovascular Exam Cardiovascular Exam: +S1, +S2 - GI/Abdominal Exam GI & Abdominal Exam: Soft. absent: Distended, Rebound, Rigid, Tenderness - Extremities Exam Additional comments: Bilateral lower legs: presence of diffuse erythema at complete circumference from low level of knees to all toes, presence of tenderness and very painful on elevation of b/l feet. Pulses diminished in b/l DP. B/L lower leg currently on clean/dry/intact dressings. - Neurological Exam Neurological exam: Alert, Oriented x3 Results - Vital Signs Recent Vital Signs: Last Vital Signs Temp 99.3 F 09/06/18 19:19 Pulse 77 09/06/18 19:19 Resp 18 09/06/18 19:19 BP 135/60 09/06/18 19:19 Pulse Ox 95 09/06/18 19:19 - Labs Result Diagrams: 09/06/18 17:50 09/06/18 17:50 Labs: Laboratory Results - last 24 hr 09/06/18 09/06/18 17:50 17:50 WBC 10.5 RBC 3.80 Hgb 10.4 L Hct 32.9 L MCV 86.5 MCH 27.4 MCHC 31.7 L RDW 16.2 H Plt Count 333 MPV 8.2 Neut % (Auto) 84.3 H Lymph % (Auto) 6.1 L [place] % (Auto) 7.4 Eos % (Auto) 1.9 Baso % (Auto) 0.3 Neut # (Auto) 8.9 H Lymph # (Auto) 0.6 L [place] # (Auto) 0.8 Eos # (Auto) 0.2 Baso # (Auto) 0.0 Neutrophils % (Manual) 80 H Lymphocytes % (Manual) 13 L Monocytes % (Manual) 6 Basophils % (Manual) 1 Platelet Estimate Normal Anisocytosis (manual) Slight ESR > 120 H Sodium 140 Potassium 4.2 Chloride 94 L Carbon Dioxide 33 H Anion Gap 17 BUN 18 H Creatinine 1.0 Est GFR ( Amer) > 60 Est GFR (Non-Af Amer) 52 Random Glucose 191 H Calcium 9.2 NT-Pro-B Natriuret Pep 253 Assessment & Plan - Assessment and Plan (Free Text) Assessment: 87 y/o F with a PMHx of COPD, CAD, CHF, paroxysmal AFib and chronic b/l leg dermatitis and swelling admitted for evaluation and examination of intractable b/l leg pain and aggravating bilateral lower leg redness and swelling. PLAN: >Bilateral leg dermatitis --Aggravating, acute on chronic --Afebrile, VS stable, no leukocytosis. --Possibly CHF exacerbation vs exacerbation of venous statis vs medication side effect (CCB's) --Podiatry consult, Dr Bell. --Furosemide 40mg STAT dose --F/U Intake and Output --F/U renal function and electrolytes tomorrow's lab. >COPD --Chronic --On Oxygen by IA at home --Currently O2 by IA at 2 L/min --Pulmonology consult, Dr Rossi, as per ED. --F/U recommendations >Acute CHF exacerbation - preserved EF --S/P stent placed. --Last echocardiogram on 08/11/18: LVEF 50-55%. --Furosemide 40mg IV STAT --F/U BMP for tomorrow. >Paroxysmal Afib --Rate controlled --Continue with home meds >Essential HTN --Continue home meds >DVT prophylaxis --On Eliquis BID >Diet --Heart healthy diet - Date & Time Date: 09/06/18 Time: 21:55 <Suraj Marmolejo - Last Filed: 09/06/18 23:29> Results - Vital Signs Recent Vital Signs: Last Vital Signs Temp 99.0 F 09/06/18 21:40 Pulse 78 09/06/18 21:40 Resp 17 09/06/18 21:40 BP 121/49 L 09/06/18 21:54 Pulse Ox 92 L 09/06/18 21:40 - Labs Result Diagrams: 09/06/18 17:50 09/06/18 17:50 Labs: Laboratory Results - last 24 hr 09/06/18 09/06/18 17:50 17:50 WBC 10.5 RBC 3.80 Hgb 10.4 L Hct 32.9 L MCV 86.5 MCH 27.4 MCHC 31.7 L RDW 16.2 H Plt Count 333 MPV 8.2 Neut % (Auto) 84.3 H Lymph % (Auto) 6.1 L [place] % (Auto) 7.4 Eos % (Auto) 1.9 Baso % (Auto) 0.3 Neut # (Auto) 8.9 H Lymph # (Auto) 0.6 L [place] # (Auto) 0.8 Eos # (Auto) 0.2 Baso # (Auto) 0.0 Neutrophils % (Manual) 80 H Lymphocytes % (Manual) 13 L Monocytes % (Manual) 6 Basophils % (Manual) 1 Platelet Estimate Normal Anisocytosis (manual) Slight ESR > 120 H Sodium 140 Potassium 4.2 Chloride 94 L Carbon Dioxide 33 H Anion Gap 17 BUN 18 H Creatinine 1.0 Est GFR ( Amer) > 60 Est GFR (Non-Af Amer) 52 Random Glucose 191 H Calcium 9.2 NT-Pro-B Natriuret Pep 253 Assessment & Plan - Assessment and Plan (Free Text) Plan: History as documented by resident was reviewed with patient and resident. I personally performed the pearl elements of physical exam and agree with the above findings. Diagnostics reviewed. X-ray and EKG as above interpreted by me. Medical decision making and plan of care performed by me. 87 yo morbidly obese (BMI 48) CF with extensive hx including HTN, HLD, CAD s/p PCI, PAF on Eliquis, chronic HFpEF, COPD with chronic hypoxic respiratory failure on home O2 recently discharged from this center to TCU and from there home after being treated for A-fib RVR and COPD exacerbation due to pneumonia p/w increasing b/l LE swelling and pain. Chronic problem but significantly worsened since discharge to the point she is not able to ambulate due to pain. On exam b/l LE is pretty edematus and tender and erythematous. No evidence of infection. Possible fluid overload vs medication side effect. US LE negative for DVT. Will give IV Lasix with close monitoring of hemodynamic and respiratory status, renal function, electrolytes, I&O.
[2018-09-07 06:24] LABS: HEMOGLOBIN 9.6 g/dL (12.0-16.0); MEAN CELL VOLUME 86.2 fl (81.0-99.0); MEAN CORPUSCULAR HEMOGLOBIN 27.9 pg (27.0-31.0); MEAN CORPUSCULAR HGB CONC 32.3 g/dL (33.0-37.0); RBC 3.46 Mil/uL (3.80-5.20); RED CELL DISTRIBUTION WIDTH 15.9 % (11.5-14.5); WHITE BLOOD COUNT 8.5 K/uL (4.8-10.8)
[2018-09-07 06:36] LABS: CALCIUM 8.6 mg/dL (8.4-10.2)
[2018-09-07] MEDS: diltiaZEM 120 mg/24 Hours CD Cap PO SCH (08:55)
--- NOTE | 2018-09-07 09:25 | US ---
Date of service: 09/06/2018 PROCEDURE: Bilateral lower extremity venous duplex Doppler. HISTORY: LOWER bilaterael lower leg swelling COMPARISON: None available. TECHNIQUE: Bilateral common femoral, superficial femoral, popliteal and posterior tibial veins were evaluated. Flow was assessed with color Doppler, compressibility, assessment of phasic flow and augmentation response. FINDINGS: COMMON FEMORAL VEIN: Right CFV: Unremarkable. Left CFV: Unremarkable. SUPERFICIAL FEMORAL VEIN: Right SFV: Unremarkable. Left SFV: Unremarkable. POPLITEAL VEIN: Right Popliteal: Unremarkable. Left Popliteal: Unremarkable. POSTERIOR TIBIAL VEIN: Right PTV: Unremarkable. Left PTV: Unremarkable. OTHER FINDINGS: None. IMPRESSION: No evidence of deep venous thrombosis.
[2018-09-07] MEDS ORDERED: Albuterol-Ipratrop 3 mg / 0.5 (3 ml) UD INH PRN (10:52)
--- NOTE | 2018-09-07 12:28 | CP.PCM.PN ---
Subjective - Date & Time of Evaluation Date of Evaluation: 09/07/18 Time of Evaluation: 10:45 - Subjective Subjective: Pt complains of leg swelling sl left foot pain no fever denies CP no SOB no abd pain Objective - Vital Signs/Intake and Output Vital Signs (last 24 hours): Temp Pulse Resp BP Pulse Ox 98.1 F 67 19 129/66 93 L 09/07/18 09:00 09/07/18 09:00 09/07/18 09:00 09/07/18 09:00 09/07/18 09:56 Intake and Output: 09/07/18 09/07/18 06:59 18:59 Output Total 600 Balance -600 - Medications Medications: Current Medications Acetaminophen (Tylenol 325mg Tab) 650 mg PO Q6 PRN PRN Reason: Pain, moderate (4-7) Acetaminophen (Tylenol 325mg Tab) 325 mg PO Q6 PRN PRN Reason: Pain, Mild (1-3) Albuterol/Ipratropium (Duoneb 3 Mg/0.5 Mg (3 Ml) Ud) 3 ml INH RQ6 PRN PRN Reason: Shortness of Breath Apixaban (Eliquis) 5 mg PO BID [facility]; Protocol Last Admin: 09/07/18 08:55 Dose: 5 mg Atorvastatin Calcium (Lipitor) 40 mg PO DAILY [facility] Last Admin: 09/07/18 08:56 Dose: 40 mg Bisoprolol Fumarate (Zebeta) 5 mg PO DAILY [facility] Last Admin: 09/07/18 08:56 Dose: 5 mg Diltiazem HCl (Cardizem Cd) 120 mg PO DAILY [facility] Last Admin: 09/07/18 08:55 Dose: 120 mg Furosemide (Lasix) 40 mg PO DAILY [facility] Last Admin: 09/07/18 08:56 Dose: 40 mg Vancomycin HCl 500 mg/ Sodium (Chloride) 100 mls @ 100 mls/hr IVPB Q12 [facility]; Protocol Isosorbide Mononitrate (Imdur Er) 30 mg PO DAILY [facility] Last Admin: 09/07/18 08:56 Dose: 30 mg Lisinopril (Zestril) 20 mg PO DAILY [facility] Last Admin: 09/07/18 08:57 Dose: 20 mg Oxycodone/Acetaminophen (Percocet 5/325 Mg Tab) 1 tab PO Q4 PRN PRN Reason: Pain, severe (8-10) Stop: 09/09/18 21:44 - Labs Labs: 09/07/18 06:14 09/07/18 06:14 - Constitutional Appears: No Acute Distress - Head Exam Head Exam: NORMAL INSPECTION, NORMOCEPHALIC - Eye Exam Eye Exam: EOMI, Normal appearance Pupil Exam: NORMAL ACCOMODATION - ENT Exam ENT Exam: Mucous Membranes Moist, Normal External Ear Exam - Neck Exam Neck Exam: Full ROM. absent: Meningismus - Respiratory Exam Respiratory Exam: Wheezes (slight expiratory wheeze), NORMAL BREATHING PATTERN. absent: Respiratory Distress - Cardiovascular Exam Cardiovascular Exam: REGULAR RHYTHM, +S1, +S2 - GI/Abdominal Exam GI & Abdominal Exam: Soft. absent: Tenderness - Extremities Exam Extremities Exam: Normal Capillary Refill, Pedal Edema. absent: Calf Tenderness Additional comments: Bilateral LE wrapped in RAJAN bandage and elevated with pillow - Back Exam Back Exam: absent: CVA tenderness (L), CVA tenderness (R) - Neurological Exam Neurological Exam: Alert, Awake, Oriented x3 - Psychiatric Exam Psychiatric exam: Normal Affect, Normal Mood - Skin Skin Exam: Normal Color, Warm Additional comments: few scattered erythematous rash on thigh Assessment and Plan - Assessment and Plan (Free Text) Plan: 1. Bilateral Lower extremity Stasis dermatitis with left cellulitis -chronic stasis dermatitis , aggravated by edema and now with some cellulitis -Pt was started on IV Vanco in ED, will continue however will adjust to renal dose - received stat IV dose of IV Lasix - Podiatry consulted - keep leg elevated - Podiatry wrapped RAJAN bandage on both LE to decrease edema 2. Chronic COPD --On Oxygen by NC at home , cont 2 LPM --Pulmonology consult, Dr Rossi, as per ED. - pt has sl wheeze - cont Duoneb 3. Acute on chronic CHF exacerbation diastolic dysfunction- preserved EF --Last echocardiogram on 08/11/18: LVEF 50-55%. --Furosemide 40mg IV STAT - cont PO Lasix, Lisinopril, Imdur and Bisoprolol 4. Paroxysmal Afib --Rate controlled --Continue with Cardizem, Bisoprolol and Eliquis >DVT prophylaxis --On Eliquis BID >Diet --Heart healthy diet
--- NOTE | 2018-09-07 21:36 | CON ---
DATE: 09/07/2018 HISTORY OF PRESENT ILLNESS: Mrs. Turner is an 87-year-old female who was referred for pulmonary followup and evaluation. She was seen in the emergency room and admitted because of swelling of legs with difficulty ambulating and some redness as per family. She was recently discharged from [facility] after therapy for COPD exacerbation, congestive heart failure, and paroxysmal atrial fibrillation. She has a history of chronic swelling of both lower extremities with what appears to be dermatitis. Presently, she denies chest pains or shortness of breath and is insisted on going home today because she was promised she would stay in hospital for 24 hours and then discharged. She is the patient of Dr. Marquez and I am covering for Dr. Marquez from the pulmonary viewpoint. PAST MEDICAL HISTORY: She has a past medical history of chronic obstructive pulmonary disease, coronary artery disease, congestive heart failure, paroxysmal atrial fibrillation, and chronic pedal edema. FAMILY HISTORY: Nonrevealing. SOCIAL HISTORY: She quit smoking 15 years ago. Does not drink and lives alone at home, but has a supportive family. PHYSICAL EXAMINATION: GENERAL: The patient is alert and oriented, appears to be comfortable at present. VITAL SIGNS: On admission, blood pressure 135/60 with a pulse of 77, respiratory rate 18, temperature maximum was 99.3 degrees Fahrenheit, O2 sat 95% on nasal cannula oxygen. SKIN: Shows fair turgor. HEENT: Pupils are equal and reactive to light and accommodation. JVP flat. Mouth shows fair hygiene. LUNGS: Fair aeration bilaterally. Few scattered basilar rales. HEART: Irregular rhythm. ABDOMEN: Soft, nontender, no organomegaly. EXTREMITIES: Show bilateral chronic edema of both lower extremities with what appears to be stasis dermatitis. LABORATORY DATA: The rest of the labs have been reviewed. IMPRESSION: An 87-year-old female with history of chronic stasis dermatitis of both lower extremities, chronic obstructive pulmonary disease, appears to be stable at present, history of coronary artery disease, cardiac arrhythmias, and history of congestive heart failure in the past. PLAN: The plan presently would be to continue therapy as ordered as well as bronchodilators to be given p.r.n. and further intervention from the pulmonary point of view would be oxygen 2 liters per minute via nasal cannula, was discussed further care with treating medical team. Praveen Rossi MD [facility] # [id number]
[2018-09-08] MEDS: diltiaZEM 120 mg/24 Hours CD Cap PO SCH (09:10)
--- NOTE | 2018-09-08 09:25 | CP.PCM.PN ---
Subjective - Date & Time of Evaluation Date of Evaluation: 09/08/18 (]) Time of Evaluation: : - Subjective Subjective: Podiatry Consult Note: Dr. Bell 87 year old female patient seen and evauated for b/l lower extremity chronic stasis edema, dermatitis with cellulitis. Patient states that she has some pain in her legs. She denies any overnight nausea/vomiting/fever/chest pain/chills, or shortness of breath. Objective - Vital Signs/Intake and Output Vital Signs (last 24 hours): Temp Pulse Resp BP Pulse Ox 97.8 F 67 20 134/72 92 L 09/08/18 08:28 09/08/18 09:12 09/08/18 08:28 09/08/18 09:12 09/08/18 08:28 - Medications Medications: Current Medications Acetaminophen (Tylenol 325mg Tab) 650 mg PO Q6 PRN PRN Reason: Pain, moderate (4-7) Acetaminophen (Tylenol 325mg Tab) 325 mg PO Q6 PRN PRN Reason: Pain, Mild (1-3) Albuterol/Ipratropium (Duoneb 3 Mg/0.5 Mg (3 Ml) Ud) 3 ml INH RQ6 PRN PRN Reason: Shortness of Breath Apixaban (Eliquis) 5 mg PO BID [facility]; Protocol Last Admin: 09/08/18 09:11 Dose: 5 mg Atorvastatin Calcium (Lipitor) 40 mg PO DAILY [facility] Last Admin: 09/08/18 09:12 Dose: 40 mg Bisoprolol Fumarate (Zebeta) 5 mg PO DAILY [facility] Last Admin: 09/08/18 09:11 Dose: 5 mg Diltiazem HCl (Cardizem Cd) 120 mg PO DAILY [facility] Last Admin: 09/08/18 09:10 Dose: 120 mg Furosemide (Lasix) 40 mg PO DAILY [facility] Last Admin: 09/08/18 09:11 Dose: 40 mg Vancomycin HCl 500 mg/ Sodium (Chloride) 100 mls @ 100 mls/hr IVPB Q12 [facility]; Protocol Last Admin: 09/08/18 09:13 Dose: 100 mls/hr Isosorbide Mononitrate (Imdur Er) 30 mg PO DAILY [facility] Last Admin: 09/08/18 09:12 Dose: 30 mg Lisinopril (Zestril) 20 mg PO DAILY [facility] Last Admin: 09/08/18 09:12 Dose: 20 mg Oxycodone/Acetaminophen (Percocet 5/325 Mg Tab) 1 tab PO Q4 PRN PRN Reason: Pain, severe (8-10) Stop: 09/09/18 21:44 - Labs Labs: 09/07/18 06:14 09/07/18 06:14 - Constitutional Appears: No Acute Distress - Head Exam Head Exam: ATRAUMATIC, NORMOCEPHALIC - Extremities Exam Additional comments: Vascular: DP/PT 1/4, Cap refill < 3 seconds, Temp gradient warm to warm, + 1 pitting edema appreciated to bilateral lower extremities, Edema is improving. Neuro: Gross and protective sensation intact. Derm: B/L erythema to b/l lower extremities circumfrentially beginning at tibial tuberosity extending down to digits, which decrease in erythema when elevated. No open lesions at this time, no weeping or drainage appreciated. No purulence, nor streaking appreciated. Elongated, dystrophic nails. MSK: Pain with palpation of posterior aspect of b/l lower extremities, MMT 4/5 in all groups b/l. - Neurological Exam Neurological Exam: Alert, Awake Assessment and Plan - Assessment and Plan (Free Text) Assessment: 87 year old female patient seen and evauated for b/l lower extremity chronic stasis edema, dermatitis with cellulitis. Plan: Patient seen and evaluated Discussed patient plan in detail with Dr. Bell Charts, labs and vitals reviewed: Afebrile, absent leukocytosis , ESR 120 Emollient cream and Fer bandage applied to lower extremities no open wounds or weeping at this time Patient to continue elevating lower extremities. LE US; negative for DVT Blood cultures taken; No growth after 24 hours Continue IV abx as per primary team. C/W pain management as needed. Ordered Ammonium lactate 12% lotion to be applied BID topical. Continue wearing surgical shoes when ambulating. Podiatry will continue to follow up the patient upon discharge.
--- NOTE | 2018-09-08 10:21 | CP.PCM.PN ---
Subjective - Date & Time of Evaluation Date of Evaluation: 09/08/18 Time of Evaluation: 10:10 - Subjective Subjective: Erythematous papular/pruritic rash over both LEs and trunk. Has remained afebrile since admission. No leukocytosis, but ESR is 120MM/HR. Only new medications or changes from home are ; Lipitor for Crestor, Vancomycin and LacHydrin. Diffuse erythematous rash over both legs as well as her trunk. Dependant edema of both feet and ankles. No cyanosis of toes. Neck is supple and trachea midline. Breath sounds are diminished bilaterally with few dry rales in lower lobes. No audible wheezes or bronchial breath sounds. Severe stasis dermatitis vs cellulitis. Apparent drug rash (vanco, lac-hydrin or atorvastatin). Recent pneumonia and paroxysmal a fib now in NSR. CAD with prior GA-PCI/stent, Hypertension. (Although she clinically appears as though she may have pulmonary hypertension with RV overload, a right sided cardiac cath done about 18 months ago showed relatively normal PA pressures.) I will give her one dose of hydrocortisone IV. She may benefit from psych eval as well (she has become manipulative of her family and does not follow instructions). Objective - Vital Signs/Intake and Output Vital Signs (last 24 hours): Temp Pulse Resp BP Pulse Ox 97.8 F 67 20 134/72 92 L 09/08/18 08:28 09/08/18 09:12 09/08/18 08:28 09/08/18 09:12 09/08/18 08:28 - Medications Medications: Current Medications Acetaminophen (Tylenol 325mg Tab) 650 mg PO Q6 PRN PRN Reason: Pain, moderate (4-7) Acetaminophen (Tylenol 325mg Tab) 325 mg PO Q6 PRN PRN Reason: Pain, Mild (1-3) Albuterol/Ipratropium (Duoneb 3 Mg/0.5 Mg (3 Ml) Ud) 3 ml INH RQ6 PRN PRN Reason: Shortness of Breath Apixaban (Eliquis) 5 mg PO BID [facility]; Protocol Last Admin: 09/08/18 09:11 Dose: 5 mg Atorvastatin Calcium (Lipitor) 40 mg PO DAILY [facility] Last Admin: 09/08/18 09:12 Dose: 40 mg Bisoprolol Fumarate (Zebeta) 5 mg PO DAILY [facility] Last Admin: 09/08/18 09:11 Dose: 5 mg Diltiazem HCl (Cardizem Cd) 120 mg PO DAILY [facility] Last Admin: 09/08/18 09:10 Dose: 120 mg Furosemide (Lasix) 40 mg PO DAILY [facility] Last Admin: 09/08/18 09:11 Dose: 40 mg Vancomycin HCl 500 mg/ Sodium (Chloride) 100 mls @ 100 mls/hr IVPB Q12 [facility]; Protocol Last Admin: 09/08/18 09:13 Dose: 100 mls/hr Isosorbide Mononitrate (Imdur Er) 30 mg PO DAILY [facility] Last Admin: 09/08/18 09:12 Dose: 30 mg Lisinopril (Zestril) 20 mg PO DAILY [facility] Last Admin: 09/08/18 09:12 Dose: 20 mg Oxycodone/Acetaminophen (Percocet 5/325 Mg Tab) 1 tab PO Q4 PRN PRN Reason: Pain, severe (8-10) Stop: 09/09/18 21:44 - Labs Labs: 09/07/18 06:14 09/07/18 06:14
[2018-09-08] MEDS ORDERED: Hydrocortisone- 100 MG in Sodium Chloride 0.9% 100 ML IV ONE (10:56)
--- NOTE | 2018-09-08 11:23 | CP.PCM.PN ---
Subjective - Date & Time of Evaluation Date of Evaluation: 09/08/18 Time of Evaluation: 09:45 - Subjective Subjective: Patient seen and examined today at bedside, in NAD, daughter is at bedside. Patient today presents with an eryhtematous patchy rash that extends to the thighs, trunk and internal aspect of upper extremities. As per daughter the mother had some redness to the LE, but she started with the rash yesterday in the legs and has advanced today, pt otherwise states feeling well, denies SOB, CP, N/V/D. She remains afebrile. Objective - Vital Signs/Intake and Output Vital Signs (last 24 hours): Temp Pulse Resp BP Pulse Ox 97.8 F 67 20 134/72 92 L 09/08/18 08:28 09/08/18 09:12 09/08/18 08:28 09/08/18 09:12 09/08/18 08:28 - Medications Medications: Current Medications Acetaminophen (Tylenol 325mg Tab) 650 mg PO Q6 PRN PRN Reason: Pain, moderate (4-7) Acetaminophen (Tylenol 325mg Tab) 325 mg PO Q6 PRN PRN Reason: Pain, Mild (1-3) Albuterol/Ipratropium (Duoneb 3 Mg/0.5 Mg (3 Ml) Ud) 3 ml INH RQ6 PRN PRN Reason: Shortness of Breath Apixaban (Eliquis) 5 mg PO BID [facility]; Protocol Last Admin: 09/08/18 09:11 Dose: 5 mg Atorvastatin Calcium (Lipitor) 40 mg PO DAILY [facility] Last Admin: 09/08/18 09:12 Dose: 40 mg Bisoprolol Fumarate (Zebeta) 5 mg PO DAILY [facility] Last Admin: 09/08/18 09:11 Dose: 5 mg Diltiazem HCl (Cardizem Cd) 120 mg PO DAILY [facility] Last Admin: 09/08/18 09:10 Dose: 120 mg Furosemide (Lasix) 40 mg PO DAILY [facility] Last Admin: 09/08/18 09:11 Dose: 40 mg Vancomycin HCl 500 mg/ Sodium (Chloride) 100 mls @ 100 mls/hr IVPB Q12 [facility]; Protocol Last Admin: 09/08/18 09:13 Dose: 100 mls/hr Hydrocortisone Sodium Succinate 100 mg/ Sodium Chloride 100 mls @ 100 mls/hr IV ONCE ONE Stop: 09/08/18 11:55 Isosorbide Mononitrate (Imdur Er) 30 mg PO DAILY [facility] Last Admin: 09/08/18 09:12 Dose: 30 mg Lisinopril (Zestril) 20 mg PO DAILY [facility] Last Admin: 09/08/18 09:12 Dose: 20 mg Oxycodone/Acetaminophen (Percocet 5/325 Mg Tab) 1 tab PO Q4 PRN PRN Reason: Pain, severe (8-10) Stop: 09/09/18 21:44 - Labs Labs: 09/07/18 06:14 09/07/18 06:14 - Constitutional Appears: No Acute Distress - Head Exam Head Exam: ATRAUMATIC, NORMAL INSPECTION, NORMOCEPHALIC - Eye Exam Eye Exam: EOMI - ENT Exam ENT Exam: Mucous Membranes Moist - Neck Exam Neck Exam: Full ROM - Respiratory Exam Respiratory Exam: Prolonged Expiratory Phase - Cardiovascular Exam Cardiovascular Exam: REGULAR RHYTHM, +S1, +S2 - GI/Abdominal Exam GI & Abdominal Exam: Soft - Extremities Exam Additional comments: LE with rajan wrap in place( done by podiatry) - Neurological Exam Neurological Exam: Alert, Awake, Oriented x3 - Psychiatric Exam Psychiatric exam: Normal Affect - Skin Skin Exam: Normal Color, Warm Additional comments: eryhtematous patchy rash that extends to the thighs, trunk and internal aspect of upper extremities Assessment and Plan - Assessment and Plan (Free Text) Assessment: 87 y/o F with a PMHx of COPD, CAD, CHF, paroxysmal AFib and chronic b/l leg dermatitis and swelling admitted for evaluation and examination of intractable b/l leg pain and aggravating bilateral lower leg redness and swelling. Plan: #. Bilateral Lower extremity Stasis dermatitis with leg cellulitis -chronic stasis dermatitis , aggravated by edema improving, cellulitis diagnosis less likely at this time. -Dopple venous US negative for DVT -Pt was started on IV Vanco in ED, will discontinue Vanco due to patchy erythematous patchy rash likely due to Vanco use, also cellulitis less likely at this time. - Podiatry consulted, will f/u recomms - keep leg elevated - Podiatry wrapped RAJAN bandage on both LE to decrease edema -Vanco trough 10.1 today #New onset Erythemaotous patchy rash -Likely secondary to use of new medications, will discontinue Vanco -Hidrocortison 100 mg IV x 1 given -Benadryl 50 IV stat given -Will f/u resolution #. Chronic COPD --On Oxygen by [place] at home , cont 2 LPM --Pulmonology consult, Dr Marquez, recomms appreciated - cont Duoneb #. Acute on chronic CHF exacerbation diastolic dysfunction- preserved EF --Last echocardiogram on 08/11/18: LVEF 50-55%. --Furosemide 40mg IV STAT was given - cont PO Lasix, Lisinopril, Imdur and Bisoprolol #. Paroxysmal Afib --Rate controlled --Continue with Cardizem, Bisoprolol and Eliquis #DVT prophylaxis --On Eliquis BID Diet --Heart healthy diet
[2018-09-08] MEDS ORDERED: DiphenhydrAMINE 50 mg/ml Inj IVP STA (12:07)
[2018-09-08 12:08] LABS: BASO % 0.2 % (0.0-2.0); EOS # 0.5 K/uL (0.0-0.7); EOS % 4.1 % (0.0-4.0); HEMOGLOBIN 10.9 g/dL (12.0-16.0); LYMPH # 0.6 K/uL (1.0-4.3); LYMPH % 5.7 % (20.0-40.0); MEAN CELL VOLUME 85.4 fl (81.0-99.0); MEAN CORPUSCULAR HEMOGLOBIN 27.4 pg (27.0-31.0); MEAN CORPUSCULAR HGB CONC 32.1 g/dL (33.0-37.0); MEAN PLATELET VOLUME 8.1 fl (7.2-11.7); MONO # 0.5 K/uL (0.0-0.8); MONO % 4.7 % (0.0-10.0); NEUT # 9.6 K/uL (1.8-7.0); NEUT % 85.3 % (50.0-75.0); RBC 3.96 Mil/uL (3.80-5.20); RED CELL DISTRIBUTION WIDTH 15.9 % (11.5-14.5); WHITE BLOOD COUNT 11.2 K/uL (4.8-10.8)
--- NOTE | 2018-09-08 15:15 | RAD ---
Date of service: 09/08/2018 HISTORY: SOB COMPARISON: Chest radiographs 08/09/2018. FINDINGS: LUNGS: No active pulmonary disease. PLEURA: No significant pleural effusion identified, no pneumothorax apparent. CARDIOVASCULAR: Calcific atherosclerotic changes are seen related to the thoracic aorta. Stable cardiomegaly. No pulmonary vascular congestion. OSSEOUS STRUCTURES: No significant abnormalities. VISUALIZED UPPER ABDOMEN: Normal. OTHER FINDINGS: None. IMPRESSION: Cardiomegaly. No pulmonary vascular congestion, infiltrate or pleural effusion bilaterally.
[2018-09-09] MEDS: diltiaZEM 120 mg/24 Hours CD Cap PO SCH (09:18)
--- NOTE | 2018-09-09 11:23 | CP.PCM.PN ---
Subjective - Date & Time of Evaluation Date of Evaluation: 09/09/18 Time of Evaluation: 09:20 - Subjective Subjective: Patient seen and examined today at bedside, in NAD. Patient verbalizes she wants to go home. Pt states feeling well, denies SOB, CP, N/V/D. She remains afebrile. Patient states she is getting OOB with PT and walking. Patient only c/o is her rash, which she states is not itching, patient notes some improvement of the rash in the areas she can see upper arms and frontal aspect of the trunk. Objective - Vital Signs/Intake and Output Vital Signs (last 24 hours): Temp Pulse Resp BP Pulse Ox 97.5 F L 64 20 146/68 93 L 09/09/18 08:29 09/09/18 09:18 09/09/18 08:29 09/09/18 09:18 09/09/18 08:29 - Medications Medications: Current Medications Acetaminophen (Tylenol 325mg Tab) 650 mg PO Q6 PRN PRN Reason: Pain, moderate (4-7) Acetaminophen (Tylenol 325mg Tab) 325 mg PO Q6 PRN PRN Reason: Pain, Mild (1-3) Albuterol/Ipratropium (Duoneb 3 Mg/0.5 Mg (3 Ml) Ud) 3 ml INH RQ6 PRN PRN Reason: Shortness of Breath Apixaban (Eliquis) 5 mg PO BID [facility]; Protocol Last Admin: 09/09/18 09:18 Dose: 5 mg Betamethasone Dipropion Augmented (Diprolene Af) 0 gm TOP BID [facility] Bisoprolol Fumarate (Zebeta) 5 mg PO DAILY [facility] Last Admin: 09/09/18 09:15 Dose: 5 mg Diltiazem HCl (Cardizem Cd) 120 mg PO DAILY [facility] Last Admin: 09/09/18 09:18 Dose: 120 mg Furosemide (Lasix) 40 mg PO DAILY [facility] Last Admin: 09/09/18 09:16 Dose: 40 mg Isosorbide Mononitrate (Imdur Er) 30 mg PO DAILY [facility] Last Admin: 09/09/18 09:15 Dose: 30 mg Lisinopril (Zestril) 20 mg PO DAILY [facility] Last Admin: 09/09/18 09:16 Dose: 20 mg - Labs Labs: 09/08/18 11:20 09/07/18 06:14 - Additional Findings Additional findings: - Constitutional Appears: No Acute Distress - Head Exam Head Exam: ATRAUMATIC, NORMAL INSPECTION, NORMOCEPHALIC - Eye Exam Eye Exam: EOMI - ENT Exam ENT Exam: Mucous Membranes Moist - Neck Exam Neck Exam: Full ROM - Respiratory Exam Respiratory Exam: Prolonged Expiratory Phase - Cardiovascular Exam Cardiovascular Exam: REGULAR RHYTHM, +S1, +S2 - GI/Abdominal Exam GI & Abdominal Exam: Soft - Extremities Exam Additional comments: LE with rajan wrap in place( done by podiatry) - Neurological Exam Neurological Exam: Alert, Awake, Oriented x3 - Psychiatric Exam Psychiatric exam: Normal Affect - Skin Skin Exam: Normal Color, Warm Additional comments: eryhtematous patchy rash that extends to the thighs, trunk, back and internal aspect of upper extremities. Today the rash is comparatively better in the area of the chest and upper extremities, the rash in the back area is unchanged. Assessment and Plan - Assessment and Plan (Free Text) Assessment: 87 y/o F with a PMHx of COPD, CAD, CHF, paroxysmal AFib and chronic b/l leg dermatitis and swelling admitted for evaluation and examination of intractable b/l leg pain and aggravating bilateral lower leg redness and swelling. Plan: #. Bilateral Lower extremity Stasis dermatitis with leg cellulitis -chronic stasis dermatitis , aggravated by edema improving, cellulitis diagnosis less likely at this time. -Dopple venous US negative for DVT -Pt was started on IV Vanco in ED, will discontinue Vanco due to patchy eryt hematous patchy rash likely due to Vanco use, also cellulitis less likely at this time. - Podiatry consulted, will f/u recomms - keep leg elevated - Podiatry wrapped RAJAN bandage on both LE to decrease edema -Vanco trough last 10.1 #New onset Erythemaotous patchy rash -Likely secondary to use of new medications, Vanco stopped. mild improvement noted today -Hidrocortison 100 mg IV x 1 given -Benadryl 50 IV given -Start Betamethasone Dipropionate top BID -Will f/u resolution #. Chronic COPD --On Oxygen by [place] at home , cont 2 LPM --Pulmonology consult, Dr Marquez, recomms appreciated - cont Duoneb #. Acute on chronic CHF exacerbation diastolic dysfunction- preserved EF --Last echocardiogram on 08/11/18: LVEF 50-55%. --Furosemide 40mg IV STAT was given - cont PO Lasix, Lisinopril, Imdur and Bisoprolol #. Paroxysmal Afib --Rate controlled --Continue with Cardizem, Bisoprolol and Eliquis #DVT prophylaxis --On Eliquis BID Diet --Heart healthy diet
--- NOTE | 2018-09-09 11:35 | CP.PCM.PN ---
Subjective - Date & Time of Evaluation Date of Evaluation: 09/09/18 Time of Evaluation: 11:32 - Subjective Subjective: Podiatry Consult Note: Dr. Bell 87 year old female patient seen and evauated for b/l lower extremity chronic stasis edema, dermatitis with cellulitis. Patient states that she has some pain in her legs. Patient states that she developed yesterday a reaction from medication and she has rash in her arms for which she received Benadryl. She denies any overnight nausea/vomiting/fever/chest pain/chills, or shortness of breath. Objective - Vital Signs/Intake and Output Vital Signs (last 24 hours): Temp Pulse Resp BP Pulse Ox 97.5 F L 64 20 146/68 93 L 09/09/18 08:29 09/09/18 09:18 09/09/18 08:29 09/09/18 09:18 09/09/18 08:29 - Medications Medications: Current Medications Acetaminophen (Tylenol 325mg Tab) 650 mg PO Q6 PRN PRN Reason: Pain, moderate (4-7) Acetaminophen (Tylenol 325mg Tab) 325 mg PO Q6 PRN PRN Reason: Pain, Mild (1-3) Albuterol/Ipratropium (Duoneb 3 Mg/0.5 Mg (3 Ml) Ud) 3 ml INH RQ6 PRN PRN Reason: Shortness of Breath Apixaban (Eliquis) 5 mg PO BID [facility]; Protocol Last Admin: 09/09/18 09:18 Dose: 5 mg Betamethasone Dipropion Augmented (Diprolene Af) 0 gm TOP BID [facility] Bisoprolol Fumarate (Zebeta) 5 mg PO DAILY [facility] Last Admin: 09/09/18 09:15 Dose: 5 mg Diltiazem HCl (Cardizem Cd) 120 mg PO DAILY [facility] Last Admin: 09/09/18 09:18 Dose: 120 mg Furosemide (Lasix) 40 mg PO DAILY [facility] Last Admin: 09/09/18 09:16 Dose: 40 mg Isosorbide Mononitrate (Imdur Er) 30 mg PO DAILY [facility] Last Admin: 09/09/18 09:15 Dose: 30 mg Lisinopril (Zestril) 20 mg PO DAILY [facility] Last Admin: 09/09/18 09:16 Dose: 20 mg - Labs Labs: 09/08/18 11:20 09/07/18 06:14 - Constitutional Appears: Non-toxic, No Acute Distress - Head Exam Head Exam: ATRAUMATIC, NORMOCEPHALIC - Extremities Exam Additional comments: B/L lower extremities focused exam: Vascular: DP/PT 1/4, Cap refill < 3 seconds, Temp gradient warm to warm, Mild pitting edema appreciated to bilateral lower extremities, Edema is improving. Neuro: Gross and protective sensation intact. Derm: B/L erythema to b/l lower extremities circumfrentially beginning at tibial tuberosity extending down to digits, which decrease in erythema when elevated. No open lesions at this time, no weeping or drainage appreciated. No purulence, nor streaking appreciated. Elongated, dystrophic nails. MSK: Pain with palpation of posterior aspect of b/l lower extremities, MMT 4/5 in all groups b/l. - Neurological Exam Neurological Exam: Alert, Awake Assessment and Plan - Assessment and Plan (Free Text) Assessment: Patient states that she developed yesterday a reaction from medication and she has rash in her arms. Plan: Patient seen and evaluated Discussed patient plan in detail with Dr. Bell Charts, labs and vitals reviewed: Afebrile, absent leukocytosis , ESR > 120 Ammonium lactate 12% lotion and Fer bandage applied to lower extremities no open wounds or weeping at this time Patient to continue elevating lower extremities. LE US; negative for DVT Blood cultures taken; No growth after 48 hours Continue IV abx as per primary team. C/W pain management as needed. Continue wearing surgical shoes when ambulating. Podiatry will continue to follow up the patient upon discharge.
[2018-09-09] MEDS ORDERED: Hydrocortisone- 100 MG in Sodium Chloride 0.9% 100 ML IV ONE (13:30)
--- NOTE | 2018-09-09 13:35 | CP.PCM.PN ---
Subjective - Date & Time of Evaluation Date of Evaluation: 09/09/18 Time of Evaluation: 13:32 - Subjective Subjective: Seen on morning rounds. From a respiratory standpoint patient appears to be doing relatively well. She offers a complaint of occasional cough which is nonproductive. She denies any shortness of breath. She is ambulatory within her room. She does have extensive erythematous rash over the extremities as well as the trunk. Breath sounds are diminished bilaterally but there is no audible wheezing or bronchial breath sounds. Dry rales are heard in the lower lobes posteriorly. Apparent drug reaction, etiological agent somewhat elusive. We will repeat dosage of hydrocortisone parenterally 100 mg. Continue remainder of maintenance medications unchanged. Followup CBC with differential and sedimentation rate. Objective - Vital Signs/Intake and Output Vital Signs (last 24 hours): Temp Pulse Resp BP Pulse Ox 97.5 F L 64 20 146/68 93 L 09/09/18 08:29 09/09/18 09:18 09/09/18 08:29 09/09/18 09:18 09/09/18 08:29 - Medications Medications: Current Medications Acetaminophen (Tylenol 325mg Tab) 650 mg PO Q6 PRN PRN Reason: Pain, moderate (4-7) Acetaminophen (Tylenol 325mg Tab) 325 mg PO Q6 PRN PRN Reason: Pain, Mild (1-3) Albuterol/Ipratropium (Duoneb 3 Mg/0.5 Mg (3 Ml) Ud) 3 ml INH RQ6 PRN PRN Reason: Shortness of Breath Apixaban (Eliquis) 5 mg PO BID [facility]; Protocol Last Admin: 09/09/18 09:18 Dose: 5 mg Betamethasone Dipropion Augmented (Diprolene Af) 0 gm TOP BID [facility] Bisoprolol Fumarate (Zebeta) 5 mg PO DAILY [facility] Last Admin: 09/09/18 09:15 Dose: 5 mg Diltiazem HCl (Cardizem Cd) 120 mg PO DAILY [facility] Last Admin: 09/09/18 09:18 Dose: 120 mg Furosemide (Lasix) 40 mg PO DAILY [facility] Last Admin: 09/09/18 09:16 Dose: 40 mg Hydrocortisone Sodium Succinate 100 mg/ Sodium Chloride 100 mls @ 100 mls/hr IV ONCE ONE Stop: 09/09/18 14:29 Isosorbide Mononitrate (Imdur Er) 30 mg PO DAILY [facility] Last Admin: 09/09/18 09:15 Dose: 30 mg Lisinopril (Zestril) 20 mg PO DAILY [facility] Last Admin: 09/09/18 09:16 Dose: 20 mg - Labs Labs: 09/08/18 11:20 09/07/18 06:14
[2018-09-09] MEDS: Betamethasone Dip 0.05% Cream(15 gm) TOP SCH (16:24)
[2018-09-10 07:18] LABS: BASO % 0.2 % (0.0-2.0); EOS # 0.6 K/uL (0.0-0.7); EOS % 3.4 % (0.0-4.0); HEMOGLOBIN 11.5 g/dL (12.0-16.0); LYMPH # 0.9 K/uL (1.0-4.3); LYMPH % 5.4 % (20.0-40.0); MEAN CELL VOLUME 85.8 fl (81.0-99.0); MEAN CORPUSCULAR HGB CONC 32.6 g/dL (33.0-37.0); MEAN PLATELET VOLUME 7.5 fl (7.2-11.7); MONO # 0.5 K/uL (0.0-0.8); MONO % 2.9 % (0.0-10.0); NEUT # 14.9 K/uL (1.8-7.0); NEUT % 88.1 % (50.0-75.0); PLATELET COUNT 406 K/uL (130-400); RBC 4.11 Mil/uL (3.80-5.20); RED CELL DISTRIBUTION WIDTH 15.7 % (11.5-14.5); WHITE BLOOD COUNT 16.9 K/uL (4.8-10.8)
[2018-09-10 09:00] LABS: ERYTHROCYTE SEDIMENTATION RATE 105 mm/hr (0-30)
[2018-09-10] MEDS: Betamethasone Dip 0.05% Cream(15 gm) TOP SCH ×2 (09:06→17:38)
[2018-09-10] MEDS: diltiaZEM 120 mg/24 Hours CD Cap PO SCH (09:08)
--- NOTE | 2018-09-10 09:09 | CP.PCM.PN ---
Subjective - Date & Time of Evaluation Date of Evaluation: 09/10/18 Time of Evaluation: 09:05 - Subjective Subjective: Patient seen and examined today at bedside, in NAD. Patient today c/o some itchiness of the rash that she did not have yesterday, and she is feeling uncomfortable today due to this rash which is extensive in the trunk and thighs. Patient denies CP, SOB, N/V/D. she remains afebrile. Objective - Vital Signs/Intake and Output Vital Signs (last 24 hours): Temp Pulse Resp BP Pulse Ox 98.9 F 87 20 144/74 93 L 09/10/18 08:39 09/10/18 08:39 09/10/18 08:39 09/10/18 08:39 09/10/18 08:39 - Medications Medications: Current Medications Acetaminophen (Tylenol 325mg Tab) 650 mg PO Q6 PRN PRN Reason: Pain, moderate (4-7) Acetaminophen (Tylenol 325mg Tab) 325 mg PO Q6 PRN PRN Reason: Pain, Mild (1-3) Albuterol/Ipratropium (Duoneb 3 Mg/0.5 Mg (3 Ml) Ud) 3 ml INH RQ6 PRN PRN Reason: Shortness of Breath Apixaban (Eliquis) 5 mg PO BID [facility]; Protocol Last Admin: 09/09/18 16:24 Dose: 5 mg Betamethasone Dipropion Augmented (Diprolene Af) 0 gm TOP BID [facility] Last Admin: 09/09/18 16:24 Dose: 1 applic Bisoprolol Fumarate (Zebeta) 5 mg PO DAILY [facility] Last Admin: 09/09/18 09:15 Dose: 5 mg Diltiazem HCl (Cardizem Cd) 120 mg PO DAILY [facility] Last Admin: 09/09/18 09:18 Dose: 120 mg Furosemide (Lasix) 40 mg PO DAILY [facility] Last Admin: 09/09/18 09:16 Dose: 40 mg Isosorbide Mononitrate (Imdur Er) 30 mg PO DAILY [facility] Last Admin: 09/09/18 09:15 Dose: 30 mg Lisinopril (Zestril) 20 mg PO DAILY [facility] Last Admin: 09/09/18 09:16 Dose: 20 mg - Labs Labs: 09/10/18 07:00 09/07/18 06:14 - Additional Findings Additional findings: - Additional Findings Additional findings: - Constitutional Appears: No Acute Distress - Head Exam Head Exam: ATRAUMATIC, NORMAL INSPECTION, NORMOCEPHALIC - Eye Exam Eye Exam: EOMI - ENT Exam ENT Exam: Mucous Membranes Moist - Neck Exam Neck Exam: Full ROM - Respiratory Exam Respiratory Exam: Prolonged Expiratory Phase - Cardiovascular Exam Cardiovascular Exam: REGULAR RHYTHM, +S1, +S2 - GI/Abdominal Exam GI & Abdominal Exam: Soft - Extremities Exam Additional comments: LE with rajan wrap in place( done by podiatry) - Neurological Exam Neurological Exam: Alert, Awake, Oriented x3 - Psychiatric Exam Psychiatric exam: Normal Affect - Skin Skin Exam: Normal Color, Warm Additional comments: eryhtematous patchy rash that extends to the thighs, trunk, back and internal aspect of upper extremities. rash is unchanged today. Assessment and Plan - Assessment and Plan (Free Text) Assessment: #. Bilateral Lower extremity Stasis dermatitis with leg cellulitis -chronic stasis dermatitis , aggravated by edema improving, cellulitis diagnosis less likely at this time. -Dopple venous US negative for DVT -Pt was started on IV Vanco in ED, will discontinue Vanco due to patchy erythematous patchy rash likely due to Vanco use, also cellulitis less likely at this time. - Podiatry consulted, will f/u recomms - keep leg elevated - Podiatry wrapped RAJAN bandage on both LE to decrease edema -Vanco trough last 10.1 -PT eval and tx #Erythemaotous patchy rash All meds reviewed, new meds started during hospitalization were stopped. Likely secondary to use of new medications, Vanco stopped. actual cause inconclusive -Hidrocortison 100 mg IV x 1 second dose given today -Benadryl 50 IV given today -Betamethasone Dipropionate top BID -Will f/u resolution #. Chronic COPD --On Oxygen by PR at home , cont 2 LPM --Pulmonology consult, Dr Marquez, recomms appreciated - cont Duoneb #. Acute on chronic CHF exacerbation diastolic dysfunction- preserved EF --Last echocardiogram on 08/11/18: LVEF 50-55%. --Furosemide 40mg IV STAT was given - cont PO Lasix, Lisinopril, Imdur and Bisoprolol #. Paroxysmal Afib --Rate controlled --Continue with Cardizem, Bisoprolol and Eliquis #DVT prophylaxis --On Eliquis BID Diet --Heart healthy diet
[2018-09-10] MEDS ORDERED: DiphenhydrAMINE 50 mg/ml Inj IVP STA (09:18)
[2018-09-10 09:26] LABS: ANISOCYTOSIS SLIGHT; EOSINOPHIL 3 % (0-7); HYPOCHROMIC SLIGHT; LYMPHOCYTE 9 % (20-50); MONOCYTE 4 % (0-10); NEUTROPHIL 84 % (42-75); PLATELET ESTIMATE SLIGHTLY INCREASED (NORMAL); TOTAL CELLS COUNTED 100
--- NOTE | 2018-09-10 13:29 | CP.PCM.DIS ---
Provider - Provider Date of Admission: 09/06/18 18:50 Attending physician: Suraj Marmolejo MD Consults: 09/06/18 20:49 Physician Consult Stat Comment: Consulting Provider: Praveen Rossi I Consulting Physician: Praveen Rossi I Reason for Consult: COPD 09/06/18 20:56 Podiatry Consult Stat Comment: Consulting Provider: Armaan Bell Consulting Physician: Armaan Bell Reason for Consult: dermatitis 09/08/18 16:27 Psychology Consult Routine Comment: Consulting Provider: Krystal Garcia Consulting Physician: Krystal aGrcia Reason for Consult: please evaluate Time Spent in preparation of Discharge (in minutes): 33 Diagnosis - Discharge Diagnosis (1) Rash and nonspecific skin eruption Status: Acute (2) Leg pain, bilateral Status: Chronic (3) Stasis dermatitis Status: Chronic (4) Physical deconditioning Status: Chronic Priority: High (5) CAD (coronary artery disease) Status: Chronic Priority: High (6) CHF (congestive heart failure) Status: Chronic Priority: High (7) COPD (chronic obstructive pulmonary disease) Status: Chronic Priority: High (8) Exogenous obesity Status: Chronic Priority: High (9) Hypertension Status: Chronic Priority: High Hospital Course - Lab Results Lab Results: Micro Results 09/06/18 18:07 Blood Blood Culture - Preliminary NO GROWTH AFTER 3 DAYS 09/06/18 18:07 Blood Blood Culture - Preliminary NO GROWTH AFTER 3 DAYS Most Recent Lab Values WBC 16.9 K/uL (4.8-10.8) H D 09/10/18 07:00 RBC 4.11 Mil/uL (3.80-5.20) 09/10/18 07:00 Hgb 11.5 g/dL (12.0-16.0) L 09/10/18 07:00 Hct 35.2 % (34.0-47.0) 09/10/18 07:00 MCV 85.8 fl (81.0-99.0) 09/10/18 07:00 MCH 28.0 pg (27.0-31.0) 09/10/18 07:00 MCHC 32.6 g/dL (33.0-37.0) L 09/10/18 07:00 RDW 15.7 % (11.5-14.5) H 09/10/18 07:00 Plt Count 406 K/uL (130-400) H 09/10/18 07:00 MPV 7.5 fl (7.2-11.7) 09/10/18 07:00 Neut % (Auto) 88.1 % (50.0-75.0) H 09/10/18 07:00 Lymph % (Auto) 5.4 % (20.0-40.0) L 09/10/18 07:00 [place] % (Auto) 2.9 % (0.0-10.0) 09/10/18 07:00 Eos % (Auto) 3.4 % (0.0-4.0) 09/10/18 07:00 Baso % (Auto) 0.2 % (0.0-2.0) 09/10/18 07:00 Neut # (Auto) 14.9 K/uL (1.8-7.0) H 09/10/18 07:00 Lymph # (Auto) 0.9 K/uL (1.0-4.3) L 09/10/18 07:00 [place] # (Auto) 0.5 K/uL (0.0-0.8) 09/10/18 07:00 Eos # (Auto) 0.6 K/uL (0.0-0.7) 09/10/18 07:00 Baso # (Auto) 0.0 K/uL (0.0-0.2) 09/10/18 07:00 Neutrophils % (Manual) 84 % (42-75) H 09/10/18 07:00 Lymphocytes % (Manual) 9 % (20-50) L 09/10/18 07:00 Monocytes % (Manual) 4 % (0-10) 09/10/18 07:00 Eosinophils % (Manual) 3 % (0-7) 09/10/18 07:00 Basophils % (Manual) 1 % (0-2) 09/06/18 17:50 Platelet Estimate Slightly increased (NORMAL) H 09/10/18 07:00 Hypochromasia (manual) Slight 09/10/18 07:00 Anisocytosis (manual) Slight 09/10/18 07:00 ESR 105 mm/hr (0-30) H 09/10/18 07:00 Sodium 138 mmol/l (132-148) 09/07/18 06:14 Potassium 3.7 MMOL/L (3.6-5.0) 09/07/18 06:14 Chloride 95 mmol/L (98-107) L 09/07/18 06:14 Carbon Dioxide 34 mmol/L (22-30) H 09/07/18 06:14 Anion Gap 13 (10-20) 09/07/18 06:14 BUN 16 mg/dl (7-17) 09/07/18 06:14 Creatinine 1.2 mg/dl (0.7-1.2) 09/07/18 06:14 Est GFR ( Amer) 51 09/07/18 06:14 Est GFR (Non-Af Amer) 42 09/07/18 06:14 Random Glucose 116 mg/dL (65-105) H 09/07/18 06:14 Calcium 8.6 mg/dL (8.4-10.2) 09/07/18 06:14 NT-Pro-B Natriuret Pep 253 pg/ml (0-900) 09/06/18 17:50 Vancomycin Trough 10.1 ug/mL (5.0-10.0) H 09/08/18 10:00 - Hospital Course Hospital Course: 87 Y/O female with a PMH of COPD, CAD, CHF, AFib and chronic b/l chronic baseline leg dermatitis and swelling, who was admitted on 09/06/18 due to aggravating bilateral lower leg redness and swelling with diagnosis of bilateral lower extremity stasis dermatitis with leg cellulitis. During her hospital course patient received treatment with IV antibiotics Vancomycin started on admission showing improvement of her b/l LE cellulitis on the second day after admission. Patient had b/l LE Doppler US done negative for DVT, WBC within range on admission, blood cultures showed no growth after 48 hours. Patient was evaluated during her course by Podiatry and treated with Acewrap banding for her chronic LE swelling and stasis dermatitis. As per podiatry patient can follow up as outpatient. On day 3 after admission patient was noted developing an erythematous rash on trunk and extremities of inconclusive cause. VAnco was discontinued. Patient has remained afebrile during hospital course, today patient rash is unchanged, otherwise she denies SOB, CP, WIN, or fever. Patient c/o some itching and nausea and benadryl IV, Zofran 4 IV, Hydrocosrtizone given. Patient today is found hemodinamically stable, with no other acute medical complaints. Decision is taken to DC and transfer to TCU for patient will benefit with further PT to improve gait and ADL at this time. Upon DC to TCU patient will continue with her home meds as per med reconciliation. Discharge Exam - Head Exam Head Exam: ATRAUMATIC, NORMOCEPHALIC - Additional Findings Additional findings: - Additional Findings Additional findings: - Additional Findings Additional findings: - Constitutional Appears: No Acute Distress - Head Exam Head Exam: ATRAUMATIC, NORMAL INSPECTION, NORMOCEPHALIC - Eye Exam Eye Exam: EOMI - ENT Exam ENT Exam: Mucous Membranes Moist - Neck Exam Neck Exam: Full ROM - Respiratory Exam Respiratory Exam: Prolonged Expiratory Phase - Cardiovascular Exam Cardiovascular Exam: REGULAR RHYTHM, +S1, +S2 - GI/Abdominal Exam GI & Abdominal Exam: Obese, Soft, no tenderness - Extremities Exam Additional comments: LE with sergio wrap in place( done by podiatry) - Neurological Exam Neurological Exam: Alert, Awake, Oriented x3 - Psychiatric Exam Psychiatric exam: Normal Affect - Skin Skin Exam: Normal Color, Warm Additional comments: eryhtematous patchy rash that extends to the thighs, trunk, back and internal aspect of upper extremities. rash is unchanged today. Discharge Plan - Follow Up Plan Condition: FAIR Disposition: REHAB FACILITY/REHAB UNIT Instructions: Dependent Edema (DC) Referrals: Armaan Bell MD [Staff Provider] - Kaushik Marquez MD [Family Provider] - Praveen Rossi MD [Staff Provider] - Clinical Quality Measures - CQM - Stroke Anticoagulation Prescribed for Atrial Flutter, Atrial Fibrillation and History of:: Yes Statin prescribed: Yes - CQM - VTE Did patient receive overlap therapy during hosptialization?: Yes Is patient being discharged on overlap therapy?: Yes - CQM - Heart Failure Beta-Sergey Prescribed: Bisoprolol AnticoagulationTherapy for Atrial Fibrillation/Atrialflutter: Yes [facility]
--- NOTE | 2018-09-10 15:19 | CP.PCM.PN ---
Subjective - Date & Time of Evaluation Date of Evaluation: 09/10/18 Time of Evaluation: 15:18 - Subjective Subjective: Seen on rounds in the afternoon. Presently sedated after receiving parenteral steroids and Benadryl. Awakens easily, but drowsy. Follows simple commands. Vital signs appear to be stable. She remains afebrile. WBC up to 16.9, Hgb and platelets are stable. Diffuse erythematous eruption has become more confluent and pruritic. Respiratory status seems stable w/o complaint of SOB or cough. Breath sounds are diminished w/o audible wheezes or bronchial breath sounds. Leukocytosis may well be secondary to repeated doses of hydrocortisone. Dermatology consultation would be helpful. Respiratory drug regimen will remain the same. Objective - Vital Signs/Intake and Output Vital Signs (last 24 hours): Temp Pulse Resp BP Pulse Ox 98.9 F 87 20 144/74 93 L 09/10/18 08:39 09/10/18 09:09 09/10/18 08:39 09/10/18 09:09 09/10/18 08:39 - Medications Medications: Current Medications Acetaminophen (Tylenol 325mg Tab) 650 mg PO Q6 PRN PRN Reason: Pain, moderate (4-7) Acetaminophen (Tylenol 325mg Tab) 325 mg PO Q6 PRN PRN Reason: Pain, Mild (1-3) Albuterol/Ipratropium (Duoneb 3 Mg/0.5 Mg (3 Ml) Ud) 3 ml INH RQ6 PRN PRN Reason: Shortness of Breath Apixaban (Eliquis) 5 mg PO BID [facility]; Protocol Last Admin: 09/10/18 09:08 Dose: 5 mg Betamethasone Dipropion Augmented (Diprolene Af) 0 gm TOP BID [facility] Last Admin: 09/10/18 09:06 Dose: 1 applic Bisoprolol Fumarate (Zebeta) 5 mg PO DAILY [facility] Last Admin: 09/10/18 09:09 Dose: 5 mg Diltiazem HCl (Cardizem Cd) 120 mg PO DAILY [facility] Last Admin: 09/10/18 09:08 Dose: 120 mg Furosemide (Lasix) 40 mg PO DAILY [facility] Last Admin: 09/10/18 09:08 Dose: 40 mg Isosorbide Mononitrate (Imdur Er) 30 mg PO DAILY [facility] Last Admin: 03/06/19 09:08 Dose: 30 mg Lisinopril (Zestril) 20 mg PO DAILY [facility] Last Admin: 09/10/18 09:09 Dose: 20 mg - Labs Labs: 09/10/18 07:00 09/07/18 06:14
--- NOTE | 2018-09-10 17:29 | CP.PCM.PN ---
Subjective - Date & Time of Evaluation Date of Evaluation: 09/10/18 Time of Evaluation: 17:27 - Subjective Subjective: Podiatry Consult Note: Dr. Bell 87 year old female patient seen and evaluated at the bedside with for b/l lower extremity chronic stasis edema, dermatitis with possible cellulitis. Patient states that she has some pain in her legs. Patient states that she still has rash in her arms for which she is receiving Benadryl. She denies any overnight nausea/vomiting/fever/chest pain/chills, or shortness of breath. Objective - Vital Signs/Intake and Output Vital Signs (last 24 hours): Temp Pulse Resp BP Pulse Ox 97.7 F 57 L 18 144/74 94 L 09/10/18 16:40 09/10/18 16:40 09/10/18 16:40 09/10/18 09:09 09/10/18 16:40 - Medications Medications: Current Medications Acetaminophen (Tylenol 325mg Tab) 650 mg PO Q6 PRN PRN Reason: Pain, moderate (4-7) Acetaminophen (Tylenol 325mg Tab) 325 mg PO Q6 PRN PRN Reason: Pain, Mild (1-3) Albuterol/Ipratropium (Duoneb 3 Mg/0.5 Mg (3 Ml) Ud) 3 ml INH RQ6 PRN PRN Reason: Shortness of Breath Apixaban (Eliquis) 5 mg PO BID [facility]; Protocol Last Admin: 09/10/18 09:08 Dose: 5 mg Betamethasone Dipropion Augmented (Diprolene Af) 0 gm TOP BID [facility] Last Admin: 09/10/18 09:06 Dose: 1 applic Bisoprolol Fumarate (Zebeta) 5 mg PO DAILY [facility] Last Admin: 09/10/18 09:09 Dose: 5 mg Diltiazem HCl (Cardizem Cd) 120 mg PO DAILY [facility] Last Admin: 09/10/18 09:08 Dose: 120 mg Furosemide (Lasix) 40 mg PO DAILY [facility] Last Admin: 09/10/18 09:08 Dose: 40 mg Isosorbide Mononitrate (Imdur Er) 30 mg PO DAILY [facility] Last Admin: 09/10/18 09:08 Dose: 30 mg Lisinopril (Zestril) 20 mg PO DAILY [facility] Last Admin: 09/10/18 09:09 Dose: 20 mg - Labs Labs: 09/10/18 07:00 09/07/18 06:14 - Constitutional Appears: Well, No Acute Distress - Head Exam Head Exam: ATRAUMATIC, NORMOCEPHALIC - Extremities Exam Additional comments: B/L lower extremities focused exam: Vascular: DP/PT 1/4, Cap refill < 3 seconds, Temp gradient warm to warm, Mild pitting edema appreciated to bilateral lower extremities, Edema is improving. Neuro: Gross and protective sensation intact. Derm: B/L erythema to b/l lower extremities circumfrentially beginning at tibial tuberosity extending down to digits, which decrease in erythema when elevated. No open lesions at this time, no weeping or drainage appreciated. No purulence, nor streaking appreciated. Elongated, dystrophic nails. MSK: Pain with palpation of posterior aspect of b/l lower extremities, MMT 4/5 in all groups b/l. - Neurological Exam Neurological Exam: Alert, Awake - Psychiatric Exam Psychiatric exam: Normal Affect, Normal Mood Assessment and Plan - Assessment and Plan (Free Text) Assessment: 87 year old female patient seen and evaluated at the bedside with for b/l lower extremity chronic stasis edema, dermatitis with possible cellulitis. Plan: Patient seen and evaluated Discussed patient plan in detail with Dr. Bell Charts, labs and vitals reviewed: Afebrile, WBCs 16.9 , ESR > 120 Ammonium lactate 12% lotion and Fer bandage applied to lower extremities no open wounds or weeping at this time Patient to continue elevating lower extremities. LE US; negative for DVT Blood cultures taken; No growth after 48 hours Continue IV abx as per primary team. C/W pain management as needed. Continue wearing surgical shoes when ambulating. Podiatry will continue to follow up the patient upon discharge.
--- NOTE | 2018-09-10 19:58 | CP.PCM.PN ---
Subjective - Date & Time of Evaluation Date of Evaluation: 09/10/18 Time of Evaluation: 11:00 - Subjective Subjective: Patient was seen and evaluated bedside . All chart and clinical data reviewed . Case discussed with resident . Complaining of vertigo, nausea and with bilious vomiting today Continuos to have persistent diffuse erythematous, blanching ,pruritic rash all over her body with no stridor or wheezing. Hemodynamically stable, afebrile Objective - Vital Signs/Intake and Output Vital Signs (last 24 hours): Temp Pulse Resp BP Pulse Ox 97.7 F 57 L 18 144/74 94 L 09/10/18 16:40 09/10/18 16:40 09/10/18 16:40 09/10/18 09:09 09/10/18 16:40 - Medications Medications: Current Medications Acetaminophen (Tylenol 325mg Tab) 650 mg PO Q6 PRN PRN Reason: Pain, moderate (4-7) Acetaminophen (Tylenol 325mg Tab) 325 mg PO Q6 PRN PRN Reason: Pain, Mild (1-3) Albuterol/Ipratropium (Duoneb 3 Mg/0.5 Mg (3 Ml) Ud) 3 ml INH RQ6 PRN PRN Reason: Shortness of Breath Apixaban (Eliquis) 5 mg PO BID [facility]; Protocol Last Admin: 09/10/18 17:38 Dose: 5 mg Betamethasone Dipropion Augmented (Diprolene Af) 0 gm TOP BID [facility] Last Admin: 09/10/18 17:38 Dose: 1 applic Bisoprolol Fumarate (Zebeta) 5 mg PO DAILY [facility] Last Admin: 09/10/18 09:09 Dose: 5 mg Diltiazem HCl (Cardizem Cd) 120 mg PO DAILY [facility] Last Admin: 09/10/18 09:08 Dose: 120 mg Furosemide (Lasix) 40 mg PO DAILY [facility] Last Admin: 09/10/18 09:08 Dose: 40 mg Isosorbide Mononitrate (Imdur Er) 30 mg PO DAILY [facility] Last Admin: 09/10/18 09:08 Dose: 30 mg Lisinopril (Zestril) 20 mg PO DAILY [facility] Last Admin: 09/10/18 09:09 Dose: 20 mg - Labs Labs: 09/10/18 07:00 09/07/18 06:14 - Constitutional Appears: Non-toxic, Other (obese ) - Head Exam Head Exam: ATRAUMATIC, NORMOCEPHALIC - Eye Exam Eye Exam: EOMI, PERRL Pupil Exam: NORMAL ACCOMODATION - ENT Exam ENT Exam: Mucous Membranes Moist, Normal Exam - Neck Exam Neck Exam: Normal Inspection - Respiratory Exam Respiratory Exam: Decreased Breath Sounds (bibasilar ), Clear to Ausculation Bilateral. absent: Wheezes, Respiratory Distress, Stridor - Cardiovascular Exam Cardiovascular Exam: REGULAR RHYTHM, RRR, +S1, +S2. absent: JVD - GI/Abdominal Exam GI & Abdominal Exam: Soft, Normal Bowel Sounds. absent: Distended, Guarding, Rebound - Rectal Exam Rectal Exam: Deferred - Extremities Exam Additional comments: chronic bilateral LE stasis dermatitis extending from ankles to the knees bilaterally - Back Exam Back Exam: NORMAL INSPECTION - Neurological Exam Neurological Exam: Alert, Awake, CN II-XII Intact, Oriented x3 - Psychiatric Exam Psychiatric exam: Normal Affect - Skin Skin Exam: Dry, Warm Additional comments: diffuse eczematous blanching rash pruritic involving all her body , Trunk , upper and LE Assessment and Plan - Assessment and Plan (Free Text) Assessment: Patient was seen and evaluated bedside . All chart and clinical data reviewed.Case discussed with resident . Agree with assessment and plan. 87 y/o female with PMH Obesity BMI 47, chronic bilateral LE stasis dermatitis, COPD on home O2, paroxysmal Afib presented for worsening redness , swelling and pain to her LE. Patient was discharged home 2 weeks ago after being treated for Afib with RVR and CAP. She did receive physical therapy for gait training and was discharged home in stable conditions with home services, visiting nurse and PT. She was placed under observation for LE stasis dermatitis and possible cellulitis and started on Vancomycin IV .She developed a Diffuse erythematous pruritic rash all over her body that now has coalesced together. Vancomycin and lac hydrin were new medications that were strated recently and were discontinued She was given Hydrocortizone IV and Benadryl with minimal improvement of rash . Developed vertigo with nausea and vomiting and was treated with Meclizine and Zofran IV with improvement of her symptoms PT consulted and planned to discharge patient to TCU for PT Dermatology was consulted for the rash Dx 1.Diffuse Pruritic erythematous rash-- most likely allergic reaction , drug induced .Vanco and lyc hydrin held. Dermatology consulted.Will give another dose of Hydrocortizone IV and Benadryl today 2.Chronic bilateral LE stasis dermatitis-- podiatry consulted .RAJAN wrapping . F/u with podiatry while in house 3. Vertigo - Meclizine PRN given and PT consulted .Will order imaging if symptoms persists . Plan to d/c to TCU for PT 4. Chronic COPD on home O2- stable. Pulmonary on consult 5. Obesity BMI 47 6. Paroxysmal Afib- at present in SR. Continue cardizem PO and Eliquist 7.HTN - controlled on home meds , Lisinopril, Bisoprolol
--- NOTE | 2018-09-11 06:23 | CARD ---
APPROVED REPORT Date of service: 09/06/2018 EKG Measurement Heart [id number] <Conclusion> Normal sinus rhythm Normal Electrocardiogram
[2018-09-11 06:32] LABS: BASO % 0.1 % (0.0-2.0); EOS # 0.7 K/uL (0.0-0.7); EOS % 4.3 % (0.0-4.0); HEMOGLOBIN 11.1 g/dL (12.0-16.0); LYMPH # 1.1 K/uL (1.0-4.3); LYMPH % 6.3 % (20.0-40.0); MEAN CELL VOLUME 85.9 fl (81.0-99.0); MEAN CORPUSCULAR HEMOGLOBIN 28.1 pg (27.0-31.0); MEAN CORPUSCULAR HGB CONC 32.8 g/dL (33.0-37.0); MEAN PLATELET VOLUME 7.6 fl (7.2-11.7); MONO # 0.7 K/uL (0.0-0.8); MONO % 3.9 % (0.0-10.0); NEUT # 14.7 K/uL (1.8-7.0); NEUT % 85.4 % (50.0-75.0); NRBC % 0.1 % (0.0-0.0); RBC 3.96 Mil/uL (3.80-5.20); RED CELL DISTRIBUTION WIDTH 15.7 % (11.5-14.5); WHITE BLOOD COUNT 17.2 K/uL (4.8-10.8)
[2018-09-11 06:43] LABS: ALBUMIN 3.3 g/dL (3.5-5.0); ALT/SGPT 43 U/L (9-52); AST/SGOT 27 U/L (14-36); BLOOD UREA NITROGEN 25 mg/dl (7-17); CALCIUM 8.9 mg/dL (8.4-10.2); GFR NON-AFRICAN AMERICAN 52
[2018-09-11] MEDS: diltiaZEM 120 mg/24 Hours CD Cap PO SCH (11:42)
[2018-09-11] MEDS: Betamethasone Dip 0.05% Cream(15 gm) TOP SCH (15:42)
--- NOTE | 2018-09-11 17:13 | CP.PCM.PN ---
<Ines ThorntonKali - Last Filed: 09/11/18 17:21> Subjective - Date & Time of Evaluation Date of Evaluation: 09/11/18 Time of Evaluation: 09:05 - Subjective Subjective: Patient seen and examined this morning at bedside, in NAD. Patient's DC to TCU held yesterday due to c/o vertigo with nausea and vomiting after patient had reaction most likely to benadryl used for itching, pt was treated with Meclizine and Zofran IV with resolution of her symptoms. Patient today c/o mild itching, rash is present with noted mild improvement today, dermatology was consulted. Patient denies SOB, CP, N/V/D, fever or other acute medical complaint at this time. Objective - Vital Signs/Intake and Output Vital Signs (last 24 hours): Temp Pulse Resp BP Pulse Ox 98.2 F 58 L 18 110/61 94 L 09/11/18 16:43 09/11/18 16:43 09/11/18 16:43 09/11/18 16:43 09/11/18 16:43 - Medications Medications: Current Medications Acetaminophen (Tylenol 325mg Tab) 650 mg PO Q6 PRN PRN Reason: Pain, moderate (4-7) Acetaminophen (Tylenol 325mg Tab) 325 mg PO Q6 PRN PRN Reason: Pain, Mild (1-3) Albuterol/Ipratropium (Duoneb 3 Mg/0.5 Mg (3 Ml) Ud) 3 ml INH RQ6 PRN PRN Reason: Shortness of Breath Apixaban (Eliquis) 5 mg PO BID [facility]; Protocol Last Admin: 09/11/18 11:36 Dose: 5 mg Betamethasone Dipropionate (Diprolene) 0 applic TOP BID [facility] Bisoprolol Fumarate (Zebeta) 5 mg PO DAILY [facility] Last Admin: 09/11/18 11:39 Dose: Not Given Diltiazem HCl (Cardizem Cd) 120 mg PO DAILY [facility] Last Admin: 09/11/18 11:42 Dose: 120 mg Furosemide (Lasix) 40 mg PO DAILY [facility] Last Admin: 09/11/18 11:34 Dose: 40 mg Isosorbide Mononitrate (Imdur Er) 30 mg PO DAILY [facility] Last Admin: 09/11/18 11:39 Dose: Not Given Lisinopril (Zestril) 20 mg PO DAILY [facility] Last Admin: 09/11/18 11:39 Dose: Not Given Meclizine HCl (Antivert) 12.5 mg PO DAILY PRN PRN Reason: vertigo - Labs Labs: 09/11/18 06:15 09/11/18 06:15 - Additional Findings Additional findings: Additional Findings Additional findings: - Constitutional Appears: No Acute Distress - Head Exam Head Exam: ATRAUMATIC, NORMAL INSPECTION, NORMOCEPHALIC - Eye Exam Eye Exam: EOMI - ENT Exam ENT Exam: Mucous Membranes Moist - Neck Exam Neck Exam: Full ROM - Respiratory Exam Respiratory Exam: Prolonged Expiratory Phase - Cardiovascular Exam Cardiovascular Exam: REGULAR RHYTHM, +S1, +S2 - GI/Abdominal Exam GI & Abdominal Exam: Soft - Extremities Exam Additional comments: LE with rajan wrap in place( done by podiatry) - Neurological Exam Neurological Exam: Alert, Awake, Oriented x3 - Psychiatric Exam Psychiatric exam: Normal Affect - Skin Skin Exam: Normal Color, Warm Additional comments: eryhtematous patchy rash that extends to the thighs, trunk, back and internal aspect of upper extremities. Today the rash is comparatively improved in the area of the chest and upper extremities. Assessment and Plan - Assessment and Plan (Free Text) Assessment: 87 y/o F with a PMHx of COPD, CAD, CHF, paroxysmal AFib and chronic b/l leg dermatitis and swelling admitted for evaluation and examination of intractable b/l leg pain and aggravating bilateral lower leg redness and swelling. #. Bilateral Lower extremity Stasis dermatitis with leg cellulitis -chronic stasis dermatitis , aggravated by edema improving, cellulitis diagnosis less likely at this time. -Dopple venous US negative for DVT -Pt was started on IV Vanco in ED, will discontinue Vanco due to patchy erythematous patchy rash likely due to Vanco use, also cellulitis less likely at this time. - Podiatry consulted, will f/u recomms - keep leg elevated - Podiatry wrapped RAJAN bandage on both LE to decrease edema -Vanco trough last 10.1 , stopped -PT eval and tx #Erythemaotous patchy rash All meds reviewed, new meds started during hospitalization were stopped. Likely secondary to use of new medications, Vanco stopped. actual cause inconclusive -Hidrocortison 100 mg IV -Benadryl 50 IV given today -Betamethasone Dipropionate top BID -Will f/u resolution #. Chronic COPD --On Oxygen by [facility] at home , cont 2 LPM --Pulmonology consult, Dr Marquez, recomms appreciated - cont Duoneb #. Acute on chronic CHF exacerbation diastolic dysfunction- preserved EF --Last echocardiogram on 08/11/18: LVEF 50-55%. - cont PO Lasix, Lisinopril, Imdur and Bisoprolol #. Paroxysmal Afib --Rate controlled --Continue with Cardizem, Bisoprolol and Eliquis #DVT prophylaxis --On Eliquis BID Diet --Heart healthy diet <Skye Maldonado - Last Filed: 09/11/18 17:57> Objective - Vital Signs/Intake and Output Vital Signs (last 24 hours): Temp Pulse Resp BP Pulse Ox 98.2 F 58 L 18 110/61 94 L 09/11/18 16:43 09/11/18 16:43 09/11/18 16:43 09/11/18 16:43 09/11/18 16:43 - Medications Medications: Current Medications Acetaminophen (Tylenol 325mg Tab) 650 mg PO Q6 PRN PRN Reason: Pain, moderate (4-7) Acetaminophen (Tylenol 325mg Tab) 325 mg PO Q6 PRN PRN Reason: Pain, Mild (1-3) Albuterol/Ipratropium (Duoneb 3 Mg/0.5 Mg (3 Ml) Ud) 3 ml INH RQ6 PRN PRN Reason: Shortness of Breath Apixaban (Eliquis) 5 mg PO BID [facility]; Protocol Last Admin: 09/11/18 17:32 Dose: 5 mg Betamethasone Dipropionate (Diprolene) 0 applic TOP BID [facility] Last Admin: 09/11/18 17:33 Dose: 1 applic Bisoprolol Fumarate (Zebeta) 5 mg PO DAILY [facility] Last Admin: 09/11/18 11:39 Dose: Not Given Diltiazem HCl (Cardizem Cd) 120 mg PO DAILY [facility] Last Admin: 09/11/18 11:42 Dose: 120 mg Furosemide (Lasix) 40 mg PO DAILY [facility] Last Admin: 09/11/18 11:34 Dose: 40 mg Isosorbide Mononitrate (Imdur Er) 30 mg PO DAILY [facility] Last Admin: 09/11/18 11:39 Dose: Not Given Lisinopril (Zestril) 20 mg PO DAILY [facility] Last Admin: 09/11/18 11:39 Dose: Not Given Meclizine HCl (Antivert) 12.5 mg PO DAILY PRN PRN Reason: vertigo - Labs Labs: 09/11/18 06:15 09/11/18 06:15 Attending/Attestation - Attestation I have personally seen and examined this patient.: Yes I have fully participated in the care of the patient.: Yes I have reviewed all pertinent clinical information, including history, physical exam and plan: Yes Notes (Text): 1.Diffuse Pruritic erythematous rash - most likely allergic reaction , drug induced prob from [facility] -Dermatology consulted -cont Hydrocortizone IV 2.Chronic bilateral LE stasis dermatitis - podiatry consulted .RAJAN wrapping 3. Vertigo - Meclizine PRN given and PT consulted - plan to d/c to TCU 4. Chronic COPD on home O2 - stable. Pulmonary on consult 5. Obesity BMI 47 6. Paroxysmal Afib - at present in SR. -Continue cardizem PO and Eliquis 7.HTN - controlled on home meds , Lisinopril, Bisoprolol
[2018-09-11] MEDS: Betamethasone Dip 0.05% 15 GM TUBE TOP SCH (17:33)
[2018-09-12 06:52] LABS: MEAN CELL VOLUME 86.5 fl (81.0-99.0); MEAN CORPUSCULAR HEMOGLOBIN 27.5 pg (27.0-31.0); MEAN CORPUSCULAR HGB CONC 31.7 g/dL (33.0-37.0); RED CELL DISTRIBUTION WIDTH 16.1 % (11.5-14.5); WHITE BLOOD COUNT 14.6 K/uL (4.8-10.8)
[2018-09-12 07:02] LABS: ALBUMIN 3.1 g/dL (3.5-5.0); ALT/SGPT 41 U/L (9-52); AST/SGOT 29 U/L (14-36); BLOOD UREA NITROGEN 24 mg/dl (7-17); CALCIUM 8.6 mg/dL (8.4-10.2); GFR NON-AFRICAN AMERICAN 52
--- NOTE | 2018-09-12 08:45 | CP.PCM.PN ---
Subjective - Date & Time of Evaluation Date of Evaluation: 09/12/18 (\) Time of Evaluation: 08:42 - Subjective Subjective: Podiatry progress Note: Dr. Bell 87 year old female patient seen and evaluated at the bedside for b/l lower extremity chronic stasis edema, dermatitis with possible cellulitis. Patient states that she has some pain in her legs. Patient states that she still has rash in her arms fbut it's improved now. She states that yesterday she started to develop pain in her right ankle. She denies any trauma to her ankle. She denies any overnight nausea/vomiting/fever/chest pain/chills, or shortness of breath. Objective - Vital Signs/Intake and Output Vital Signs (last 24 hours): Temp Pulse Resp BP Pulse Ox 97.6 F 71 20 121/68 97 09/12/18 08:24 09/12/18 08:24 09/12/18 08:24 09/12/18 08:24 09/12/18 08:24 Intake and Output: 09/12/18 09/12/18 06:59 18:59 Intake Total 480 Output Total 280 Balance 200 - Medications Medications: Current Medications Acetaminophen (Tylenol 325mg Tab) 650 mg PO Q6 PRN PRN Reason: Pain, moderate (4-7) Last Admin: 09/12/18 06:14 Dose: 650 mg Acetaminophen (Tylenol 325mg Tab) 325 mg PO Q6 PRN PRN Reason: Pain, Mild (1-3) Albuterol/Ipratropium (Duoneb 3 Mg/0.5 Mg (3 Ml) Ud) 3 ml INH RQ6 PRN PRN Reason: Shortness of Breath Apixaban (Eliquis) 5 mg PO BID [facility]; Protocol Last Admin: 09/11/18 17:32 Dose: 5 mg Betamethasone Dipropionate (Diprolene) 0 applic TOP BID [facility] Last Admin: 09/11/18 17:33 Dose: 1 applic Bisoprolol Fumarate (Zebeta) 5 mg PO DAILY [facility] Last Admin: 09/11/18 11:39 Dose: Not Given Diltiazem HCl (Cardizem Cd) 120 mg PO DAILY [facility] Last Admin: 09/11/18 11:42 Dose: 120 mg Furosemide (Lasix) 40 mg PO DAILY [facility] Last Admin: 09/11/18 11:34 Dose: 40 mg Isosorbide Mononitrate (Imdur Er) 30 mg PO DAILY [facility] Last Admin: 09/11/18 11:39 Dose: Not Given Lisinopril (Zestril) 20 mg PO DAILY [facility] Last Admin: 09/11/18 11:39 Dose: Not Given Meclizine HCl (Antivert) 12.5 mg PO DAILY PRN PRN Reason: vertigo - Labs Labs: 09/12/18 06:20 09/12/18 06:20 - Constitutional Appears: Non-toxic, No Acute Distress - Head Exam Head Exam: ATRAUMATIC, NORMOCEPHALIC - Extremities Exam Additional comments: B/L lower extremities focused exam: Vascular: DP/PT 1/4, Cap refill < 3 seconds, Temp gradient warm to warm, Mild pitting edema appreciated to bilateral lower extremities, Edema is improving. Neuro: Gross and protective sensation intact. Derm: B/L erythema to b/l lower extremities circumfrentially beginning at tibial tuberosity extending down to digits, which decrease in erythema when elevated, Improved. No open lesions at this time, no weeping or drainage appreciated. No purulence, nor streaking appreciated. Elongated, dystrophic nails. MSK: Pain with palpation of posterior aspect of b/l lower extremities, MMT 4/5 in all groups b/l. Pain on palpating the right perimalleolar area. Pain with right ankle ROM - Neurological Exam Neurological Exam: Alert, Awake Assessment and Plan - Assessment and Plan (Free Text) Assessment: 87 year old female patient seen and evaluated at the bedside with for b/l lower extremity chronic stasis edema, dermatitis with possible cellulitis. Plan: Patient seen and evaluated Discussed patient plan in detail with Dr. Bell Charts, labs and vitals reviewed: Afebrile, WBCs 14.6 , ESR > 105 (09/10) Ammonium lactate 12% lotion and Fer bandage applied to lower extremities no open wounds or weeping at this time Patient to continue elevating lower extremities. LE US; negative for DVT Blood cultures taken; No growth after 5 days. Continue IV abx as per primary team. C/W pain management as needed. Ordered right ankle X-ray 3 views. Continue wearing surgical shoes when ambulating. Podiatry will continue to follow up the patient upon discharge.
[2018-09-12] MEDS: diltiaZEM 120 mg/24 Hours CD Cap PO SCH (08:48)
[2018-09-12] MEDS: Betamethasone Dip 0.05% 15 GM TUBE TOP SCH (08:50)
--- NOTE | 2018-09-12 10:15 | CP.PCM.CON ---
History of Present Illness - History of Present Illness History of Present Illness: Pt is an 87 year old female admitted to [facility] and referred to the junior copywriter for evaluation. Pt denied medical issues apart from oxygen use pior to admission. She reported sliding on the floor and being unable to get up prior to admission. See medical record for complete medical history/medication list. Social History: Pt lives alone in a senior building and is very happy there. She is and has one living child. Her other child 2 years ago. Pt reported very positive relationships with family and the desire "not to burden" her daughter. She spoke of a desire for a homemaker on dischage to assist. Pt denied a psych history, denied a history of alc/sub abuse and no current smoking. Pt spoke of her active life in her building with [employer], trips, etc. On interview, pt was alert, oriented to x3, pt able to state the year, month, day/date, president and mayor of [facility]. Cognitive functioining intact on screening. Pt spoke of consenting to rehab to ease the pressure on her daughter. Pt spoke of her desire for healing and return to her active life. Dx: Adjustment Dx with depression. Plan: Continued sup therapy Pt would benefit from homemaker services on discharge. Thank you for this referral, Dr. Garcia Past Patient History - Infectious Disease Hx of Infectious Diseases: None - Tetanus Immunizations Tetanus Immunization: Unknown - Past Medical History & Family History Past Medical History?: Yes - Past Social History Smoking Status: Former Smoker - CARDIAC Hx Atrial Fibrillation: Yes Hx Congestive Heart Failure: Yes Hx Hypercholesterolemia: Yes Hx Hypertension: Yes Hx Pacemaker: No Hx Peripheral Edema: Yes - PULMONARY Hx Chronic Obstructive Pulmonary Disease (COPD): Yes Hx Emphysema: Yes Hx Pneumonia: Yes - NEUROLOGICAL Hx Neurological Disorder: Yes Hx Syncope: Yes Other/Comment: AMS on recent admission. - HEENT Hx HEENT Problems: No - RENAL Hx Chronic Kidney Disease: No - ENDOCRINE/METABOLIC Hx Endocrine Disorders: Yes Other/Comment: Multinodular thyroid. - HEMATOLOGICAL/ONCOLOGICAL Hx Human Immunodeficiency Virus (HIV): No - INTEGUMENTARY Hx Dermatological Problems: Yes Other/Comment: 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 - MUSCULOSKELETAL/RHEUMATOLOGICAL Hx Fractures: Yes (right ankle) - GASTROINTESTINAL Hx Gastrointestinal Disorders: No - GENITOURINARY/GYNECOLOGICAL Hx Genitourinary Disorders: Yes Hx Incontinence: Yes Other/Comment: Stress Incontinence - PSYCHIATRIC Hx Psychophysiologic Disorder: No Hx Substance Use: No - SURGICAL HISTORY Hx Appendectomy: No Hx Coronary Stent: Yes (x 2) - ANESTHESIA Hx Anesthesia: Yes Hx Anesthesia Reactions: No Hx Malignant Hyperthermia: No Meds Home Medications: Home Medication List Medication Instructions Recorded Confirmed Type Acetaminophen [Tylenol 325mg tab] 325 mg PO Q6 PRN tab 09/10/18 Rx Albuterol/Ipratropium [Duoneb 3 3 ml INH RQ6 PRN neb 09/10/18 Rx mg/0.5 mg (3 ml) UD] Allergies/Adverse Reactions: Allergies Allergy/AdvReac Type Severity Reaction Status Date / Time Penicillins Allergy Mild SWELLING Verified 08/13/18 15:47 vancomycin Allergy RASH Verified 09/10/18 07:55 - Medications Medications: Current Medications Acetaminophen (Tylenol 325mg Tab) 650 mg PO Q6 PRN PRN Reason: Pain, moderate (4-7) Last Admin: 09/12/18 06:14 Dose: 650 mg Acetaminophen (Tylenol 325mg Tab) 325 mg PO Q6 PRN PRN Reason: Pain, Mild (1-3) Albuterol/Ipratropium (Duoneb 3 Mg/0.5 Mg (3 Ml) Ud) 3 ml INH RQ6 PRN PRN Reason: Shortness of Breath Apixaban (Eliquis) 5 mg PO BID [facility]; Protocol Last Admin: 09/12/18 08:48 Dose: 5 mg Betamethasone Dipropionate (Diprolene) 0 applic TOP BID [facility] Last Admin: 09/12/18 08:50 Dose: 1 applic Bisoprolol Fumarate (Zebeta) 5 mg PO DAILY [facility] Last Admin: 09/12/18 08:49 Dose: 5 mg Diltiazem HCl (Cardizem Cd) 120 mg PO DAILY [facility] Last Admin: 09/12/18 08:48 Dose: 120 mg Furosemide (Lasix) 40 mg PO DAILY [facility] Last Admin: 09/12/18 08:50 Dose: 40 mg Isosorbide Mononitrate (Imdur Er) 30 mg PO DAILY [facility] Last Admin: 09/12/18 08:48 Dose: 30 mg Lisinopril (Zestril) 20 mg PO DAILY [facility] Last Admin: 09/12/18 08:49 Dose: 20 mg Meclizine HCl (Antivert) 12.5 mg PO DAILY PRN PRN Reason: vertigo Results - Vital Signs Recent Vital Signs: Last Vital Signs Temp 97.6 F 09/12/18 08:24 Pulse 85 09/12/18 08:49 Resp 20 09/12/18 08:24 BP 121/68 09/12/18 08:50 Pulse Ox 97 09/12/18 08:24 - Labs Result Diagrams: 09/12/18 06:20 09/12/18 06:20 Labs: Laboratory Results - last 24 hr 09/12/18 09/12/18 06:20 06:20 WBC 14.6 H RBC 4.00 Hgb 11.0 L Hct 34.6 MCV 86.5 MCH 27.5 MCHC 31.7 L RDW 16.1 H Plt Count 369 Sodium 141 Potassium 4.0 Chloride 96 L Carbon Dioxide 39 H Anion Gap 10 BUN 24 H Creatinine 1.0 Est GFR ( Amer) > 60 Est GFR (Non-Af Amer) 52 Random Glucose 92 Calcium 8.6 Total Bilirubin 0.2 AST 29 ALT 41 Alkaline Phosphatase 157 H Total Protein 6.2 L Albumin 3.1 L Globulin 3.1 Albumin/Globulin Ratio 1.0
--- NOTE | 2018-09-12 10:49 | CP.PCM.DIS ---
<Ines Kali Thornton - Last Filed: 09/12/18 15:53> Provider - Provider Date of Admission: 09/06/18 18:50 Attending physician: Suraj Marmolejo MD Consults: 09/06/18 20:49 Physician Consult Stat Comment: Consulting Provider: Praveen Rossi I Consulting Physician: Praveen Rossi I Reason for Consult: COPD 09/06/18 20:56 Podiatry Consult Stat Comment: Consulting Provider: Armaan Bell Consulting Physician: Armaan Bell Reason for Consult: dermatitis 09/08/18 16:27 Psychology Consult Routine Comment: Consulting Provider: Krystal Garcia Consulting Physician: Krystal Garcia Reason for Consult: please evaluate 09/10/18 16:25 Physician Consult Routine Comment: Consulting Provider: Eduardo Wright Consulting Physician: Eduardo Wright Reason for Consult: please evaluate rash Time Spent in preparation of Discharge (in minutes): 33 Diagnosis - Discharge Diagnosis (1) Rash and nonspecific skin eruption Status: Acute (2) Leg pain, bilateral Status: Chronic (3) Stasis dermatitis Status: Chronic (4) COPD (chronic obstructive pulmonary disease) Status: Chronic Priority: High (5) Physical deconditioning Status: Chronic Priority: High Hospital Course - Lab Results Lab Results: Micro Results 09/06/18 18:07 Blood Blood Culture - Final NO GROWTH AFTER 5 DAYS 09/06/18 18:07 Blood Gram Stain - Final TEST NOT PERFORMED 09/06/18 18:07 Blood Blood Culture - Final NO GROWTH AFTER 5 DAYS 09/06/18 18:07 Blood Gram Stain - Final TEST NOT PERFORMED Most Recent Lab Values WBC 14.6 K/uL (4.8-10.8) H 09/12/18 06:20 RBC 4.00 Mil/uL (3.80-5.20) 09/12/18 06:20 Hgb 11.0 g/dL (12.0-16.0) L 09/12/18 06:20 Hct 34.6 % (34.0-47.0) 09/12/18 06:20 MCV 86.5 fl (81.0-99.0) 09/12/18 06:20 MCH 27.5 pg (27.0-31.0) 09/12/18 06:20 MCHC 31.7 g/dL (33.0-37.0) L 09/12/18 06:20 RDW 16.1 % (11.5-14.5) H 09/12/18 06:20 Plt Count 369 K/uL (130-400) 09/12/18 06:20 MPV 7.6 fl (7.2-11.7) 09/11/18 06:15 Neut % (Auto) 85.4 % (50.0-75.0) H 09/11/18 06:15 Lymph % (Auto) 6.3 % (20.0-40.0) L 09/11/18 06:15 [place] % (Auto) 3.9 % (0.0-10.0) 09/11/18 06:15 Eos % (Auto) 4.3 % (0.0-4.0) H 09/11/18 06:15 Baso % (Auto) 0.1 % (0.0-2.0) 09/11/18 06:15 Neut # (Auto) 14.7 K/uL (1.8-7.0) H 09/11/18 06:15 Lymph # (Auto) 1.1 K/uL (1.0-4.3) 09/11/18 06:15 [place] # (Auto) 0.7 K/uL (0.0-0.8) 09/11/18 06:15 Eos # (Auto) 0.7 K/uL (0.0-0.7) 09/11/18 06:15 Baso # (Auto) 0.0 K/uL (0.0-0.2) 09/11/18 06:15 Neutrophils % (Manual) 84 % (42-75) H 09/10/18 07:00 Lymphocytes % (Manual) 9 % (20-50) L 09/10/18 07:00 Monocytes % (Manual) 4 % (0-10) 09/10/18 07:00 Eosinophils % (Manual) 3 % (0-7) 09/10/18 07:00 Basophils % (Manual) 1 % (0-2) 09/06/18 17:50 Platelet Estimate Slightly increased (NORMAL) H 09/10/18 07:00 Hypochromasia (manual) Slight 09/10/18 07:00 Anisocytosis (manual) Slight 09/10/18 07:00 ESR 105 mm/hr (0-30) H 09/10/18 07:00 Sodium 141 mmol/l (132-148) 09/12/18 06:20 Potassium 4.0 MMOL/L (3.6-5.0) 09/12/18 06:20 Chloride 96 mmol/L (98-107) L 09/12/18 06:20 Carbon Dioxide 39 mmol/L (22-30) H 09/12/18 06:20 Anion Gap 10 (10-20) 09/12/18 06:20 BUN 24 mg/dl (7-17) H 09/12/18 06:20 Creatinine 1.0 mg/dl (0.7-1.2) 09/12/18 06:20 Est GFR ( Amer) > 60 09/12/18 06:20 Est GFR (Non-Af Amer) 52 09/12/18 06:20 Random Glucose 92 mg/dL (65-105) 09/12/18 06:20 Calcium 8.6 mg/dL (8.4-10.2) 09/12/18 06:20 Total Bilirubin 0.2 mg/dl (0.2-1.3) 09/12/18 06:20 AST 29 U/L (14-36) 09/12/18 06:20 ALT 41 U/L (9-52) 09/12/18 06:20 Alkaline Phosphatase 157 U/L (38-126) H 09/12/18 06:20 NT-Pro-B Natriuret Pep 253 pg/ml (0-900) 09/06/18 17:50 Total Protein 6.2 G/DL (6.3-8.2) L 09/12/18 06:20 Albumin 3.1 g/dL (3.5-5.0) L 09/12/18 06:20 Globulin 3.1 gm/dL (2.2-3.9) 09/12/18 06:20 Albumin/Globulin Ratio 1.0 (1.0-2.1) 09/12/18 06:20 Vancomycin Trough 10.1 ug/mL (5.0-10.0) H 09/08/18 10:00 - Hospital Course Hospital Course: Patient was seen and evaluated bedside . All chart and clinical data reviewed.Case discussed with resident . 87 Y/O female with a PMH of COPD, CAD, CHF, AFib and chronic b/l chronic baseline leg dermatitis and swelling, who was admitted on 09/06/18 due to aggravating bilateral lower leg redness and swelling with diagnosis of bilateral lower extremity stasis dermatitis with leg cellulitis. During her hospital course patient received treatment with IV antibiotics Vancomycin started on admission showing improvement of her b/l LE cellulitis on the second day after admission. Patient had b/l LE Doppler US done negative for DVT, WBC within range on admission, blood cultures showed no growth after 48 hours. Patient was evaluated during her course by Podiatry and treated with Acewrap banding for her chronic LE swelling and stasis dermatitis. As per podiatry patient can follow up as outpatient. On day 3 after admission patient was noted developing an erythematous rash on trunk and extremities of inconclusive cause. VAnco was discontinued. Patient has remained afebrile during hospital course, today patient rash is unchanged, otherwise she denies SOB, CP, WIN, or fever. Patient c/o some itching and nausea and benadryl IV, Zofran 4 IV, Hydrocosrtizone given on 09/10/18 with minimal improvement of rash, thn same day developed vertigo with nausea and vomiting most likely a reaction to benadryl used for itching, pt was treated with Meclizine and Zofran IV with resolution of her symptoms. Patient c/o inttermittent right ankle pain with motion, being evaluated by podiatry, ankle XR shows OA. Patient today is found hemodinamically stable. Decision is taken to DC and transfer to TCU for patient will benefit with further PT to improve gait and ADL at this time. Upon DC to TCU patient will continue with her home meds as per med reconciliation. Discharge Exam - Head Exam Head Exam: ATRAUMATIC, NORMOCEPHALIC - Additional Findings Additional findings: - Additional Findings Additional findings: Additional Findings Additional findings: - Constitutional Appears: No Acute Distress - Head Exam Head Exam: ATRAUMATIC, NORMAL INSPECTION, NORMOCEPHALIC - Eye Exam Eye Exam: EOMI - ENT Exam ENT Exam: Mucous Membranes Moist - Neck Exam Neck Exam: Full ROM - Respiratory Exam Respiratory Exam: Prolonged Expiratory Phase - Cardiovascular Exam Cardiovascular Exam: REGULAR RHYTHM, +S1, +S2 - GI/Abdominal Exam GI & Abdominal Exam: Soft - Extremities Exam Additional comments: LE with rajan wrap in place( done by podiatry) Noted tenderness to R ankle motion - Neurological Exam Neurological Exam: Alert, Awake, Oriented x3 - Psychiatric Exam Psychiatric exam: Normal Affect - Skin Skin Exam: Normal Color, Warm Additional comments: eryhtematous patchy rash that extends to the thighs, trunk, back and internal aspect of upper extremities. Discharge Plan - Follow Up Plan Condition: FAIR Disposition: REHAB FACILITY/REHAB UNIT Instructions: Dependent Edema (DC), Urticaria (GEN), Acute Abdominal Pain (DC), Acute Abdominal Pain (GEN), Acute Rash (DC), Acute Rash (GEN) Additional Instructions: d/c to TCU Referrals: Armaan Bell MD [Staff Provider] - Kaushik Marquez MD [Family Provider] - Praveen Rossi MD [Staff Provider] - <Skye Maldonado - Last Filed: 09/12/18 17:29> Provider - Provider Date of Admission: 09/06/18 18:50 Attending physician: Suraj Marmolejo MD Consults: 09/06/18 20:49 Physician Consult Stat Comment: Consulting Provider: Praveen Rossi I Consulting Physician: Praveen Rossi I Reason for Consult: COPD 09/06/18 20:56 Podiatry Consult Stat Comment: Consulting Provider: Armaan Bell Consulting Physician: Armaan Bell Reason for Consult: dermatitis 09/08/18 16:27 Psychology Consult Routine Comment: Consulting Provider: Krystal Garcia Consulting Physician: Krystal Garcia Reason for Consult: please evaluate 09/10/18 16:25 Physician Consult Routine Comment: Consulting Provider: Eduardo Wright Consulting Physician: Eduardo Wright Reason for Consult: please evaluate rash Hospital Course - Lab Results Lab Results: Micro Results 09/06/18 18:07 Blood Blood Culture - Final NO GROWTH AFTER 5 DAYS 09/06/18 18:07 Blood Gram Stain - Final TEST NOT PERFORMED 09/06/18 18:07 Blood Blood Culture - Final NO GROWTH AFTER 5 DAYS 09/06/18 18:07 Blood Gram Stain - Final TEST NOT PERFORMED Most Recent Lab Values WBC 14.6 K/uL (4.8-10.8) H 09/12/18 06:20 RBC 4.00 Mil/uL (3.80-5.20) 09/12/18 06:20 Hgb 11.0 g/dL (12.0-16.0) L 09/12/18 06:20 Hct 34.6 % (34.0-47.0) 09/12/18 06:20 MCV 86.5 fl (81.0-99.0) 09/12/18 06:20 MCH 27.5 pg (27.0-31.0) 09/12/18 06:20 MCHC 31.7 g/dL (33.0-37.0) L 09/12/18 06:20 RDW 16.1 % (11.5-14.5) H 09/12/18 06:20 Plt Count 369 K/uL (130-400) 09/12/18 06:20 MPV 7.6 fl (7.2-11.7) 09/11/18 06:15 Neut % (Auto) 85.4 % (50.0-75.0) H 09/11/18 06:15 Lymph % (Auto) 6.3 % (20.0-40.0) L 09/11/18 06:15 [place]t % (Auto) 3.9 % (0.0-10.0) 09/11/18 06:15 Eos % (Auto) 4.3 % (0.0-4.0) H 09/11/18 06:15 Baso % (Auto) 0.1 % (0.0-2.0) 09/11/18 06:15 Neut # (Auto) 14.7 K/uL (1.8-7.0) H 09/11/18 06:15 Lymph # (Auto) 1.1 K/uL (1.0-4.3) 09/11/18 06:15 [place] # (Auto) 0.7 K/uL (0.0-0.8) 09/11/18 06:15 Eos # (Auto) 0.7 K/uL (0.0-0.7) 09/11/18 06:15 Baso # (Auto) 0.0 K/uL (0.0-0.2) 09/11/18 06:15 Neutrophils % (Manual) 84 % (42-75) H 09/10/18 07:00 Lymphocytes % (Manual) 9 % (20-50) L 09/10/18 07:00 Monocytes % (Manual) 4 % (0-10) 09/10/18 07:00 Eosinophils % (Manual) 3 % (0-7) 09/10/18 07:00 Basophils % (Manual) 1 % (0-2) 09/06/18 17:50 Platelet Estimate Slightly increased (NORMAL) H 09/10/18 07:00 Hypochromasia (manual) Slight 09/10/18 07:00 Anisocytosis (manual) Slight 09/10/18 07:00 ESR 105 mm/hr (0-30) H 09/10/18 07:00 Sodium 141 mmol/l (132-148) 09/12/18 06:20 Potassium 4.0 MMOL/L (3.6-5.0) 09/12/18 06:20 Chloride 96 mmol/L (98-107) L 09/12/18 06:20 Carbon Dioxide 39 mmol/L (22-30) H 09/12/18 06:20 Anion Gap 10 (10-20) 09/12/18 06:20 BUN 24 mg/dl (7-17) H 09/12/18 06:20 Creatinine 1.0 mg/dl (0.7-1.2) 09/12/18 06:20 Est GFR ( Amer) > 60 09/12/18 06:20 Est GFR (Non-Af Amer) 52 09/12/18 06:20 Random Glucose 92 mg/dL (65-105) 09/12/18 06:20 Uric Acid 5.6 mg/Dl (2.2-7.5) 09/12/18 15:16 Calcium 8.6 mg/dL (8.4-10.2) 09/12/18 06:20 Total Bilirubin 0.2 mg/dl (0.2-1.3) 09/12/18 06:20 AST 29 U/L (14-36) 09/12/18 06:20 ALT 41 U/L (9-52) 09/12/18 06:20 Alkaline Phosphatase 157 U/L (38-126) H 09/12/18 06:20 NT-Pro-B Natriuret Pep 253 pg/ml (0-900) 09/06/18 17:50 Total Protein 6.2 G/DL (6.3-8.2) L 09/12/18 06:20 Albumin 3.1 g/dL (3.5-5.0) L 09/12/18 06:20 Globulin 3.1 gm/dL (2.2-3.9) 09/12/18 06:20 Albumin/Globulin Ratio 1.0 (1.0-2.1) 09/12/18 06:20 Vancomycin Trough 10.1 ug/mL (5.0-10.0) H 09/08/18 10:00 Attending/Attestation - Attestation I have personally seen and examined this patient.: Yes I have fully participated in the care of the patient.: Yes I have reviewed all pertinent clinical information, including history, physical exam and plan: Yes Notes (Text): 1.Diffuse Pruritic erythematous rash - most likely allergic reaction , drug induced prob from Vanco -Dermatology consulted -cont Hydrocortizone IV , will give 50 mg IV q 12 , cont Betamethasone cream 2.Chronic bilateral LE stasis dermatitis - podiatry consulted RAJAN wrapping 3. Vertigo - Meclizine PRN given and PT consulted - d/c to TCU 4. Chronic COPD on home O2 - stable. Pulmonary on consult 5. Obesity BMI 47 6. Paroxysmal Afib - at present in SR. -Continue cardizem PO and Eliquis 7.HTN - controlled on home meds , Lisinopril, Bisoprolol
--- NOTE | 2018-09-12 15:11 | CP.PCM.PN ---
Subjective - Date & Time of Evaluation Date of Evaluation: 09/12/18 Time of Evaluation: 15:08 - Subjective Subjective: Interim events reviewed. En route to radiology for x-ray right ankle (pain). Vital signs have been stable. Labs noted with increased CO2, low Cl-?developing contraction alkalosis? Still has diffuse confluent erythematous rash, sl less intense. Will hold lasix tomorrow. Resume xopenex/atrovent Q8H. Will be discharged to TCU. Objective - Vital Signs/Intake and Output Vital Signs (last 24 hours): Temp Pulse Resp BP Pulse Ox 97.6 F 85 20 121/68 97 09/12/18 08:24 09/12/18 08:49 09/12/18 08:24 09/12/18 08:50 09/12/18 08:24 Intake and Output: 09/12/18 09/12/18 11:59 23:59 Intake Total 480 Output Total 280 Balance 200 - Medications Medications: Current Medications Acetaminophen (Tylenol 325mg Tab) 650 mg PO Q6 PRN PRN Reason: Pain, moderate (4-7) Last Admin: 09/12/18 06:14 Dose: 650 mg Acetaminophen (Tylenol 325mg Tab) 325 mg PO Q6 PRN PRN Reason: Pain, Mild (1-3) Apixaban (Eliquis) 5 mg PO BID [facility]; Protocol Last Admin: 09/12/18 08:48 Dose: 5 mg Betamethasone Dipropionate (Diprolene) 0 applic TOP BID [facility] Last Admin: 09/12/18 08:50 Dose: 1 applic Bisoprolol Fumarate (Zebeta) 5 mg PO DAILY [facility] Last Admin: 09/12/18 08:49 Dose: 5 mg Diltiazem HCl (Cardizem Cd) 120 mg PO DAILY [facility] Last Admin: 09/12/18 08:48 Dose: 120 mg Escitalopram Oxalate (Lexapro) 5 mg PO HS [facility] Furosemide (Lasix) 40 mg PO DAILY [facility] Last Admin: 09/12/18 08:50 Dose: 40 mg Ipratropium [place] (Atrovent) 0.5 mg IH RQ8 [facility] Isosorbide Mononitrate (Imdur Er) 30 mg PO DAILY [facility] Last Admin: 09/12/18 08:48 Dose: 30 mg Levalbuterol HCl (Xopenex) 0.63 mg INH RQ8 [facility] Lisinopril (Zestril) 20 mg PO DAILY [facility] Last Admin: 09/12/18 08:49 Dose: 20 mg Meclizine HCl (Antivert) 12.5 mg PO DAILY PRN PRN Reason: vertigo - Labs Labs: 09/12/18 06:20 09/12/18 06:20
[2018-09-12] MEDS ORDERED: Levalbuterol 0.63 MG/3 ML Inhal Soln UD INH SCH (16:00)
[2018-09-12] MEDS ORDERED: Ipratropium 0.02% Inhal Soln (0.5 mg/2.5 ml) UD IH SCH (16:00)
[2018-09-12 16:22] VITALS: BP 123/63; RESP 18; TEMP 97.7; O2SAT 95
[2018-09-12 16:37] VITALS: PULSE 60
[2018-09-12] MEDS ORDERED: Hydrocortisone- 50 MG in Sodium Chloride 0.9% 100 ML IV SCH (17:25)
--- NOTE | 2018-09-13 09:07 | RAD ---
Date of service: 09/12/2018 HISTORY: Pain Right ankle COMPARISON: None available. FINDINGS: BONES: Normal. No fracture. JOINTS: Normal. No osteoarthritis. SOFT TISSUE: Normal. OTHER FINDINGS: Plantar heel spur. IMPRESSION: No fracture.
== END 2018-09-12 17:00 | DRG 299 ==
LOC: H.ER 16:13 → H.ERHOLD 18:50 → H.MEDSURG1 22:00
PROVIDERS: ADMIT Internal Medicine; ATTEND Internal Medicine
DX: I87.2 Venous insufficiency (chronic) (peripheral) (principal); I50.33 Acute on chronic diastolic (congestive) heart failure; L03.115 Cellulitis of right lower limb; L03.116 Cellulitis of left lower limb; Z68.42 Body mass index [BMI] 45.0-49.9, adult; L27.0 Generalized skin eruption due to drugs and medicaments taken internally; J43.9 Emphysema, unspecified; I48.0 Paroxysmal atrial fibrillation; I11.0 Hypertensive heart disease with heart failure; I25.10 Atherosclerotic heart disease of native coronary artery without angina pectoris; E66.01 Morbid (severe) obesity due to excess calories; F43.21 Adjustment disorder with depressed mood; T36.8X5A Adverse effect of other systemic antibiotics, initial encounter; E78.00 Pure hypercholesterolemia, unspecified; I25.2 Old myocardial infarction; Z99.81 Dependence on supplemental oxygen; Z79.01 Long term (current) use of anticoagulants; Z95.5 Presence of coronary angioplasty implant and graft; Z87.01 Personal history of pneumonia (recurrent); Z87.891 Personal history of nicotine dependence; Z88.1 Allergy status to other antibiotic agents; Z88.0 Allergy status to penicillin

== ENCOUNTER 2018-09-12 12:32 | Inpatient (IN) | payer MEDICARE ==
[2018-09-12 17:32] VITALS: BMI 47.6
[2018-09-12] MEDS ORDERED: Albuterol-Ipratrop 3 mg / 0.5 (3 ml) UD INH PRN (17:32)
[2018-09-13] MEDS: Ipratropium 0.02% Inhal Soln (0.5 mg/2.5 ml) UD IH SCH ×4 (00:31→23:54)
[2018-09-13] MEDS: Levalbuterol 0.63 MG/3 ML Inhal Soln UD INH SCH ×4 (00:31→23:54)
[2018-09-13 05:25] LABS: HEMOGLOBIN 10.3 g/dL (12.0-16.0); MEAN CORPUSCULAR HEMOGLOBIN 27.8 pg (27.0-31.0); MEAN CORPUSCULAR HGB CONC 32.3 g/dL (33.0-37.0); RBC 3.7 Mil/uL (3.80-5.20); RED CELL DISTRIBUTION WIDTH 15.4 % (11.5-14.5); WHITE BLOOD COUNT 11.8 K/uL (4.8-10.8)
[2018-09-13 05:42] LABS: BLOOD UREA NITROGEN 18 mg/dl (7-17); CALCIUM 8.5 mg/dL (8.4-10.2); GFR NON-AFRICAN AMERICAN > 60
[2018-09-13] MEDS: diltiaZEM 120 mg/24 Hours CD Cap PO SCH (09:49)
[2018-09-13] MEDS: Betamethasone Dip 0.05% 15 GM TUBE TOP SCH ×2 (09:51→17:06)
--- NOTE | 2018-09-13 11:54 | CP.PCM.HP ---
<Felice Arriola - Last Filed: 09/13/18 12:04> History of Present Illness - History of Present Illness History of Present Illness: 87 Y/O female with a PMH of COPD, CAD, CHF, AFib and chronic b/l chronic baseline leg dermatitis and swelling, who was admitted on 09/06/18 due to aggravating bilateral lower leg redness and swelling with diagnosis of bilateral lower extremity stasis dermatitis with leg cellulitis. During her hospital course patient received treatment with IV antibiotics Vancomycin started on admission showing improvement of her b/l LE cellulitis on the second day after admission. Patient had b/l LE Doppler US done negative for DVT, WBC within range on admission, blood cultures showed no growth after 48 hours. Patient was evaluated during her course by Podiatry and treated with Acewrap banding for her chronic LE swelling and stasis dermatitis. As per podiatry patient can follow up as outpatient. On day 3 after admission patient was noted developing an erythematous rash on trunk and extremities of inconclusive cause. VAnco was discontinued. Patient has remained afebrile during hospital course, today patient rash is unchanged, otherwise she denies SOB, CP, WIN, or fever. Patient c/o some itching and nausea and benadryl IV, Zofran 4 IV, Hydrocosrtizone given on 09/10/18 with minimal improvement of rash, thn same day developed vertigo with nausea and vomiting most likely a reaction to benadryl used for itching, pt was treated with Meclizine and Zofran IV with resolution of her symptoms. Patient c/o inttermittent right ankle pain with motion, being evaluated by podiatry, ankle XR shows OA. Admitted to TCU to c/w physical therapy. PMD: Dr Marquez Allergies: Penicillins Meds: Lasix 40mg PO daily, Crestor 20mg PO, Bisoprolol 5mg PO daily, Lisinopril 20mg PO daily, Elliquis 5mg PO BID, Imdur ER 30mg PO daily, Cardizem 120mg PO daily. PMHx: COPD, CAD, CHF, paroxysmal AFib and chronic b/l leg dermatitis PSHx: Cardiac stent placement 2 years ago. SHx: Stopped tobacco 15 years ago, used to smoke 1.5 ppdfor >50 years. No alcohol and no rec drugs. Present on Admission - Present on Admission Any Indicators Present on Admission: No Past Patient History - Infectious Disease Hx of Infectious Diseases: None - Tetanus Immunizations Tetanus Immunization: Unknown - Past Medical History & Family History Past Medical History?: Yes - Past Social History Smoking Status: Former Smoker - CARDIAC Hx Cardiac Disorders: Yes (A-fib) Hx Congestive Heart Failure: Yes - PULMONARY Hx Chronic Obstructive Pulmonary Disease (COPD): Yes - NEUROLOGICAL Hx Neurological Disorder: Yes Hx Syncope: Yes Other/Comment: AMS on recent admission. - HEENT Hx HEENT Problems: No - RENAL Hx Chronic Kidney Disease: No - ENDOCRINE/METABOLIC Hx Endocrine Disorders: Yes Other/Comment: Multinodular thyroid. - HEMATOLOGICAL/ONCOLOGICAL Hx Human Immunodeficiency Virus (HIV): No - INTEGUMENTARY Hx Dermatological Problems: Yes Other/Comment: 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 - MUSCULOSKELETAL/RHEUMATOLOGICAL Hx Falls: No Hx Fractures: Yes (right ankle) - GASTROINTESTINAL Hx Gastrointestinal Disorders: No - GENITOURINARY/GYNECOLOGICAL Hx Genitourinary Disorders: Yes Hx Incontinence: Yes Other/Comment: Stress Incontinence - PSYCHIATRIC Hx Psychophysiologic Disorder: No Hx Substance Use: No - SURGICAL HISTORY Hx Appendectomy: No Hx Coronary Stent: Yes (x 2) - ANESTHESIA Hx Anesthesia: Yes Hx Anesthesia Reactions: No Hx Malignant Hyperthermia: No Meds Allergies/Adverse Reactions: Allergies Allergy/AdvReac Type Severity Reaction Status Date / Time Penicillins Allergy Mild SWELLING Verified 09/12/18 15:40 vancomycin Allergy RASH Verified 09/12/18 15:40 Physical Exam - Constitutional Appears: Non-toxic, No Acute Distress - Head Exam Head Exam: ATRAUMATIC, NORMOCEPHALIC - Eye Exam Eye Exam: EOMI Pupil Exam: NORMAL ACCOMODATION, PERRL - ENT Exam ENT Exam: Mucous Membranes Moist - Neck Exam Neck exam: Positive for: Normal Inspection - Respiratory Exam Respiratory Exam: Clear to Auscultation Bilateral, NORMAL BREATHING PATTERN. absent: Chest Wall Tenderness, Prolonged Expiratory Phase, Rales, Rhonchi, Respiratory Distress - Cardiovascular Exam Cardiovascular Exam: REGULAR RHYTHM, RRR, +S1, +S2. absent: Tachycardia, JVD, Systolic Murmur - GI/Abdominal Exam GI & Abdominal Exam: Normal Bowel Sounds, Soft. absent: Tenderness - Extremities Exam Additional comments: RAJAN wraps intact, C/D/I - Neurological Exam Neurological exam: Alert, CN II-XII Intact, Oriented x3 - Skin Skin Exam: Rash (diffuse erythmatous rash), Warm Results - Vital Signs Recent Vital Signs: Last Vital Signs Temp 97.7 F 09/13/18 10:08 Pulse 82 09/13/18 10:08 Resp 20 09/13/18 10:08 BP 156/69 H 09/13/18 10:08 Pulse Ox 90 L 09/13/18 10:08 - Labs Result Diagrams: 09/13/18 04:30 09/13/18 04:30 Labs: Laboratory Results - last 24 hr 09/13/18 09/13/18 04:30 04:30 WBC 11.8 H RBC 3.70 L Hgb 10.3 L Hct 31.8 L MCV 86.0 MCH 27.8 MCHC 32.3 L RDW 15.4 H Plt Count 359 Sodium 141 Potassium 3.6 Chloride 98 Carbon Dioxide 37 H Anion Gap 10 BUN 18 H Creatinine 0.8 Est GFR ( Amer) > 60 Est GFR (Non-Af Amer) > 60 Random Glucose 144 H Calcium 8.5 Assessment & Plan - Assessment and Plan (Free Text) Assessment: 87 Y/O female with a PMH of COPD, CAD, CHF, AFib and chronic b/l chronic baseline leg dermatitis and swelling, who was admitted to TCU to continue physical therapy and reconditioning. Plan: 1) Deconditioning -as per PT/OT team -will follow pt while she remains in TCU. 2). Bilateral Lower extremity Stasis dermatitis with leg cellulitis -chronic stasis dermatitis , aggravated by edema improving, cellulitis diagnosis less likely at this time. -Dopple venous US negative for DVT -Pt was started on IV Vanco in ED, will discontinue Vanco due to patchy erythematous patchy rash likely due to Vanco use, also cellulitis less likely at this time. - Podiatry consulted, will f/u recomms - keep leg elevated - Podiatry wrapped RAJAN bandage on both LE to decrease edema -Vanco trough last 10.1 , stopped 3) Erythemaotous patchy rash All meds reviewed, new meds started during hospitalization were stopped. Likely secondary to use of new medications, Vanco stopped. actual cause inconclusive -Hydrocortisone 100 mg IV -Benadryl 50 IV given today -Betamethasone Dipropionate top BID -Will f/u resolution 4) Chronic COPD --On Oxygen by NC at home , cont 2 LPM --Pulmonology consult, Dr Marquez, recomms appreciated - cont Duoneb 5). Acute on chronic CHF exacerbation diastolic dysfunction- preserved EF --Last echocardiogram on 08/11/18: LVEF 50-55%. - cont PO Lasix, Lisinopril, Imdur and Bisoprolol 6). Paroxysmal Afib --Rate controlled --Continue with Cardizem, Bisoprolol and Eliquis 7) DVT prophylaxis --On Eliquis BID 8) Diet --Heart healthy diet <Trish Simeon - Last Filed: 09/13/18 18:05> Results - Vital Signs Recent Vital Signs: Last Vital Signs Temp 97.8 F 09/13/18 17:25 Pulse 78 09/13/18 17:25 Resp 20 09/13/18 17:25 BP 103/55 L 09/13/18 17:25 Pulse Ox 93 L 09/13/18 17:25 - Labs Result Diagrams: 09/13/18 04:30 09/13/18 04:30 Labs: Laboratory Results - last 24 hr 09/13/18 09/13/18 04:30 04:30 WBC 11.8 H RBC 3.70 L Hgb 10.3 L Hct 31.8 L MCV 86.0 MCH 27.8 MCHC 32.3 L RDW 15.4 H Plt Count 359 Sodium 141 Potassium 3.6 Chloride 98 Carbon Dioxide 37 H Anion Gap 10 BUN 18 H Creatinine 0.8 Est GFR ( Amer) > 60 Est GFR (Non-Af Amer) > 60 Random Glucose 144 H Calcium 8.5 Attending/Attestation - Attestation I have personally seen and examined this patient.: Yes I have fully participated in the care of the patient.: Yes I have reviewed all pertinent clinical information: Yes Notes (Text): 09/13/18 18:04 agree with findings and plan as above
--- NOTE | 2018-09-13 11:56 | CP.PCM.CON ---
History of Present Illness - History of Present Illness History of Present Illness: Seen on follow up consultation from acute medicine. Had been admitted with increased SOB, fatigue and swelling of the lower extremities. Found to have markedly edematous LEs with intense erythema and treated for cellulitis.There was an apparent dermatological adverse effect from the vancomycin given to her because of penicillin allergy. This was thought to possibly represent 'red man syndrome' and this rx was discontinued. She gradually improved, as did her COPD exacerbation and she was discharged to TCU for physical therapy and continued medical therapies. Past Patient History - Infectious Disease Hx of Infectious Diseases: None - Tetanus Immunizations Tetanus Immunization: Unknown - Past Medical History & Family History Past Medical History?: Yes - Past Social History Smoking Status: Former Smoker Chewing Tobacco Use: No Cigar Use: No Alcohol: Social Drugs: Denies Home Situation {Lives}: Alone - CARDIAC Hx Atrial Fibrillation: Yes Hx Congestive Heart Failure: Yes Hx Hypercholesterolemia: Yes Hx Hypertension: Yes Hx Pacemaker: No Hx Peripheral Edema: Yes - PULMONARY Hx Chronic Obstructive Pulmonary Disease (COPD): Yes Hx Emphysema: Yes Hx Pneumonia: Yes - NEUROLOGICAL Hx Neurological Disorder: Yes Hx Syncope: Yes Other/Comment: AMS on recent admission. - HEENT Hx HEENT Problems: No - RENAL Hx Chronic Kidney Disease: No - ENDOCRINE/METABOLIC Hx Endocrine Disorders: Yes Other/Comment: Multinodular thyroid. - HEMATOLOGICAL/ONCOLOGICAL Hx Anemia: Yes Hx Human Immunodeficiency Virus (HIV): No - INTEGUMENTARY Hx Dermatological Problems: Yes Other/Comment: 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 - MUSCULOSKELETAL/RHEUMATOLOGICAL Hx Falls: No Hx Fractures: Yes (right ankle) - GASTROINTESTINAL Hx Gastrointestinal Disorders: No - GENITOURINARY/GYNECOLOGICAL Hx Incontinence: Yes Other/Comment: Stress Incontinence - PSYCHIATRIC Hx Psychophysiologic Disorder: Yes Hx Substance Use: No Other/Comment: Depressed mood - SURGICAL HISTORY Hx Appendectomy: No Hx Coronary Stent: Yes (x 2) - ANESTHESIA Hx Anesthesia: Yes Hx Anesthesia Reactions: No Hx Malignant Hyperthermia: No Meds Allergies/Adverse Reactions: Allergies Allergy/AdvReac Type Severity Reaction Status Date / Time Penicillins Allergy Mild SWELLING Verified 09/12/18 15:40 vancomycin Allergy RASH Verified 09/12/18 15:40 - Medications Medications: Current Medications Acetaminophen (Tylenol 325mg Tab) 325 mg PO Q6 PRN PRN Reason: Pain, Mild (1-3) Last Admin: 09/12/18 20:04 Dose: 325 mg Albuterol/Ipratropium (Duoneb 3 Mg/0.5 Mg (3 Ml) Ud) 3 ml INH RQ6 PRN PRN Reason: Shortness of Breath Apixaban (Eliquis) 5 mg PO BID [facility]; Protocol Last Admin: 09/13/18 09:50 Dose: 5 mg Atorvastatin Calcium (Lipitor) 40 mg PO [facility] Betamethasone Dipropionate (Diprolene) 1 applic TOP BID [facility] Last Admin: 09/13/18 09:51 Dose: 1 applic Bisoprolol Fumarate (Zebeta) 5 mg PO DAILY [facility] Last Admin: 09/13/18 09:50 Dose: 5 mg Diltiazem HCl (Cardizem Cd) 120 mg PO DAILY [facility] Last Admin: 09/13/18 09:49 Dose: 120 mg Escitalopram Oxalate (Lexapro) 5 mg PO HS [facility] Last Admin: 09/12/18 21:40 Dose: 5 mg Hydrocortisone Sodium Succinate (Solu-Cortef) 50 mg IV Q12 [facility] Last Admin: 09/13/18 09:48 Dose: 50 mg Ipratropium [place] (Atrovent) 0.5 mg IH RQ8 [facility] Last Admin: 09/13/18 07:11 Dose: 0.5 mg Isosorbide Mononitrate (Imdur Er) 30 mg PO DAILY [facility] Last Admin: 09/13/18 09:50 Dose: 30 mg Levalbuterol HCl (Xopenex) 0.63 mg INH RQ8 [facility] Last Admin: 09/13/18 07:11 Dose: 0.63 mg Lisinopril (Zestril) 20 mg PO DAILY [facility] Last Admin: 09/13/18 10:01 Dose: 20 mg Meclizine HCl (Antivert) 12.5 mg PO DAILY PRN PRN Reason: vertigo Last Admin: 09/13/18 09:50 Dose: 12.5 mg Physical Exam - Additional Findings Additional findings: Overweight female seated in bedside chair in NAD. Dependant edema both LE's +, acewrap bandages both LEs from ankle to knee. No cyanosis, resolving, but still faintly present generalized erythematous skin eruption. Neck is supple and trachea midline. No visible JVD or carotid bruit. Pharynx pink and moist, nares patent bilaterally. No dullness on chest percussion. Breath sounds are diminished bilaterally w/o audible wheezes. No bronchial breath sounds or egophony. Few scattered dry rales Heart sounds are distant, rhythm regular with PHBs. Abdomen soft, fleshy, non-tender with normal BS. Results - Vital Signs Recent Vital Signs: Last Vital Signs Temp 97.7 F 09/13/18 10:08 Pulse 82 09/13/18 10:08 Resp 20 09/13/18 10:08 BP 156/69 H 09/13/18 10:08 Pulse Ox 90 L 09/13/18 10:08 - Labs Result Diagrams: 09/13/18 04:30 09/13/18 04:30 Labs: Laboratory Results - last 24 hr 09/13/18 09/13/18 04:30 04:30 WBC 11.8 H RBC 3.70 L Hgb 10.3 L Hct 31.8 L MCV 86.0 MCH 27.8 MCHC 32.3 L RDW 15.4 H Plt Count 359 Sodium 141 Potassium 3.6 Chloride 98 Carbon Dioxide 37 H Anion Gap 10 BUN 18 H Creatinine 0.8 Est GFR ( Amer) > 60 Est GFR (Non-Af Amer) > 60 Random Glucose 144 H Calcium 8.5 Assessment & Plan (1) Rash and nonspecific skin eruption Status: Acute Priority: High (2) COPD (chronic obstructive pulmonary disease) Status: Chronic Priority: High (3) Hypoxemia requiring supplemental oxygen Status: Chronic Priority: High (4) Physical deconditioning Status: Chronic Priority: High - Assessment and Plan (Free Text) Plan: Aerosol therapy with levalbuterol and ipratropium Q8H. Reducing doses of supplemental corticosteroids. Initiate low dose chlorthalidone. Supplemental oxygen as needed to maintain SpO2 88-94%. - Date & Time Date: 09/13/18 Time: 11:52
[2018-09-14] MEDS: Levalbuterol 0.63 MG/3 ML Inhal Soln UD INH SCH ×2 (07:20→15:18)
[2018-09-14] MEDS: Ipratropium 0.02% Inhal Soln (0.5 mg/2.5 ml) UD IH SCH ×2 (07:20→15:18)
[2018-09-14] MEDS: diltiaZEM 120 mg/24 Hours CD Cap PO SCH (09:08)
[2018-09-14] MEDS: Betamethasone Dip 0.05% 15 GM TUBE TOP SCH ×2 (09:11→16:48)
--- NOTE | 2018-09-14 11:34 | CP.PCM.PN ---
Subjective - Date & Time of Evaluation Date of Evaluation: 09/14/18 Time of Evaluation: 11:31 - Subjective Subjective: Podiatry progress Note - Dr. Bell 87F seen and evaluated at the bedside for b/l lower extremity chronic stasis edema, dermatitis with possible cellulitis. Patient states that she has some pain in her legs. States her legs feel dry and are scaling. She denies any overnight nausea/vomiting/fever/chest pain/chills, or shortness of breath. Objective - Vital Signs/Intake and Output Vital Signs (last 24 hours): Temp Pulse Resp BP Pulse Ox 97.3 F L 70 20 145/66 96 09/14/18 08:31 09/14/18 09:09 09/14/18 08:31 09/14/18 09:09 09/14/18 08:31 - Medications Medications: Current Medications Acetaminophen (Tylenol 325mg Tab) 325 mg PO Q6 PRN PRN Reason: Pain, Mild (1-3) Last Admin: 09/12/18 20:04 Dose: 325 mg Albuterol/Ipratropium (Duoneb 3 Mg/0.5 Mg (3 Ml) Ud) 3 ml INH RQ6 PRN PRN Reason: Shortness of Breath Apixaban (Eliquis) 5 mg PO BID [facility]; Protocol Last Admin: 09/14/18 09:08 Dose: 5 mg Atorvastatin Calcium (Lipitor) 40 mg PO HS [facility] Last Admin: 09/13/18 21:26 Dose: 40 mg Betamethasone Dipropionate (Diprolene) 1 applic TOP BID [facility] Last Admin: 09/14/18 09:11 Dose: 1 applic Bisoprolol Fumarate (Zebeta) 5 mg PO DAILY [facility] Last Admin: 09/14/18 09:09 Dose: 5 mg Chlorthalidone (Hygroton) 25 mg PO DAILY [facility] Last Admin: 09/14/18 09:09 Dose: 25 mg Diltiazem HCl (Cardizem Cd) 120 mg PO DAILY [facility] Last Admin: 09/14/18 09:08 Dose: 120 mg Escitalopram Oxalate (Lexapro) 5 mg PO HS [facility] Last Admin: 09/13/18 21:26 Dose: 5 mg Hydrocortisone Sodium Succinate (Solu-Cortef) 50 mg IV DAILY [facility] Last Admin: 09/14/18 09:10 Dose: 50 mg Ipratropium [place] (Atrovent) 0.5 mg IH RQ8 [facility] Last Admin: 09/14/18 07:20 Dose: 0.5 mg Isosorbide Mononitrate (Imdur Er) 30 mg PO DAILY [facility] Last Admin: 09/14/18 09:08 Dose: 30 mg Levalbuterol HCl (Xopenex) 0.63 mg INH RQ8 [facility] Last Admin: 09/14/18 07:20 Dose: 0.63 mg Lisinopril (Zestril) 20 mg PO DAILY [facility] Last Admin: 09/14/18 09:09 Dose: 20 mg Meclizine HCl (Antivert) 12.5 mg PO DAILY PRN PRN Reason: vertigo Last Admin: 09/13/18 09:50 Dose: 12.5 mg - Labs Labs: 09/13/18 04:30 09/13/18 04:30 - Constitutional Appears: Non-toxic - Head Exam Head Exam: ATRAUMATIC - Extremities Exam Additional comments: B/L lower extremities focused exam: Vascular: DP/PT 1/4, Cap refill < 3 seconds, Temp gradient warm to warm, Mild pitting edema appreciated to bilateral lower extremities, Edema is improving. Neuro: Gross and protective sensation intact. Derm: B/L erythema to b/l lower extremities circumfrentially beginning at tibial tuberosity extending down to digits, which decrease in erythema when elevated, Improved. No open lesions at this time, no weeping or drainage appreciated. No purulence, nor streaking appreciated. Elongated, dystrophic nails. MSK: Pain with palpation of posterior aspect of b/l lower extremities, MMT 4/5 in all groups b/l. Pain on palpating the right perimalleolar area. Pain with right ankle ROM - Neurological Exam Neurological Exam: Alert, Awake, Oriented x3 - Psychiatric Exam Psychiatric exam: Normal Affect, Normal Mood Assessment and Plan - Assessment and Plan (Free Text) Assessment: 87F with b/l lower extremity chronic stasis edema, dermatitis with possible cellulitis. Plan: Patient seen and evaluated Discussed patient plan in detail with Dr. Bell Charts, labs and vitals reviewed: Afebrile, WBCs 11.8 , ESR > 105 (09/10) Ammonium lactate 12% lotion and Fer bandage applied to lower extremities no open wounds or weeping at this time Patient to continue elevating lower extremities. LE US; negative for DVT Blood cultures taken; No growth after 5 days. Continue IV abx as per primary team. C/W pain management as needed. Right ankle x-ray - no fractures Continue wearing surgical shoes when ambulating. Podiatry will continue to follow up the patient upon discharge.
[2018-09-15] MEDS: Levalbuterol 0.63 MG/3 ML Inhal Soln UD INH SCH ×3 (00:09→15:29)
[2018-09-15] MEDS: Ipratropium 0.02% Inhal Soln (0.5 mg/2.5 ml) UD IH SCH ×3 (00:10→15:29)
[2018-09-15 07:04] LABS: BLOOD UREA NITROGEN 16 mg/dl (7-17); CALCIUM 8.9 mg/dL (8.4-10.2); GFR NON-AFRICAN AMERICAN > 60
[2018-09-15] MEDS: diltiaZEM 120 mg/24 Hours CD Cap PO SCH (08:19)
[2018-09-15] MEDS: Betamethasone Dip 0.05% 15 GM TUBE TOP SCH ×2 (10:00→16:36)
--- NOTE | 2018-09-15 11:44 | CP.PCM.PN ---
Subjective - Date & Time of Evaluation Date of Evaluation: 09/15/18 Time of Evaluation: 11:43 - Subjective Subjective: Appears to be doing relatively well on the current regimen. Will repeat BMP to check TCO2 levels. If persistent elevated level is encountered, will try using lower dose acetazolamide 250 BID. Follow up chest x-ray as well in AM. Objective - Vital Signs/Intake and Output Vital Signs (last 24 hours): Temp Pulse Resp BP Pulse Ox 98.5 F 67 18 138/68 94 L 09/15/18 07:45 09/15/18 08:20 09/15/18 07:45 09/15/18 08:20 09/15/18 07:45 - Medications Medications: Current Medications Acetaminophen (Tylenol 325mg Tab) 325 mg PO Q6 PRN PRN Reason: Pain, Mild (1-3) Last Admin: 09/12/18 20:04 Dose: 325 mg Albuterol/Ipratropium (Duoneb 3 Mg/0.5 Mg (3 Ml) Ud) 3 ml INH RQ6 PRN PRN Reason: Shortness of Breath Apixaban (Eliquis) 5 mg PO BID [facility]; Protocol Last Admin: 09/15/18 08:19 Dose: 5 mg Atorvastatin Calcium (Lipitor) 40 mg PO HS [facility] Last Admin: 09/14/18 21:06 Dose: 40 mg Betamethasone Dipropionate (Diprolene) 1 applic TOP BID [facility] Last Admin: 09/14/18 16:48 Dose: 1 applic Bisoprolol Fumarate (Zebeta) 5 mg PO DAILY [facility] Last Admin: 09/15/18 08:21 Dose: 5 mg Chlorthalidone (Hygroton) 25 mg PO DAILY [facility] Last Admin: 09/15/18 08:19 Dose: 25 mg Diltiazem HCl (Cardizem Cd) 120 mg PO DAILY [facility] Last Admin: 09/15/18 08:19 Dose: 120 mg Escitalopram Oxalate (Lexapro) 5 mg PO HS [facility] Last Admin: 09/14/18 21:06 Dose: 5 mg Hydrocortisone Sodium Succinate (Solu-Cortef) 50 mg IV DAILY [facility] Last Admin: 09/15/18 08:21 Dose: 50 mg Ipratropium [place] (Atrovent) 0.5 mg IH RQ8 [facility] Last Admin: 09/15/18 07:27 Dose: 0.5 mg Isosorbide Mononitrate (Imdur Er) 30 mg PO DAILY [facility] Last Admin: 09/15/18 08:20 Dose: 30 mg Levalbuterol HCl (Xopenex) 0.63 mg INH RQ8 [facility] Last Admin: 09/15/18 07:26 Dose: 0.63 mg Lisinopril (Zestril) 20 mg PO DAILY [facility] Last Admin: 09/15/18 08:20 Dose: 20 mg Meclizine HCl (Antivert) 12.5 mg PO DAILY PRN PRN Reason: vertigo Last Admin: 09/13/18 09:50 Dose: 12.5 mg - Labs Labs: 09/13/18 04:30 09/15/18 06:00 Assessment and Plan (1) Rash and nonspecific skin eruption Status: Acute (2) COPD (chronic obstructive pulmonary disease) Status: Chronic (3) Hypoxemia requiring supplemental oxygen Status: Chronic (4) Physical deconditioning Status: Chronic
[2018-09-15] MEDS ORDERED: Potassium Chloride 20 mEq ER Tab PO ONE (17:59)
[2018-09-16] MEDS: Levalbuterol 0.63 MG/3 ML Inhal Soln UD INH SCH ×3 (00:27→23:54)
[2018-09-16] MEDS: Ipratropium 0.02% Inhal Soln (0.5 mg/2.5 ml) UD IH SCH ×4 (00:27→23:53)
[2018-09-16 05:58] LABS: BLOOD UREA NITROGEN 16 mg/dl (7-17); CALCIUM 8.9 mg/dL (8.4-10.2); GFR NON-AFRICAN AMERICAN > 60
[2018-09-16] MEDS: diltiaZEM 120 mg/24 Hours CD Cap PO SCH (08:53)
--- NOTE | 2018-09-16 09:44 | CP.PCM.PN ---
Subjective - Date & Time of Evaluation Date of Evaluation: 09/16/18 Time of Evaluation: 09:41 - Subjective Subjective: Podiatry progress Note: Dr. Bell 87 year old female patient seen and evaluated at the bedside in TCU for b/l lower extremity chronic stasis edema, dermatitis with possible cellulitis. Patient states that she doesn't have any pain in her legs now. Patient states that her rash almost subsided down now. She denies any overnight naus ea/vomiting/fever/chest pain/chills, or shortness of breath. Objective - Vital Signs/Intake and Output Vital Signs (last 24 hours): Temp Pulse Resp BP Pulse Ox 98.2 F 67 18 156/65 H 94 L 09/16/18 08:18 09/16/18 08:53 09/16/18 08:18 09/16/18 08:53 09/16/18 08:18 - Medications Medications: Current Medications Acetaminophen (Tylenol 325mg Tab) 325 mg PO Q6 PRN PRN Reason: Pain, Mild (1-3) Last Admin: 09/12/18 20:04 Dose: 325 mg Albuterol/Ipratropium (Duoneb 3 Mg/0.5 Mg (3 Ml) Ud) 3 ml INH RQ6 PRN PRN Reason: Shortness of Breath Apixaban (Eliquis) 5 mg PO BID [facility]; Protocol Last Admin: 09/16/18 08:52 Dose: 5 mg Atorvastatin Calcium (Lipitor) 40 mg PO HS [facility] Last Admin: 09/15/18 21:50 Dose: 40 mg Betamethasone Dipropionate (Diprolene) 1 applic TOP BID [facility] Last Admin: 09/15/18 16:36 Dose: 1 applic Bisoprolol Fumarate (Zebeta) 5 mg PO DAILY [facility] Last Admin: 09/16/18 08:52 Dose: 5 mg Chlorthalidone (Hygroton) 25 mg PO DAILY [facility] Last Admin: 09/16/18 09:02 Dose: 25 mg Diltiazem HCl (Cardizem Cd) 120 mg PO DAILY [facility] Last Admin: 09/16/18 08:53 Dose: 120 mg Escitalopram Oxalate (Lexapro) 5 mg PO HS [facility] Last Admin: 09/15/18 21:50 Dose: 5 mg Hydrocortisone (Cortef) 20 mg PO DAILY [facility] Last Admin: 09/16/18 08:52 Dose: 20 mg Ipratropium [place] (Atrovent) 0.5 mg IH RQ8 [facility] Last Admin: 09/16/18 07:27 Dose: 0.5 mg Isosorbide Mononitrate (Imdur Er) 30 mg PO DAILY [facility] Last Admin: 09/16/18 08:53 Dose: 30 mg Levalbuterol HCl (Xopenex) 0.63 mg INH RQ8 [facility] Last Admin: 09/16/18 00:27 Dose: Not Given Lisinopril (Zestril) 20 mg PO DAILY [facility] Last Admin: 09/16/18 08:52 Dose: 20 mg Meclizine HCl (Antivert) 12.5 mg PO DAILY PRN PRN Reason: vertigo Last Admin: 09/13/18 09:50 Dose: 12.5 mg - Labs Labs: 09/13/18 04:30 09/16/18 05:30 - Constitutional Appears: Well, Non-toxic, No Acute Distress - Head Exam Head Exam: ATRAUMATIC, NORMOCEPHALIC - Extremities Exam Additional comments: B/L lower extremities focused exam: Vascular: DP/PT 1/4, Cap refill < 3 seconds, Temp gradient warm to warm, No edema appreciated to bilateral lower extremities. Neuro: Gross and protective sensation intact. Derm: B/L mild erythema to b/l lower extremities circumfrentially beginning at tibial tuberosity extending down to digits, which decrease in erythema when elevated, Improved. No open lesions at this time, no weeping or drainage appreciated. No purulence, nor streaking appreciated. Dystrophic nails. MSK: No Pain with palpation of b/l lower extremities, MMT 4/5 in all groups b/l. - Neurological Exam Neurological Exam: Alert, Awake Assessment and Plan - Assessment and Plan (Free Text) Assessment: 87 year old female patient seen and evaluated at the bedside with for b/l lower extremity chronic stasis edema, dermatitis with possible cellulitis. Plan: Patient seen and evaluated Discussed patient plan in detail with Dr. Bell Charts, labs and vitals reviewed: Afebrile, WBCs 11.8 (3/9) Ammonium lactate 12% lotion and Fer bandage applied to lower extremities no open wounds or weeping at this time Patient to continue elevating lower extremities. LE US; negative for DVT Blood cultures taken; No growth after 5 days. Continue IV abx as per primary team. C/W pain management as needed. Right ankle X-ray 3 views; No acute fracture noted. Continue wearing surgical shoes when ambulating. Podiatry will continue to follow up the patient upon discharge.
[2018-09-16] MEDS: Potassium Chloride 10 mEq ER Tab PO SCH (13:33)
--- NOTE | 2018-09-16 17:47 | CP.PCM.PN ---
Subjective - Date & Time of Evaluation Date of Evaluation: 09/16/18 Time of Evaluation: 15:00 - Subjective Subjective: Patient seen and examined. Claimed she was feeling better. Both legs less inflammed. Objective - Vital Signs/Intake and Output Vital Signs (last 24 hours): Temp Pulse Resp BP Pulse Ox 97.2 F L 59 L 20 120/71 94 L 09/16/18 16:23 09/16/18 16:23 09/16/18 16:23 09/16/18 16:23 09/16/18 16:23 - Medications Medications: Current Medications Acetaminophen (Tylenol 325mg Tab) 325 mg PO Q6 PRN PRN Reason: Pain, Mild (1-3) Last Admin: 09/12/18 20:04 Dose: 325 mg Acetazolamide (Diamox 250 Mg Tab) 250 mg PO BID [facility] Last Admin: 09/16/18 16:31 Dose: 250 mg Albuterol/Ipratropium (Duoneb 3 Mg/0.5 Mg (3 Ml) Ud) 3 ml INH RQ6 PRN PRN Reason: Shortness of Breath Apixaban (Eliquis) 5 mg PO BID [facility]; Protocol Last Admin: 09/16/18 16:31 Dose: 5 mg Atorvastatin Calcium (Lipitor) 40 mg PO HS [facility] Last Admin: 09/15/18 21:50 Dose: 40 mg Betamethasone Valerate (Valisone) 1 applic TP DAILY [facility] Bisoprolol Fumarate (Zebeta) 5 mg PO DAILY [facility] Last Admin: 09/16/18 08:52 Dose: 5 mg Chlorthalidone (Hygroton) 25 mg PO DAILY [facility] Last Admin: 09/16/18 09:02 Dose: 25 mg Diltiazem HCl (Cardizem Cd) 120 mg PO DAILY [facility] Last Admin: 09/16/18 08:53 Dose: 120 mg Escitalopram Oxalate (Lexapro) 5 mg PO HS [facility] Last Admin: 09/15/18 21:50 Dose: 5 mg Hydrocortisone (Cortef) 20 mg PO DAILY [facility] Last Admin: 09/16/18 08:52 Dose: 20 mg Ipratropium [place] (Atrovent) 0.5 mg IH RQ8 [facility] Last Admin: 09/16/18 16:03 Dose: 0.5 mg Isosorbide Mononitrate (Imdur Er) 30 mg PO DAILY [facility] Last Admin: 09/16/18 08:53 Dose: 30 mg Levalbuterol HCl (Xopenex) 0.63 mg INH RQ8 [facility] Last Admin: 09/16/18 16:03 Dose: 0.63 mg Lisinopril (Zestril) 20 mg PO DAILY [facility] Last Admin: 09/16/18 08:52 Dose: 20 mg Meclizine HCl (Antivert) 12.5 mg PO DAILY PRN PRN Reason: vertigo Last Admin: 09/13/18 09:50 Dose: 12.5 mg Potassium Chloride (Klor-Con 10) 10 meq PO DAILY [facility] Last Admin: 09/16/18 13:33 Dose: 10 meq - Labs Labs: 09/13/18 04:30 09/16/18 05:30 - Constitutional Appears: No Acute Distress - Head Exam Head Exam: ATRAUMATIC - Eye Exam Eye Exam: absent: Scleral icterus - ENT Exam ENT Exam: Mucous Membranes Moist - Neck Exam Neck Exam: absent: Meningismus - Respiratory Exam Respiratory Exam: absent: Rales, Rhonchi, Wheezes, Respiratory Distress - Cardiovascular Exam Cardiovascular Exam: REGULAR RHYTHM, +S1, +S2 - GI/Abdominal Exam GI & Abdominal Exam: Soft. absent: Tenderness - Rectal Exam Rectal Exam: Deferred - Extremities Exam Extremities Exam: Pedal Edema - Neurological Exam Neurological Exam: Alert, Oriented x3 - Psychiatric Exam Psychiatric exam: Normal Affect - Skin Skin Exam: Dry, Intact Assessment and Plan - Assessment and Plan (Free Text) Assessment: 87 yo female with history of COPD, CAD, CHF, AFib and chronic stasis dermatitis of both legs admitted to TCU for therapy because of physical deconditioning. 1. Physical Deconditioning continue PT/OT 2. Stasis dermatitis Podiatry on consult 3. COPD stable continue Ermiasb Dr Marquez on consult 4. CHF exacerbation Diastolic Dysfunction Last echo on 08/11/18 with LVEF of 50-55%. continue PO Lasix, Lisinopril, Imdur and Bisoprolol 5. Paroxysmal Afib Rate controlled Continue Cardizem, Bisoprolol and Eliquis
--- NOTE | 2018-09-16 17:55 | RAD ---
Date of service: 09/16/2018 HISTORY: Shortness of breath COMPARISON: 09/08/2018. TECHNIQUE: Chest PA and lateral FINDINGS: LUNGS: Moderate hyperinflation. No suspicious pulmonary nodules, masses or infiltrates. PLEURA: No significant pleural effusion identified. No pneumothorax apparent. CARDIOVASCULAR: Atherosclerotic calcifications identified primarily aortic arch. Cardiomegaly. No evidence of acute, significant cardiovascular disease. No pulmonary vascular congestion. OSSEOUS STRUCTURES: No significant abnormalities. VISUALIZED UPPER ABDOMEN: Normal. OTHER FINDINGS: None. IMPRESSION: No active disease. No significant interval change compared to the prior examination(s).
[2018-09-17] MEDS: Levalbuterol 0.63 MG/3 ML Inhal Soln UD INH SCH ×3 (07:28→23:18)
[2018-09-17] MEDS: Ipratropium 0.02% Inhal Soln (0.5 mg/2.5 ml) UD IH SCH ×3 (07:28→23:18)
[2018-09-17] MEDS: diltiaZEM 120 mg/24 Hours CD Cap PO SCH (08:45)
[2018-09-17] MEDS: Potassium Chloride 10 mEq ER Tab PO SCH (08:45)
--- NOTE | 2018-09-17 11:39 | CP.PCM.PN ---
Subjective - Date & Time of Evaluation Date of Evaluation: 09/17/18 Time of Evaluation: 11:31 - Subjective Subjective: Has done very well on the current regimen. Seated in a bedside chair doing PT. Claims to feel much improved. Vital signs have been stable and she remains afebrile. Dependant edema has improved markedly. Skin is dry and flaking, but most of the erythema has resolved. There is residual hyperpigmentation of the ankles bilaterally. No dullness on chest percussion. Breath sounds are diminished equally in both lungs. Dry rales are heard in the lower lobes of both lungs. No audible wheezes or bronchial breath sounds. Heart sounds are distant, rhythm appears regular. Likely able to discharge home tomorrow. Will taper oral hydrocortisone as outpatient. Repeat BMP in AM to check BUN/creat. All current maintenance medications will continue. VNA services and home PT suggested. Objective - Vital Signs/Intake and Output Vital Signs (last 24 hours): Temp Pulse Resp BP Pulse Ox 97.6 F 60 18 126/65 95 09/17/18 08:03 09/17/18 08:45 09/17/18 08:03 09/17/18 08:45 09/17/18 08:03 - Medications Medications: Current Medications Acetaminophen (Tylenol 325mg Tab) 325 mg PO Q6 PRN PRN Reason: Pain, Mild (1-3) Last Admin: 09/12/18 20:04 Dose: 325 mg Acetazolamide (Diamox 250 Mg Tab) 250 mg PO BID [facility] Last Admin: 09/17/18 08:44 Dose: 250 mg Albuterol/Ipratropium (Duoneb 3 Mg/0.5 Mg (3 Ml) Ud) 3 ml INH RQ6 PRN PRN Reason: Shortness of Breath Apixaban (Eliquis) 5 mg PO BID [facility]; Protocol Last Admin: 09/17/18 08:45 Dose: 5 mg Atorvastatin Calcium (Lipitor) 40 mg PO HS [facility] Last Admin: 09/16/18 21:27 Dose: 40 mg Betamethasone Valerate (Valisone) 1 applic TP DAILY [facility] Last Admin: 09/17/18 09:06 Dose: 1 applic Bisoprolol Fumarate (Zebeta) 5 mg PO DAILY [facility] Last Admin: 09/17/18 08:46 Dose: 5 mg Chlorthalidone (Hygroton) 25 mg PO DAILY [facility] Last Admin: 09/17/18 08:45 Dose: 25 mg Diltiazem HCl (Cardizem Cd) 120 mg PO DAILY [facility] Last Admin: 09/17/18 08:45 Dose: 120 mg Escitalopram Oxalate (Lexapro) 5 mg PO HS [facility] Last Admin: 09/16/18 21:26 Dose: 5 mg Hydrocortisone (Cortef) 20 mg PO DAILY [facility] Last Admin: 09/17/18 08:45 Dose: 20 mg Ipratropium [place] (Atrovent) 0.5 mg IH RQ8 [facility] Last Admin: 09/17/18 07:28 Dose: 0.5 mg Isosorbide Mononitrate (Imdur Er) 30 mg PO DAILY [facility] Last Admin: 09/17/18 08:45 Dose: 30 mg Levalbuterol HCl (Xopenex) 0.63 mg INH RQ8 [facility] Last Admin: 09/17/18 07:28 Dose: 0.63 mg Lisinopril (Zestril) 20 mg PO DAILY [facility] Last Admin: 09/17/18 08:45 Dose: 20 mg Meclizine HCl (Antivert) 12.5 mg PO DAILY PRN PRN Reason: vertigo Last Admin: 09/13/18 09:50 Dose: 12.5 mg Potassium Chloride (Klor-Con 10) 10 meq PO DAILY [facility] Last Admin: 09/17/18 08:45 Dose: 10 meq - Labs Labs: 09/13/18 04:30 09/16/18 05:30 Assessment and Plan (1) Rash and nonspecific skin eruption Status: Acute (2) COPD (chronic obstructive pulmonary disease) Status: Chronic (3) Hypoxemia requiring supplemental oxygen Status: Chronic (4) Physical deconditioning Status: Chronic
[2018-09-18 07:16] LABS: CALCIUM 8.6 mg/dL (8.4-10.2)
[2018-09-18] MEDS: Levalbuterol 0.63 MG/3 ML Inhal Soln UD INH SCH ×3 (07:29→23:36)
[2018-09-18] MEDS: Ipratropium 0.02% Inhal Soln (0.5 mg/2.5 ml) UD IH SCH ×3 (07:29→23:36)
[2018-09-18] MEDS: diltiaZEM 120 mg/24 Hours CD Cap PO SCH (08:12)
[2018-09-18] MEDS: Potassium Chloride 10 mEq ER Tab PO SCH (08:14)
--- NOTE | 2018-09-18 09:56 | CP.PCM.PN ---
Subjective - Date & Time of Evaluation Date of Evaluation: 09/18/18 Time of Evaluation: 09:56 - Subjective Subjective: Podiatry progress Note: Dr. Bell 87 year old female patient seen and evaluated at the bedside in TCU for b/l lower extremity chronic stasis edema, dermatitis with possible cellulitis. Patient states that she doesn't have any pain in her legs now. Patient states that she started to have some itchiness today in her legs. She denies any overnight nausea/vomiting/fever/chest pain/chills, or shortness of breath. Objective - Vital Signs/Intake and Output Vital Signs (last 24 hours): Temp Pulse Resp BP Pulse Ox 97.7 F 56 L 18 109/57 L 99 09/18/18 08:11 09/18/18 08:14 09/18/18 08:11 09/18/18 08:14 09/18/18 08:11 - Medications Medications: Current Medications Acetaminophen (Tylenol 325mg Tab) 325 mg PO Q6 PRN PRN Reason: Pain, Mild (1-3) Last Admin: 09/12/18 20:04 Dose: 325 mg Acetazolamide (Diamox 250 Mg Tab) 250 mg PO BID [facility] Last Admin: 09/18/18 08:13 Dose: 250 mg Albuterol/Ipratropium (Duoneb 3 Mg/0.5 Mg (3 Ml) Ud) 3 ml INH RQ6 PRN PRN Reason: Shortness of Breath Apixaban (Eliquis) 5 mg PO BID [facility]; Protocol Last Admin: 09/18/18 08:13 Dose: 5 mg Atorvastatin Calcium (Lipitor) 40 mg PO HS [facility] Last Admin: 09/17/18 21:10 Dose: 40 mg Betamethasone Valerate (Valisone) 1 applic TP DAILY [facility] Last Admin: 09/18/18 08:14 Dose: 1 applic Bisoprolol Fumarate (Zebeta) 5 mg PO DAILY [facility] Last Admin: 09/18/18 08:13 Dose: 5 mg Chlorthalidone (Hygroton) 25 mg PO DAILY [facility] Last Admin: 09/18/18 08:15 Dose: 25 mg Diltiazem HCl (Cardizem Cd) 120 mg PO DAILY [facility] Last Admin: 09/18/18 08:12 Dose: 120 mg Escitalopram Oxalate (Lexapro) 5 mg PO [facility] Last Admin: 09/17/18 21:10 Dose: 5 mg Hydrocortisone (Cortef) 20 mg PO DAILY [facility] Last Admin: 09/18/18 08:14 Dose: 20 mg Ipratropium [place] (Atrovent) 0.5 mg IH RQ8 [facility] Last Admin: 09/18/18 07:29 Dose: 0.5 mg Isosorbide Mononitrate (Imdur Er) 30 mg PO DAILY [facility] Last Admin: 09/18/18 08:14 Dose: 30 mg Levalbuterol HCl (Xopenex) 0.63 mg INH RQ8 [facility] Last Admin: 09/18/18 07:29 Dose: 0.63 mg Lisinopril (Zestril) 20 mg PO DAILY [facility] Last Admin: 09/18/18 08:14 Dose: 20 mg Meclizine HCl (Antivert) 12.5 mg PO DAILY PRN PRN Reason: vertigo Last Admin: 09/13/18 09:50 Dose: 12.5 mg Potassium Chloride (Klor-Con 10) 10 meq PO DAILY [facility] Last Admin: 09/18/18 08:14 Dose: 10 meq - Labs Labs: 09/13/18 04:30 09/18/18 06:30 - Constitutional Appears: Well, Non-toxic, No Acute Distress - Head Exam Head Exam: ATRAUMATIC, NORMOCEPHALIC - Extremities Exam Additional comments: B/L lower extremities focused exam: Vascular: DP/PT 1/4, Cap refill < 3 seconds, Temp gradient warm to warm, No edema appreciated to bilateral lower extremities. Neuro: Gross and protective sensation intact. Derm: B/L mild erythema to b/l lower extremities circumfrentially beginning at tibial tuberosity extending down to digits, which decrease in erythema when elevated, Improved. No open lesions at this time, no weeping or drainage appreciated. No purulence, nor streaking appreciated. Dystrophic nails. MSK: No Pain with palpation of b/l lower extremities, MMT 4/5 in all groups b/l. - Neurological Exam Neurological Exam: Alert, Oriented x3 - Psychiatric Exam Psychiatric exam: Normal Affect, Normal Mood Assessment and Plan - Assessment and Plan (Free Text) Assessment: 87 year old female patient seen and evaluated at the bedside with for b/l lower extremity chronic stasis edema, dermatitis with possible cellulitis. Plan: Patient seen and evaluated Discussed patient plan in detail with Dr. Bell Charts, labs and vitals reviewed: Afebrile, WBCs 11.8 (3/9) Ammonium lactate 12% lotion and Fer bandage applied to lower extremities no ope n wounds or weeping at this time Patient to continue elevating lower extremities. LE US; negative for DVT Blood cultures taken; No growth after 5 days. Continue IV abx as per primary team. C/W pain management as needed. Right ankle X-ray 3 views; No acute fracture noted. Continue wearing surgical shoes when ambulating. Podiatry will continue to follow up the patient upon discharge.
--- NOTE | 2018-09-18 11:17 | CP.PCM.PN ---
Subjective - Date & Time of Evaluation Date of Evaluation: 09/18/18 Time of Evaluation: 11:14 - Subjective Subjective: Labs reviewed. BUN/creat increased, likely medication related. BP has been maintained at low normal. Will stop chlorthalidone and reduce hydrocortisone. Continue acetazolamide 250 BID. Consider reducing ACEI if BP remains low-normal. Objective - Vital Signs/Intake and Output Vital Signs (last 24 hours): Temp Pulse Resp BP Pulse Ox 97.7 F 56 L 18 109/57 L 99 09/18/18 08:11 09/18/18 08:14 09/18/18 08:11 09/18/18 08:14 09/18/18 08:11 - Medications Medications: Current Medications Acetaminophen (Tylenol 325mg Tab) 325 mg PO Q6 PRN PRN Reason: Pain, Mild (1-3) Last Admin: 09/12/18 20:04 Dose: 325 mg Acetazolamide (Diamox 250 Mg Tab) 250 mg PO BID [facility] Last Admin: 09/18/18 08:13 Dose: 250 mg Albuterol/Ipratropium (Duoneb 3 Mg/0.5 Mg (3 Ml) Ud) 3 ml INH RQ6 PRN PRN Reason: Shortness of Breath Apixaban (Eliquis) 5 mg PO BID [facility]; Protocol Last Admin: 09/18/18 08:13 Dose: 5 mg Atorvastatin Calcium (Lipitor) 40 mg PO HS [facility] Last Admin: 09/17/18 21:10 Dose: 40 mg Betamethasone Valerate (Valisone) 1 applic TP DAILY [facility] Last Admin: 09/18/18 08:14 Dose: 1 applic Bisoprolol Fumarate (Zebeta) 5 mg PO DAILY [facility] Last Admin: 09/18/18 08:13 Dose: 5 mg Chlorthalidone (Hygroton) 25 mg PO DAILY [facility] Last Admin: 09/18/18 08:15 Dose: 25 mg Diltiazem HCl (Cardizem Cd) 120 mg PO DAILY [facility] Last Admin: 09/18/18 08:12 Dose: 120 mg Escitalopram Oxalate (Lexapro) 5 mg PO HS [facility] Last Admin: 09/17/18 21:10 Dose: 5 mg Hydrocortisone (Cortef) 10 mg PO DAILY [facility] Ipratropium [place] (Atrovent) 0.5 mg IH RQ8 [facility] Last Admin: 09/18/18 07:29 Dose: 0.5 mg Isosorbide Mononitrate (Imdur Er) 30 mg PO DAILY [facility] Last Admin: 09/18/18 08:14 Dose: 30 mg Levalbuterol HCl (Xopenex) 0.63 mg INH RQ8 [facility] Last Admin: 09/18/18 07:29 Dose: 0.63 mg Lisinopril (Zestril) 20 mg PO DAILY [facility] Last Admin: 09/18/18 08:14 Dose: 20 mg Meclizine HCl (Antivert) 12.5 mg PO DAILY PRN PRN Reason: vertigo Last Admin: 09/13/18 09:50 Dose: 12.5 mg Potassium Chloride (Klor-Con 10) 10 meq PO DAILY [facility] Last Admin: 09/18/18 08:14 Dose: 10 meq - Labs Labs: 09/13/18 04:30 09/18/18 06:30 Assessment and Plan (1) Rash and nonspecific skin eruption Status: Acute (2) COPD (chronic obstructive pulmonary disease) Status: Chronic (3) Hypoxemia requiring supplemental oxygen Status: Chronic (4) Physical deconditioning Status: Chronic
--- NOTE | 2018-09-18 15:40 | CP.PCM.PN ---
Subjective - Date & Time of Evaluation Date of Evaluation: 09/18/18 Time of Evaluation: 14:00 - Subjective Subjective: Patient seen and examined. Denied any complaint Objective - Vital Signs/Intake and Output Vital Signs (last 24 hours): Temp Pulse Resp BP Pulse Ox 97.7 F 56 L 18 109/57 L 99 09/18/18 08:11 09/18/18 08:14 09/18/18 08:11 09/18/18 08:14 09/18/18 08:11 - Medications Medications: Current Medications Acetaminophen (Tylenol 325mg Tab) 325 mg PO Q6 PRN PRN Reason: Pain, Mild (1-3) Last Admin: 09/12/18 20:04 Dose: 325 mg Acetazolamide (Diamox 250 Mg Tab) 250 mg PO BID [facility] Last Admin: 09/18/18 08:13 Dose: 250 mg Albuterol/Ipratropium (Duoneb 3 Mg/0.5 Mg (3 Ml) Ud) 3 ml INH RQ6 PRN PRN Reason: Shortness of Breath Apixaban (Eliquis) 5 mg PO BID [facility]; Protocol Last Admin: 09/18/18 08:13 Dose: 5 mg Atorvastatin Calcium (Lipitor) 40 mg PO HS [facility] Last Admin: 09/17/18 21:10 Dose: 40 mg Betamethasone Valerate (Valisone) 1 applic TP DAILY [facility] Last Admin: 09/18/18 08:14 Dose: 1 applic Bisoprolol Fumarate (Zebeta) 5 mg PO DAILY [facility] Last Admin: 09/18/18 08:13 Dose: 5 mg Chlorthalidone (Hygroton) 25 mg PO DAILY [facility] Last Admin: 09/18/18 08:15 Dose: 25 mg Diltiazem HCl (Cardizem Cd) 120 mg PO DAILY [facility] Last Admin: 09/18/18 08:12 Dose: 120 mg Escitalopram Oxalate (Lexapro) 5 mg PO HS [facility] Last Admin: 09/17/18 21:10 Dose: 5 mg Hydrocortisone (Cortef) 10 mg PO DAILY [facility] Ipratropium [place] (Atrovent) 0.5 mg IH RQ8 [facility] Last Admin: 09/18/18 15:31 Dose: 0.5 mg Isosorbide Mononitrate (Imdur Er) 30 mg PO DAILY [facility] Last Admin: 09/18/18 08:14 Dose: 30 mg Levalbuterol HCl (Xopenex) 0.63 mg INH RQ8 [facility] Last Admin: 09/18/18 15:31 Dose: 0.63 mg Lisinopril (Zestril) 20 mg PO DAILY [facility] Last Admin: 09/18/18 08:14 Dose: 20 mg Meclizine HCl (Antivert) 12.5 mg PO DAILY PRN PRN Reason: vertigo Last Admin: 09/13/18 09:50 Dose: 12.5 mg Potassium Chloride (Klor-Con 10) 10 meq PO DAILY [facility] Last Admin: 09/18/18 08:14 Dose: 10 meq - Labs Labs: 09/13/18 04:30 09/18/18 06:30 - Constitutional Appears: No Acute Distress - Head Exam Head Exam: ATRAUMATIC - Eye Exam Eye Exam: absent: Scleral icterus - ENT Exam ENT Exam: Mucous Membranes Moist - Neck Exam Neck Exam: absent: Meningismus - Respiratory Exam Respiratory Exam: absent: Rales, Rhonchi, Wheezes, Respiratory Distress - Cardiovascular Exam Cardiovascular Exam: REGULAR RHYTHM, +S1, +S2 - GI/Abdominal Exam GI & Abdominal Exam: Soft. absent: Tenderness - Rectal Exam Rectal Exam: Deferred - Extremities Exam Extremities Exam: Pedal Edema - Neurological Exam Neurological Exam: Alert, Oriented x3 - Psychiatric Exam Psychiatric exam: Normal Affect - Skin Skin Exam: Dry, Intact Assessment and Plan - Assessment and Plan (Free Text) Assessment: 87 yo female with history of COPD, CAD, CHF, AFib and chronic stasis dermatitis of both legs admitted to TCU for therapy because of physical deconditioning. 1. Physical Deconditioning continue PT/OT 2. Stasis dermatitis Podiatry on consult 3. COPD stable continue Raghu Marquez on consult 4. CHF exacerbation Diastolic Dysfunction Last echo on 08/11/18 with LVEF of 50-55%. continue Lisinopril, Imdur and Bisoprolol continue Acetazolamide for diuresis instead of Lasix Chlorthalidone placed on hold because of azotemia 5. Paroxysmal Afib Rate controlled Continue Cardizem, Bisoprolol and Eliquis
[2018-09-19] MEDS: Ipratropium 0.02% Inhal Soln (0.5 mg/2.5 ml) UD IH SCH ×3 (07:32→23:20)
[2018-09-19] MEDS: Levalbuterol 0.63 MG/3 ML Inhal Soln UD INH SCH ×3 (07:32→23:20)
[2018-09-19] MEDS: Potassium Chloride 10 mEq ER Tab PO SCH (08:31)
[2018-09-19] MEDS: diltiaZEM 120 mg/24 Hours CD Cap PO SCH (08:31)
--- NOTE | 2018-09-19 14:17 | CP.PCM.PN ---
Subjective - Date & Time of Evaluation Date of Evaluation: 09/19/18 Time of Evaluation: 14:15 - Subjective Subjective: Ambulating with respiratory therapist. Appears to be doing well on present regimen. BP has been low-normal daily, [place] has been on hold today. Will reduce lisinopril to 10MG OD and D/C chlorthalidone. Reduce Acetazolamide to 250 once daily. Repeat BMP in M tomorrow. Objective - Vital Signs/Intake and Output Vital Signs (last 24 hours): Temp Pulse Resp BP Pulse Ox 98.3 F 62 19 108/57 L 93 L 09/19/18 08:18 09/19/18 09:27 09/19/18 08:18 09/19/18 08:31 09/19/18 09:27 - Medications Medications: Current Medications Acetaminophen (Tylenol 325mg Tab) 325 mg PO Q6 PRN PRN Reason: Pain, Mild (1-3) Last Admin: 09/12/18 20:04 Dose: 325 mg Acetazolamide (Diamox 250 Mg Tab) 250 mg PO BID [facility] Last Admin: 09/19/18 08:31 Dose: 250 mg Albuterol/Ipratropium (Duoneb 3 Mg/0.5 Mg (3 Ml) Ud) 3 ml INH RQ6 PRN PRN Reason: Shortness of Breath Apixaban (Eliquis) 5 mg PO BID [facility]; Protocol Last Admin: 09/19/18 08:29 Dose: 5 mg Atorvastatin Calcium (Lipitor) 40 mg PO HS [facility] Last Admin: 09/18/18 22:56 Dose: 40 mg Betamethasone Valerate (Valisone) 1 applic TP DAILY [facility] Last Admin: 09/19/18 08:30 Dose: 1 applic Bisoprolol Fumarate (Zebeta) 5 mg PO DAILY [facility] Last Admin: 09/19/18 08:30 Dose: 5 mg Chlorthalidone (Hygroton) 25 mg PO DAILY [facility] Last Admin: 09/18/18 08:15 Dose: 25 mg Diltiazem HCl (Cardizem Cd) 120 mg PO DAILY [facility] Last Admin: 09/19/18 08:31 Dose: 120 mg Escitalopram Oxalate (Lexapro) 5 mg PO HS [facility] Last Admin: 09/18/18 22:56 Dose: 5 mg Hydrocortisone (Cortef) 10 mg PO DAILY [facility] Last Admin: 09/19/18 08:31 Dose: 10 mg Ipratropium [place] (Atrovent) 0.5 mg IH RQ8 [facility] Last Admin: 09/19/18 07:32 Dose: 0.5 mg Isosorbide Mononitrate (Imdur Er) 30 mg PO DAILY [facility] Last Admin: 09/19/18 08:32 Dose: Not Given Levalbuterol HCl (Xopenex) 0.63 mg INH RQ8 [facility] Last Admin: 09/19/18 07:32 Dose: 0.63 mg Lisinopril (Zestril) 10 mg PO DAILY [facility] Meclizine HCl (Antivert) 12.5 mg PO DAILY PRN PRN Reason: vertigo Last Admin: 09/13/18 09:50 Dose: 12.5 mg Potassium Chloride (Klor-Con 10) 10 meq PO DAILY [facility] Last Admin: 09/19/18 08:31 Dose: 10 meq - Labs Labs: 09/13/18 04:30 09/18/18 06:30 Assessment and Plan (1) Rash and nonspecific skin eruption Status: Acute (2) COPD (chronic obstructive pulmonary disease) Status: Chronic (3) Hypoxemia requiring supplemental oxygen Status: Chronic (4) Physical deconditioning Status: Chronic
[2018-09-19 17:21] LABS: ABG ALLEN TEST YES; ARTERIAL BLOOD GAS HCO3 26.4 mmol/L (21-28); ARTERIAL BLOOD GAS HEMOGLOBIN 10.8 g/dL (11.7-17.4); ARTERIAL BLOOD GAS O2 CAPACITY 14.7 mL/dL (16-24); ARTERIAL BLOOD GAS O2 CONTENT 14.3 ML/dL (15-23); ARTERIAL BLOOD GAS PCO2 53 mm/Hg (35-45); ARTERIAL BLOOD GAS PH 7.34 (7.35-7.45); ARTERIAL BLOOD GAS PO2 72 mm/Hg (80-100); ARTERIAL BLOOD GAS TCO2 30.2 mmol/L (22-28)
[2018-09-20] MEDS: Ipratropium 0.02% Inhal Soln (0.5 mg/2.5 ml) UD IH SCH ×3 (08:24→23:26)
[2018-09-20] MEDS: Levalbuterol 0.63 MG/3 ML Inhal Soln UD INH SCH ×3 (08:24→23:26)
--- NOTE | 2018-09-20 08:39 | CP.PCM.PN ---
Subjective - Date & Time of Evaluation Date of Evaluation: 09/20/18 Time of Evaluation: 08:37 - Subjective Subjective: Podiatry progress Note: Dr. Bell 87 year old female patient seen and evaluated at the bedside in TCU for b/l lower extremity chronic stasis edema, dermatitis with possible cellulitis. Patient states that she doesn't have any pain in her legs now. Patient states that she started to have some itchiness today in her legs. She denies any overnight nausea/vomiting/fever/chest pain/chills, or shortness of breath. Objective - Vital Signs/Intake and Output Vital Signs (last 24 hours): Temp Pulse Resp BP Pulse Ox 97.0 F L 60 20 108/56 L 95 09/20/18 08:11 09/20/18 08:11 09/20/18 08:11 09/20/18 08:11 09/20/18 08:11 - Medications Medications: Current Medications Acetaminophen (Tylenol 325mg Tab) 325 mg PO Q6 PRN PRN Reason: Pain, Mild (1-3) Last Admin: 09/12/18 20:04 Dose: 325 mg Acetazolamide (Diamox 250 Mg Tab) 250 mg PO DAILY [facility] Albuterol/Ipratropium (Duoneb 3 Mg/0.5 Mg (3 Ml) Ud) 3 ml INH RQ6 PRN PRN Reason: Shortness of Breath Apixaban (Eliquis) 5 mg PO BID [facility]; Protocol Last Admin: 09/19/18 17:00 Dose: 5 mg Atorvastatin Calcium (Lipitor) 40 mg PO HS [facility] Last Admin: 09/19/18 21:25 Dose: 40 mg Betamethasone Valerate (Valisone) 1 applic TP DAILY [facility] Last Admin: 09/19/18 08:30 Dose: 1 applic Bisoprolol Fumarate (Zebeta) 5 mg PO DAILY [facility] Last Admin: 09/19/18 08:30 Dose: 5 mg Diltiazem HCl (Cardizem Cd) 120 mg PO DAILY [facility] Last Admin: 09/19/18 08:31 Dose: 120 mg Escitalopram Oxalate (Lexapro) 5 mg PO HS [facility] Last Admin: 09/19/18 21:25 Dose: 5 mg Hydrocortisone (Cortef) 10 mg PO DAILY [facility] Last Admin: 09/19/18 08:31 Dose: 10 mg Ipratropium [place] (Atrovent) 0.5 mg IH RQ8 [facility] Last Admin: 09/20/18 08:24 Dose: 0.5 mg Isosorbide Mononitrate (Imdur Er) 30 mg PO DAILY [facility] Last Admin: 09/19/18 08:32 Dose: Not Given Levalbuterol HCl (Xopenex) 0.63 mg INH RQ8 [facility] Last Admin: 09/20/18 08:24 Dose: 0.63 mg Lisinopril (Zestril) 10 mg PO DAILY [facility] Meclizine HCl (Antivert) 12.5 mg PO DAILY PRN PRN Reason: vertigo Last Admin: 09/13/18 09:50 Dose: 12.5 mg Potassium Chloride (Klor-Con 10) 10 meq PO DAILY [facility] Last Admin: 09/19/18 08:31 Dose: 10 meq - Labs Labs: 09/13/18 04:30 09/18/18 06:30 - Constitutional Appears: Well, Non-toxic, No Acute Distress - Head Exam Head Exam: ATRAUMATIC, NORMOCEPHALIC - Extremities Exam Additional comments: B/L lower extremities focused exam: Vascular: DP/PT 1/4, Cap refill < 3 seconds, Temp gradient warm to warm, No edema appreciated to bilateral lower extremities. Neuro: Gross and protective sensation intact. Derm: B/L mild erythema to b/l lower extremities circumfrentially beginning at tibial tuberosity extending down to digits, which decrease in erythema when elevated, Improved. No open lesions at this time, no weeping or drainage appreciated. No purulence, nor streaking appreciated. Dystrophic nails. MSK: No Pain with palpation of b/l lower extremities, MMT 4/5 in all groups b/l. - Neurological Exam Neurological Exam: Alert, Awake, Oriented x3 - Psychiatric Exam Psychiatric exam: Normal Affect, Normal Mood Assessment and Plan - Assessment and Plan (Free Text) Assessment: 87 year old female patient seen and evaluated for b/l lower extremity chronic stasis edema, dermatitis with possible cellulitis. Plan: Patient seen and evaluated Discussed patient plan in detail with Dr. Bell Charts, labs and vitals reviewed: Afebrile, WBCs 11.8 (3/9) Ammonium lactate 12% lotion applied to lower extremities no open wounds or weeping at this time Patient to continue elevating lower extremities LE US: negative for DVT Right ankle X-ray 3 views: No acute fracture noted Blood cultures taken: No growth after 5 days Continue IV abx as per primary team C/W pain management as needed. Continue wearing surgical shoes when ambulating Podiatry will continue to follow
[2018-09-20] MEDS: Potassium Chloride 10 mEq ER Tab PO SCH (09:21)
[2018-09-20] MEDS: diltiaZEM 120 mg/24 Hours CD Cap PO SCH (09:22)
--- NOTE | 2018-09-20 11:33 | CP.PCM.PN ---
Subjective - Date & Time of Evaluation Date of Evaluation: 09/20/18 Time of Evaluation: 11:28 - Subjective Subjective: Asleep in bed, easily awakens. Appears comfortable at rest. No SOB or muscle recruitment. ABG done yesterday showed some mild hypercapnia, adequate O2. LE's are still erythematous, but swelling is much improved. No cyanosis or ecchymosis. No jaundice. Speech is fluent, memory is fair, no focal motor weakness. Neck is supple and trachea midline. Breath sounds are markedly diminished bilaterally. No audible wheezes. Dry rales heard in lower lobes. Heart sounds are distant, rhythm regular. Maintain current medical regimen. BMP requested for today. Likely discharge to home next 24-48hrs. Objective - Vital Signs/Intake and Output Vital Signs (last 24 hours): Temp Pulse Resp BP Pulse Ox 97.0 F L 60 20 108/56 L 95 09/20/18 08:11 09/20/18 09:23 09/20/18 08:11 09/20/18 09:23 09/20/18 08:11 - Medications Medications: Current Medications Acetaminophen (Tylenol 325mg Tab) 325 mg PO Q6 PRN PRN Reason: Pain, Mild (1-3) Last Admin: 09/12/18 20:04 Dose: 325 mg Acetazolamide (Diamox 250 Mg Tab) 250 mg PO DAILY [facility] Last Admin: 09/20/18 09:22 Dose: 250 mg Albuterol/Ipratropium (Duoneb 3 Mg/0.5 Mg (3 Ml) Ud) 3 ml INH RQ6 PRN PRN Reason: Shortness of Breath Apixaban (Eliquis) 5 mg PO BID [facility]; Protocol Last Admin: 09/20/18 09:20 Dose: 5 mg Atorvastatin Calcium (Lipitor) 40 mg PO HS [facility] Last Admin: 09/19/18 21:25 Dose: 40 mg Betamethasone Valerate (Valisone) 1 applic TP DAILY [facility] Last Admin: 09/20/18 09:20 Dose: 1 applic Bisoprolol Fumarate (Zebeta) 5 mg PO DAILY [facility] Last Admin: 09/20/18 09:22 Dose: Not Given Diltiazem HCl (Cardizem Cd) 120 mg PO DAILY [facility] Last Admin: 09/20/18 09:22 Dose: 120 mg Escitalopram Oxalate (Lexapro) 5 mg PO HS [facility] Last Admin: 09/19/18 21:25 Dose: 5 mg Hydrocortisone (Cortef) 10 mg PO DAILY [facility] Last Admin: 09/20/18 09:21 Dose: 10 mg Ipratropium [place] (Atrovent) 0.5 mg IH RQ8 [facility] Last Admin: 09/20/18 08:24 Dose: 0.5 mg Isosorbide Mononitrate (Imdur Er) 30 mg PO DAILY [facility] Last Admin: 09/20/18 09:21 Dose: 30 mg Levalbuterol HCl (Xopenex) 0.63 mg INH RQ8 [facility] Last Admin: 09/20/18 08:24 Dose: 0.63 mg Lisinopril (Zestril) 10 mg PO DAILY [facility] Last Admin: 09/20/18 09:23 Dose: Not Given Meclizine HCl (Antivert) 12.5 mg PO DAILY PRN PRN Reason: vertigo Last Admin: 09/13/18 09:50 Dose: 12.5 mg Potassium Chloride (Klor-Con 10) 10 meq PO DAILY [facility] Last Admin: 09/20/18 09:21 Dose: 10 meq - Labs Labs: 09/13/18 04:30 09/18/18 06:30 Assessment and Plan (1) Rash and nonspecific skin eruption Status: Acute (2) COPD (chronic obstructive pulmonary disease) Status: Chronic (3) Hypoxemia requiring supplemental oxygen Status: Chronic (4) Physical deconditioning Status: Chronic
[2018-09-21] MEDS: Ipratropium 0.02% Inhal Soln (0.5 mg/2.5 ml) UD IH SCH ×3 (07:21→23:04)
[2018-09-21] MEDS: Levalbuterol 0.63 MG/3 ML Inhal Soln UD INH SCH ×3 (07:21→23:04)
[2018-09-21] MEDS: diltiaZEM 120 mg/24 Hours CD Cap PO SCH (09:22)
[2018-09-21] MEDS: Potassium Chloride 10 mEq ER Tab PO SCH (09:23)
[2018-09-22 07:30] LABS: BLOOD UREA NITROGEN 27 mg/dl (7-17); CALCIUM 8.9 mg/dL (8.4-10.2); GFR NON-AFRICAN AMERICAN 59
[2018-09-22] MEDS: Ipratropium 0.02% Inhal Soln (0.5 mg/2.5 ml) UD IH SCH (07:31)
[2018-09-22] MEDS: Levalbuterol 0.63 MG/3 ML Inhal Soln UD INH SCH (07:31)
[2018-09-22 08:39] VITALS: BP 123/58; PULSE 60; RESP 18; TEMP 98.5; O2SAT 95
[2018-09-22] MEDS: diltiaZEM 120 mg/24 Hours CD Cap PO SCH (09:14)
[2018-09-22] MEDS: Potassium Chloride 10 mEq ER Tab PO SCH (09:16)
--- NOTE | 2018-09-22 11:05 | CP.PCM.DIS ---
Provider - Provider Date of Admission: 09/12/18 17:32 Attending physician: Trish Simeon DO Consults: 09/12/18 17:35 Pulmonology Consult Routine Comment: Consulting Provider: Kaushik Marquez Consulting Physician: Kaushik Marquez Reason for Consult: Heart Healthy 09/12/18 17:38 Podiatry Consult Routine Comment: Consulting Provider: Armana Bell Consulting Physician: Armaan Bell Reason for Consult: LE Edema, Stasis dermatitis, Ankle pain Time Spent in preparation of Discharge (in minutes): 25 Diagnosis - Discharge Diagnosis (1) Physical deconditioning Status: Acute Priority: High Comment: did well with PT/OT (2) Stasis dermatitis Status: Chronic Comment: improved. continue Betamethasone cream application (3) COPD (chronic obstructive pulmonary disease) Status: Chronic Priority: High Comment: stable (4) CHF (congestive heart failure) Status: Chronic Priority: High Comment: stable. continue Lisinopril, Imdur and Bisoprolol. continue Acetazolamide (5) Afib Status: Resolved Priority: High Comment: rate controlled. continue Cardizem, Bisoprol and Eliis Hospital Course - Lab Results Lab Results: Most Recent Lab Values WBC 11.8 K/uL (4.8-10.8) H 09/13/18 04:30 RBC 3.70 Mil/uL (3.80-5.20) L 09/13/18 04:30 Hgb 10.3 g/dL (12.0-16.0) L 09/13/18 04:30 Hct 31.8 % (34.0-47.0) L 09/13/18 04:30 MCV 86.0 fl (81.0-99.0) 09/13/18 04:30 MCH 27.8 pg (27.0-31.0) 09/13/18 04:30 MCHC 32.3 g/dL (33.0-37.0) L 09/13/18 04:30 RDW 15.4 % (11.5-14.5) H 09/13/18 04:30 Plt Count 359 K/uL (130-400) 09/13/18 04:30 pCO2 53 mm/Hg (35-45) H 09/19/18 17:17 pO2 72 mm/Hg (80-100) L 09/19/18 17:17 HCO3 26.4 mmol/L (21-28) 09/19/18 17:17 ABG pH 7.34 (7.35-7.45) L 09/19/18 17:17 ABG Total CO2 30.2 mmol/L (22-28) H 09/19/18 17:17 ABG O2 Saturation 97.0 % (95-98) 09/19/18 17:17 ABG O2 Content 14.3 ML/dL (15-23) L 09/19/18 17:17 ABG Base Excess 2.0 mmol/L (-2.0-3.0) 09/19/18 17:17 ABG Hemoglobin 10.8 g/dL (11.7-17.4) L 09/19/18 17:17 ABG Carboxyhemoglobin 1.7 % (0.5-1.5) H 09/19/18 17:17 POC ABG HHb (Measured) 2.9 % (0.0-5.0) 09/19/18 17:17 ABG Methemoglobin 1.4 % (0.0-3.0) 09/19/18 17:17 ABG O2 Capacity 14.7 mL/dL (16-24) L 09/19/18 17:17 Luiz Test Yes 09/19/18 17:17 A-a O2 Difference 61.0 mm/Hg 09/19/18 17:17 Hgb O2 Saturation 94.0 % (95.0-98.0) L 09/19/18 17:17 FiO2 28.0 % 09/19/18 17:17 Sodium 140 mmol/l (132-148) 09/22/18 06:45 Potassium 3.9 MMOL/L (3.6-5.0) 09/22/18 06:45 Chloride 101 mmol/L (98-107) 09/22/18 06:45 Carbon Dioxide 24 mmol/L (22-30) 09/22/18 06:45 Anion Gap 19 (10-20) 09/22/18 06:45 BUN 27 mg/dl (7-17) H 09/22/18 06:45 Creatinine 0.9 mg/dl (0.7-1.2) 09/22/18 06:45 Est GFR ( Amer) > 60 09/22/18 06:45 Est GFR (Non-Af Amer) 59 09/22/18 06:45 POC Glucose (mg/dL) 129 mg/dL (65-110) H 09/19/18 16:16 Random Glucose 138 mg/dL (65-105) H 09/22/18 06:45 Calcium 8.9 mg/dL (8.4-10.2) 09/22/18 06:45 - Hospital Course Hospital Course: 87 yo female with history of COPD, CAD, CHF, AFib and chronic venous stasis dermatitis was admitted to TCU on 09/13/2018 for therapy after she was managed with IV Vancomycin for cellulitis of both legs. She did well with therapy and now is ready to go home in stable condition. Discharge Exam - Head Exam Head Exam: ATRAUMATIC, NORMOCEPHALIC - Eye Exam Eye Exam: absent: Scleral icterus - ENT Exam ENT Exam: Mucous Membranes Moist - Respiratory Exam Respiratory Exam: absent: Rales, Rhonchi, Wheezes, Respiratory Distress - Cardiovascular Exam Cardiovascular Exam: REGULAR RHYTHM, +S1, +S2 - GI/Abdominal Exam GI & Abdominal Exam: Soft. absent: Tenderness - Rectal Exam Rectal Exam: Deferred - Extremities Exam Extremities exam: pedal edema - Neurological Exam Neurological exam: Alert, Oriented x3 - Psychiatric Exam Psychiatric exam: Normal Affect - Skin Skin Exam: Dry, Intact Discharge Plan - Discharge Medications Prescriptions: acetaZOLAMIDE [Diamox 250 mg Tab] 250 mg PO DAILY #30 tab Betamethasone Valerate [Valisone] 1 applic TP DAILY #1 tube Hydrocortisone [Cortef] 10 mg PO DAILY #30 tab - Follow Up Plan Condition: GOOD Disposition: HOME/ ROUTINE Instructions: Cellulitis (Skin Infection), Adult (DC) Additional Instructions: Follow up with primary within one week
--- NOTE | 2018-09-22 11:30 | CP.PCM.PN ---
Subjective - Date & Time of Evaluation Date of Evaluation: 09/22/18 Time of Evaluation: 11:28 - Subjective Subjective: Ready for discharge. Reviewed all medications with nursing and the patient. Spoke to pharmacy, new meds ordered. Discussed use of home O2 with patient; reduced to 1 LPM nasal cnula. Follow up office visit next week; call office tomorrow for appointment. Objective - Vital Signs/Intake and Output Vital Signs (last 24 hours): Temp Pulse Resp BP Pulse Ox 98.5 F 60 18 123/58 L 95 09/22/18 08:38 09/22/18 09:15 09/22/18 08:38 09/22/18 09:15 09/22/18 08:38 - Medications Medications: Current Medications Acetaminophen (Tylenol 325mg Tab) 325 mg PO Q6 PRN PRN Reason: Pain, Mild (1-3) Last Admin: 09/12/18 20:04 Dose: 325 mg Acetazolamide (Diamox 250 Mg Tab) 250 mg PO DAILY [facility] Last Admin: 09/22/18 09:16 Dose: 250 mg Albuterol/Ipratropium (Duoneb 3 Mg/0.5 Mg (3 Ml) Ud) 3 ml INH RQ6 PRN PRN Reason: Shortness of Breath Apixaban (Eliquis) 5 mg PO BID [facility]; Protocol Last Admin: 09/22/18 09:14 Dose: 5 mg Atorvastatin Calcium (Lipitor) 40 mg PO HS [facility] Last Admin: 09/21/18 21:45 Dose: 40 mg Betamethasone Valerate (Valisone) 1 applic TP DAILY [facility] Last Admin: 09/22/18 09:15 Dose: 1 applic Bisoprolol Fumarate (Zebeta) 5 mg PO DAILY [facility] Last Admin: 09/22/18 09:15 Dose: 5 mg Diltiazem HCl (Cardizem Cd) 120 mg PO DAILY [facility] Last Admin: 09/22/18 09:14 Dose: 120 mg Escitalopram Oxalate (Lexapro) 5 mg PO HS [facility] Last Admin: 09/21/18 21:45 Dose: 5 mg Hydrocortisone (Cortef) 10 mg PO DAILY [facility] Last Admin: 09/22/18 09:16 Dose: 10 mg Ipratropium [place] (Atrovent) 0.5 mg IH RQ8 [facility] Last Admin: 09/22/18 07:31 Dose: 0.5 mg Isosorbide Mononitrate (Imdur Er) 30 mg PO DAILY [facility] Last Admin: 09/21/18 09:23 Dose: 30 mg Levalbuterol HCl (Xopenex) 0.63 mg INH RQ8 [facility] Last Admin: 09/22/18 07:31 Dose: 0.63 mg Lisinopril (Zestril) 10 mg PO DAILY [facility] Last Admin: 09/22/18 09:15 Dose: 10 mg Meclizine HCl (Antivert) 12.5 mg PO DAILY PRN PRN Reason: vertigo Last Admin: 09/13/18 09:50 Dose: 12.5 mg Potassium Chloride (Klor-Con 10) 10 meq PO DAILY [facility] Last Admin: 09/22/18 09:16 Dose: 10 meq - Labs Labs: 09/13/18 04:30 09/22/18 06:45 Assessment and Plan (1) Rash and nonspecific skin eruption Status: Acute (2) COPD (chronic obstructive pulmonary disease) Status: Chronic (3) Hypoxemia requiring supplemental oxygen Status: Chronic (4) Physical deconditioning Status: Acute
== END 2018-09-22 12:17 | disposition home health service (06) | DRG 603 ==
LOC: H.TCU 17:32
PROVIDERS: ADMIT Student in an Organized Health Care Education/Training Program; ATTEND Student in an Organized Health Care Education/Training Program
PROC: F07Z8FZ Transfer Training Treatment using Assistive, Adaptive, Supportive or Protective Equipment (ICD-10-PCS; principal; 2018-09-12)
PROC: F08Z1FZ Dressing Techniques Treatment using Assistive, Adaptive, Supportive or Protective Equipment (ICD-10-PCS; 2018-09-12)
PROC: F07Z9FZ Gait Training/Functional Ambulation Treatment using Assistive, Adaptive, Supportive or Protective Equipment (ICD-10-PCS; 2018-09-12)
PROC: F07L6GZ Therapeutic Exercise Treatment of Musculoskeletal System - Lower Back / Lower Extremity using Aerobic Endurance and Conditioning Equipment (ICD-10-PCS; 2018-09-12)
DX: L03.115 Cellulitis of right lower limb (principal); I50.32 Chronic diastolic (congestive) heart failure; L03.116 Cellulitis of left lower limb; Z88.0 Allergy status to penicillin; Z88.1 Allergy status to other antibiotic agents; J43.9 Emphysema, unspecified; I25.10 Atherosclerotic heart disease of native coronary artery without angina pectoris; Z95.5 Presence of coronary angioplasty implant and graft; I48.0 Paroxysmal atrial fibrillation; Z87.891 Personal history of nicotine dependence; I87.2 Venous insufficiency (chronic) (peripheral); I11.0 Hypertensive heart disease with heart failure; R09.02 Hypoxemia; E78.00 Pure hypercholesterolemia, unspecified

== ENCOUNTER 2018-09-30 18:10 | Inpatient (IN) | payer MEDICARE ==
[2018-09-30 18:10] VITALS: BMI 35.8
[2018-09-30 18:45] LABS: ABG ALLEN TEST YES; ARTERIAL BLOOD GAS HCO3 23.7 mmol/L (21-28); ARTERIAL BLOOD GAS O2 SAT 100.2 % (95-98); ARTERIAL BLOOD GAS PCO2 62 mm/Hg (35-45); ARTERIAL BLOOD GAS PH 7.25 (7.35-7.45); ARTERIAL BLOOD GAS PO2 79 mm/Hg (80-100); ARTERIAL BLOOD GAS TCO2 29.1 mmol/L (22-28)
[2018-09-30 18:49] LABS: BASO % 0.3 % (0.0-2.0); EOS # 0.3 K/uL (0.0-0.7); EOS % 4.2 % (0.0-4.0); HEMOGLOBIN 9.8 g/dL (12.0-16.0); LYMPH # 0.6 K/uL (1.0-4.3); LYMPH % 10.1 % (20.0-40.0); MEAN CELL VOLUME 90.5 fl (81.0-99.0); MEAN CORPUSCULAR HEMOGLOBIN 28.4 pg (27.0-31.0); MEAN CORPUSCULAR HGB CONC 31.4 g/dL (33.0-37.0); MEAN PLATELET VOLUME 8.4 fl (7.2-11.7); MONO # 0.6 K/uL (0.0-0.8); MONO % 9.5 % (0.0-10.0); NEUT # 4.7 K/uL (1.8-7.0); NEUT % 75.9 % (50.0-75.0); RBC 3.45 Mil/uL (3.80-5.20); RED CELL DISTRIBUTION WIDTH 17.5 % (11.5-14.5); WHITE BLOOD COUNT 6.2 K/uL (4.8-10.8)
[2018-09-30 18:51] LABS: INR 1.3
[2018-09-30 18:59] LABS: PARTIAL THROMBOPLASTIN TIME 36.3 Seconds (25.6-37.1)
--- NOTE | 2018-09-30 19:07 | ED PDOC ---
HPI: Altered Mental Status Time Seen by Provider: 09/30/18 18:17 Chief Complaint (Nursing): Altered Mental Status Chief Complaint (Provider): AMS History Per: Family Onset/Duration Of Symptoms: Days Current Symptoms Are (Timing): Still Present Description Of Symptoms: Confused Usual Baseline: Alert Oriented Additional Complaint(s): 87yo female, history of COPD, O2 dependence (4L O2 24 hrs a day), recently admitted for lower extremity cellulitis, brought to ER for evaluation due to confusion. Per family, patient is alert and oriented x [address], however hallucinatory statements are not her baseline. Family called PMD Dr. marquez, who recommended evaluation for possible CO2 narcosis. Daughter additionally states the lower extremity is improving although it remains red, states they "look less angry." No additional complaints. PMD: Dr. Marquez Past Medical History Reviewed: Historical Data, Nursing Documentation, Vital Signs Vital Signs: Last Vital Signs Temp 97.7 F 09/30/18 18:12 Pulse 60 09/30/18 18:43 Resp 20 09/30/18 18:43 BP 124/46 L 09/30/18 18:12 Pulse Ox 76 L 09/30/18 18:43 - Medical History PMH: Anemia, Atrial Fibrillation, CAD, Cardia Arrhythmia, CHF, COPD, Emphysema, Fractures (right ankle), HTN, Hypercholesterolemia, Peripheral Edema, Pneumonia Denies: Diabetes, HIV, Chronic Kidney Disease - Surgical History Surgical History: Coronary Stent (x 2) Denies: Appendectomy, Pacemaker - Family History Family History: States: Unknown Family Hx - Living Arrangements Living Arrangements: With Family - Social History Current smoker - smoking cessation education provided: No - Home Medications Home Medications: Ambulatory Orders Medication Instructions Recorded Apixaban [Eliquis] 5 mg PO BID #60 tab 08/26/18 Isosorbide Mononitrate ER [Imdur 30 mg PO DAILY #30 tab 08/26/18 ER] Rosuvastatin Calcium [Crestor] 20 mg PO HS 09/06/18 Albuterol/Ipratropium [Duoneb 3 3 ml INH RQ6 PRN neb 09/10/18 mg/0.5 mg (3 ml) UD] Lisinopril [Zestril] 10 mg PO DAILY #30 tab 09/22/18 acetaZOLAMIDE [Diamox 250 mg Tab] 250 mg PO DAILY #30 tab 09/22/18 Bisoprolol [Zebeta] 2.5 mg PO DAILY 09/30/18 Escitalopram [Lexapro] 5 mg PO DAILY 09/30/18 Umeclidinium Brm/Vilanterol Tr 1 puff IH DAILY 09/30/18 [Anoro Ellipta 62.5-25 Mcg INH] - Allergies Allergies/Adverse Reactions: Allergies Allergy/AdvReac Type Severity Reaction Status Date / Time Penicillins Allergy Mild SWELLING Verified 09/12/18 15:40 vancomycin Allergy RASH Verified 09/12/18 15:40 Review of Systems ROS Statement: Except As Marked, All Systems Reviewed And Found Negative Constitutional: Negative for: Fever, Chills Neurological: Positive for: Altered Mental Status Physical Exam - Reviewed Nursing Documentation Reviewed: Yes Vital Signs Reviewed: Yes - Physical Exam Appears: Positive for: Non-toxic Cardiovascular/Chest: Positive for: Regular Rate, Rhythm. Negative for: Tachycardia Respiratory: Positive for: Decreased Breath Sounds (bilateral diminished breath sounds) Extremity: Positive for: Other (chronic appearing erythema and scaling skin to bilateral lower extremity) Neurological/Psych: Positive for: Alert (alert and oriented x 2 - person and place; occasional periods of delirium), Symmetric/Intact Strength (4/5 strength upper extremities; 3/5 strength lower extremities) - Laboratory Results Result Diagrams: 10/02/18 05:25 10/02/18 05:25 Lab Results: pCO2 62 mm/Hg (35-45) H 09/30/18 18:37 pO2 79 mm/Hg (80-100) L 09/30/18 18:37 HCO3 23.7 mmol/L (21-28) 09/30/18 18:37 ABG pH 7.25 (7.35-7.45) L 09/30/18 18:37 ABG Total CO2 29.1 mmol/L (22-28) H 09/30/18 18:37 ABG O2 Saturation 100.2 % (95-98) H 09/30/18 18:37 ABG Base Excess -1.4 mmol/L (-2.0-3.0) 09/30/18 18:37 Luiz Test Yes 09/30/18 18:37 ABG Potassium 4.3 mmol/L (3.6-5.2) 09/30/18 18:37 A-a O2 Difference 43.0 mm/Hg 09/30/18 18:37 Sodium 140.0 mmol/L (132-148) 09/30/18 18:37 Chloride 112.0 mmol/L (98-107) H 09/30/18 18:37 Glucose 173 mg/dL (65-105) H 09/30/18 18:37 Lactate 1.0 mmol/L (0.7-2.1) 09/30/18 18:37 Vent Mode 2lnc 09/30/18 18:37 FiO2 28.0 % 09/30/18 18:37 PT 15.0 Seconds (9.8-13.1) H 09/30/18 18:40 INR 1.3 09/30/18 18:40 APTT 36.3 Seconds (25.6-37.1) 09/30/18 18:40 - ECG O2 Sat by Pulse Oximetry: 76 Medical Decision Making Medical Decision Making: ABG obtained, CO2 level 62 - mildly elevated but not significantly Will obtain CT Head w/o contrast 1909 Patient placed on vapotherm Patient signed out to Dr. Whitten pending CT head, labs, reassessment. Scribe Attestation: Documented by Krista Hernandez, acting as a scribe for aMin Mccormick DO Provider Scribe Attestation: All medical record entries made by the Scribe were at my direction and personally dictated by me. I have reviewed the chart and agree that the record accurately reflects my personal performance of the history, physical exam, medical decision making, and the department course for this patient. I have also personally directed, reviewed, and agree with the discharge instructions and disposition. Disposition - Clinical Impression Clinical Impression: Altered mental status - Patient ED Disposition Is Patient to be Admitted: Transfer of Care Counseled Patient/Family Regarding: Studies Performed, Diagnosis, Need For Followup - Disposition Disposition: Transfer of Care Disposition Time: 19:10 Condition: FAIR Patient Signed Over To: James Whitten
[2018-09-30 19:23] LABS: ALBUMIN 3.4 g/dL (3.5-5.0); ALT/SGPT 21 U/L (9-52); AST/SGOT 16 U/L (14-36); BLOOD UREA NITROGEN 24 mg/dl (7-17); CALCIUM 9.2 mg/dL (8.4-10.2); GFR NON-AFRICAN AMERICAN 47
--- NOTE | 2018-09-30 19:38 | ED PDOC ---
- Laboratory Results Result Diagrams: 09/30/18 18:40 09/30/18 18:40 Lab Results: pCO2 62 mm/Hg (35-45) H 09/30/18 18:37 pO2 79 mm/Hg (80-100) L 09/30/18 18:37 HCO3 23.7 mmol/L (21-28) 09/30/18 18:37 ABG pH 7.25 (7.35-7.45) L 09/30/18 18:37 ABG Total CO2 29.1 mmol/L (22-28) H 09/30/18 18:37 ABG O2 Saturation 100.2 % (95-98) H 09/30/18 18:37 ABG Base Excess -1.4 mmol/L (-2.0-3.0) 09/30/18 18:37 Luiz Test Yes 09/30/18 18:37 ABG Potassium 4.3 mmol/L (3.6-5.2) 09/30/18 18:37 A-a O2 Difference 43.0 mm/Hg 09/30/18 18:37 Sodium 140.0 mmol/L (132-148) 09/30/18 18:37 Chloride 112.0 mmol/L (98-107) H 09/30/18 18:37 Glucose 173 mg/dL (65-105) H 09/30/18 18:37 Lactate 1.0 mmol/L (0.7-2.1) 09/30/18 18:37 Vent Mode 2lnc 09/30/18 18:37 FiO2 28.0 % 09/30/18 18:37 PT 15.0 Seconds (9.8-13.1) H 09/30/18 18:40 INR 1.3 09/30/18 18:40 APTT 36.3 Seconds (25.6-37.1) 09/30/18 18:40 Troponin I < 0.0120 ng/mL (0.00-0.120) 09/30/18 18:40 Total Bilirubin 0.3 mg/dl (0.2-1.3) 09/30/18 18:40 AST 16 U/L (14-36) 09/30/18 18:40 ALT 21 U/L (9-52) 09/30/18 18:40 Alkaline Phosphatase 109 U/L (38-126) 09/30/18 18:40 Total Protein 6.9 G/DL (6.3-8.2) 09/30/18 18:40 Albumin 3.4 g/dL (3.5-5.0) L 09/30/18 18:40 Globulin 3.5 gm/dL (2.2-3.9) 09/30/18 18:40 Albumin/Globulin Ratio 1.0 (1.0-2.1) 09/30/18 18:40 - ECG O2 Sat by Pulse Oximetry: 76 (RA) Pulse Ox Interpretation: Normal Medical Decision Making Medical Decision Makin:10 Patient signed out to this provider by Dr Mccormick pending lab results. Once resulted, will consult Dr. Marquez, patient's PMD and likely admit due to AMS. 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 VENTRICLES: There is generalized parenchymal atrophy noted as demonstrated by symmetrical dilatation of ventricles and sulci. ORBITS: The orbits are unremarkable. SINUSES AND MASTOIDS: The paranasal sinuses and mastoid air cells are clear. BONES: No fracture. SOFT TISSUES: Unremarkable. MISCELLANEOUS: No acute intracranial pathology. IMPRESSION: 1. Generalized parenchymal atrophy. 2. 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 3. No acute intracranial pathology. 21:[address] Marquez and Dr. Stovall who are aware and agreed to admit patient. Patient will be admitted to Dr. Stovall who admits for PMD, Dr. Marquez, for further workup of AMS. Scribe Attestation: Documented by Brigitte Mak, acting as a scribe Darshan Whitten MD Provider Scribe Attestation: All medical record entries made by the Scribe were at my direction and personally dictated by me. I have reviewed the chart and agree that the record accurately reflects my personal performance of the history, physical exam, medical decision making, and the department course for this patient. I have also personally directed, reviewed, and agree with the discharge instructions and disposition Disposition Counseled Patient/Family Regarding: Studies Performed, Diagnosis - Clinical Impression Clinical Impression: Altered mental status - POA Present On Arrival: None - Disposition Disposition: Admitted as In-Patient (2) Disposition Time: 21:27 Condition: FAIR
[2018-09-30] MEDS ORDERED: Albuterol-Ipratrop 3 mg / 0.5 (3 ml) UD INH PRN (23:15)
--- NOTE | 2018-09-30 23:56 | CP.PCM.HP ---
History of Present Illness - History of Present Illness History of Present Illness: 87 y/o F with a PMH of COPD, CAD, CHF, AFib and chronic b/l chronic baseline b/l leg dermatitis and swelling, was brought by her daughter due to confusion and generalized weakness. Daughter explains that pt was not able to stand up or walk since yesterday morning. Pt has also started to say incoherent remarks since then. Daughter called Dr. marquez, pt's PCP, who recommended evaluation for possible CO2 narcosis. Pt lives alone, has a homemaker every day and daughter takes care of patient every day. Pt reporst unable to sleep for the last few nights, pt cannot identy any possible cause for her lack of sleep. --Pt reports feeling very weak and denies any type of pain. Pt denies fever, chills, cough, SOB, palpitations, nausea, vomiting or paresthesia. --Pt was recently discharged from TCU for management of b/l LE cellulitis which as per daughter and pt, it has improved remarkably. PMD: Dr Marquez Allergies: Penicillins Meds: Lasix 40mg PO daily, Crestor 20mg PO, Bisoprolol 5mg PO daily, Lisinopril 20mg PO daily, Elliquis 5mg PO BID, Imdur ER 30mg PO daily, Cardizem 120mg PO daily. PMHx: COPD, CAD, CHF, paroxysmal AFib and chronic b/l leg dermatitis PSHx: Cardiac stent placement 2 years ago. SHx: Stopped tobacco 15 years ago, used to smoke 1.5 ppdfor >50 years. No alcohol and no rec drugs. ED Course: --ABG showed a pCO2 of 62-high --Head CT iwth unremarkable preliminary results. --High flow O2 was initiated. Present on Admission - Present on Admission Any Indicators Present on Admission: No Review of Systems - Constitutional Constitutional: absent: Anorexia, Chills, Fever - EENT Eyes: absent: Change in Vision Nose/Mouth/Throat: absent: Sore Throat, Neck Mass - Cardiovascular Cardiovascular: absent: Chest Pain, Dyspnea, Palpitations - Respiratory Respiratory: absent: Cough, Dyspnea, Hemoptysis - Gastrointestinal Gastrointestinal: absent: Abdominal Pain, Diarrhea, Nausea, Vomiting - Genitourinary Genitourinary: absent: Dysuria, Flank Pain, Hematuria Past Patient History - Infectious Disease Hx of Infectious Diseases: None - Tetanus Immunizations Tetanus Immunization: Unknown - Past Medical History & Family History Past Medical History?: Yes - Past Social History Smoking Status: Former Smoker - CARDIAC Hx Atrial Fibrillation: Yes Hx Cardia Arrhythmia: Yes Hx Congestive Heart Failure: Yes Hx Hypercholesterolemia: Yes Hx Hypertension: Yes Hx Pacemaker: No Hx Peripheral Edema: Yes - PULMONARY Hx Chronic Obstructive Pulmonary Disease (COPD): Yes Hx Emphysema: Yes Hx Pneumonia: Yes - NEUROLOGICAL Hx Neurological Disorder: Yes Hx Syncope: Yes Other/Comment: AMS on recent admission. - HEENT Hx HEENT Problems: No - RENAL Hx Chronic Kidney Disease: No - ENDOCRINE/METABOLIC Hx Endocrine Disorders: Yes Other/Comment: Multinodular thyroid. - HEMATOLOGICAL/ONCOLOGICAL Hx Anemia: Yes Hx Human Immunodeficiency Virus (HIV): No - INTEGUMENTARY Hx Dermatological Problems: Yes Other/Comment: 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 - MUSCULOSKELETAL/RHEUMATOLOGICAL Hx Fractures: Yes (right ankle) - GASTROINTESTINAL Hx Gastrointestinal Disorders: No - GENITOURINARY/GYNECOLOGICAL Hx Incontinence: Yes Other/Comment: Stress Incontinence - PSYCHIATRIC Hx Psychophysiologic Disorder: Yes Hx Substance Use: No Other/Comment: Depressed mood - SURGICAL HISTORY Hx Appendectomy: No Hx Coronary Stent: Yes (x 2) - ANESTHESIA Hx Anesthesia: Yes Hx Anesthesia Reactions: No Hx Malignant Hyperthermia: No Meds Allergies/Adverse Reactions: Allergies Allergy/AdvReac Type Severity Reaction Status Date / Time Penicillins Allergy Mild SWELLING Verified 09/12/18 15:40 vancomycin Allergy RASH Verified 09/12/18 15:40 Physical Exam - Constitutional Appears: Well, No Acute Distress - Head Exam Head Exam: ATRAUMATIC, NORMAL INSPECTION - Eye Exam Eye Exam: EOMI, Normal appearance - ENT Exam ENT Exam: Mucous Membranes Moist - Neck Exam Neck exam: Positive for: Full Rom, Normal Inspection. Negative for: Meningismus - Respiratory Exam Respiratory Exam: Decreased Breath Sounds, NORMAL BREATHING PATTERN. absent: Rhonchi, Wheezes - Cardiovascular Exam Cardiovascular Exam: REGULAR RHYTHM, +S1, +S2 - GI/Abdominal Exam GI & Abdominal Exam: Soft. absent: Distended, Guarding, Rebound, Tenderness - Extremities Exam Extremities exam: Positive for: full ROM, pedal edema. Negative for: calf tend erness Additional comments: Presence of diffuse erythema and mild edema on b/l LE from toes up to knees. Pt able to move toes and lift both of her legs. - Neurological Exam Neurological exam: Alert Additional comments: Pt only oriented to person and place. - Expanded Neurological Exam Expanded Patient oriented to: person, place Speech: Fluid Speech Cranial nerves: EOM's Intact: Normal, Facial Palsey w/Forehead Movement: Normal, Facial Palsey w/o Forehead Movement: Normal, Facial Sensation: Normal, Nystagmus: Normal, Tongue Deviation: Normal Sensory exam: Lower Extremity Light Touch: Normal, Upper Extremity Light Touch: Normal Neuro motor strength exam: Left Upper Extremity: 4, Right Upper Extremity: 4, Left Lower Extremity: 4, Right Lower Extremity: 4 Coma Scale Eye Opening: SPONTANEOUS Coma Scale Motor Response: OBEYS COMMANDS Coma Scale Verbal: Inappropriate Coma Scale Total: 13 Results - Vital Signs Recent Vital Signs: Last Vital Signs Temp 97.7 F 09/30/18 18:12 Pulse 60 09/30/18 18:43 Resp 18 09/30/18 19:45 BP 124/46 L 09/30/18 18:12 Pulse Ox 76 L 09/30/18 22:03 - Labs Result Diagrams: 09/30/18 18:40 09/30/18 18:40 Labs: Laboratory Results - last 24 hr 09/30/18 09/30/18 09/30/18 18:37 18:40 18:40 WBC 6.2 RBC 3.45 L Hgb 9.8 L Hct 31.2 L MCV 90.5 D MCH 28.4 MCHC 31.4 L RDW 17.5 H Plt Count 247 D MPV 8.4 Neut % (Auto) 75.9 H Lymph % (Auto) 10.1 L Ransom % (Auto) 9.5 Eos % (Auto) 4.2 H Baso % (Auto) 0.3 Neut # (Auto) 4.7 Lymph # (Auto) 0.6 L Ransom # (Auto) 0.6 Eos # (Auto) 0.3 Baso # (Auto) 0.0 PT INR APTT pCO2 62 H pO2 79 L HCO3 23.7 ABG pH 7.25 L ABG Total CO2 29.1 H ABG O2 Saturation 100.2 H ABG Base Excess -1.4 Luiz Test Yes ABG Potassium 4.3 A-a O2 Difference 43.0 Sodium 140.0 142 Chloride 112.0 H 108 H Glucose 173 H Lactate 1.0 Vent Mode 2lnc FiO2 28.0 Potassium 4.4 Carbon Dioxide 27 Anion Gap 11 BUN 24 H Creatinine 1.1 Est GFR ( Amer) 57 Est GFR (Non-Af Amer) 47 Random Glucose 162 H Calcium 9.2 Phosphorus 3.9 Magnesium 1.9 Total Bilirubin 0.3 AST 16 ALT 21 Alkaline Phosphatase 109 Troponin I < 0.0120 Total Protein 6.9 Albumin 3.4 L Globulin 3.5 Albumin/Globulin Ratio 1.0 Arterial Blood Potassium 4.3 Alcohol, Quantitative < 10 09/30/18 18:40 WBC RBC Hgb Hct MCV MCH MCHC RDW Plt Count MPV Neut % (Auto) Lymph % (Auto) Ransom % (Auto) Eos % (Auto) Baso % (Auto) Neut # (Auto) Lymph # (Auto) Ransom # (Auto) Eos # (Auto) Baso # (Auto) PT 15.0 H INR 1.3 APTT 36.3 pCO2 pO2 HCO3 ABG pH ABG Total CO2 ABG O2 Saturation ABG Base Excess Luiz Test ABG Potassium A-a O2 Difference Sodium Chloride Glucose Lactate Vent Mode FiO2 Potassium Carbon Dioxide Anion Gap BUN Creatinine Est GFR ( Amer) Est GFR (Non-Af Amer) Random Glucose Calcium Phosphorus Magnesium Total Bilirubin AST ALT Alkaline Phosphatase Troponin I Total Protein Albumin Globulin Albumin/Globulin Ratio Arterial Blood Potassium Alcohol, Quantitative Assessment & Plan - Assessment and Plan (Free Text) Assessment: 87 y/o F with a PMH of COPD, CAD, CHF, AFib and chronic b/l chronic baseline b/l leg dermatitis and swelling, is admitted for evaluation and management of altered mental status and generalized weakness. PLAN: >Altered Mental Status --Afebrile and stable --Possibly due to CO2 narcosis vs delirium from lack of sleep. --Head CT with unremarkable results. --Pt needs constant care at all time. >Hypercapnia/CO2 narcosis --Continue with High Flow O2. --Repeat ABG. >Wekaness/Deconditioning --PT consult, eval and treat --Pt needs constant care at all time. >Bilateral Lower extremity Stasis dermatitis --Improving, S/P recent cellulitis treatment --Chronic stasis dermatitis , aggravated by edema. >COPD --On Oxygen by NC at home. --C/w High Flow O2. --Pulmonology consult, Dr Marquez, recomms appreciated --Home meds resumed >Chronic CHF exacerbation diastolic dysfunction- preserved EF --Last echocardiogram on 08/11/18: LVEF 50-55%. --Home meds resumed: PO Lasix, Lisinopril, Imdur and Bisoprolol >Paroxysmal Afib --Rate controlled --Home meds resumed: Cardizem, Bisoprolol and Eliquis >DVT prophylaxis --On Eliquis BID >Diet --Heart healthy diet Case discussed with Dr Wilman Hutchison PGY-2
[2018-10-01 00:49] LABS: ABG ALLEN TEST YES; ARTERIAL BLOOD GAS HCO3 25.5 mmol/L (21-28); ARTERIAL BLOOD GAS HEMOGLOBIN 9.9 g/dL (11.7-17.4); ARTERIAL BLOOD GAS O2 CAPACITY 13.5 mL/dL (16-24); ARTERIAL BLOOD GAS O2 CONTENT 13.4 ML/dL (15-23); ARTERIAL BLOOD GAS O2 SAT 99.2 % (95-98); ARTERIAL BLOOD GAS PCO2 66 mm/Hg (35-45); ARTERIAL BLOOD GAS PH 7.25 (7.35-7.45); ARTERIAL BLOOD GAS PO2 96 mm/Hg (80-100); ARTERIAL BLOOD GAS TCO2 30.9 mmol/L (22-28)
--- NOTE | 2018-10-01 08:22 | CT ---
Date of service: 09/30/2018 PROCEDURE: CT HEAD WITHOUT CONTRAST. HISTORY: r/o ICH COMPARISON: 08/09/2018 TECHNIQUE: Axial computed tomography images were obtained through the head/brain without intravenous contrast. Radiation dose: Total exam DLP = 872.99 mGy-cm. This CT exam was performed using one or more of the following dose reduction techniques: Automated exposure control, adjustment of the mA and/or kV according to patient size, and/or use of iterative reconstruction technique. FINDINGS: HEMORRHAGE: No intracranial hemorrhage. BRAIN: No mass effect or edema. Generalized cerebral atrophy with bilateral subcortical and deep white matter hypo densities without mass effect-an appearance compatible with chronic microvascular disease changes. All findings are stable appearing VENTRICLES: Bilateral prominence commensurate with the degree of atrophy. CALVARIUM: Unremarkable. PARANASAL SINUSES: Unremarkable as visualized. No significant inflammatory changes. MASTOID AIR CELLS: Unremarkable as visualized. No inflammatory changes. OTHER FINDINGS: None. IMPRESSION: Cerebral atrophy [id number]. Chronic appearing periventricular and and subcortical deep white matter microvascular disease. Also similar appearing No acute intracranial pathology appreciated Concordant results (preliminary interpretation) provided by [facility].
--- NOTE | 2018-10-01 08:25 | CARD ---
APPROVED REPORT Date of service: 09/30/2018 EKG Measurement Heart [id number] <Conclusion> Sinus bradycardia Otherwise normal ECG
[2018-10-01 08:28] LABS: ABG ALLEN TEST YES; ARTERIAL BLOOD GAS HCO3 26.4 mmol/L (21-28); ARTERIAL BLOOD GAS HEMOGLOBIN 9.8 g/dL (11.7-17.4); ARTERIAL BLOOD GAS O2 CAPACITY 13.5 mL/dL (16-24); ARTERIAL BLOOD GAS O2 CONTENT 13.5 ML/dL (15-23); ARTERIAL BLOOD GAS O2 SAT 99.7 % (95-98); ARTERIAL BLOOD GAS PCO2 67 mm/Hg (35-45); ARTERIAL BLOOD GAS PH 7.26 (7.35-7.45); ARTERIAL BLOOD GAS PO2 122 mm/Hg (80-100); ARTERIAL BLOOD GAS TCO2 32.2 mmol/L (22-28)
[2018-10-01] MEDS ORDERED: Patient's Own Med (Umeclidinium Brm/Vilanterol Tr [Anoro Ellipta 62.5-25 Mcg Inh] 1 PUFF) IH SCH (09:00)
--- NOTE | 2018-10-01 10:00 | CP.PCM.PN ---
<Charles Rivas - Last Filed: 10/01/18 13:39> Subjective - Date & Time of Evaluation Date of Evaluation: 10/01/18 Time of Evaluation: 08:00 - Subjective Subjective: Patient seen and examined at bedside. No acute event overnight as per nurse. Patient still confused and drowsy. she is not alert to time or place or self. Patient is feeding, but she stay a sleep while eating. Patient is currently on bipap Objective - Vital Signs/Intake and Output Vital Signs (last 24 hours): Temp Pulse Resp BP Pulse Ox 98.3 F 72 20 113/65 99 10/01/18 08:19 10/01/18 08:19 10/01/18 08:19 10/01/18 08:19 10/01/18 08:19 - Medications Medications: Current Medications Acetazolamide (Diamox 250 Mg Tab) 250 mg PO DAILY [facility] Albuterol/Ipratropium (Duoneb 3 Mg/0.5 Mg (3 Ml) Ud) 3 ml INH RQ6 PRN PRN Reason: Shortness of Breath Apixaban (Eliquis) 5 mg PO BID [facility]; Protocol Atorvastatin Calcium (Lipitor) 40 mg PO HS [facility] Bisoprolol Fumarate (Zebeta) 2.5 mg PO DAILY [facility] Escitalopram Oxalate (Lexapro) 5 mg PO DAILY [facility] Home Med (Umeclidinium Brm/Vilanterol Tr [Anoro Ellipta 62.5-25 Mcg Inh]) 1 puff IH DAILY [facility] Isosorbide Mononitrate (Imdur Er) 30 mg PO DAILY [facility] Lisinopril (Zestril) 10 mg PO DAILY [facility] Nystatin (Mycostatin Cream) 1 applic TOP TID [facility] - Labs Labs: 09/30/18 18:40 09/30/18 18:40 PT 15.0 Seconds (9.8-13.1) H 09/30/18 18:40 INR 1.3 09/30/18 18:40 APTT 36.3 Seconds (25.6-37.1) 09/30/18 18:40 - Constitutional Appears: Well, Non-toxic, No Acute Distress - Head Exam Head Exam: ATRAUMATIC, NORMAL INSPECTION, NORMOCEPHALIC - Eye Exam Eye Exam: EOMI, Normal appearance, PERRL Pupil Exam: NORMAL ACCOMODATION, PERRL - ENT Exam ENT Exam: Mucous Membranes Moist, Normal Exam - Neck Exam Neck Exam: Full ROM, Normal Inspection - Respiratory Exam Respiratory Exam: Decreased Breath Sounds, NORMAL BREATHING PATTERN - Cardiovascular Exam Cardiovascular Exam: REGULAR RHYTHM, +S1, +S2 - GI/Abdominal Exam GI & Abdominal Exam: Soft, Normal Bowel Sounds - Extremities Exam Extremities Exam: Full ROM, Normal Capillary Refill, Normal Inspection, Pedal Edema Additional comments: Presence of diffuse erythema and mild edema on b/l LE from toes up to knees. - Back Exam Back Exam: NORMAL INSPECTION - Neurological Exam Neurological Exam: Altered Additional comments: Not oriented to time or place - Skin Skin Exam: Dry, Intact, Normal Color, Warm Assessment and Plan - Assessment and Plan (Free Text) Assessment: 87 yo female with PMH of COPD, CAD, CHF, AFIB and chronic B/L chronic baseline B/L leg dermatitis and swelling, admitted for evaluation and management of altered mental status and generalized weakness PLAN: Altered Mental Status Afebrile and stable CO2 67H, PH 7.26. Ox 99.7 Bipap Rate 21, VT 553, Ve11.7 PIP 13 Possibly due to CO2 narcosis vs delirium from lack of sleep. Head CT with unremarkable results. Pt needs constant care at all time. Pulm consulted follow up recommendation Hypercapnia/CO2 narcosis Continue with High Flow O2. Wekaness/Deconditioning- PT consult, eval and treat Pt needs constant care at all time. Bilateral Lower extremity Stasis dermatitis Improving, S/P recent cellulitis treatment Chronic stasis dermatitis , aggravated by edema. COPD On Oxygen by NC at home. continue High Flow O2. Pulmonology consult, Dr Marquez, recomms appreciated Home meds resumed Chronic CHF exacerbation diastolic dysfunction- preserved EF Last echocardiogram on 08/11/18: LVEF 50-55%. Home meds resumed: PO Lasix, Lisinopril, Imdur and Bisoprolol Paroxysmal Afib Rate controlled Home meds resumed: Cardizem, Bisoprolol and Eliquis DVT prophylaxis On Eliquis BID Diet Heart healthy diet <Skye Maldonado - Last Filed: 10/01/18 16:15> Objective - Vital Signs/Intake and Output Vital Signs (last 24 hours): Temp Pulse Resp BP Pulse Ox 98.3 F 77 20 120/78 99 10/01/18 08:19 10/01/18 11:34 10/01/18 08:19 10/01/18 10:51 10/01/18 08:19 - Medications Medications: Current Medications Acetazolamide (Diamox 250 Mg Tab) 250 mg PO DAILY [facility] Last Admin: 10/01/18 10:50 Dose: 250 mg Albuterol/Ipratropium (Duoneb 3 Mg/0.5 Mg (3 Ml) Ud) 3 ml INH RQID [facility] Last Admin: 10/01/18 11:16 Dose: 3 ml Apixaban (Eliquis) 5 mg PO BID [facility]; Protocol Last Admin: 10/01/18 10:50 Dose: 5 mg Atorvastatin Calcium (Lipitor) 40 mg PO HS [facility] Bisoprolol Fumarate (Zebeta) 2.5 mg PO DAILY [facility] Last Admin: 10/01/18 10:51 Dose: 2.5 mg Escitalopram Oxalate (Lexapro) 5 mg PO DAILY [facility] Last Admin: 10/01/18 10:51 Dose: 5 mg Home Med (Umeclidinium Brm/Vilanterol Tr [Anoro Ellipta 62.5-25 Mcg Inh]) 1 puff IH DAILY [facility] Isosorbide Mononitrate (Imdur Er) 30 mg PO DAILY [facility] Last Admin: 10/01/18 10:51 Dose: 30 mg Lisinopril (Zestril) 10 mg PO DAILY [facility] Last Admin: 10/01/18 10:51 Dose: 10 mg Nystatin (Mycostatin Cream) 1 applic TOP TID [facility] Last Admin: 10/01/18 13:26 Dose: 1 applic - Labs Labs: 09/30/18 18:40 09/30/18 18:40 PT 15.0 Seconds (9.8-13.1) H 09/30/18 18:40 INR 1.3 09/30/18 18:40 APTT 36.3 Seconds (25.6-37.1) 09/30/18 18:40 Attending/Attestation - Attestation I have personally seen and examined this patient.: Yes I have fully participated in the care of the patient.: Yes I have reviewed all pertinent clinical information, including history, physical exam and plan: Yes Notes (Text): AMS likely due to CO2 Narcosis Acute Hypercapneic Respiratory Failure COPD , chronic Paroxysmal A Fib, rate controlled Chronic Stasis Dermatitis HTN - Pt is on Bipap - setting changed by Dr Marquez to 06/12/30/16 - Acetazolamide started - cont Eliquis - cont HTN meds - cont Duoneb tx - Hold Lexapro
--- NOTE | 2018-10-01 10:00 | CP.PCM.CON ---
Past Patient History - Infectious Disease Hx of Infectious Diseases: None - Tetanus Immunizations Tetanus Immunization: Unknown - Past Medical History & Family History Past Medical History?: Yes - Past Social History Smoking Status: Heavy Smoker > 10 Cigarettes Daily - CARDIAC Hx Cardiac Disorders: Yes Hx Atrial Fibrillation: Yes Hx Cardia Arrhythmia: Yes Hx Congestive Heart Failure: Yes Hx Hypercholesterolemia: Yes Hx Hypertension: Yes Hx Pacemaker: No Hx Peripheral Edema: Yes - PULMONARY Hx Respiratory Disorders: Yes Hx Chronic Obstructive Pulmonary Disease (COPD): Yes Hx Emphysema: Yes Hx Pneumonia: Yes - NEUROLOGICAL Hx Neurological Disorder: Yes - HEENT Hx HEENT Problems: No - RENAL Hx Chronic Kidney Disease: No - ENDOCRINE/METABOLIC Hx Endocrine Disorders: Yes - HEMATOLOGICAL/ONCOLOGICAL Hx Blood Disorders: Yes Hx Anemia: Yes Hx Human Immunodeficiency Virus (HIV): No - INTEGUMENTARY Hx Dermatological Problems: Yes Hx Cellulitis: Yes - MUSCULOSKELETAL/RHEUMATOLOGICAL Hx Musculoskeletal Disorders: Yes Hx Falls: Yes Hx Fractures: Yes (right ankle) - GASTROINTESTINAL Hx Gastrointestinal Disorders: No - GENITOURINARY/GYNECOLOGICAL Hx Genitourinary Disorders: Yes Hx Incontinence: Yes Other/Comment: Stress Incontinence - PSYCHIATRIC Hx Psychophysiologic Disorder: Yes Hx Substance Use: No - SURGICAL HISTORY Hx Surgeries: Yes Hx Appendectomy: No Hx Coronary Stent: Yes (x 2) - ANESTHESIA Hx Anesthesia: Yes Hx Anesthesia Reactions: No Hx Malignant Hyperthermia: No Has any member of the family had a problem w/ anesthesia?: No Meds Allergies/Adverse Reactions: Allergies Allergy/AdvReac Type Severity Reaction Status Date / Time Penicillins Allergy Mild SWELLING Verified 09/12/18 15:40 vancomycin Allergy RASH Verified 09/12/18 15:40 - Medications Medications: Current Medications Acetazolamide (Diamox 250 Mg Tab) 250 mg PO DAILY [facility] Albuterol/Ipratropium (Duoneb 3 Mg/0.5 Mg (3 Ml) Ud) 3 ml INH RQ6 PRN PRN Reason: Shortness of Breath Apixaban (Eliquis) 5 mg PO BID [facility]; Protocol Atorvastatin Calcium (Lipitor) 40 mg PO HS [facility] Bisoprolol Fumarate (Zebeta) 2.5 mg PO DAILY [facility] Escitalopram Oxalate (Lexapro) 5 mg PO DAILY [facility] Home Med (Umeclidinium Brm/Vilanterol Tr [Anoro Ellipta 62.5-25 Mcg Inh]) 1 puff IH DAILY [facility] Isosorbide Mononitrate (Imdur Er) 30 mg PO DAILY [facility] Lisinopril (Zestril) 10 mg PO DAILY [facility] Results - Vital Signs Recent Vital Signs: Last Vital Signs Temp 98.3 F 10/01/18 08:19 Pulse 72 10/01/18 08:19 Resp 20 10/01/18 08:19 BP 113/65 10/01/18 08:19 Pulse Ox 99 10/01/18 08:19 - Labs Result Diagrams: 09/30/18 18:40 09/30/18 18:40 Labs: Laboratory Results - last 24 hr 09/30/18 09/30/18 09/30/18 18:37 18:40 18:40 WBC 6.2 RBC 3.45 L Hgb 9.8 L Hct 31.2 L MCV 90.5 D MCH 28.4 MCHC 31.4 L RDW 17.5 H Plt Count 247 D MPV 8.4 Neut % (Auto) 75.9 H Lymph % (Auto) 10.1 L Bryan % (Auto) 9.5 Eos % (Auto) 4.2 H Baso % (Auto) 0.3 Neut # (Auto) 4.7 Lymph # (Auto) 0.6 L Bryan # (Auto) 0.6 Eos # (Auto) 0.3 Baso # (Auto) 0.0 PT INR APTT pCO2 62 H pO2 79 L HCO3 23.7 ABG pH 7.25 L ABG Total CO2 29.1 H ABG O2 Saturation 100.2 H ABG O2 Content ABG Base Excess -1.4 ABG Hemoglobin ABG Carboxyhemoglobin POC ABG HHb (Measured) ABG Methemoglobin ABG O2 Capacity Luiz Test Yes ABG Potassium 4.3 A-a O2 Difference 43.0 Hgb O2 Saturation Sodium 140.0 142 Chloride 112.0 H 108 H Glucose 173 H Lactate 1.0 Liter Flow Vent Mode 2lnc Mechanical Rate FiO2 28.0 Inspiratory BiPAP Expiratory BiPAP Potassium 4.4 Carbon Dioxide 27 Anion Gap 11 BUN 24 H Creatinine 1.1 Est GFR ( Amer) 57 Est GFR (Non-Af Amer) 47 Random Glucose 162 H Calcium 9.2 Phosphorus 3.9 Magnesium 1.9 Total Bilirubin 0.3 AST 16 ALT 21 Alkaline Phosphatase 109 Troponin I < 0.0120 Total Protein 6.9 Albumin 3.4 L Globulin 3.5 Albumin/Globulin Ratio 1.0 Arterial Blood Potassium 4.3 Alcohol, Quantitative < 10 09/30/18 10/01/18 10/01/18 18:40 00:39 08:20 WBC RBC Hgb Hct MCV MCH MCHC RDW Plt Count MPV Neut % (Auto) Lymph % (Auto) Bryan % (Auto) Eos % (Auto) Baso % (Auto) Neut # (Auto) Lymph # (Auto) Bryan # (Auto) Eos # (Auto) Baso # (Auto) PT 15.0 H INR 1.3 APTT 36.3 pCO2 66 H 67 H pO2 96 122 H HCO3 25.5 26.4 ABG pH 7.25 L 7.26 L ABG Total CO2 30.9 H 32.2 H ABG O2 Saturation 99.2 H 99.7 H ABG O2 Content 13.4 L 13.5 L ABG Base Excess 0.7 1.9 ABG Hemoglobin 9.9 L 9.8 L ABG Carboxyhemoglobin 0.8 0.8 POC ABG HHb (Measured) 0.8 0.3 ABG Methemoglobin 2.8 2.8 ABG O2 Capacity 13.5 L 13.5 L Luiz Test Yes Yes ABG Potassium A-a O2 Difference 392.0 79.0 Hgb O2 Saturation 95.5 96.2 Sodium Chloride Glucose Lactate Liter Flow 25 Vent Mode High flow lpm Bipap Mechanical Rate 14 FiO2 80.0 40.0 Inspiratory BiPAP 12 Expiratory BiPAP 7 Potassium Carbon Dioxide Anion Gap BUN Creatinine Est GFR ( Amer) Est GFR (Non-Af Amer) Random Glucose Calcium Phosphorus Magnesium Total Bilirubin AST ALT Alkaline Phosphatase Troponin I Total Protein Albumin Globulin Albumin/Globulin Ratio Arterial Blood Potassium Alcohol, Quantitative Assessment & Plan (1) Acute hypercapnic respiratory failure Status: Acute Priority: High (2) Altered mental state Status: Acute Priority: High (3) COPD (chronic obstructive pulmonary disease) Status: Chronic Priority: High - Date & Time Date: 10/01/18 Time: 10:00
[2018-10-01] MEDS: Albuterol-Ipratrop 3 mg / 0.5 (3 ml) UD INH SCH ×3 (11:16→19:32)
--- NOTE | 2018-10-01 13:52 | RAD ---
Date of service: 09/30/2018 HISTORY: SOB COMPARISON: 09/16/2018 TECHNIQUE: 1 view obtained. FINDINGS: LUNGS: No active pulmonary disease. PLEURA: No significant pleural effusion identified, no pneumothorax apparent. CARDIOVASCULAR: No aortic atherosclerotic calcification present. Normal cardiac size. No pulmonary vascular congestion. OSSEOUS STRUCTURES: No significant abnormalities. VISUALIZED UPPER ABDOMEN: Normal. OTHER FINDINGS: None. IMPRESSION: No active disease.
[2018-10-01 22:45] LABS: ABG ALLEN TEST YES; ARTERIAL BLOOD GAS HCO3 26.3 mmol/L (21-28); ARTERIAL BLOOD GAS HEMOGLOBIN 8.6 g/dL (11.7-17.4); ARTERIAL BLOOD GAS O2 CONTENT 12.1 ML/dL (15-23); ARTERIAL BLOOD GAS O2 SAT 100.9 % (95-98); ARTERIAL BLOOD GAS PCO2 55 mm/Hg (35-45); ARTERIAL BLOOD GAS PH 7.32 (7.35-7.45); ARTERIAL BLOOD GAS PO2 109 mm/Hg (80-100)
[2018-10-02 06:35] LABS: HEMOGLOBIN 9.1 g/dL (12.0-16.0); MEAN CELL VOLUME 88.7 fl (81.0-99.0); MEAN CORPUSCULAR HGB CONC 31.6 g/dL (33.0-37.0); RBC 3.24 Mil/uL (3.80-5.20); RED CELL DISTRIBUTION WIDTH 17.4 % (11.5-14.5); WHITE BLOOD COUNT 5.9 K/uL (4.8-10.8)
--- NOTE | 2018-10-02 06:48 | CP.PCM.PN ---
Subjective - Date & Time of Evaluation Date of Evaluation: 10/02/18 Time of Evaluation: 08:00 - Subjective Subjective: Patient is seen and examined at bedside. No acute event overnight. Patient Mental status improved, patient is oriented to self and place. daughter on bedside and she agree on patient seem to be improved. Otherwise patient have good appetite, eating well, denies SOB, chest pain, abd pain, diarrhea, constipation dysuria or polyuria. Objective - Vital Signs/Intake and Output Vital Signs (last 24 hours): Temp Pulse Resp BP Pulse Ox 98.1 F 70 18 93/50 L 97 10/01/18 23:34 10/02/18 03:56 10/01/18 23:34 10/01/18 23:34 10/01/18 23:34 - Medications Medications: Current Medications Acetazolamide (Diamox 250 Mg Tab) 250 mg PO DAILY [facility] Last Admin: 10/01/18 10:50 Dose: 250 mg Albuterol/Ipratropium (Duoneb 3 Mg/0.5 Mg (3 Ml) Ud) 3 ml INH RQID [facility] Last Admin: 10/01/18 19:32 Dose: 3 ml Apixaban (Eliquis) 5 mg PO BID [facility]; Protocol Last Admin: 10/01/18 18:25 Dose: 5 mg Atorvastatin Calcium (Lipitor) 40 mg PO HS [facility] Last Admin: 10/01/18 23:14 Dose: 40 mg Bisoprolol Fumarate (Zebeta) 2.5 mg PO DAILY [facility] Last Admin: 10/01/18 10:51 Dose: 2.5 mg Isosorbide Mononitrate (Imdur Er) 30 mg PO DAILY [facility] Last Admin: 10/01/18 10:51 Dose: 30 mg Lisinopril (Zestril) 10 mg PO DAILY [facility] Last Admin: 10/01/18 10:51 Dose: 10 mg Nystatin (Mycostatin Cream) 1 applic TOP TID [facility] Last Admin: 10/01/18 18:25 Dose: 1 applic - Labs Labs: 10/02/18 05:25 09/30/18 18:40 PT 15.0 Seconds (9.8-13.1) H 09/30/18 18:40 INR 1.3 09/30/18 18:40 APTT 36.3 Seconds (25.6-37.1) 09/30/18 18:40 - Constitutional Appears: Well, Non-toxic, No Acute Distress - Head Exam Head Exam: ATRAUMATIC, NORMAL INSPECTION, NORMOCEPHALIC - Eye Exam Eye Exam: EOMI, Normal appearance, PERRL Pupil Exam: NORMAL ACCOMODATION, PERRL - ENT Exam ENT Exam: Mucous Membranes Moist, Normal Exam - Neck Exam Neck Exam: Full ROM, Normal Inspection - Respiratory Exam Respiratory Exam: Clear to Ausculation Bilateral, NORMAL BREATHING PATTERN - Cardiovascular Exam Cardiovascular Exam: REGULAR RHYTHM, +S1, +S2 - GI/Abdominal Exam GI & Abdominal Exam: Soft, Normal Bowel Sounds - Extremities Exam Extremities Exam: Full ROM, Normal Capillary Refill, Normal Inspection - Back Exam Back Exam: NORMAL INSPECTION - Neurological Exam Neurological Exam: Alert, Awake, CN II-XII Intact, Normal Gait - Psychiatric Exam Psychiatric exam: Normal Affect, Normal Mood - Skin Skin Exam: Dry, Intact, Normal Color, Warm Assessment and Plan - Assessment and Plan (Free Text) Assessment: Assessment: 87 yo female with PMH of COPD, CAD, CHF, AFIB and chronic B/L chronic baseline B/L leg dermatitis and swelling, admitted for evaluation and management of altered mental status and generalized weakness. PLAN: Altered Mental Status Afebrile and stable, Improved, patient is oriented to self and place CO2 improved to [address] with unremarkable results. F/U Pulm recommendation Continue Bipap at night F/U BMP Hypercapnia/CO2 narcosis Improved CO2 Continue with High Flow O2. Anemia H/H 9.1/38.8 F/U occult blood eliquis from 5 to 2.5 F/U Cbc Wekaness/Deconditioning- PT consult, eval and treat Pt needs constant care at all time. Physical therapy on case Bilateral Lower extremity Stasis dermatitis Improving, S/P recent cellulitis treatment Chronic stasis dermatitis , aggravated by edema. COPD On Oxygen by NC at home. continue High Flow O2. Pulmonology consult, Dr Marquez, recomms appreciated Home meds resumed Chronic CHF exacerbation diastolic dysfunction- preserved EF Last echocardiogram on 08/11/18: LVEF 50-55%. Home meds resumed: PO Lasix, Lisinopril, Imdur and Bisoprolol Paroxysmal Afib Rate controlled Home meds resumed: Cardizem, Bisoprolol and Eliquis DVT prophylaxis Eliquis 2.5 BID Diet Heart healthy diet
[2018-10-02 07:03] LABS: ALBUMIN 3.1 g/dL (3.5-5.0); CALCIUM 9.1 mg/dL (8.4-10.2)
[2018-10-02] MEDS: Albuterol-Ipratrop 3 mg / 0.5 (3 ml) UD INH SCH ×4 (07:21→19:01)
--- NOTE | 2018-10-02 11:11 | CP.PCM.PN ---
Subjective - Date & Time of Evaluation Date of Evaluation: 10/02/18 Time of Evaluation: 11:11 - Subjective Subjective: Seen on rounds in the general medical floor. The patient is presently ambulating with physical therapy on oxygen. She appears much improved from the day prior and her mentation while not perfectly clear is much better than the day prior. She had been on BiPAP mask ventilation for the entire day and night since last seen yesterday. Breath sounds are markedly diminished bilaterally but are otherwise unremarkable at this time. It are no audible wheezes present. Heart sounds are very distant but rhythm is regular. There is 1+ dependent edema of both lower extremities with some erythema but no increased warmth present. Patient will continue on the current regimen using BiPAP mask ventilation overnight only and remaining on low-flow nasal cannula during the daytime. All other medications will remain unchanged at this time as well. Objective - Vital Signs/Intake and Output Vital Signs (last 24 hours): Temp Pulse Resp BP Pulse Ox 98.1 F 91 H 20 114/68 98 10/02/18 08:17 10/02/18 09:36 10/02/18 08:17 10/02/18 09:36 10/02/18 08:17 - Medications Medications: Current Medications Acetazolamide (Diamox 250 Mg Tab) 250 mg PO DAILY [facility] Last Admin: 10/02/18 09:37 Dose: 250 mg Albuterol/Ipratropium (Duoneb 3 Mg/0.5 Mg (3 Ml) Ud) 3 ml INH RQID [facility] Last Admin: 10/02/18 07:21 Dose: 3 ml Apixaban (Eliquis) 2.5 mg PO BID [facility]; Protocol Last Admin: 10/02/18 09:33 Dose: 2.5 mg Atorvastatin Calcium (Lipitor) 40 mg PO HS [facility] Last Admin: 10/01/18 23:14 Dose: 40 mg Bisoprolol Fumarate (Zebeta) 2.5 mg PO DAILY [facility] Last Admin: 10/02/18 09:35 Dose: 2.5 mg Isosorbide Mononitrate (Imdur Er) 30 mg PO DAILY [facility] Last Admin: 10/02/18 09:36 Dose: 30 mg Lisinopril (Zestril) 10 mg PO DAILY [facility] Last Admin: 10/02/18 09:36 Dose: 10 mg Nystatin (Mycostatin Cream) 1 applic TOP TID [facility] Last Admin: 10/02/18 09:35 Dose: 1 applic - Labs Labs: 10/02/18 05:25 10/02/18 05:25 PT 15.0 Seconds (9.8-13.1) H 09/30/18 18:40 INR 1.3 09/30/18 18:40 APTT 36.3 Seconds (25.6-37.1) 09/30/18 18:40 Assessment and Plan (1) Acute hypercapnic respiratory failure Status: Acute (2) Altered mental state Status: Acute (3) COPD (chronic obstructive pulmonary disease) Status: Chronic
[2018-10-02 14:50] VITALS: O2SAT 95
[2018-10-03 06:17] LABS: HEMOGLOBIN 8.3 g/dL (12.0-16.0); MEAN CELL VOLUME 86.5 fl (81.0-99.0); MEAN CORPUSCULAR HEMOGLOBIN 28.8 pg (27.0-31.0); MEAN CORPUSCULAR HGB CONC 33.3 g/dL (33.0-37.0); RBC 2.86 Mil/uL (3.80-5.20); RED CELL DISTRIBUTION WIDTH 17.1 % (11.5-14.5); WHITE BLOOD COUNT 5.6 K/uL (4.8-10.8)
[2018-10-03 06:29] LABS: SQUAMOUS EPITHIAL 3 /hpf (0-5); URINE BILIRUBIN NEGATIVE (NEGATIVE); URINE BLOOD SMALL (NEGATIVE); URINE CLARITY TURBID (Clear); URINE COLOR AMBER (YELLOW); URINE GLUCOSE (UA) NEG (NEGATIVE); URINE LEUKOCYTE ESTERASE MOD Leu/uL (Negative); URINE PROTEIN 100 mg/dL (NEGATIVE); WBC CLUMPS MANY /hpf
[2018-10-03 06:31] LABS: BLOOD UREA NITROGEN 20 mg/dl (7-17); CALCIUM 8.6 mg/dL (8.4-10.2); GFR NON-AFRICAN AMERICAN 59
[2018-10-03] MEDS: Albuterol-Ipratrop 3 mg / 0.5 (3 ml) UD INH SCH ×2 (07:27→12:48)
[2018-10-03 08:07] VITALS: BP 133/66; PULSE 84; RESP 20; TEMP 97.1
--- NOTE | 2018-10-03 10:48 | CP.PCM.DIS ---
Provider - Provider Date of Admission: 09/30/18 21:27 Attending physician: Mo Stovall MD Consults: 10/01/18 07:00 Pulmonology Consult Routine Comment: Consulting Provider: Kaushik Marquez Consulting Physician: Kaushik Marquez Reason for Consult: Hypercapnia 10/01/18 09:00 Nursing Referral for Wound Care Routine Comment: Chronic bilateral lower extremity dermatitis Physician Instructions: Reason For Exam: Chronic bilateral lower extremity dermatitis Time Spent in preparation of Discharge (in minutes): 20 Diagnosis - Discharge Diagnosis (1) Acute hypercapnic respiratory failure Status: Acute Priority: High (2) Altered mental state Status: Resolved Priority: High (3) DVT prophylaxis Status: Acute (4) Physical deconditioning Status: Acute Priority: High (5) Rash and nonspecific skin eruption Status: Chronic Priority: High (6) UTI (urinary tract infection) Status: Acute (7) CHF (congestive heart failure) Status: Chronic Priority: High (8) COPD (chronic obstructive pulmonary disease) Status: Chronic Priority: High (9) Anemia Status: Acute Hospital Course - Lab Results Lab Results: Most Recent Lab Values WBC 5.6 K/uL (4.8-10.8) 10/03/18 06:09 RBC 2.86 Mil/uL (3.80-5.20) L 10/03/18 06:09 Hgb 8.3 g/dL (12.0-16.0) L 10/03/18 06:09 Hct 24.8 % (34.0-47.0) L 10/03/18 06:09 MCV 86.5 fl (81.0-99.0) D 10/03/18 06:09 MCH 28.8 pg (27.0-31.0) 10/03/18 06:09 MCHC 33.3 g/dL (33.0-37.0) 10/03/18 06:09 RDW 17.1 % (11.5-14.5) H 10/03/18 06:09 Plt Count 201 K/uL (130-400) 10/03/18 06:09 MPV 8.4 fl (7.2-11.7) 09/30/18 18:40 Neut % (Auto) 75.9 % (50.0-75.0) H 09/30/18 18:40 Lymph % (Auto) 10.1 % (20.0-40.0) L 09/30/18 18:40 Preble % (Auto) 9.5 % (0.0-10.0) 09/30/18 18:40 Eos % (Auto) 4.2 % (0.0-4.0) H 09/30/18 18:40 Baso % (Auto) 0.3 % (0.0-2.0) 09/30/18 18:40 Neut # (Auto) 4.7 K/uL (1.8-7.0) 09/30/18 18:40 Lymph # (Auto) 0.6 K/uL (1.0-4.3) L 09/30/18 18:40 Preble # (Auto) 0.6 K/uL (0.0-0.8) 09/30/18 18:40 Eos # (Auto) 0.3 K/uL (0.0-0.7) 09/30/18 18:40 Baso # (Auto) 0.0 K/uL (0.0-0.2) 09/30/18 18:40 PT 15.0 Seconds (9.8-13.1) H 09/30/18 18:40 INR 1.3 09/30/18 18:40 APTT 36.3 Seconds (25.6-37.1) 09/30/18 18:40 pCO2 55 mm/Hg (35-45) H 10/01/18 22:34 pO2 109 mm/Hg (80-100) H 10/01/18 22:34 HCO3 26.3 mmol/L (21-28) 10/01/18 22:34 ABG pH 7.32 (7.35-7.45) L 10/01/18 22:34 ABG Total CO2 30.0 mmol/L (22-28) H 10/01/18 22:34 ABG O2 Saturation 100.9 % (95-98) H 10/01/18 22:34 ABG O2 Content 12.1 ML/dL (15-23) L 10/01/18 22:34 ABG Base Excess 1.7 mmol/L (-2.0-3.0) 10/01/18 22:34 ABG Hemoglobin 8.6 g/dL (11.7-17.4) L 10/01/18 22:34 ABG Carboxyhemoglobin 2.0 % (0.5-1.5) H 10/01/18 22:34 POC ABG HHb (Measured) -0.9 % (0.0-5.0) L 10/01/18 22:34 ABG Methemoglobin 0.5 % (0.0-3.0) 10/01/18 22:34 ABG O2 Capacity 12.0 mL/dL (16-24) L 10/01/18 22:34 Luiz Test Yes 10/01/18 22:34 ABG Potassium 4.3 mmol/L (3.6-5.2) 09/30/18 18:37 A-a O2 Difference 36.0 mm/Hg 10/01/18 22:34 Hgb O2 Saturation 98.5 % (95.0-98.0) H 10/01/18 22:34 Sodium 140.0 mmol/L (132-148) 09/30/18 18:37 Chloride 112.0 mmol/L (98-107) H 09/30/18 18:37 Glucose 173 mg/dL (65-105) H 09/30/18 18:37 Lactate 1.0 mmol/L (0.7-2.1) 09/30/18 18:37 Liter Flow 25 10/01/18 00:39 Vent Mode Bipap 10/01/18 22:34 Mechanical Rate 16 10/01/18 22:34 FiO2 30.0 % 10/01/18 22:34 Inspiratory BiPAP 12 10/01/18 22:34 Expiratory BiPAP 6 10/01/18 22:34 Sodium 136 mmol/l (132-148) 10/03/18 06:09 Potassium 3.7 MMOL/L (3.6-5.0) 10/03/18 06:09 Chloride 103 mmol/L (98-107) 10/03/18 06:09 Carbon Dioxide 26 mmol/L (22-30) 10/03/18 06:09 Anion Gap 11 (10-20) 10/03/18 06:09 BUN 20 mg/dl (7-17) H 10/03/18 06:09 Creatinine 0.9 mg/dl (0.7-1.2) 10/03/18 06:09 Est GFR ( Amer) > 60 10/03/18 06:09 Est GFR (Non-Af Amer) 59 10/03/18 06:09 Random Glucose 117 mg/dL (65-105) H 10/03/18 06:09 Calcium 8.6 mg/dL (8.4-10.2) 10/03/18 06:09 Phosphorus 3.9 mg/dl (2.5-4.5) 09/30/18 18:40 Magnesium 1.9 MG/DL (1.6-2.3) 09/30/18 18:40 Total Bilirubin 0.3 mg/dl (0.2-1.3) 10/02/18 05:25 AST 12 U/L (14-36) L D 10/02/18 05:25 ALT 30 U/L (9-52) 10/02/18 05:25 Alkaline Phosphatase 96 U/L (38-126) 10/02/18 05:25 Troponin I < 0.0120 ng/mL (0.00-0.120) 09/30/18 18:40 Total Protein 6.2 G/DL (6.3-8.2) L 10/02/18 05:25 Albumin 3.1 g/dL (3.5-5.0) L 10/02/18 05:25 Globulin 3.1 gm/dL (2.2-3.9) 10/02/18 05:25 Albumin/Globulin Ratio 1.0 (1.0-2.1) 10/02/18 05:25 Arterial Blood Potassium 4.3 mmol/L (3.6-5.2) 09/30/18 18:37 Urine Color Jaky (YELLOW) 10/03/18 05:00 Urine Clarity Turbid (Clear) 10/03/18 05:00 Urine pH 6.0 (5.0-8.0) 10/03/18 05:00 Ur Specific Selby 1.015 (1.003-1.030) 10/03/18 05:00 Urine Protein 100 mg/dL (NEGATIVE) 10/03/18 05:00 Urine Glucose (UA) Neg mg/dL (NEGATIVE) 10/03/18 05:00 Urine Ketones Negative mg/dL (NEGATIVE) 10/03/18 05:00 Urine Blood Small (NEGATIVE) 10/03/18 05:00 Urine Nitrate Positive (NEGATIVE) H 10/03/18 05:00 Urine Bilirubin Negative (NEGATIVE) 10/03/18 05:00 Urine Urobilinogen 4.0 mg/dL (0.2-1.0) H 10/03/18 05:00 Ur Leukocyte Esterase Mod Jalil/uL (Negative) 10/03/18 05:00 Urine RBC (Auto) 98 /hpf (0-3) H 10/03/18 05:00 Urine WBC Clumps (Auto) Many /hpf (NONE) H 10/03/18 05:00 Urine Microscopic WBC 4757 /hpf (0-5) H 10/03/18 05:00 Ur Squamous Epith Cells 3 /hpf (0-5) 10/03/18 05:00 Urine Yeast (Budding) Few /hpf (NEGATIVE) H 10/03/18 05:00 Alcohol, Quantitative < 10 mg/dl (0-10) 09/30/18 18:40 - Hospital Course Hospital Course: 87 y/o F with a PMH of COPD, CAD, CHF, AFib and chronic b/l chronic baseline b/l leg dermatitis and swelling, was brought by her daughter due to confusion and generalized weakness. Admitted for evaluation and management of altered mental status and generalized weakness ED Course: ABG showed a pCO2 of 62-high ER ph 7.2 PCO2 62 PO2 79 High flow O2 was initiated. Head CT Cerebral Atrophy [id number]. 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 No acute intracranial pathology appreciated. CXR no active disease During her stay patient was AMS, she was wheezing and diminished b/l lung sound, her CO2 of 67H. Dr Marquez consulted. Patient was placed on Bipap Rate 21, VT 553, Ve11.7 PIP 13 and Lexapro was hold. On second day patient AMS improved, she was oriented to self and place, her CO2 decreased to 55, and she was more alert. Patient blood pressure was in the 90s systolic, Lisinopril was stopped patient also H/H 9.8/31.2, Anemia work up was made and Eliquis decreased to 2.5 patient also was treat for her CHF, Paroxysmal Afib, obesity, LE dermatitis. Patient was seen and examined at bedside today, no acute event overnight. Patient daughter at bedside. Patient is alert and oriented to self, and place, daughter report mom have improved. She is feeding well, with no difficulty. She denies any dizziness, N/V, headache, Chest pain, sob, abd pain, diarrhea, or constipation. Patient will be discharged to [facility] for subacute rehab. Patient need to follow up with PCP for Anemia work up, and better control of blood pressure. Patient medication change Discontinue Lisinopril Decrease Eliquis to 2.5 Add Ferrous sulfate Macrobid Bid 100mg Discharge Exam - Head Exam Head Exam: ATRAUMATIC, NORMAL INSPECTION, NORMOCEPHALIC Discharge Plan - Discharge Medications Prescriptions: Ferrous Sulfate 325 mg PO DAILY #30 tablet Nitrofurantoin Monohyd/M-Cryst [Macrobid 100 mg Capsule] 100 mg PO BID #7 capsule - Follow Up Plan Condition: FAIR Disposition: REHAB FACILITY/REHAB UNIT Instructions: Altered Mental Status (DC) Additional Instructions: [facility] Lisinopril is Discontinued Eliquis is decreased to 2.5 Patient need to follow up for Anemia work out as outpatient Referrals: Kaushik Marquez MD [Family Provider] -
[2018-10-03 12:07] LABS: IRON 18 ug/dL (37-170)
[2018-10-03 12:16] LABS: % IRON SATURATION 8 % (20-55); TOTAL IRON BINDING CAPACITY 216 ug/dL (250-450)
[2018-10-03 12:36] LABS: ABG ALLEN TEST YES; ARTERIAL BLOOD GAS HCO3 26.4 mmol/L (21-28); ARTERIAL BLOOD GAS HEMOGLOBIN 8.8 g/dL (11.7-17.4); ARTERIAL BLOOD GAS O2 CONTENT 11.8 ML/dL (15-23); ARTERIAL BLOOD GAS O2 SAT 98.1 % (95-98); ARTERIAL BLOOD GAS PCO2 45 mm/Hg (35-45); ARTERIAL BLOOD GAS PH 7.39 (7.35-7.45); ARTERIAL BLOOD GAS PO2 75 mm/Hg (80-100); ARTERIAL BLOOD GAS TCO2 28.6 mmol/L (22-28)
[2018-10-03 17:43] LABS: FOLATE 7.2 ng/mL
== END 2018-10-03 14:52 | DRG 189 ==
LOC: H.ER 18:10 → H.ERHOLD 21:27 → H.MEDSURG1 10-01 05:32
PROVIDERS: ADMIT Internal Medicine; ATTEND Internal Medicine
DX: J96.02 Acute respiratory failure with hypercapnia (principal); I50.33 Acute on chronic diastolic (congestive) heart failure; Z68.42 Body mass index [BMI] 45.0-49.9, adult; N39.0 Urinary tract infection, site not specified; L03.116 Cellulitis of left lower limb; L03.115 Cellulitis of right lower limb; Z99.81 Dependence on supplemental oxygen; I48.0 Paroxysmal atrial fibrillation; Z79.01 Long term (current) use of anticoagulants; Z87.01 Personal history of pneumonia (recurrent); Z95.5 Presence of coronary angioplasty implant and graft; E66.9 Obesity, unspecified; J44.9 Chronic obstructive pulmonary disease, unspecified; I25.10 Atherosclerotic heart disease of native coronary artery without angina pectoris; I11.0 Hypertensive heart disease with heart failure; D50.9 Iron deficiency anemia, unspecified; E53.8 Deficiency of other specified B group vitamins; F32.9 Major depressive disorder, single episode, unspecified; F17.210 Nicotine dependence, cigarettes, uncomplicated; I87.2 Venous insufficiency (chronic) (peripheral); E78.00 Pure hypercholesterolemia, unspecified